=== PATIENT | female | born 1950 | race Caucasian/White ===

== ENCOUNTER → 2016-07-25 | Outpatient (CLI) | payer OTHER ==
[~2016-07-25] MED LIST: CHOL100010 PO; CLOTCRE33 TOP; FLAX1CAP11 PO; LACT10CA3 PO; LISI-729 PO; MULT-506 PO; SERT50TA PO; [UNRECOGNIZED DRUG - CODE] PO
--- NOTE | 2016-07-26 08:42 | DIAGNOSTIC IMAGING REPORT ---
PET/CT CLINICAL HISTORY: Renal cell carcinoma. TECHNIQUE: A PET/CT was performed from the skull base through the upper thighs following intravenous injection of 12.3 mCi of F 18 FDG IV. The injection was performed at 9:49 AM on July 25, 2016 and imaging began at 11:12 AM on July 25, 2016. Unenhanced CT was performed for attenuation correction purposes and anatomic localization. COMPARISON STUDY: PET/CT February 08, 2016. FINDINGS: Head and neck: No suspicious FDG uptake is identified within the neck. There is no cervical lymphadenopathy. Chest: No thoracic lymphadenopathy is identified. No suspicious FDG uptake is identified within the chest. Postsurgical findings within the right lung are noted suggestive of multiple wedge resections. The previously described small right lung nodules are not definitively identified on this examination. No new nodules are present. Abdomen and Pelvis: No suspicious FDG uptake is identified within the abdomen or the pelvis. The appearance of the left nephrectomy bed is unchanged. No enlarged abdominal or pelvic lymph nodes are identified. No significant FDG uptake is identified within the vagina at site of abnormality shown on MRI of October 14, 2015. Musculoskeletal: A right shoulder arthroplasty is noted. Evaluation for residual mass is difficult given streak artifact from the arthroplasty however mass effect at the site of biopsied tumor has diminished since prior PET/CT of February 02. There is diffuse moderate uptake within the right upper extremity with an SUV max of 3.5. The extent of FDG uptake has increased while the degree of FDG uptake has diminished. IMPRESSION: 1. No evidence for progressive malignancy by PET/CT. 2. Moderate diffuse FDG uptake within the upper arm. The extent of FDG uptake has increased since prior exam while the degree of FDG uptake has diminished. The biopsy proven recurrence is difficult to evaluate on the CT given streak artifact although the mass has decreased in size. The findings suggest a treatment response. The diffuse FDG uptake is likely treatment related although attention to this site on subsequent PET/CT is recommended as residual tumor could be obscured on this study. 3. The previously described right lung nodules are less conspicuous on this exam. No new nodules identified. Electronically signed by: David Pryor M.D. 07/26/2016 8:40 AM Dictated Date/Time: 07/25/2016 12:28 PM
== END | disposition home or self-care (01) ==
LOC: C.PET 09:05
PROVIDERS: ATTEND Internal Medicine Hematology & Oncology
DX: C64.9 Malignant neoplasm of unspecified kidney, except renal pelvis (principal)

== ENCOUNTER → 2016-08-30 | Outpatient (CLI) | payer OTHER | END | disposition home or self-care (01) | LOC: C.LABSPEC 11:06 | PROVIDERS: ATTEND Family Medicine | DX: E03.9 Hypothyroidism, unspecified (principal); C64.9 Malignant neoplasm of unspecified kidney, except renal pelvis; D64.9 Anemia, unspecified; Z79.899 Other long term (current) drug therapy ==

== ENCOUNTER → 2016-08-31 | Outpatient (CLI) | payer OTHER ==
[2016-09-06 14:50] LABS: CRYPTOSPORIDIUM AG TC 37213 NOT DETECTED (NOT DETECTED); O&P SOURCE OTHER-STOOL
== END | disposition home or self-care (01) ==
LOC: C.LABSPEC 15:42
PROVIDERS: ATTEND Family Medicine
DX: R19.7 Diarrhea, unspecified (principal)

== ENCOUNTER → 2016-09-01 | Outpatient (CLI) | payer OTHER | END | disposition home or self-care (01) | LOC: C.LAB 12:10 | PROVIDERS: ATTEND Family Medicine | DX: R19.7 Diarrhea, unspecified (principal) ==

== ENCOUNTER → 2016-10-11 | Outpatient (CLI) | payer OTHER ==
[2016-10-11 14:46] LABS: CHOLESTEROL/HDL RATIO 3.8
--- NOTE | 2016-10-18 13:19 | CODING QUERY MEDICAL NECESSITY ---
SUPPORTING DIAGNOSIS NEEDED A supporting diagnosis is required for the test/procedure performed on this patient in order for us to be reimbursed by the patient's insurance. Please provide a supporting diagnosis for the following test/procedure listed below next to the test name along with your signature. *If there is no additional diagnosis for this patient that would support the following test/procedure please document that below next to the test/procedure. Test(s)/Procedure(s) that require a supporting diagnosis: * VITAMIN D 25-HYDROXY DIAGNOSIS: * DOS: 10/11/16 Provider Signature: Date: Thank you Mehnaz Lantigua Health Information Management Once completed, please kindly fax back to [phone] For questions please call [phone]
== END | disposition home or self-care (01) ==
LOC: C.LABSPEC 12:11
PROVIDERS: ATTEND Family Medicine
DX: E03.9 Hypothyroidism, unspecified (principal); I10 Essential (primary) hypertension; C64.9 Malignant neoplasm of unspecified kidney, except renal pelvis; M85.80 Other specified disorders of bone density and structure, unspecified site; D64.9 Anemia, unspecified; Z79.899 Other long term (current) drug therapy

== ENCOUNTER → 2016-11-16 | Outpatient (CLI) | payer OTHER ==
--- NOTE | 2016-11-16 11:59 | DIAGNOSTIC IMAGING REPORT ---
PET/CT SKULL-THIGH CLINICAL HISTORY: Renal cell carcinoma COMPARISON STUDY: 07/25/2016 FINDINGS: The patient was injected with 15.4 mCi of F 18 labeled FDG. Findings standard induction phase, PET/CT scanning was performed from the skull base the upper thigh region. There is a nonspecific focus of increased FDG activity which fuses to the region of the right cervical carotid/lateral margin of the right thyroid at the C7 level. No masses identified at this level. This finding is of uncertain significance. Activity within the thorax is felt to be physiologic. There is no pathologic adrenal gland activity. There is no pathologic hepatic activity. There is diffuse colonic activity. There is physiologic right renal activity. The left kidney is absent. There is no pathologic bryan activity within the abdomen or pelvis. Postsurgical changes involve the right shoulder. There is mild diffuse soft tissue uptake within the right upper arm. This may be treatment related. This remains unchanged from the prior study. IMPRESSION: 1. New small unexplained focus of increased FDG activity within the lower right neck, fusing to the carotid or lateral aspect of the right thyroid. There are no corresponding CT abnormalities 2. Stable postsurgical change and soft tissue uptake within the right upper arm. 3. No evidence of pathologic bryan uptake within the chest abdomen or pelvis 4. Surgically absent left kidney 5. Postsurgical changes in the right lung. No evidence of pathologic lung activity Electronically signed by: Mickey Boyce M.D. 11/16/2016 11:57 AM Dictated Date/Time: 11/16/2016 11:46 AM
== END | disposition home or self-care (01) ==
LOC: C.PET 08:56
PROVIDERS: ATTEND Internal Medicine Hematology & Oncology
DX: C64.9 Malignant neoplasm of unspecified kidney, except renal pelvis (principal)

== ENCOUNTER → 2017-02-21 | Outpatient (CLI) | payer OTHER | END | disposition home or self-care (01) | LOC: C.LAB 16:44 | PROVIDERS: ATTEND Family Medicine | DX: E55.9 Vitamin D deficiency, unspecified (principal); C64.9 Malignant neoplasm of unspecified kidney, except renal pelvis; D64.9 Anemia, unspecified; Z79.899 Other long term (current) drug therapy ==

== ENCOUNTER → 2017-07-31 | Outpatient (CLI) | payer OTHER | END | disposition home or self-care (01) | LOC: C.LABSPEC 11:54 | PROVIDERS: ATTEND Family Medicine | DX: E03.9 Hypothyroidism, unspecified (principal); E55.9 Vitamin D deficiency, unspecified ==

== ENCOUNTER → 2017-09-06 | Outpatient (CLI) | payer OTHER ==
--- NOTE | 2017-09-06 14:16 | DIAGNOSTIC IMAGING REPORT ---
LEFT HIP 2 VIEWS CLINICAL HISTORY: Left hip pain. FINDINGS: AP and frog-leg views of the left hip are correlated with skeletal survey dated 04/18/2014. The skeletal structures are osteopenic. No fracture is identified in the left hip or the visualized left hemipelvis. Mild arthritic change and joint space narrowing is seen in the left hip. Bony overgrowth is seen along the acetabular roof. Enthesophytes arise from the left anterior superior iliac spine and the greater trochanter of the left femur. The overlying soft tissues are within normal limits. Mild sclerotic degenerative change is noted in the left sacroiliac joint. Surgical clips project over the left pelvis. The overlying soft tissues are otherwise normal in appearance. IMPRESSION: Osteopenia and mild arthritic change as above. No acute bony abnormality is identified in the left hip. Electronically signed by: Ti Michaels M.D. 09/06/2017 2:15 PM Dictated Date/Time: 09/06/2017 2:14 PM
== END | disposition home or self-care (01) ==
LOC: C.RADBC 13:23
PROVIDERS: ATTEND Family Medicine
DX: M25.552 Pain in left hip (principal); M85.88 Other specified disorders of bone density and structure, other site

== ENCOUNTER → 2017-11-07 | Outpatient (CLI) | payer OTHER ==
[~2017-11-07] MED LIST changes: +OPTIRAY 320 IV PRN
--- NOTE | 2017-11-07 12:17 | DIAGNOSTIC IMAGING REPORT ---
ABD/PELVIS IV AND ORAL CONT CT DOSE: HISTORY: Renal cell carcinoma RENAL CA TECHNIQUE: Multiaxial CT images of the abdomen and pelvis were performed following the use of intravenous and oral contrast. A dose lowering technique was utilized adhering to the principles of ALARA. COMPARISON STUDY: 05/25/2015 FINDINGS: No basilar nodular densities are identified on the current study. There appear to be postoperative changes of the right base. Lung bases specifically are clear. Liver enhances uniformly. There is mild fatty infiltration. There has been a prior left nephrectomy. Right kidney enhances uniformly. The bowel pattern is nonobstructive. There is no significant abdominal pelvic or inguinal adenopathy. Mild degenerative changes of the osseous structures with no well-defined lytic or blastic process. IMPRESSION: 1. Interval resection and/or resolution of the right basilar pulmonary nodularity. Area of 2. Mild fatty infiltration of liver. 3. Otherwise negative study post left nephrectomy. The above report was generated using voice recognition software. It may contain grammatical, syntax or spelling errors. Electronically signed by: Aroldo Iqbal M.D. 11/07/2017 12:16 PM Dictated Date/Time: 11/07/2017 12:10 PM
--- NOTE | 2017-11-07 12:33 | DIAGNOSTIC IMAGING REPORT ---
CT OF THE CHEST WITH IV CONTRAST CLINICAL HISTORY: Renal cell carcinoma. COMPARISON STUDY: Chest CT September 10, 2015 and PET/CT May 17, 2017. TECHNIQUE: Following IV administration of 70 mL of Optiray-320, helical axial images of the chest were obtained. Sagittal and coronal reconstructions were viewed as well as maximal intensity projections on an independent 3-D workstation. A dose lowering technique was utilized adhering to the principles of ALARA. CT DOSE: 683.15 mGy.cm FINDINGS: No enlarged axillary, mediastinal or hilar lymph nodes are present. Right shoulder arthroplasty is noted. The size of the heart is normal. There is no pericardial effusion. A small hiatal hernia is noted. No consolidation is present. A calcified granuloma within the left lower lobe is noted. The patient is status post right lung wedge resections. There are no suspicious pulmonary nodules. The bony thorax is unremarkable. The abdomen and pelvis will be reported separately. The patient is status post left nephrectomy. There is an old, healed fracture of the distal left clavicle. IMPRESSION: No evidence of metastatic disease within the chest. Electronically signed by: David Pryor M.D. 11/07/2017 12:31 PM Dictated Date/Time: 11/07/2017 12:23 PM
== END | disposition home or self-care (01) ==
LOC: C.CTS 11:14
PROVIDERS: ATTEND Internal Medicine Hematology & Oncology
DX: C64.9 Malignant neoplasm of unspecified kidney, except renal pelvis (principal)

== ENCOUNTER → 2017-11-07 | Outpatient (CLI) | payer OTHER ==
[~2017-11-07] MED LIST changes: -OPTIRAY 320 IV PRN
== END | disposition home or self-care (01) ==
LOC: C.LAB 10:33
PROVIDERS: ATTEND Family Medicine
DX: E03.9 Hypothyroidism, unspecified (principal); E55.9 Vitamin D deficiency, unspecified

== ENCOUNTER → 2018-02-23 | Outpatient (CLI) | payer OTHER | END | disposition home or self-care (01) | LOC: C.LABSPEC 15:46 | PROVIDERS: ATTEND Obstetrics & Gynecology | DX: N95.2 Postmenopausal atrophic vaginitis (principal) ==

== ENCOUNTER → 2018-03-08 | Outpatient (CLI) | payer OTHER ==
[~2018-03-08] MED LIST changes: +OPTIRAY 320 IV PRN
--- NOTE | 2018-03-08 15:18 | DIAGNOSTIC IMAGING REPORT ---
ABD/PELVIS IV AND ORAL CONT CLINICAL HISTORY: 67 years-old Female presenting with CT. TECHNIQUE: Multidetector CT of the abdomen and pelvis was performed after the administration of oral and intravenous contrast. IV contrast: 70 mL of Optiray 320. A dose lowering technique was used consistent with the principles of ALARA (as low as reasonably achievable). COMPARISON: 11/07/2017. CT DOSE (mGy.cm): The estimated cumulative dose is 660.22. FINDINGS: Bull Bucker topogram: Right shoulder arthroplasty. Left pelvic surgical clips. Lung bases: Postsurgical changes of wedge resections in the right middle lobe and right lower lobe. Normal heart size. No pericardial or pleural effusion. Liver: Normal morphology. No liver lesion. Patent hepatic vasculature. Biliary: No intrahepatic or extrahepatic biliary ductal dilatation. Normal gallbladder. Pancreas: Normal. Spleen: Normal. Adrenal glands: Normal. Kidneys and ureters: Postsurgical changes of left nephrectomy. No suspicious soft tissue nodularity in the operative bed. Normal appearance of the right kidney. No nephrolithiasis. No hydronephrosis. Normal right ureter. Bladder: Normal. Pelvic organs: Uterus and ovaries normal. Bowel: Moderate stool burden in mildly distended colon. Limited diverticulosis at the distal descending colon. The appendix is normal. No bowel obstruction. Peritoneal cavity: No free fluid or intraperitoneal gas. Lymph nodes: No enlarged lymph nodes in the abdomen or pelvis. Vasculature: Atherosclerosis of the normal caliber abdominal aorta. IVC patent. Abdominal wall: Normal. Musculoskeletal: Degenerative changes of the spine. No destructive osseous lesion. Mild degenerative changes of the hips and sacroiliac joints. Numerous bone islands in the pelvis, unchanged. The appearance may suggest mild osteopoikilosis. IMPRESSION: 1. Postsurgical changes of left nephrectomy. No evidence of residual or recurrent disease in the operative bed. No evidence of metastatic disease in abdomen or pelvis. 2. Moderate stool burden throughout mildly distended colon suggests constipation. 3. Postsurgical changes of wedge resections in the right lung. Please see separately dictated CT chest. Electronically signed by: Sujit Clark M.D. 03/08/2018 3:17 PM Dictated Date/Time: 03/08/2018 3:09 PM
--- NOTE | 2018-03-08 15:28 | DIAGNOSTIC IMAGING REPORT ---
CT (CHEST) THORAX WITH CLINICAL HISTORY: 67 years-old Female presenting with history of renal cell carcinoma. TECHNIQUE: Multidetector CT imaging of the chest was performed after the administration of intravenous contrast. IV contrast: 70 mL of Optiray 320. A dose lowering technique was used consistent with the principles of ALARA (as low as reasonably achievable). COMPARISON: 11/07/2017. CT DOSE (mGy.cm): The estimated cumulative dose is 660.22 mGy.cm. FINDINGS: Beauty School Instructor topogram: Right shoulder arthroplasty. On soft tissue windows, normal thyroid and thoracic inlet. No axillary, supraclavicular, hilar, or mediastinal lymphadenopathy. Normal aorta. Normal heart size. Aortic valve calcification. No pericardial or pleural effusion. Upper abdomen normal. On lung windows, postsurgical changes of wedge resections in the medial segment of the right middle lobe and lateral basal segment of the right lower lobe. No suspicious nodularity or consolidation along the suture margins. Associated architectural distortion, expected postsurgical change. Punctate right upper lobe nodules (series 6 images 91, 105, and 172), unchanged. Punctate right lower lobe nodule (series 6 image 176), unchanged. No new pulmonary nodule or infiltrate. Central airways patent. No pneumothorax. On bone windows, degenerative changes of the spine. Right shoulder arthroplasty. No destructive osseous lesion. IMPRESSION: 1. Postsurgical changes of right lung wedge resections. No new pulmonary nodule. Stable small punctate bilateral pulmonary nodules. No acute intrathoracic pathology. Electronically signed by: Sujit Clark M.D. 03/08/2018 3:27 PM Dictated Date/Time: 03/08/2018 3:18 PM
== END | disposition home or self-care (01) ==
LOC: C.CTS 14:03
PROVIDERS: ATTEND Nurse Practitioner Family
DX: C64.9 Malignant neoplasm of unspecified kidney, except renal pelvis (principal)

== ENCOUNTER 2018-12-11 18:48 | Inpatient (IN) ==
[2018-12-11] MEDS ORDERED: MoRPHine SULFATE 4 MG/ML 1 ML CARP\\VIAL IV PRN (19:00)
[2018-12-11] MEDS ORDERED: SODIUM CHLORIDE 0.9% 1000ML 1,000 ML IV SCH (19:00)
--- NOTE | 2018-12-11 19:22 | XRay Report ---
Spine portable AP chest radiograph CLINICAL HISTORY: trauma COMPARISON STUDY: Chest CT October 29, 2018. FINDINGS: There is no pneumothorax or pleural effusion on this supine exam. Postoperative findings wi thin the right lung are noted. Cardiomediastinal silhouette is stable. No airspace opacities are pres ent. Right shoulder arthroplasty is noted. Alignment appears unchanged. IMPRESSION: No acute cardiopulmonary findings. Electronically signed by: David Pryor M.D. 12/11/2018 7:21 PM
--- NOTE | 2018-12-11 19:24 | XRay Report ---
XR hip RT 2-3V w pelvis CLINICAL HISTORY: trauma, pain COMPARISON: CT of the abdomen and pelvis October 29, 2018. FINDINGS: Sacroiliac joints and symphysis pubis are intact. There is no acute proximal left femoral fracture. Note is made of an acute impacted right femoral neck fracture. Fracture displacement is dif ficult to assess on this exam however fracture is likely mildly displaced. No additional acute fractu res are present. IMPRESSION: Acute impacted right femoral neck fracture which is likely mildly displaced. Electronically signed by: David Pryor M.D. 12/11/2018 7:23 PM
[2018-12-11 19:38] LABS: Basophils # (auto) 0.05 K/uL (0-0.2); Basophils % (auto) 0.4 %; Eosinophils # (auto) 0.31 K/uL (0-0.5); Eosinophils % (auto) 2.8 %; Hematocrit (blood only) 42.2 % (37-47); Hemoglobin 15.2 g/dL (12.0-16.0); Immature Granulocytes # (auto) 0.08 K/uL (0.00-0.02); Immature Granulocytes % (auto) 0.7 %; Lymphocytes # (auto) 1.76 K/uL (1.2-3.4); Lymphocytes % (auto) 15.7 %; Mean Platelet Volume 9.5 fL (7.4-10.4); Monocytes # (auto) 0.69 K/uL (0.11-0.59); Monocytes % (auto) 6.2 %; Neutrophils % (auto) 74.2 %; Platelet Count 335 K/uL (130-400); RDW Coefficient of Variation 13.7 % (11.5-14.5); RDW Standard Deviation 46.7 fL (36.4-46.3); Red Blood Count 4.54 M/uL (4.2-5.4); White Blood Count 11.19 K/uL (4.8-10.8)
[2018-12-11 19:50] LABS: INR 1.1 (0.9-1.1); Partial Thromboplastin Ratio 0.9; Partial Thromboplastin Time 24.8 Seconds (21.0-31.0); Prothrombin Time 11.4 Seconds (9.0-12.0)
[2018-12-11 19:52] LABS: BUN Creatinine Ratio 13.7 (10-20); Calcium 9.7 mg/dl (8.5-10.1); Creatinine Clr Calc Pharmacy 41.8 ml/min; Est GFR (African American) 47.7; Est GFR (Non-African American) 41.1
[2018-12-11 20:30] LABS: Appearance Urine Clear (Clear); Bacteria Urine Automated Negative (Negative); Bilirubin Urine Negative (Negative); Blood Urine Negative (Negative); Color Urine Yellow; Epithelial Cell Urine Auto 20-30 /lpf (0-5); Glucose Urine UA Negative (Negative); Ketones Urine Negative (Negative); Leukocyte Esterase Urine 1+ (Negative); Nitrite Urine Negative (Negative); Protein Urine Negative (Negative); RBC Urine Automated 0-4 /hpf (0-4); Specific Gravity Urine 1.014 (1.000-1.030); Urobilinogen Urine Negative (Negative); pH Urine 6.5 (4.5-7.5)
--- NOTE | 2018-12-11 22:34 | History & Physical Report ---
Date of Service December 11, 2018 Assessment & Plan (1) Closed fracture of neck of right femur: 68-year-old female with a past medical history of hypertension, hypothyroidism, GERD, depression, renal cell carcinoma presents following a mechanical fall and was found to have a right hip fracture. Right hip fracture RCRI score is 3.9%, low risk for surgery, no contraindication based on chart review patient history Patient has good functional capacity at baseline, no significant history of ischemic heart disease Ortho consult Pain control Dilaudid 0.25 every 3 hours N.p.o, normal saline 80 cc/h History of renal cell carcinoma with bone metastasis Remission, kidney resection 2011, right shoulder replacement 2013 Continue Inlyta following procedure Hypertension Restart amlodipine and lisinopril following surgery PRN hydralazine for systolic blood pressure greater than 170 Hypothyroidism Restart Synthroid following surgery Status post cataract surgery Continue home eyedrops Depression Continue Wellbutrin, Trintellix following procedure DVT prophylaxis Contraindicated at this time CODE STATUS Full code (2) Fall: (3) Encounter for pre-operative examination: (4) Renal carcinoma: (5) HTN (hypertension): (6) Hypothyroid: (7) GERD (gastroesophageal reflux disease): (8) Depression: History of Present Illness Primary Care Provider: Flakito Kiran 68-year-old female with past medical history of hypertension, hypothyroidism, GERD, depression, renal cell carcinoma with bone mets status post nephrectomy 2011, right shoulder replacement 2013 presents following a mechanical fall at home. Patient was found to have a right hip fracture in the ED. The patient states that she simply lost her balance and tripped. She denies having any dizziness or loss of consciousness prior to falling. Patient has a history of renal cell carcinoma which she says is in remission. She is currently on Inlyta for to the renal cell carcinoma and the patient has follow-up with an orthopedic oncologist and [facility] oncology. Patient has hypertension, but is well controlled and denies history of ischemic heart disease. She denies history of diabetes, congestive heart failure, chronic kidney disease. Review of systems Constitutional; no fevers, chills, night sweats HEENT; no sore throat, no runny nose, no cough CV; no chest pain, no lower extremity swelling, no palpitations Pulmonary; no wheezing, no hemoptysis, no shortness of breath GI; no abdominal pain, no nausea/vomiting/diarrhea MSK; right hip pain Allergies Allergy/AdvReac Type Severity Reaction Status Date / Time nickel Allergy Severe ITCHING Verified 12/12/18 10:44 AND SORENESS OF GLANDS adhesive Allergy Intermediate REDNESS Verified 12/12/18 10:44 AND VERY ITCHY Penicillins Allergy Unknown RASH Verified 12/12/18 10:44 Sulfa (Sulfonamide Allergy Unknown VAGINAL Verified 12/12/18 10:44 Antibiotics) IRRITATION Home Medications Home Medications Medication Instructions Recorded Confirmed Type Kym Carrington 1 tab PO 3XWK 11/28/18 12/11/18 History Trintellix 10 mg PO 1900 11/28/18 12/11/18 History amlodipine [Norvasc] 10 mg PO QAM 11/28/18 12/11/18 History bupropion HCl [Wellbutrin XL] 300 mg PO QAM 11/28/18 12/11/18 History cholecalciferol (vitamin D3) 4,000 unit PO QAM 11/28/18 12/11/18 History [Vitamin D3] docusate sodium [Stool Softener] 100 mg PO DAILY 11/28/18 12/11/18 History flaxseed oil 1,000 mg PO DAILY 11/28/18 12/11/18 History levothyroxine [Synthroid] 75 mcg PO QAM 11/28/18 12/11/18 History lisinopril 5 mg PO QAM 11/28/18 12/11/18 History multivitamin 1 tab PO 1200 11/28/18 12/11/18 History ranitidine HCl [Zantac] 150 mg PO QAM 11/28/18 12/11/18 History axitinib [Inlyta] 1 mg PO BID 12/11/18 12/11/18 History difluprednate [Durezol] 1 drops OP QID 12/11/18 12/11/18 History tobramycin 1 drops OP QID 12/11/18 12/11/18 History Past Med/Surg History Medical History Anxiety Cancer RENAL CELL CANCER IN LEFT KIDNEY METS TO RIGHT SHOULDER Depression GERD (gastroesophageal reflux disease) Hypertension Hypothyroidism Surgical History S/P cataract extraction History of bilateral tubal ligation History of nephrectomy LEFT History of total shoulder replacement RIGHT Family History Mother Family history of diabetes mellitus Father Family history of diabetes mellitus Social History Preferred Language: Upper Sorbian Communication Ability: Effective Assembler Crimper Required: No Beliefs That Will Affect Care: None Current Living Situation: Spouse Other Information That Helps Us Care for You: No Feels Safe at Home: Yes Safety Concerns: Feels Safe At This Time Smoking Status: Former smoker (Quit 35 years) Tobacco Type: cigarettes Do You Dip or Chew Tobacco: No Second Hand Exposure: No Hx Alcohol Use: Yes Alcohol type: wine Hx Substance Use: No Review of Systems Review of Systems: All systems reviewed & are unremarkable except as noted in HPI & below Physical Exam Constitutional: WD/WN, vitals as above Eyes: PERRL, conjunctivae normal, anicteric sclerae ENMT: external ear and nose normal, oropharynx normal Neck: trachea midline, no thyromegaly Respiratory: normal respiratory effort, lungs clear to auscultation Cardiovascular: RRR, no murmur, no edema Gastrointestinal (Abdomen): normal bowel sounds, soft, nontender, no hepatosplenomegaly Musculoskeletal: Head/Neck/Chest: normocephalic and head atraumatic Right lower extremity is internally rotated, no erythema or ecchymosis noted on right hip, deferred range of motion testing secondary to pain Skin: no rashes, warm and dry Neurologic: PERRL, EOMI, accommodation nl, no face palsy, no dysarthria Psychiatric: A+Ox3, euthymic affect Results & Data Vital Signs (Past 12 Hours) Vital Signs Temp Pulse Pulse Resp BP BP Pulse Ox 12/11/18 22:01 82 19 117/63 93 12/11/18 22:00 81 17 96 12/11/18 21:31 82 18 118/66 12/11/18 21:25 81 20 113/69 93 12/11/18 21:01 82 21 113/69 94 12/11/18 21:00 81 15 117/63 96 12/11/18 20:31 80 21 112/66 94 12/11/18 20:01 86 20 138/82 12/11/18 20:00 80 21 12/11/18 19:45 84 15 12/11/18 19:37 98 12/11/18 19:31 80 12 137/77 12/11/18 19:00 36.7 C 85 18 115/76 96 Diagnostic Findings XRay Report Patient: WILLIAM SHAHID Date: 12/11/18 MR#: [id number]: [address] Acct ID:[id number]: [address] Date: 1950[facility] Zip: [place] [address] Age: 68Location: ED Sex: F Room/Bed: Att Phy: Diagnosis: FALL, HIP PAIN Joyce Phy: Flakito Kiran, DOService Date: 12/11/18 Fam Phy: Interpreting Phy: David Pryor MD Admit Phy: Ordering Phy: Shannan Bunch, DO cc: ~ Spine portable AP chest radiograph CLINICAL HISTORY: trauma COMPARISON STUDY: Chest CT October 29, 2018. FINDINGS: There is no pneumothorax or pleural effusion on this supine exam. Postoperative findings within the right lung are noted. Cardiomediastinal silhouette is stable. No airspace opacities are present. Right shoulder arthroplasty is noted. Alignment appears unchanged. IMPRESSION: No acute cardiopulmonary findings. Electronically signed by: David Pryor M.D. 12/11/2018 7:21 PM Dictated: 12/11/181917 Transcribed: 12/11/181917 [place] [phone] XRay Report Patient: WILLIAM SHAHID Date: 12/11/18 MR#: [id number] Acct ID:[id number]: [facility] Date: 1950[facility] Zip: [place] [address] Age: 68Location: ED Sex: F Room/Bed: Att Phy: Diagnosis: FALL, HIP PAIN Joyce Phy: Flakito Kiran, DOService Date: 12/11/18 Fam Phy: Interpreting Phy: David Pryor MD Admit Phy: Ordering Phy: Shannan Bunch, DO cc: ~ XR hip RT 2-3V w pelvis CLINICAL HISTORY: trauma, pain COMPARISON: CT of the abdomen and pelvis October 29, 2018. FINDINGS: Sacroiliac joints and symphysis pubis are intact. There is no acute proximal left femoral fracture. Note is made of an acute impacted right femoral neck fracture. Fracture displacement is difficult to assess on this exam however fracture is likely mildly displaced. No additional acute fractures are present. IMPRESSION: Acute impacted right femoral neck fracture which is likely mildly displaced. Electronically signed by: David Pryor M.D. 12/11/2018 7:23 PM Dictated: 12/11/181920 Transcribed: 12/11/181920 Code Status & VTE Plan Code Status Full code VTE Prophylaxis Plan VTE Prophylaxis will be ordered: No Supervising Physician Co-Signing Physician Notes Attending addendum: I have physically seen this patient, have supervised the medical residents activities, and agree with the H&P unless as otherwise noted. Assessment and Plan: Closed right femoral neck fracture- Admit to medical surgical floor. NPO Acetaminophen 1 g IV every 8 hours PRN mild pain or temperature. Dilaudid 0.2 mg IV every 3 hours as needed severe pain. NSS at 80 mils per hour. Consult orthopedic surgery. Acceptable risk for this surgery. Remainder of orders and notations as noted. Resident Activity Tracking Resident Involvement: Resident Care Provided Care Provided: Adult Hospital Medicine (1) Fall Encounter type: initial encounter Qualified Code(s): W19.XXXA - Unspecified fall, initial encounter (2) Closed fracture of neck of right femur Encounter type: initial encounter Qualified Code(s): S72.001A - Fracture of unspecified part of neck of right femur, initial encounter for closed fracture
[2018-12-11] MEDS: SODIUM CHLORIDE 0.9% 1000ML 1,000 ML IV SCH (22:51)
[2018-12-11] MEDS: HYDROmorphone INJ 0.5 MG/0.5 ML SYR IV PRN (22:51)
[2018-12-12 07:01] LABS: Basophils # (auto) 0.04 K/uL (0-0.2); Basophils % (auto) 0.3 %; Eosinophils # (auto) 0.33 K/uL (0-0.5); Eosinophils % (auto) 2.4 %; Hematocrit (blood only) 40.6 % (37-47); Hemoglobin 13.9 g/dL (12.0-16.0); Immature Granulocytes # (auto) 0.03 K/uL (0.00-0.02); Immature Granulocytes % (auto) 0.2 %; Lymphocytes # (auto) 1.06 K/uL (1.2-3.4); Lymphocytes % (auto) 7.8 %; Mean Corpuscular Hgb Conc 34.2 g/dL (32-36); Mean Corpuscular Volume 95.8 fL (80-100); Mean Platelet Volume 9.7 fL (7.4-10.4); Monocytes # (auto) 0.95 K/uL (0.11-0.59); Neutrophils # (auto) 11.25 K/uL (1.4-6.5); Neutrophils % (auto) 82.3 %; Platelet Count 269 K/uL (130-400); RDW Coefficient of Variation 13.9 % (11.5-14.5); RDW Standard Deviation 48.6 fL (36.4-46.3); Red Blood Count 4.24 M/uL (4.2-5.4); White Blood Count 13.66 K/uL (4.8-10.8)
[2018-12-12 07:14] LABS: INR 1.1 (0.9-1.1); Partial Thromboplastin Ratio 0.9; Partial Thromboplastin Time 25.4 Seconds (21.0-31.0); Prothrombin Time 11.5 Seconds (9.0-12.0)
--- NOTE | 2018-12-12 07:29 | XRay Report ---
XR hip RT 2-3V w pelvis CLINICAL HISTORY: Right hip pain. Right hip fracture. COMPARISON: 12/11/2018 DISCUSSION: There is a subcapital right hip fracture. There is no dislocation. The crosstable lateral view is suboptimal. Only minimal displacement is evident on this projection. Degenerative changes ar e present in the lower lumbar spine. IMPRESSION: Subcapital right hip fracture. Electronically signed by: Mickey Boyce M.D. 12/12/2018 7:28 AM
[2018-12-12 07:32] LABS: Calcium 8.6 mg/dl (8.5-10.1); Creatinine Clr Calc Pharmacy 53.6 ml/min; Est GFR (African American) 64.5; Est GFR (Non-African American) 55.7; Potassium 4.1 mmol/L (3.5-5.1)
[2018-12-12] MEDS ORDERED: DUREZOL~ORDER AWAITING ACTION SCH (08:00)
--- NOTE | 2018-12-12 08:09 | Hospitalist Progress Note ---
Date of Service December 12, 2018 Assessment & Plan (1) Closed fracture of neck of right femur: 68-year-old female with a past medical history of hypertension, hypothyroidism, GERD, depression, renal cell carcinoma presents following a mechanical fall and was found to have a right hip fracture. Right hip fracture RCRI score is 3.9%, low risk for surgery, no contraindication based on chart review patient history Patient has good functional capacity at baseline, no significant history of ischemic heart disease Ortho consult Pain control Dilaudid 0.25 every 3 hours N.p.o, normal saline 80 cc/h History of renal cell carcinoma with bone metastasis Remission, kidney resection 2011, right shoulder replacement 2013 Continue Inlyta following procedure Hypertension Restart amlodipine and lisinopril following surgery PRN hydralazine for systolic blood pressure greater than 170 Hypothyroidism Restart Synthroid following surgery Status post cataract surgery Continue home eyedrops Depression Continue Wellbutrin, Trintellix following procedure DVT prophylaxis Contraindicated at this time CODE STATUS Full code (2) Fall: (3) Encounter for pre-operative examination: (4) Renal carcinoma: (5) HTN (hypertension): (6) Hypothyroid: (7) GERD (gastroesophageal reflux disease): (8) Depression: Results & Data Vital Signs (Past 12 Hours) Vital Signs Temp Pulse Pulse Pulse Resp BP BP 12/12/18 08:05 36.8 C 80 18 136/80 12/11/18 22:38 36.6 C 80 18 129/69 12/11/18 22:01 82 19 117/63 12/11/18 22:00 81 17 12/11/18 21:31 82 18 118/66 12/11/18 21:25 81 20 113/69 12/11/18 21:01 82 21 113/69 12/11/18 21:00 81 15 117/63 12/11/18 20:31 80 21 112/66 Pulse Ox 12/12/18 08:05 92 12/11/18 22:38 92 12/11/18 22:01 93 12/11/18 22:00 96 12/11/18 21:31 12/11/18 21:25 93 12/11/18 21:01 94 12/11/18 21:00 96 12/11/18 20:31 94 (1) Closed fracture of neck of right femur Encounter type: initial encounter Qualified Code(s): S72.001A - Fracture of unspecified part of neck of right femur, initial encounter for closed fracture (2) Fall Encounter type: initial encounter Qualified Code(s): W19.XXXA - Unspecified fall, initial encounter
[2018-12-12] MEDS: HYDROmorphone INJ 0.5 MG/0.5 ML SYR IV PRN ×2 (08:17→21:01)
[2018-12-12] MEDS ORDERED: TOBRAMYCIN SULF 0.3% OP SOLN 5 ML BTL OP SCH (09:00)
--- NOTE | 2018-12-12 10:13 | Anesthesiology Consultation ---
Date of Service December 12, 2018 Assessment & Plan Chart Review Chart Review: Acceptable Risk for Surgery and Patient NOT seen in Pre Admission Testing Consults Requested none ASA ASA3 Proposed Anesthesia Anesthesia Type: MAC Spinal Risk / Benefits Reviewed With: PT / POA / Parent / Guardian, Accepts Plan and Informed Consent Obtained Additional Comments: Discussed with pt options of SAB VS GA. R/b of both were explained to patient. All questions were answered. Pt accepting risk and agree to proceed. Consent was signed and witnessed History Surgery Operation Date: 12/12/18 10:55 Proposed Procedures p Right Total Hip Arthroplasty Uncemented - Cameron Tamez MD Height/Weight Height: 1.75 m Weight: 67 kg Allergies Allergy/AdvReac Type Severity Reaction Status Date / Time nickel Allergy Severe ITCHING Verified 12/12/18 10:44 AND SORENESS OF GLANDS adhesive Allergy Intermediate REDNESS Verified 12/12/18 10:44 AND VERY ITCHY Penicillins Allergy Unknown RASH Verified 12/12/18 10:44 Sulfa (Sulfonamide Allergy Unknown VAGINAL Verified 12/12/18 10:44 Antibiotics) IRRITATION Medications Home Medications Medication Instructions Recorded Confirmed Last Taken Kym Carrington 1 tab PO 3XWK 11/28/18 12/11/18 12/03/18 Trintellix 10 mg PO 1900 11/28/18 12/11/18 12/04/18 amlodipine [Norvasc] 10 mg PO QAM 11/28/18 12/11/18 12/11/18 08:00 bupropion HCl [Wellbutrin XL] 300 mg PO QAM 11/28/18 12/11/18 12/11/18 08:00 cholecalciferol (vitamin D3) 4,000 unit PO QAM 11/28/18 12/11/18 12/04/18 [Vitamin D3] docusate sodium [Stool Softener] 100 mg PO DAILY 11/28/18 12/11/18 12/04/18 flaxseed oil 1,000 mg PO DAILY 11/28/18 12/11/18 12/11/18 09:00 levothyroxine [Synthroid] 75 mcg PO QAM 11/28/18 12/11/18 12/11/18 07:00 lisinopril 5 mg PO QAM 11/28/18 12/11/18 12/11/18 08:00 multivitamin 1 tab PO 1200 11/28/18 12/11/18 12/04/18 ranitidine HCl [Zantac] 150 mg PO QAM 11/28/18 12/11/18 12/11/18 08:00 axitinib [Inlyta] 1 mg PO BID 12/11/18 12/11/18 12/11/18 08:00 difluprednate [Durezol] 1 drops OP QID 12/11/18 12/11/18 Unknown tobramycin 1 drops OP QID 12/11/18 12/11/18 12/11/18 16:00 Active Medications Generic Name Dose Route Start Last Admin Trade Name Freq PRN Reason Stop Dose Admin Hydromorphone HCl 0.25 mg 12/11/18 22:36 12/12/18 08:17 Dilaudid IV 12/25/18 22:35 0.25 mg Q3H PRN Administration Pain Sodium Chloride 1,000 mls @ 80 mls/hr 12/11/18 22:36 12/12/18 10:46 Nss 1000ml IV 01/10/19 22:35 0 mls/hr .[id number] JAY JAY Infusion Miscellaneous 1 ea 12/12/18 08:00 12/12/18 08:10 Order Awaiting Action N/A 01/11/19 07:59 Not Given QS JAY JAY Miscellaneous 1 ea 12/12/18 08:00 12/12/18 08:10 Order Awaiting Action N/A 01/11/19 07:59 Not Given QS JAY JAY NPO Date Last Intake of Fluids: 12/11/18 Time Last Intake of Fluids: 23:00 Date Last Intake of Solids: 12/11/18 Time Last Intake of Solids: 19:00 Past Medical History Medical History Anxiety Cancer RENAL CELL CANCER IN LEFT KIDNEY METS TO RIGHT SHOULDER Depression GERD (gastroesophageal reflux disease) Hypertension Hypothyroidism Exercise / Class Metabolic Activity II 4-5 Yardwork/Stairs/Walk up hill Past Family History Family History Mother Family history of diabetes mellitus Father Family history of diabetes mellitus Past Surgical History Surgical History S/P cataract extraction History of bilateral tubal ligation History of nephrectomy LEFT History of total shoulder replacement RIGHT Past Anesthesia History No Hx of Anesthesia Complications and No Family Hx of Anesthesia Complications History of PONV No Hx of PONV and No Hx of Motion Sickness Social History Smoking Status: Former smoker (Quit 35 years) tobacco type: cigarettes Do You Dip or Chew Tobacco: No Hx Alcohol Use: Yes Alcohol type: wine alcohol intake frequency: holidays/special occasions only Hx Substance Use: No substance use type: does not use Review of Systems Respiratory: no dyspnea and no dyspnea on exertion Cardiovascular: no chest pain, no dyspnea on exertion and no orthopnea Gastrointestinal: no heartburn, no nausea and no vomiting Physical Exam Vital Signs Last Vital Signs Temp 36.8 C 12/12/18 08:05 Pulse 80 12/12/18 08:05 Resp 18 12/12/18 08:05 BP 136/80 12/12/18 08:05 Pulse Ox 92 12/12/18 08:05 ENMT Mouth: + dental restorations (Upper partial); no TMJ abnormality and no TMJ clicking Thyromental Distance: < 3.5 Finger Breadths Mallampati Class: III Mouth / Teeth: 1. Missing Neck normal visual inspection; neck extension not limited Respiratory Auscultation: lungs clear to auscultation bilaterally Cardiovascular Rate/Rhythm: regular rate and regular rhythm Psychiatric Orientation: alert and oriented x 3 Testing Laboratory Results 12/12/18 06:32 12/12/18 06:32 12/11/18 12/11/18 12/11/18 19:20 19:20 20:05 PT 11.4 INR 1.1 APTT 24.8 Urine Color Yellow Urine Appearance Clear Urine pH 6.5 Ur Specific [place] 1.014 Urine Protein Negative Urine Glucose (UA) Negative Urine Ketones Negative Urine Nitrite Negative Ur Leukocyte Esterase 1+ H Urine WBC (Auto) 1-5 Urine RBC (Auto) 0-4 U Hyaline Cast (Auto) 1-5 U Epithel Cells (Auto) 20-30 H Urine Bacteria (Auto) Negative Blood Type O Positive Antibody Screen NEGATIVE 12/12/18 06:32 PT 11.5 INR 1.1 APTT 25.4 Urine Color Urine Appearance Urine pH Ur Specific [place] Urine Protein Urine Glucose (UA) Urine Ketones Urine Nitrite Ur Leukocyte Esterase Urine WBC (Auto) Urine RBC (Auto) U Hyaline Cast (Auto) U Epithel Cells (Auto) Urine Bacteria (Auto) Blood Type Antibody Screen Electrocardiogram Date: 12/11/18 Findings: + NSR @ (82 bpm) Normal sinus rhythm Rightward axis Borderline ECG When compared with ECG of 15-DEC-2015 13:45, Vent. rate has increased BY 31 BPM Chest X-Ray Date: 12/11/18 Findings: + NAD FINDINGS: There is no pneumothorax or pleural effusion on this supine exam. Postoperative findings within the right lung are noted. Cardiomediastinal silhouette is stable. No airspace opacities are present. Right shoulder arthroplasty is noted. Alignment appears unchanged. IMPRESSION: No acute cardiopulmonary findings. Echocardiogram Date: 11/05/15 EF: >70% LV Function: Hyperdynamic RWMA: + none Valvular Disease: + no significant valvular disease 1. Normal LV size with hyperdynamic systolic function 2. No significant valvular abnormalities 3. No significant pulmonary hypertension suggested, with estimated RVSP less than 30mmHg 4. Technically difficult study 5. No prior study available for comparison
--- NOTE | 2018-12-12 10:31 | Orthopedic Consultation ---
Date of Consultation December 12, 2018 Assessment & Plan (1) Closed fracture of neck of right femur: She was seen and examined by Dr. Tamez today as well. She is npo. We did recommend surgical fixation of this fracture and there is enough displacement that we did recommendTHA vs hemiarthroplasty. Procedure was explained inculding risks, benefits, alternatives to surgery. She would like to proceed and consent was obtained. We will plan on surgery today. History of Present Illness Reason for Consultation: Right hip pain/fx Attending Physician: Jacky Lopes MD History of Present Illness Renee is a 68 y/o female who had a fall yesterday and fractured her right hip. She is not able to recall how she fell. She denies any preexisting hip/leg pain. Previously ambulated independently. She does have a h/o metastatic renal cell carcinoma that did affect her right shoulder. She had a shoulder hemiarthroplasty in [place] with Dr. Beyer in 2013. Her complete history reviewed and refer to h & p. Allergies Allergy/AdvReac Type Severity Reaction Status Date / Time nickel Allergy Severe ITCHING Verified 12/11/18 19:57 AND SORENESS OF GLANDS adhesive Allergy Intermediate REDNESS Verified 12/11/18 19:57 AND VERY ITCHY Penicillins Allergy Unknown RASH Verified 12/11/18 19:57 Sulfa (Sulfonamide Allergy Unknown VAGINAL Verified 12/11/18 19:57 Antibiotics) IRRITATION Home Medications Home Medications Medication Instructions Recorded Confirmed Type Kym Carrington 1 tab PO 3XWK 11/28/18 12/11/18 History Trintellix 10 mg PO 1900 11/28/18 12/11/18 History amlodipine [Norvasc] 10 mg PO QAM 11/28/18 12/11/18 History bupropion HCl [Wellbutrin XL] 300 mg PO QAM 11/28/18 12/11/18 History cholecalciferol (vitamin D3) 4,000 unit PO QAM 11/28/18 12/11/18 History [Vitamin D3] docusate sodium [Stool Softener] 100 mg PO DAILY 11/28/18 12/11/18 History flaxseed oil 1,000 mg PO DAILY 11/28/18 12/11/18 History levothyroxine [Synthroid] 75 mcg PO QAM 11/28/18 12/11/18 History lisinopril 5 mg PO QAM 11/28/18 12/11/18 History multivitamin 1 tab PO 1200 11/28/18 12/11/18 History ranitidine HCl [Zantac] 150 mg PO QAM 11/28/18 12/11/18 History axitinib [Inlyta] 1 mg PO BID 12/11/18 12/11/18 History difluprednate [Durezol] 1 drops OP QID 12/11/18 12/11/18 History tobramycin 1 drops OP QID 12/11/18 12/11/18 History Patient History Medical History Anxiety Cancer RENAL CELL CANCER IN LEFT KIDNEY METS TO RIGHT SHOULDER Depression GERD (gastroesophageal reflux disease) Hypertension Hypothyroidism Surgical History S/P cataract extraction History of bilateral tubal ligation History of nephrectomy LEFT History of total shoulder replacement RIGHT Family History Mother Family history of diabetes mellitus Father Family history of diabetes mellitus Social History Preferred Language: [place] Communication Ability: Effective Landcare Officer Required: No Beliefs That Will Affect Care: None Current Living Situation: Spouse Other Information That Helps Us Care for You: No Feels Safe at Home: Yes Safety Concerns: Feels Safe At This Time Smoking Status: Never smoker Tobacco Type: cigarettes Second Hand Exposure: No Hx Alcohol Use: No Hx Substance Use: No Physical Exam Physical Exam: She is alert, oriented, though she does not recall how she fell. Right leg is externally rotated. She has pain with minimal motion. She is able to DF/PF. NVI. No pain with ROM of BUE or LLE. Results & Data Vital Signs (Past 12 Hours) Vital Signs Temp Pulse Pulse Resp BP Pulse Ox 12/12/18 08:05 36.8 C 80 18 136/80 92 12/11/18 22:38 36.6 C 80 18 129/69 92 Diagnostic Findings xrays shows a mildly displaced right femoral neck fracture. No obvious metastatic lesions. (1) Closed fracture of neck of right femur Encounter type: initial encounter Qualified Code(s): S72.001A - Fracture of unspecified part of neck of right femur, initial encounter for closed fracture
[2018-12-12] MEDS ORDERED: HYDROmorphone INJ 1 MG/ML SYRINGE IV PRN (10:52)
[2018-12-12] MEDS ORDERED: ATROPINE SULFATE 0.1 MG/ML 10ML SYR IV PRN (10:52)
[2018-12-12] MEDS ORDERED: ePHEDrine sulfate 50 MG/ML AMP IV PRN (10:52)
[2018-12-12] MEDS ORDERED: PHENYLEPHRINE 100MCG/ML 5ML SYR IV PRN (10:52)
[2018-12-12] MEDS ORDERED: fentaNYL citrate 100 MCG/2 ML VIAL IV PRN (10:52)
[2018-12-12] MEDS ORDERED: ONDANSETRON INJ 2 MG/ML 2 ML VIAL IV PRN ×2 (10:52→14:40)
[2018-12-12] MEDS ORDERED: BACITRACIN INJ 50,000 UNIT VIAL ONE (11:16)
[2018-12-12] MEDS ORDERED: BUPIVACAINE/EPINEPHRINE 0.5% MPF 1:200,000 30 ML VIAL ONE (11:16)
[2018-12-12] MEDS ORDERED: KETAMINE HCL INJ 50 MG/ML 10 ML VIAL ONE (11:17)
[2018-12-12] MEDS ORDERED: MIDAZOLAM HCL 1 MG/ML 2ML VIAL ONE (11:17)
[2018-12-12] MEDS ORDERED: BUPIVACAINE 0.5 % 5 MG/1 ML PF 10ML VIAL ONE (11:19)
[2018-12-12] MEDS ORDERED: fentaNYL citrate 100 MCG/2 ML VIAL ONE (11:22)
[2018-12-12] MEDS ORDERED: CEFAZOLIN 2,000 MG/15 ML IV PUSH IV ONE (11:27)
[2018-12-12] MEDS ORDERED: CEFAZOLIN 2000MG 2,000 MG/15 ML SYR IV ONE ×2 (11:27→11:30)
[2018-12-12] MEDS ORDERED: PHENYLEPHRINE 100MCG/ML 5ML SYR ONE (11:56)
[2018-12-12] MEDS ORDERED: TRANEXAMIC ACID 1,000 MG in 0.9 % SODIUM CHLORIDE 100 ML IV ONE (12:00)
[2018-12-12] MEDS ORDERED: DEXAMETHASONE SOD INJ 4 MG/ML VIAL ONE (12:04)
[2018-12-12] MEDS ORDERED: ONDANSETRON INJ 2 MG/ML 2 ML VIAL ONE (12:04)
[2018-12-12] MEDS ORDERED: PROPOFOL IV EMULSION 10 MG/ML 20 ML VIAL IV ONE (12:04)
[2018-12-12] MEDS ORDERED: GLYCOPYRROLATE 0.2 MG/ML VIAL ONE (12:04)
--- NOTE | 2018-12-12 13:03 | Post Operative Brief Note ---
Immediate Post Op Note v1 Date of Surgery December 12, 2018 Pre & Post Diagnosis Operation Date: 12/12/18 10:55 Pre-Op Diagnosis: Right Femoral Neck Fracture Post-Op Diagnosis: Right Femoral Neck Fracture Procedure Operation Date: 12/12/18 10:55 Actual Procedures p Right Total Hip Arthroplasty-- Uncemented(Right) - Cameron Tamez MD Surgeon Cameron Tamez MD Vp Treasurer Jose, PAC Estimated Blood Loss 200 Findings Consistent with Post-Op Diagnosis Fluids 1000 cc Specimens Right Femoral Head Right Femoral Neck Anesthesia Type Spinal MAC Complications none Disposition Accompanied Patient To Recovery: Yes Disposition: Recovery Room
--- NOTE | 2018-12-12 13:49 | XRay Report ---
XR hip RT min 2V CLINICAL HISTORY: Post-Operative implant position COMPARISON: 12/12/2018 DISCUSSION: There are postsurgical changes of a total right hip arthroplasty. The acetabular and femo ral components appear well seated. There is no dislocation. There are overlying skin kp. There i s air within the soft tissues consistent with recent surgery IMPRESSION: Postsurgical changes of a total right hip arthroplasty. No dislocation. Electronically signed by: Mickey Boyce M.D. 12/12/2018 1:48 PM
--- NOTE | 2018-12-12 14:16 | Anesthesiology Progress Note ---
Date of Service December 12, 2018 Anesthesia Post Procedure Vital Signs Vital Signs: Temp Pulse Pulse Pulse Resp BP BP 12/12/18 14:00 96 H 16 12/12/18 13:50 96 H 17 12/12/18 13:40 102 H 18 12/12/18 13:30 98 H 18 12/12/18 13:20 101 H 18 12/12/18 13:10 102 H 15 12/12/18 13:04 37.1 C 98 H 16 12/12/18 11:15 36.9 C 92 H 20 154/85 H 12/12/18 08:05 36.8 C 80 18 136/80 12/11/18 22:38 36.6 C 80 18 129/69 12/11/18 22:01 82 19 117/63 12/11/18 22:00 81 17 12/11/18 21:31 82 18 118/66 12/11/18 21:25 81 20 113/69 12/11/18 21:01 82 21 113/69 12/11/18 21:00 81 15 117/63 12/11/18 20:31 80 21 112/66 12/11/18 20:01 86 20 138/82 12/11/18 20:00 80 21 12/11/18 19:45 84 15 12/11/18 19:37 12/11/18 19:31 80 12 137/77 12/11/18 19:00 36.7 C 85 18 115/76 BP Pulse Ox 12/12/18 14:00 110/77 97 12/12/18 13:50 126/83 97 12/12/18 13:40 107/75 97 12/12/18 13:30 135/76 100 12/12/18 13:20 117/84 100 12/12/18 13:10 135/80 100 12/12/18 13:04 140/78 100 12/12/18 11:15 97 12/12/18 08:05 92 12/11/18 22:38 92 12/11/18 22:01 93 12/11/18 22:00 96 12/11/18 21:31 12/11/18 21:25 93 12/11/18 21:01 94 12/11/18 21:00 96 12/11/18 20:31 94 12/11/18 20:01 12/11/18 20:00 05/28/19 19:45 12/11/18 19:37 98 12/11/18 19:31 12/11/18 19:00 96 Pain Intensity Right Hip: Pain Intensity: 8 Transfer of Care Handoff Completed per policy Notes Mental Status: alert / awake / arousable Patient Amnestic to Procedure: Yes Nausea / Vomiting: adequately controlled Pain: adequately controlled Airway Patency, RR, SpO2: stable & adequate BP & HR: stable & adequate Neuraxial Anesthesia: was administered and sensory block is resolving Anesthetic Complications: no major complications apparent Notes: Awake, doing well, no complaints. VSS
[2018-12-12] MEDS ORDERED: HYDROmorphone INJ 0.5 MG/0.5 ML SYR IV PRN (14:40)
[2018-12-12] MEDS ORDERED: NALOXONE HCL 0.4 MG/1 ML VIAL/CARP IV PRN (14:40)
[2018-12-12] MEDS ORDERED: MAGNESIUM HYDROXIDE SUSP 30 ML UDC PO PRN (14:40)
[2018-12-12] MEDS ORDERED: BISACODYL 10 MG SUPP PR PRN (14:40)
[2018-12-12] MEDS ORDERED: OXYCODONE HCL IR 5 MG TAB (IMMEDIATE RELEASE) PO PRN (14:40)
[2018-12-12] MEDS: SODIUM CHLORIDE 0.9% 1000ML 1,000 ML IV SCH (14:49)
[2018-12-12] MEDS: DIFLUPREDNATE 0.05% OP SCH ×2 (16:51→21:01)
[2018-12-12] MEDS: TOBRAMYCIN OP SCH ×2 (16:52→21:02)
[2018-12-12] MEDS: DEXAMETHASONE OP SCH ×2 (16:52→21:02)
--- NOTE | 2018-12-12 17:26 | Hospitalist Progress Note ---
Date of Service December 12, 2018 Assessment & Plan (1) Closed fracture of neck of right femur: 68-year-old female with a past medical history of hypertension, hypothyroidism, GERD, depression, renal cell carcinoma presents following a mechanical fall and was found to have a right hip fracture. Right hip fracture Patient has no cardiovascular complaints and her RCRI score is 3.9%, low risk for surgery, Patient has good functional capacity at baseline, no significant history of ischemic heart disease Ortho consult has taken the on 529 for repair of her hip fracture History of renal cell carcinoma with bone metastasis Remission, kidney resection 2011, right shoulder replacement 2013 Continue Inlyta following procedure Hypertension Restart amlodipine lower dose and hold lisinopril following surgery given expected volume loss with surgery PRN hydralazine for systolic blood pressure greater than 170 Hypothyroidism Restart Synthroid following surgery Status post cataract surgery Continue home eyedrops Depression Continue Wellbutrin, Trintellix following procedure DVT prophylaxis Contraindicated at this time CODE STATUS Full code (2) Fall: (3) Encounter for pre-operative examination: (4) Renal carcinoma: (5) HTN (hypertension): (6) Hypothyroid: (7) GERD (gastroesophageal reflux disease): (8) Depression: Subjective Patient is in no active distress has some minor hip pain she is awaiting surgery she has had never problems with anesthesia she is had no recent chest pain or pressure she can sleep flat and lying down Review of Systems Review of Systems: ROS: well nourished well developed. No double vision blurry vision No problems with speech or swallowing No palpitations, chest pain or pressure No Wheezing or breathing issues No abdominal pain nausea vomiting diarrhea changes in appetite or weight No burning urine urine frequency or changes in color Patient has right leg pain no numbness No skin rashes or oral lesions No unusual bruising or bleeding No focused back pain or numbness or loss of strength No changes in memory or confusion Physical Exam Physical Exam: The patient appeared well nourished and normally developed. Vital signs as documented. Head exam is unremarkable. normocephalic, atraumatic Neck is without jugular venous distension, thyromegaly, or lymphademopathy Lungs are clear to auscultation and percussion. Cardiac exam reveals Rhythm is regular. First and second heart sounds normal. Abdominal exam reveals normal bowel sounds, no masses, no organomegaly Extremities are nonedematous right hip is point tender Neurologic exam is A&Ox3, no focal deficits, strength is equal bilateral Psychologically seems neither anxious or depressed Skin is warm Dry without bruises or lesions Results & Data Vital Signs (Past 12 Hours) Vital Signs Temp Pulse Pulse Resp BP BP Pulse Ox 12/12/18 16:41 36.6 C 88 16 144/79 H 94 12/12/18 15:39 36.9 C 89 16 124/81 93 12/12/18 15:13 36.7 C 84 18 136/80 95 12/12/18 14:40 36.3 C L 92 H 16 127/82 95 12/12/18 14:20 95 H 18 132/69 93 12/12/18 14:10 37.0 C 98 H 17 133/84 96 12/12/18 14:00 96 H 16 110/77 97 12/12/18 13:50 96 H 17 126/83 97 12/12/18 13:40 102 H 18 107/75 97 12/12/18 13:30 98 H 18 135/76 100 12/12/18 13:20 101 H 18 117/84 100 12/12/18 13:10 102 H 15 135/80 100 12/12/18 13:04 37.1 C 98 H 16 140/78 100 12/12/18 11:15 36.9 C 92 H 20 154/85 H 97 12/12/18 08:05 36.8 C 80 18 136/80 92 (1) Fall Encounter type: initial encounter Qualified Code(s): W19.XXXA - Unspecified fall, initial encounter (2) Closed fracture of neck of right femur Encounter type: initial encounter Qualified Code(s): S72.001A - Fracture of unspecified part of neck of right femur, initial encounter for closed fracture
[2018-12-12] MEDS: CEFAZOLIN 1000MG 1,000 MG/7.5 ML SYR IV SCH (18:13)
[2018-12-12] MEDS: SENNA 8.6 MG TAB PO SCH (21:03)
[2018-12-12] MEDS: ASPIRIN 81 MG ECTAB PO SCH (21:03)
--- NOTE | 2018-12-12 21:40 | Emergency Department Note ---
Entered by Marine Bowden acting as a scribe for Shannan Bunch DO History of Present Illness General Chief complaint: Fall Stated complaint: FALL, HIP PAIN Time Seen by Provider: 12/11/18 18:49 Source: patient Mode of arrival: ambulatory Limitations: no limitations History of Present Illness Onset (ago): hour(s) (1730) Location: back and pelvis (right pelvic pain) Pain Consistency: + other (episode) Quality: + other (fall) Relieved By: + rest Exacerbated By: + movement Associated symptoms: + other (The patient complains of right pelvic pain and back pain. The patient denies abdominal pain and dizziness. ); no n ausea/vomiting The patient is a 68 year old female with a history of renal carcinoma and an artificial shoulder who presents to the ED via EMS with complaints of an episode of a fall that occurred at 1730. Per EMS, the patient tripped over her own flip flop and landed on a hardwood floor. She notes that she hit her head during the fall but denies head pain. Denies LOC. The patient complains of right pelvic pain and right low back pain. She notes that her pain is exacerbated with mo vement and alleviated with rest. The patient denies abdominal pain, dizziness, nausea, and vomiting. Denies chest pain or trouble breathing, denies neck pain or paresthesias. Denies dizziness or vision changes. Patient denies any use of anticoagulation. Home Medications Home Medications Medication Instructions Recorded Confirmed Type Kym Carrington 1 tab PO 3XWK 11/28/18 12/11/18 History Trintellix 10 mg PO 1900 11/28/18 12/11/18 History amlodipine [Norvasc] 10 mg PO QAM 11/28/18 12/11/18 History bupropion HCl [Wellbutrin XL] 300 mg PO QAM 11/28/18 12/11/18 History cholecalciferol (vitamin D3) 4,000 unit PO QAM 11/28/18 12/11/18 History [Vitamin D3] docusate sodium [Stool Softener] 100 mg PO DAILY 11/28/18 12/11/18 History flaxseed oil 1,000 mg PO DAILY 11/28/18 12/11/18 History levothyroxine [Synthroid] 75 mcg PO QAM 11/28/18 12/11/18 History lisinopril 5 mg PO QAM 11/28/18 12/11/18 History multivitamin 1 tab PO 1200 11/28/18 12/11/18 History ranitidine HCl [Zantac] 150 mg PO QAM 11/28/18 12/11/18 History axitinib [Inlyta] 1 mg PO BID 12/11/18 12/11/18 History difluprednate [Durezol] 1 drops OP QID 12/11/18 12/11/18 History tobramycin 1 drops OP QID 12/11/18 12/11/18 History Allergies Allergy/AdvReac Type Severity Reaction Status Date / Time nickel Allergy Severe ITCHING Verified 12/12/18 10:44 AND SORENESS OF GLANDS adhesive Allergy Intermediate REDNESS Verified 12/12/18 10:44 AND VERY ITCHY Penicillins Allergy Unknown RASH Verified 12/12/18 10:44 Sulfa (Sulfonamide Allergy Unknown VAGINAL Verified 12/12/18 10:44 Antibiotics) IRRITATION Past Med/Surg History Medical History Anxiety Cancer RENAL CELL CANCER IN LEFT KIDNEY METS TO RIGHT SHOULDER Depression GERD (gastroesophageal reflux disease) Hypertension Hypothyroidism Surgical History S/P cataract extraction History of bilateral tubal ligation History of nephrectomy LEFT History of total shoulder replacement RIGHT Family History Mother Family history of diabetes mellitus Father Family history of diabetes mellitus Social History Preferred Language: Pashto Communication Ability: Effective Photograph Mounter Required: No Beliefs That Will Affect Care: None Current Living Situation: Spouse Other Information That Helps Us Care for You: No Feels Safe at Home: Yes Safety Concerns: Feels Safe At This Time Smoking Status: Former smoker (Quit 35 years) Tobacco Type: cigarettes Do You Dip or Chew Tobacco: No Second Hand Exposure: No Hx Alcohol Use: Yes Alcohol type: wine Hx Substance Use: No Review of Systems See HPI for pertinent positives & negatives. and A total of 10 systems reviewed and were otherwise negative Physical Exam Vital Signs Vital Signs - 24 hr 12/11/18 19:00 12/11/18 19:37 Temperature 98.1 F Temperature Source Oral Sepsis Recent Fever Within 48 Hours No Sepsis New/Unexplained Change in Mental Status No Sepsis Action Taken by Nursing No Action Required Pulse Rate 85 Respiratory Rate 18 Respiratory Effort / Characteristics Non-Labored Respiratory Depth Normal Blood Pressure 115/76 Blood Pressure Mean 89 Pulse Oximetry 96 98 Oxygen Delivery Method Room Air Room Air GENERAL: alert, well appearing, well nourished, no distress, non-toxic HEAD: normal cephalic, atraumatic, no coley sign, no raccoon eyes, no contusions EYE EXAM: normal conjunctiva, PERRL and EOM's grossly intact OROPHARYNX: no exudate, no erythema, lips, buccal mucosa, and tongue normal and mucous membranes are moist EARS: TMs clear b/l without hemotympanum NECK: supple, no nuchal rigidity, no adenopathy, non-tender CHEST: stable to compression anteriorly and posteriorly, no crepitus, no ecchymosis LUNGS: clear to auscultation. Normal chest wall mechanics, no w/r/r HEART: no murmurs, S1 normal and S2 normal ABDOMEN: abdomen soft, non-tender, normo-active bowel sounds, no masses, no rebound or guarding. PELVIS: stable to compression anteriorly and posteriorly BACK: Back is symmetrical on inspection and there is no deformity, no midline tenderness, no CVA tenderness. UPPER EXTREMITIES: full active and passive range of motion of all joints without tenderness to palpation LOWER EXTREMITIES:Pain with palpitation over the right lateral hip, right ASIS, and right pubic symphysis. NEURO EXAM: Normal sensorium, cranial nerves II-XII grossly intact, normal speech, no gross weakness of arms, no gross weakness of legs. GCS: 15. Course 185: Past medical records reviewed. The patient was evaluated in room B11B. A complete history and physical examination was performed. 1950: I updated the patient on the results of her scans. 2006: I reviewed the patient's case with Dr. Bruno Sandoval - [facility]. He will evaluate the patient for further management. Consultations Consultation #1: 2006: I reviewed the patient's case with Dr. Bruno Sandoval - [facility]. He will evaluate the patient for further management. Time: 20:07 Administered Medications Aspirin (Ecotrin Ectab) 81 mg PO BID JAY JAY Stop: 01/11/19 20:59 Last Admin: 12/12/18 21:03 Dose: 81 mg Documented by: [id number] Hydromorphone HCl (Dilaudid) 0.25 mg IV Q3H PRN PRN Reason: Pain Stop: 12/25/18 22:35 Last Admin: 12/12/18 21:01 Dose: 0.25 mg Documented by: [id number] Admin: 12/12/18 08:17 Dose: 0.25 mg Documented by: [id number] Admin: 12/11/18 22:51 Dose: 0.25 mg Documented by: [id number] Sodium Chloride (Nss 1000ml) 1,000 mls @ 80 mls/hr IV .[id number] JAY JAY Stop: 01/10/19 22:35 Last Admin: 12/12/18 14:49 Dose: 80 mls/hr Documented by: [id number] Infusion: 12/12/18 14:49 Dose: 0 mls/hr Documented by: [id number] Infusion: 12/12/18 10:46 Dose: 0 mls/hr Documented by: [id number] Infusion: 12/12/18 06:20 Dose: 80 mls/hr Documented by: [id number] Admin: 12/11/18 22:51 Dose: 80 mls/hr Documented by: [id number] Cefazolin Sodium (Ancef 1000mg) 1,000 mg in 7.5 mls @ 2.5 mls/min IV Q8H [facility]; Protocol Stop: 12/13/18 03:02 Last Admin: 12/12/18 18:13 Dose: 2.5 mls/min Documented by: [id number] Durezole 0.05%~Non- Formulary Patient's Own Med 1 ea OP QID [facility] Stop: 01/11/19 16:59 Last Admin: 12/12/18 21:01 Dose: 1 appl Documented by: [id number] Admin: 12/12/18 16:51 Dose: 1 appl Documented by: [id number] Tobramycin & Dexamethasone~Non- Formulary Patient's Own Med 1 ea OP QID [facility] Stop: 01/11/19 16:59 Last Admin: 12/12/18 21:02 Dose: 1 drops Documented by: [id number] Admin: 12/12/18 16:52 Dose: 1 drops Documented by: [id number] Oxycodone HCl (Roxicodone Immediate Rel) 5 mg PO Q4H PRN PRN Reason: Moderate Pain (Scale 4,5,6) Stop: 12/26/18 14:39 Last Admin: 12/12/18 18:51 Dose: 5 mg Documented by: [id number] Sennosides (Senokot) 17.2 mg PO HS [facility] Stop: 01/11/19 20:59 Last Admin: 12/12/18 21:03 Dose: 17.2 mg Documented by: [id number] Discontinued Medications Bacitracin (Bacitracin) Confirm Administered Dose 50,000 units .ROUTE .STK-MED ONE Stop: 12/12/18 11:17 Last Admin: 12/12/18 12:04 Dose: 50,000 units Documented by: [id number] Bupivacaine HCl/Epinephrine Bitart (Sensorcaine/Epinephrine 0.5% Mpf 1:200,000) Confirm Administered Dose 60 ml .ROUTE .STK-MED ONE Stop: 12/12/18 11:17 Last Admin: 12/12/18 12:04 Dose: 60 ml Documented by: [id number] Cefazolin Sodium (Ancef 2000mg) Confirm Administered Dose 2,000 mg IV .STK-MED ONE Stop: 12/12/18 11:28 Last Admin: 12/12/18 11:35 Dose: 2,000 mg Documented by: [id number] Sodium Chloride (Nss 1000ml) 1,000 mls @ 150 mls/hr IV .[id number] [facility] Stop: 12/12/18 01:39 Last Infusion: 12/11/18 22:11 Dose: 0 mls/hr Documented by: [id number] Admin: 12/11/18 19:24 Dose: 150 mls/hr Documented by: [id number] Tranexamic Acid 1,000 mg/ (Sodium Chloride) 110 mls @ 660 mls/hr IV NOW ONE Stop: 12/12/18 12:09 Last Infusion: 12/12/18 12:52 Dose: 0 mls/hr Documented by: [id number] Admin: 12/12/18 12:02 Dose: 660 mls/hr Documented by: [id number] Miscellaneous (Order Awaiting Action) 1 ea N/A QS [facility] Stop: 01/11/19 07:59 Last Admin: 12/12/18 08:10 Dose: Not Given Documented by: [id number] Miscellaneous (Order Awaiting Action) 1 ea N/A QS [facility] Stop: 01/11/19 07:59 Last Admin: 12/12/18 08:10 Dose: Not Given Documented by: [id number] Morphine Sulfate (Morphine Sulfate) 4 mg IV Q1H PRN PRN Reason: Severe Pain (Rating 7,8,9,10) Stop: 12/25/18 18:59 Last Admin: 12/11/18 19:22 Dose: 4 mg Documented by: [id number] Medical Decision Making Differential Diagnosis Differential diagnoses Major intracranial, cervical, spinal, thoracic, abdominal, pelvic, neurologic injury, fracture, contusion, sprain, strain, laceration, abrasions, as well as other etiologies were considered. Medical Records Attestation: I reviewed the patient's medical records. Home Medications Current Medication List: was personally reviewed by me Laboratory Data Attestation: I reviewed the patient's lab results. Result diagrams: 12/12/18 06:32 12/12/18 06:32 Lab Results 12/11/18 12/11/18 12/11/18 Range/Units 19:20 19:20 19:20 WBC 11.19 H (4.8-10.8) K/uL RBC 4.54 (4.2-5.4) M/uL Hgb 15.2 (12.0-16.0) g/dL Hct 42.2 (37-47) % MCV 93.0 (80-100) fL MCH 33.5 (25-34) pg MCHC 36.0 (32-36) g/dL RDW Std Deviation 46.7 H (36.4-46.3) fL RDW Coeff of Ashly 13.7 (11.5-14.5) % Plt Count 335 (130-400) K/uL MPV 9.5 (7.4-10.4) fL Immature Gran % (Auto) 0.7 % Neut % (Auto) 74.2 % Lymph % (Auto) 15.7 % [place] % (Auto) 6.2 % Eos % (Auto) 2.8 % Baso % (Auto) 0.4 % Immature Gran # (Auto) 0.08 H (0.00-0.02) K/uL Neut # (Auto) 8.30 H (1.4-6.5) K/uL Lymph # (Auto) 1.76 (1.2-3.4) K/uL [place] # (Auto) 0.69 H (0.11-0.59) K/uL Eos # (Auto) 0.31 (0-0.5) K/uL Baso # (Auto) 0.05 (0-0.2) K/uL PT 11.4 (9.0-12.0) Seconds INR 1.1 (0.9-1.1) APTT 24.8 (21.0-31.0) Seconds PTT Ratio 0.9 Sodium 138 (136-145) mmol/L Potassium 4.0 (3.5-5.1) mmol/L Chloride 104 (98-107) mmol/L Carbon Dioxide 24 (21-32) mmol/L Anion Gap 10.0 (3-11) BUN 18 (7-18) mg/dl Creatinine 1.31 H (0.6-1.2) mg/dl Est Cr Clr Drug Dosing 41.8 ml/min Est GFR ( Amer) 47.7 Est GFR (Non-Af Amer) 41.1 BUN/Creatinine Ratio 13.7 (10-20) Glucose 140 H (70-99) mg/dl Calcium 9.7 (8.5-10.1) mg/dl Urine Color Urine Appearance (Clear) Urine pH (4.5-7.5) Ur Specific [place] (1.000-1.030) Urine Protein (Negative) Urine Glucose (UA) (Negative) Urine Ketones (Negative) Urine Blood (Negative) Urine Nitrite (Negative) Urine Bilirubin (Negative) Urine Urobilinogen (Negative) Ur Leukocyte Esterase (Negative) Urine WBC (Auto) (0-5) /hpf Urine RBC (Auto) (0-4) /hpf U Hyaline Cast (Auto) (0-5) /lpf U Epithel Cells (Auto) (0-5) /lpf Urine Bacteria (Auto) (Negative) Blood Type Antibody Screen 12/11/18 12/11/18 Range/Units 19:20 20:05 WBC (4.8-10.8) K/uL RBC (4.2-5.4) M/uL Hgb (12.0-16.0) g/dL Hct (37-47) % MCV (80-100) fL MCH (25-34) pg MCHC (32-36) g/dL RDW Std Deviation (36.4-46.3) fL RDW Coeff of Ashly (11.5-14.5) % Plt Count (130-400) K/uL MPV (7.4-10.4) fL Immature Gran % (Auto) % Neut % (Auto) % Lymph % (Auto) % [place] % (Auto) % Eos % (Auto) % Baso % (Auto) % Immature Gran # (Auto) (0.00-0.02) K/uL Neut # (Auto) (1.4-6.5) K/uL Lymph # (Auto) (1.2-3.4) K/uL [place] # (Auto) (0.11-0.59) K/uL Eos # (Auto) (0-0.5) K/uL Baso # (Auto) (0-0.2) K/uL PT (9.0-12.0) Seconds INR (0.9-1.1) APTT (21.0-31.0) Seconds PTT Ratio Sodium (136-145) mmol/L Potassium (3.5-5.1) mmol/L Chloride (98-107) mmol/L Carbon Dioxide (21-32) mmol/L Anion Gap (3-11) BUN (7-18) mg/dl Creatinine (0.6-1.2) mg/dl Est Cr Clr Drug Dosing ml/min Est GFR ( Amer) Est GFR (Non-Af Amer) BUN/Creatinine Ratio (10-20) Glucose (70-99) mg/dl Calcium (8.5-10.1) mg/dl Urine Color Yellow Urine Appearance Clear (Clear) Urine pH 6.5 (4.5-7.5) Ur Specific [place] 1.014 (1.000-1.030) Urine Protein Negative (Negative) Urine Glucose (UA) Negative (Negative) Urine Ketones Negative (Negative) Urine Blood Negative (Negative) Urine Nitrite Negative (Negative) Urine Bilirubin Negative (Negative) Urine Urobilinogen Negative (Negative) Ur Leukocyte Esterase 1+ H (Negative) Urine WBC (Auto) 1-5 (0-5) /hpf Urine RBC (Auto) 0-4 (0-4) /hpf U Hyaline Cast (Auto) 1-5 (0-5) /lpf U Epithel Cells (Auto) 20-30 H (0-5) /lpf Urine Bacteria (Auto) Negative (Negative) Blood Type O Positive Antibody Screen NEGATIVE Imaging Data Radiologist's Impression: Radiology results as stated below per my review and the radiologist's interpretation: Spine portable AP chest radiograph CLINICAL HISTORY: trauma COMPARISON STUDY: Chest CT October 29, 2018. FINDINGS: There is no pneumothorax or pleural effusion on this supine exam. Postoperative findings within the right lung are noted. Cardiomediastinal silhouette is stable. No airspace opacities are present. Right shoulder arthroplasty is noted. Alignment appears unchanged. IMPRESSION: No acute cardiopulmonary findings. Electronically signed by: David Pryor M.D. 12/11/2018 7:21 PM Dictated: 12/11/181917 Transcribed: 12/11/181917 XR hip RT 2-3V w pelvis CLINICAL HISTORY: trauma, pain COMPARISON: CT of the abdomen and pelvis October 29, 2018. FINDINGS: Sacroiliac joints and symphysis pubis are intact. There is no acute proximal left femoral fracture. Note is made of an acute impacted right femoral neck fracture. Fracture displacement is difficult to assess on this exam however fracture is likely mildly displaced. No additional acute fractures are present. IMPRESSION: Acute impacted right femoral neck fracture which is likely mildly displaced. Electronically signed by: David Pryor M.D. 12/11/2018 7:23 PM Dictated: 12/11/181920 Transcribed: 12/11/181920 ECG Data Attestation: I personally reviewed and interpreted this ECG as follows: Indication: other (fall, trauma) Rate (beats per minute): 82 Rhythm: sinus rhythm Findings: + other (rightward axis, normal interval ); no acute ischemic change and no ectopy Blood Pressure Blood Pressure Findings: Normal blood pressure MDM Narrative Patient here with a ground-level fall, well-appearing, however found to have a hip fracture. I do believe this is isolated and I have a low suspicion for any additional occult traumatic injury. Patient not on any antiplatelet or any coagulation therapy and had no other accompanying symptoms or physical exam findings suggestive of additional traumatic injury. Patient was hemodynamically stable throughout. Patient and family were made aware of all results and need for additional inpatient management. Case discussed with hospitalist. Impression & Plan Closed fracture of neck of right femur, Fall Discharge Plan Visit Data *Final* Discharge Date/Time: 12/11/18 22:00 Chief Complaint: Fall Stated Complaint: FALL, HIP PAIN ED Provider: Shannan Bunch Discharge Problem: Closed fracture of neck of right femur, Fall Patient Disposition: Admitted As Inpatient Condition: Good Discharge Instructions Interventions: ED Discharge Assessment Last Done: 12/11/18 22:00 The scribe's documentation has been prepared under my direction and personally reviewed by me in its entirety. I confirm that the note above accurately reflects all work, treatment, procedures, and medical decision making performed by me.
--- NOTE | 2018-12-12 21:46 | Operative Report ---
DATE OF OPERATION: 12/12/2018 DATE OF PROCEDURE: 12/12/2018 SURGEON: Cameron Tamez MD BINGO WORKER: JOSE J Richards PREOPERATIVE DIAGNOSIS: Right displaced femoral neck fracture. POSTOPERATIVE DIAGNOSIS: Right displaced femoral neck fracture. PROCEDURE PERFORMED: Right uncemented total hip arthroplasty. COMPLICATIONS: None. ESTIMATED BLOOD LOSS: 200 mL. FLUID REPLACEMENT: 1000 mL crystalloid fluid replacement. ANESTHESIA: Spinal. DRAINS: None. SPECIMENS: Right femoral head and neck sent for pathology. OPERATIVE INDICATIONS: The patient is a 68-year-old very active, independent female and independent ambulator who sustained a fall yesterday. The exact details are bit unclear is that she did not really recall what happened. No preexisting hip pain. She does have a history of metastatic renal cell cancer in remission. She was brought to Emergency Room, x-rayed for displaced femoral neck fracture. We evaluated this extensively and the fracture was significantly displaced. The patient indicated for arthroplasty. The patient has a history of a NICKEL ALLERGY and also quite active. Considering all of these, we elected to proceed with a total hip replacement with a titanium stem and ceramic ball to avoid the nickel issue and to optimally treat her hip fracture. There were no signs of metastatic disease in the bone on pre-op x-rays. OPERATIVE IMPLANTS: Operative implants consisted of: 1. Biomet G7 size 50 acetabular shell. 2. A 6.5 cancellous acetabular screws, 1 at 35 mm length and 1 at 20 mm length. 3. An apex hole eliminator. 4. Highly cross-linked polyethylene liner with a 50 mm outer diameter and 36 mm inner diameter. 5. DePuy Corail size 10 KLA femoral stem. 6. +1.5/36 mm ceramic articular ball. OPERATIVE PROCEDURE: The patient taken to the operating room, identified and placed on the operative table in supine position. All contact areas were appropriately padded. IV antibiotics were provided by anesthesia team. A spinal anesthetic had been implemented in the holding area. The patient was then placed in the left lateral decubitus position. An axillary roll was placed. Stlberg hip positioner was used for positioning. Right hip and right leg were then prepped and draped in usual sterile fashion. Posterolateral approach to the right hip was then performed through a curvilinear incision centered over the greater trochanter. Sharp dissection was carried through the subcutaneous tissue down to the level of the IT band and gluteal fascia. The IT band and gluteal fascia were incised longitudinally in line with skin incision. The underlying greater trochanteric bursa was excised. The piriformis and external rotators were tagged and taken off the posterior aspect of the hip joint capsule. Great care was taken throughout the procedure to protect the sciatic nerve at all times. Posterior capsulotomy was then performed. We performed leaving a large flap for later repair. Hip was internally rotated. They rotated through the fracture site. A femoral neck osteotomy cut was made with final cut about 14 mm above the lesser trochanter. This is above the level of the fracture. The femoral head was removed. The acetabulum was exposed. The labrum was removed. Attention was then drawn toward reaming. Sequential reaming of the acetabulum was then performed beginning with size 43 and progressing up to 49. I touched the outer surface with a 50 and then placed a 50 Biomet G7 acetabular shell in about 40 degrees of lateral opening and 20 degrees of anteversion. I did put a little bit more anteversion than typical in order to maximize her stability. A trial liner was placed. Attention was then drawn towards the femur. The proximal femur was entered with a cookie cutter followed by canal finder. I broached beginning with a size 8 and progressed up to a 10. Got excellent fit at the 10. I then trialed the hip and the +5 articular ball was stable, but just seemed a bit tight. Again with the +1.5 articular ball, the hip was fully stable in full extension and external rotation, flexion to 90 degrees, internal rotation to over [address] I elected to place these implants. We did maximize its size in order to optimize her stability knowing that this is done for fracture. All trial implants were removed. An apex hole eliminator was placed. Highly cross-linked polyethylene liner was placed. A DePuy Corail size 10 KLA femoral stem was impacted in position. A +1.5/36 mm ceramic articular ball was placed. Hip was located and once again found to be stable. Attention was then drawn toward closing. The wound was irrigated with copious amounts of pulsatile lavage solution. I did inject locally with 60 mL of 0.5% Marcaine with epinephrine. The posterior capsule and external rotators were then repaired through drill holes in the posterior trochanter with #2 Ti-Cron suture. The IT band and gluteal fascia were then closed with #1 PDS suture in running fashion. The subcutaneous tissues were then closed in 2 layers, the deep layer with #1 Vicryl suture and the subcutaneous tissue with 2-0 Dexon suture in a buried interrupted fashion. Skin was closed with skin kp. Leg was then cleaned and dried and a sterile dressing of Xeroform, 4 x 4, sterile ABD pad and foam tape was applied. The patient then transferred to the recovery room in stable condition. The patient tolerated the procedure well with no complication and sponge counts were correct at the end of the operation. I attest to the content of the Intraoperative Record and any orders documented therein. Any exceptions are noted below. MTDD
[2018-12-13] MEDS: SODIUM CHLORIDE 0.9% 1000ML 1,000 ML IV SCH (00:01)
[2018-12-13] MEDS: CEFAZOLIN 1000MG 1,000 MG/7.5 ML SYR IV SCH ×2 (03:30→04:35)
[2018-12-13] MEDS: ASPIRIN 81 MG ECTAB PO SCH ×2 (07:51→20:55)
[2018-12-13] MEDS: DIFLUPREDNATE 0.05% OP SCH ×2 (07:51→12:48)
[2018-12-13] MEDS: DEXAMETHASONE OP SCH ×2 (07:52→12:48)
[2018-12-13] MEDS: TOBRAMYCIN OP SCH ×2 (07:52→12:48)
[2018-12-13 08:15] LABS: Basophils # (auto) 0.01 K/uL (0-0.2); Basophils % (auto) 0.1 %; Eosinophils # (auto) 0.05 K/uL (0-0.5); Eosinophils % (auto) 0.3 %; Hematocrit (blood only) 39.4 % (37-47); Hemoglobin 13.7 g/dL (12.0-16.0); Immature Granulocytes # (auto) 0.06 K/uL (0.00-0.02); Immature Granulocytes % (auto) 0.3 %; Lymphocytes # (auto) 1.15 K/uL (1.2-3.4); Lymphocytes % (auto) 6.2 %; Mean Corpuscular Hgb Conc 34.8 g/dL (32-36); Mean Corpuscular Volume 94.7 fL (80-100); Mean Platelet Volume 9.7 fL (7.4-10.4); Monocytes # (auto) 2.03 K/uL (0.11-0.59); Neutrophils # (auto) 15.13 K/uL (1.4-6.5); Neutrophils % (auto) 82.1 %; Platelet Count 258 K/uL (130-400); RDW Coefficient of Variation 13.9 % (11.5-14.5); Red Blood Count 4.16 M/uL (4.2-5.4); White Blood Count 18.43 K/uL (4.8-10.8)
--- NOTE | 2018-12-13 08:26 | Progress Note ---
DATE: 12/13/2018 SUBJECTIVE: A 68-year-old female postop day 1 from a right total hip replacement done for fracture. She is doing pretty well this morning. Frustrated that she is having trouble lifting her leg. Not much pain when lying in bed, but significant more pain with movement. No chest pain or shortness of breath. No new complaints otherwise. OBJECTIVE: VITAL SIGNS: Temperature 36.8. Vital signs stable. GENERAL: Physical examination shows a pleasant, middle-aged female. She is lying in bed, looks reasonably comfortable this morning. EXTREMITIES: Examination of the right hip and leg reveals the leg lengths to be equal. Her dressing is clean, dry and intact. Thigh is soft and supple. Hip is located. She is neurologically intact. LABORATORY DATA: Labs are pending this morning. ASSESSMENT: A 68-year-old female postop day 1 from a right hip replacement done for fracture. She is to be doing okay. It is normal for not be able to lift her leg for the first week or two. Pain seems to be controlled. No new complaints. PLAN: 1. DVT prophylaxis including thigh-high TEDs, SCDs, and aspirin twice a day for the next 6 weeks. This will be just a baby aspirin. 2. PT/OT. She will weightbear as tolerated. Right total hip protocol. 3. Pain control, doing okay with current pain regimen. 4. Medical management as per the medicine service. 5. Disposition: We will see how she does in therapy today. The plan is to discharge to home and she might benefit from some home health for the first 2 weeks. If not get around, she might need a rehab stay. Most likely, she will be able to go home with home health likely tomorrow. I need to see her back 2 weeks out from surgery date. Any orthopedic questions can be directed to me at [phone].
[2018-12-13 08:44] LABS: Blood Urea Nitrogen 14 mg/dl (7-18); Calcium 9.3 mg/dl (8.5-10.1); Carbon Dioxide 22 mmol/L (21-32); Chloride 103 mmol/L (98-107); Est GFR (African American) 53.6; Est GFR (Non-African American) 46.2; Glucose 153 mg/dl (70-99); Sodium 136 mmol/L (136-145)
[2018-12-13] MEDS ORDERED: AMLODIPINE BESYLATE 5 MG TAB PO SCH (09:00)
--- NOTE | 2018-12-13 10:25 | Anesthesiology Progress Note ---
Date of Service December 13, 2018 Anesthesia Post Procedure Vital Signs Vital Signs: Temp Pulse Pulse Resp BP BP Pulse Ox 12/13/18 07:07 36.8 C 90 18 133/79 91 12/13/18 04:15 37.3 C 92 H 16 139/78 94 12/12/18 23:05 37.2 C 57 L 16 154/69 H 94 12/12/18 17:43 37.0 C 69 16 136/74 95 12/12/18 16:41 36.6 C 88 16 144/79 H 94 12/12/18 15:39 36.9 C 89 16 124/81 93 12/12/18 15:13 36.7 C 84 18 136/80 95 12/12/18 14:40 36.3 C L 92 H 16 127/82 95 12/12/18 14:20 95 H 18 132/69 93 12/12/18 14:10 37.0 C 98 H 17 133/84 96 12/12/18 14:00 96 H 16 110/77 97 12/12/18 13:50 96 H 17 126/83 97 12/12/18 13:40 102 H 18 107/75 97 12/12/18 13:30 98 H 18 135/76 100 12/12/18 13:20 101 H 18 117/84 100 12/12/18 13:10 102 H 15 135/80 100 12/12/18 13:04 37.1 C 98 H 16 140/78 100 12/12/18 11:15 36.9 C 92 H 20 154/85 H 97 Pain Intensity Right Hip: Pain Intensity: 0 Notes Notes: patient in bathroom, [facility].
[2018-12-13] MEDS ORDERED: NITROGLYCERIN SL 0.4 MG/TAB TAB SL PRN (14:46)
[2018-12-13] MEDS ORDERED: SODIUM CHLORIDE 0.9% 500 ML IV SCH (14:46)
[2018-12-13] MEDS: METOPROLOL TARTRATE 1 MG/ML VIAL IV PRN (14:59)
[2018-12-13] MEDS ORDERED: MAGNESIUM SULFATE / D5W 1 GM/100 ML BAG IV ONE (15:00)
[2018-12-13] MEDS ORDERED: METOPROLOL TARTRATE 25 MG TAB PO ONE (15:00)
[2018-12-13] MEDS ORDERED: PERFLUTREN LIPID MICROSPHERE (DEFINITY) IV ONE (15:53)
[2018-12-13 15:55] LABS: Magnesium 1.9 mg/dl (1.8-2.4); T4 Free Thyroxine 1.18 ng/dl (0.8-1.6); Troponin I < 0.015 ng/ml (0-0.045)
--- NOTE | 2018-12-13 18:35 | Hospitalist Progress Note ---
Date of Service December 13, 2018 Assessment & Plan (1) Closed fracture of neck of right femur: 68-year-old female with a past medical history of hypertension, hypothyroidism, GERD, depression, renal cell carcinoma presents following a mechanical fall and was found to have a right hip fracture. Right hip fracture Patient has no cardiovascular complaints and her RCRI score is 3.9%, low risk for surgery, Patient has good functional capacity at baseline, no significant history of ischemic heart disease Ortho consult has taken the on 12/12 for repair of her hip fracture Atrial fibrillation RVR patient converted to sinus rhythm with 1 dose of metoprolol continue metoprolol p.o. in place of her typical amlodipine. Patient is pending an echocardiogram. Troponin was unremarkable magnesium and potassium are replete and free T4 was within normal range History of renal cell carcinoma with bone metastasis Remission, kidney resection 2011, right shoulder replacement 2013 Continue Inlyta following procedure Hypertension Patient's blood pressure is slightly low we will hold her typical antihypertensives and use metoprolol at this point time Hypothyroidism Restart Synthroid following surgery free T4 is in normal range Status post cataract surgery Continue home eyedrops Depression Continue Wellbutrin, Trintellix following procedure DVT prophylaxis Contraindicated at this time CODE STATUS Full code (2) Fall: (3) Encounter for pre-operative examination: (4) Renal carcinoma: (5) HTN (hypertension): (6) Hypothyroid: (7) GERD (gastroesophageal reflux disease): (8) Depression: Subjective Patient is a stable condition this morning and I was called back with the nurses patient developed a tachycardia. EKG revealed her to be in atrial fibrillation rapid ventricular response. Her blood pressure was low but stable and the patient is having no signs or symptoms nor recollection that she was experiencing palpitations. Patient's family at the bedside and explained was happening with her. The patient will be moved to telemetry. She did receive a dose of intravenous metoprolol which then converted to sinus rhythm Review of Systems 2 Review of Systems: ROS: well nourished well developed. No double vision blurry vision No problems with speech or swallowing No palpitations, chest pain or pressure No Wheezing or breathing issues No abdominal pain nausea vomiting diarrhea changes in appetite or weight No burning urine urine frequency or changes in color Postoperative joint pain from hip fracture repair No skin rashes or oral lesions No unusual bruising or bleeding No focused back pain or numbness or loss of strength No changes in memory or confusion Physical Exam Physical Exam: The patient appeared well nourished and normally developed. Vital signs as documented. Head exam is unremarkable. normocephalic, atraumatic Neck is without jugular venous distension, thyromegaly, or lymphademopathy Lungs are clear to auscultation and percussion. Cardiac exam reveals tachycardic and irregular prior to conversion back to sinus rhythm Abdominal exam reveals normal bowel sounds, no masses, no organomegaly Extremities are tender right hip not out of the ordinary for postoperative hip repair Neurologic exam is A&Ox3, no focal deficits, strength is equal bilateral Psychologically seems neither anxious or depressed Skin is warm / Dry Results & Data Vital Signs (Past 12 Hours) Vital Signs Temp Pulse Pulse Pulse Resp BP BP 12/13/18 15:15 104 H 12/13/18 14:59 142 H 128/79 12/13/18 14:52 36.8 C 142 H 20 128/79 12/13/18 11:19 137 H 12/13/18 11:11 37.2 C 116 H 21 12/13/18 07:07 36.8 C 90 18 BP Pulse Ox 12/13/18 15:15 96/68 L 12/13/18 14:59 12/13/18 14:52 92 12/13/18 11:19 12/13/18 11:11 112/73 92 12/13/18 07:07 133/79 91 (1) Fall Encounter type: initial encounter Qualified Code(s): W19.XXXA - Unspecified fall, initial encounter (2) Closed fracture of neck of right femur Encounter type: initial encounter Qualified Code(s): S72.001A - Fracture of unspecified part of neck of right femur, initial encounter for closed fracture
[2018-12-13] MEDS: TRAMADOL HCL 50 MG TABLET PO PRN (18:51)
[2018-12-13] MEDS: SENNA 8.6 MG TAB PO SCH (20:56)
[2018-12-14] MEDS: METOPROLOL TARTRATE 1 MG/ML VIAL IV PRN (00:46)
[2018-12-14] MEDS ORDERED: SODIUM CHLORIDE 0.9% 1000ML 250 ML IV ONE (01:39)
[2018-12-14] MEDS ORDERED: POTASSIUM CHLORIDE 20 MEQ TABCR PO STA (01:40)
[2018-12-14] MEDS: LEVOTHYROXINE SODIUM 75 MCG TABLET PO SCH (06:17)
[2018-12-14] MEDS: METOPROLOL TARTRATE 25 MG TAB PO SCH ×2 (07:38→21:21)
[2018-12-14] MEDS: ASPIRIN 81 MG ECTAB PO SCH ×2 (07:39→21:48)
[2018-12-14] MEDS: CHOLECALCIFEROL 1,000 UNITS TAB PO SCH (07:40)
--- NOTE | 2018-12-14 07:40 | Progress Note ---
DATE: 12/14/2018 SUBJECTIVE: A 68-year-old female postop day 2 from a right uncemented total hip replacement done for displaced femoral neck fracture. She was transferred to the PCU for a brief run of AFib, I believe. She seems to be doing well. Denies any chest pain or shortness of breath. Hip pain is very manageable. No other complaints. OBJECTIVE: VITAL SIGNS: Temperature 36.9. Vital signs stable. GENERAL: Physical examination shows a pleasant elderly female. She is lying in bed, seems just a little bit confused this morning, but I did have to wake her up. EXTREMITIES: Examination of the right hip and leg reveals the dressing to be clean, dry and intact. Hip is located. She is neurologically intact. LABORATORY DATA: No new labs this morning. ASSESSMENT: A 68-year-old female postop day 2 from right total hip replacement done for displaced femoral neck fracture, doing pretty well. Pain is controlled. Hip is located. She is neurologically intact. She did apparently have this brief run of atrial fibrillation, but seems to be in sinus rhythm and without symptoms. PLAN: 1. DVT prophylaxis including thigh-high TEDs, SCDs, and baby aspirin twice a day for 6 weeks. 2. PT/OT. She can weightbear as tolerated. Right total hip protocol. 3. Pain control, doing well with current pain regimen. 4. Medical management as per the medicine service. 5. Disposition: She is orthopedically stable and acceptable for discharge any time medically stable. I need to see her back 2 weeks out from surgery date. Any orthopedic questions can be directed to me at [phone].
[2018-12-14] MEDS: BuPROPion XL 300 MG TABCR PO SCH (07:41)
[2018-12-14] MEDS: DOCUSATE SODIUM 100 MG CAP PO SCH (07:41)
[2018-12-14] MEDS: HYDROmorphone INJ 0.5 MG/0.5 ML SYR IV PRN (09:39)
[2018-12-14] MEDS ORDERED: POLYETHYLENE (MIRALAX) 17 GM PACK PO SCH (12:00)
--- NOTE | 2018-12-14 17:21 | Hospitalist Progress Note ---
Date of Service December 14, 2018 Assessment & Plan (1) Closed fracture of neck of right femur: 68-year-old female with a past medical history of hypertension, hypothyroidism, GERD, depression, renal cell carcinoma presents following a mechanical fall and was found to have a right hip fracture. Right hip fracture Patient has no cardiovascular complaints and her RCRI score is 3.9%, low risk for surgery, Patient has good functional capacity at baseline, no significant history of ischemic heart disease Ortho consult has taken the on 12/12 for repair of her hip fracture Atrial fibrillation RVR patient converted to sinus rhythm with 1 dose of metoprolol continue metoprolol p.o. in place of her typical amlodipine. Patient is with a normal echocardiogram. Troponin was unremarkable magnesium and potassium are replete and free T4 was within normal range, will continue metoprolol in place of norvasc and will recommend outpt multi day event monitor to determine if she is going into PAF as she really has no sensation of her tachycardia. if she has recurrent afib may consider formal anticoaguaion and cardiology follow up History of renal cell carcinoma with bone metastasis Remission, kidney resection 2011, right shoulder replacement 2013 Continue Inlyta following procedure Hypertension Patient's blood pressure is slightly low we will hold her typical antihypertensives and continue metoprolol changing to succinate 12/15 Hypothyroidism Restart Synthroid following surgery free T4 is in normal range Status post cataract surgery Continue home eyedrops Depression Continue Wellbutrin, Trintellix following procedure DVT prophylaxis Contraindicated at this time CODE STATUS Full code (2) Fall: (3) Encounter for pre-operative examination: (4) Renal carcinoma: (5) HTN (hypertension): (6) Hypothyroid: (7) GERD (gastroesophageal reflux disease): (8) Depression: Subjective Vision had one run of A. fib overnight but recently quickly returned to normal sinus rhythm and she is no complaints or problems this morning except for some minor hip pain. She had some episodes of confusion which we think may be opiate related and we have the escalated her pain control to tramadol from Dilaudid and oxycodone Review of Systems Review of Systems: ROS: well nourished well developed. No double vision blurry vision No problems with speech or swallowing No palpitations, chest pain or pressure No Wheezing or breathing issues No abdominal pain nausea vomiting diarrhea changes in appetite or weight No burning urine urine frequency or changes in color Typical postoperative joint pain No skin rashes or oral lesions No unusual bruising or bleeding No focused back pain or numbness or loss of strength No changes in memory or confusion Physical Exam Physical Exam: The patient appeared well nourished and normally developed. Vital signs as documented. Head exam is unremarkable. normocephalic, atraumatic Neck is without jugular venous distension, thyromegaly, or lymphademopathy Lungs are clear to auscultation and percussion. Cardiac exam reveals Rhythm is regular. First and second heart sounds normal. Abdominal exam reveals normal bowel sounds, no masses, no organomegaly Extremities are nonedematous and both pedal pulses are present. Neurologically she is alert and oriented x3. No focal deficits, strength is equal bilateral she does however this appears slightly distracted at times Skin is warm Dry without bruises or lesions Results & Data Vital Signs (Past 12 Hours) Vital Signs Temp Pulse Pulse Resp BP BP Pulse Ox 12/14/18 15:25 36.7 C 74 16 112/68 95 12/14/18 10:20 36.8 C 67 15 106/67 93 12/14/18 08:33 81 12/14/18 08:00 12/14/18 07:56 37.0 C 20 108/70 95 Pulse Ox 12/14/18 15:25 12/14/18 10:20 12/14/18 08:33 12/14/18 08:00 95 12/14/18 07:56 (1) Closed fracture of neck of right femur Encounter type: initial encounter Qualified Code(s): S72.001A - Fracture of unspecified part of neck of right femur, initial encounter for closed fracture (2) Fall Encounter type: initial encounter Qualified Code(s): W19.XXXA - Unspecified fall, initial encounter
[2018-12-14] MEDS ORDERED: VORTIOXETINE HYDROBROMIDE PO STA (21:21)
[2018-12-14] MEDS: SENNA 8.6 MG TAB PO SCH (21:49)
[2018-12-14] MEDS: AXITINIB PO SCH (21:52)
[2018-12-15] MEDS: LEVOTHYROXINE SODIUM 75 MCG TABLET PO SCH (06:14)
--- NOTE | 2018-12-15 08:22 | Progress Note ---
DATE: 12/15/2018 SUBJECTIVE: A 68-year-old female postop day 3 from right uncemented total hip replacement done for femoral neck fracture. She is doing much better today. Pain is controlled. She is completely awake, alert and appropriate. No confusion. OBJECTIVE: VITAL SIGNS: Temperature is 36.5. Vital signs stable. GENERAL: Physical examination shows a pleasant elderly female. She is sitting up in her bedside chair and looks quite comfortable. She is appropriate, awake, alert and oriented. EXTREMITIES: Examination of the right hip reveals the leg lengths were equal. Incision is clean, dry and intact. Thigh is soft and supple. Hip is located. She is neurologically intact. ASSESSMENT: A 68-year-old female postop day 3 from right uncemented total hip replacement done for displaced femoral neck fracture and doing well. Seems back to baseline. Pain is controlled. Hip is located. She is neurologically intact. PLAN: 1. DVT prophylaxis including thigh-high TEDs, SCDs, and we would recommend a baby aspirin twice a day for 6 weeks. 2. PT/OT. She can weightbear as tolerated. She needs to obey hip precautions. 3. Medical management as per the medicine service. 4. Disposition: She is orthopedically stable and acceptable for discharge any time. As long as she is doing okay, I am fine with her going home with home health versus rehab facility. I will not be rounding tomorrow. Any orthopedic questions can be directed to me at [phone] at any time.
[2018-12-15] MEDS: ASPIRIN 81 MG ECTAB PO SCH ×2 (09:54→20:25)
[2018-12-15] MEDS: METOPROLOL SUCC 25MG EXT REL TAB PO SCH (09:54)
[2018-12-15] MEDS: AXITINIB PO SCH ×2 (09:55→20:24)
[2018-12-15] MEDS: TRAMADOL HCL 50 MG TABLET PO PRN (11:07)
[2018-12-15] MEDS: CHOLECALCIFEROL 1,000 UNITS TAB PO SCH (11:08)
[2018-12-15] MEDS: BuPROPion XL 300 MG TABCR PO SCH (11:08)
[2018-12-15] MEDS: DOCUSATE SODIUM 100 MG CAP PO SCH (11:09)
[2018-12-15] MEDS: POLYETHYLENE (MIRALAX) 17 GM PACK PO PRN (11:41)
[2018-12-15] MEDS: DUREZOL OPR SCH ×2 (11:41→20:25)
--- NOTE | 2018-12-15 16:03 | Hospitalist Progress Note ---
Date of Service December 15, 2018 Assessment & Plan (1) Closed fracture of neck of right femur: 68-year-old female with a past medical history of hypertension, hypothyroidism, GERD, depression, renal cell carcinoma presents following a mechanical fall and was found to have a right hip fracture, s/p surgical repair. Right hip fracture Patient has no cardiovascular complaints and her RCRI score is 3.9%, low risk for surgery, Patient has good functional capacity at baseline, no significant history of ischemic heart disease Ortho consult has taken the on 12/12 for repair of her hip fracture Atrial fibrillation RVR patient converted to sinus rhythm with 1 dose of metoprolol continue metoprolol p.o. in place of her typical amlodipine. Patient is with a normal echocardiogram. Troponin was unremarkable magnesium and potassium are replete and free T4 was within normal range, will continue metoprolol in place of norvasc and will recommend outpt multi day event monitor to determine if she is going into PAF as she really has no sensation of her tachycardia. if she has recurrent afib may consider formal anticoaguaion and cardiology follow up History of renal cell carcinoma with bone metastasis Remission, kidney resection 2011, right shoulder replacement 2013 Continue Inlyta following procedure Hypertension Patient's blood pressure is slightly low we will hold her typical a ntihypertensives and continue metoprolol changing to succinate 12/15 Hypothyroidism Restart Synthroid following surgery free T4 is in normal range Status post cataract surgery Continue home eyedrops Depression Continue Wellbutrin, Trintellix following procedure DVT prophylaxis Contraindicated at this time CODE STATUS Full code (2) Fall: (3) Encounter for pre-operative examination: (4) Renal carcinoma: (5) HTN (hypertension): (6) Hypothyroid: (7) GERD (gastroesophageal reflux disease): (8) Depression: Subjective She has no complaints or problems her mental status improved since she is been away from opiates for some time. She is now considering going to subacute nursing facility for rehab Review of Systems Review of Systems: ROS: well nourished well developed. No double vision blurry vision No problems with speech or swallowing No palpitations, chest pain or pressure No Wheezing or breathing issues No abdominal pain nausea vomiting diarrhea changes in appetite or weight No burning urine urine frequency or changes in color Rehabbing left hip fracture No skin rashes or oral lesions No unusual bruising or bleeding No focused back pain or numbness or loss of strength No changes in memory or confusion Physical Exam Physical Exam: The patient appeared well nourished and normally developed. Vital signs as documented. Head exam is unremarkable. normocephalic, atraumatic Neck is without jugular venous distension, thyromegaly, or lymphademopathy Lungs are clear to auscultation and percussion. Cardiac exam reveals Rhythm is regular. Abdominal exam reveals normal bowel sounds, no masses, no organomegaly Extremities some pain with movement of her right hip Neurologic exam is A&Ox3 Psychologically seems neither anxious or depressed Skin is warm Dry Results & Data Vital Signs (Past 12 Hours) Vital Signs Temp Pulse Resp BP Pulse Ox 12/15/18 15:31 36.8 C 76 16 146/79 H 97 (1) Fall Encounter type: initial encounter Qualified Code(s): W19.XXXA - Unspecified fall, initial encounter (2) Closed fracture of neck of right femur Encounter type: initial encounter Qualified Code(s): S72.001A - Fracture of unspecified part of neck of right femur, initial encounter for closed fracture
[2018-12-15] MEDS: VORTIOXETINE HYDROBROMIDE PO SCH (18:40)
[2018-12-15] MEDS: SENNA 8.6 MG TAB PO SCH (20:25)
[2018-12-16] MEDS: LEVOTHYROXINE SODIUM 75 MCG TABLET PO SCH (05:45)
[2018-12-16 08:11] LABS: Hematocrit (blood only) 33.7 % (37-47); Hemoglobin 11.6 g/dL (12.0-16.0); Mean Corpuscular Hgb Conc 34.4 g/dL (32-36); Mean Corpuscular Volume 94.7 fL (80-100); Mean Platelet Volume 9.5 fL (7.4-10.4); Platelet Count 267 K/uL (130-400); RDW Coefficient of Variation 13.5 % (11.5-14.5); RDW Standard Deviation 46.9 fL (36.4-46.3); Red Blood Count 3.56 M/uL (4.2-5.4); White Blood Count 8.66 K/uL (4.8-10.8)
[2018-12-16 08:40] LABS: BUN Creatinine Ratio 19.2 (10-20); Calcium 9.1 mg/dl (8.5-10.1); Creatinine Clr Calc Pharmacy 65.9 ml/min; Est GFR (African American) 82.8; Est GFR (Non-African American) 71.4; Potassium 3.6 mmol/L (3.5-5.1)
[2018-12-16] MEDS: AXITINIB PO SCH ×2 (08:58→20:20)
[2018-12-16] MEDS: METOPROLOL SUCC 25MG EXT REL TAB PO SCH (08:58)
[2018-12-16] MEDS: DUREZOL OPR SCH ×3 (08:58→20:20)
[2018-12-16] MEDS: BuPROPion XL 300 MG TABCR PO SCH (08:59)
[2018-12-16] MEDS: CHOLECALCIFEROL 1,000 UNITS TAB PO SCH (08:59)
[2018-12-16] MEDS: ASPIRIN 81 MG ECTAB PO SCH ×2 (08:59→20:20)
[2018-12-16] MEDS: DOCUSATE SODIUM 100 MG CAP PO SCH (09:00)
[2018-12-16] MEDS: POLYETHYLENE (MIRALAX) 17 GM PACK PO PRN (11:08)
[2018-12-16] MEDS: TRAMADOL HCL 50 MG TABLET PO PRN ×2 (12:13→19:57)
--- NOTE | 2018-12-16 13:20 | Hospitalist Progress Note ---
Date of Service December 16, 2018 Assessment & Plan (1) Closed fracture of neck of right femur: 68-year-old female with a past medical history of hypertension, hypothyroidism, GERD, depression, renal cell carcinoma presents following a mechanical fall and was found to have a right hip fracture, s/p surgical repair. Right hip fracture Ortho consult has taken the on 12/12 for repair of her hip fracture Atrial fibrillation RVR patient converted to sinus rhythm with 1 dose of metoprolol continue metoprolol p.o. in place of her typical amlodipine. Patient is with a normal echocardiogram. Troponin was unremarkable magnesium and potassium are replete and free T4 was within normal range, will continue metoprolol in place of norvasc and will recommend outpt multi day event monitor to determine if she is going into PAF as she really has no sensation of her tachycardia. if she has recurrent afib may consider formal anticoagulation and cardiology follow up History of renal cell carcinoma with bone metastasis Remission, kidney resection 2011, right shoulder replacement 2013 Continue Inlyta following procedure Hypertension continue metoprolol changing to succinate 12/15, unclear whether the patient will tolerate addition back of lisinopril Hypothyroidism Synthroid, free T4 is in normal range Status post cataract surgery Continue home eyedrops Depression Controled with Wellbutrin, Trintellix following procedure DVT prophylaxis surgery has chosed bid aspirin CODE STATUS Full code (2) Fall: (3) Encounter for pre-operative examination: (4) Renal carcinoma: (5) HTN (hypertension): (6) Hypothyroid: (7) GERD (gastroesophageal reflux disease): (8) Depression: Subjective pt is feeling back to her baseline and awaiting placment for rehab Review of Systems Review of Systems: ROS: well nourished well developed. No double vision blurry vision No problems with speech or swallowing No palpitations, chest pain or pressure No Wheezing or breathing issues No abdominal pain nausea vomiting diarrhea changes in appetite or weight No burning urine urine frequency or changes in color Postop joint pain No skin rashes or oral lesions No unusual bruising or bleeding No focused back pain or numbness or loss of strength No changes in memory or confusion Physical Exam Physical Exam: The patient appeared well nourished and normally developed. Vital signs as documented. Head exam is unremarkable. normocephalic, atraumatic Neck is without jugular venous distension, thyromegaly, or lymphademopathy Lungs are clear to auscultation and percussion. Cardiac exam reveals Rhythm is regular. First and second heart sounds normal. Abdominal exam reveals normal bowel sounds, no masses, no organomegaly Extremities are nonedematous and both pedal pulses are present, improving movement of the surgical hip Neurologic exam is A&Ox3, no focal deficits, strength is improving daily Psychologically seems neither anxious or depressed Skin is warm Dry some bruising around the hip Results & Data Vital Signs (Past 12 Hours) Vital Signs Temp Pulse Resp BP Pulse Ox 12/16/18 07:58 36.7 C 79 16 144/72 H 95 (1) Closed fracture of neck of right femur Encounter type: initial encounter Qualified Code(s): S72.001A - Fracture of unspecified part of neck of right femur, initial encounter for closed fracture (2) Fall Encounter type: initial encounter Qualified Code(s): W19.XXXA - Unspecified fall, initial encounter
[2018-12-16] MEDS: VORTIOXETINE HYDROBROMIDE PO SCH (19:06)
[2018-12-16] MEDS: SENNA 8.6 MG TAB PO SCH (20:20)
[2018-12-17] MEDS: LEVOTHYROXINE SODIUM 75 MCG TABLET PO SCH (05:37)
[2018-12-17] MEDS: AXITINIB PO SCH ×2 (08:44→20:36)
[2018-12-17] MEDS: POLYETHYLENE (MIRALAX) 17 GM PACK PO SCH (08:45)
[2018-12-17] MEDS: DUREZOL OPR SCH ×3 (08:45→20:37)
[2018-12-17] MEDS: DOCUSATE SODIUM 100 MG CAP PO SCH (08:46)
[2018-12-17] MEDS: CHOLECALCIFEROL 1,000 UNITS TAB PO SCH (08:46)
[2018-12-17] MEDS: METOPROLOL SUCC 25MG EXT REL TAB PO SCH (08:47)
[2018-12-17] MEDS: BuPROPion XL 300 MG TABCR PO SCH (08:47)
[2018-12-17] MEDS: ASPIRIN 81 MG ECTAB PO SCH ×2 (08:47→20:36)
[2018-12-17 09:34] LABS: Hematocrit (blood only) 35.1 % (37-47); Hemoglobin 11.9 g/dL (12.0-16.0); Mean Corpuscular Hgb Conc 33.9 g/dL (32-36); Mean Corpuscular Volume 95.1 fL (80-100); Mean Platelet Volume 9.5 fL (7.4-10.4); Platelet Count 336 K/uL (130-400); RDW Coefficient of Variation 13.4 % (11.5-14.5); RDW Standard Deviation 46.6 fL (36.4-46.3); Red Blood Count 3.69 M/uL (4.2-5.4); White Blood Count 9.35 K/uL (4.8-10.8)
[2018-12-17 10:08] LABS: BUN Creatinine Ratio 14.8 (10-20); Calcium 9.2 mg/dl (8.5-10.1); Creatinine Clr Calc Pharmacy 52.1 ml/min; Est GFR (African American) 62.3; Est GFR (Non-African American) 53.8; Potassium 3.9 mmol/L (3.5-5.1)
[2018-12-17] MEDS: LISINOPRIL 5 MG TAB PO SCH (10:21)
[2018-12-17] MEDS: TRAMADOL HCL 50 MG TABLET PO PRN (12:28)
--- NOTE | 2018-12-17 17:53 | Hospitalist Progress Note ---
Date of Service December 17, 2018 Assessment & Plan (1) Closed fracture of neck of right femur: - S/p right uncemented total hip replacement on 12/12/18; POD #5. - DVT ppx: Aspirin BID for 6 week course. - PT/OT -- discharge to rehab pending placement. - F/u with orthopedics as outpatient. - Pain is currently well managed. (2) Atrial fibrillation with RVR: - Briefly in A. fib, now in NSR following Metoprolol. Considered lone Afib at this point in post-op period - Converted home Amlodipine to Metoprolol succinate 25 mg qAM. - Will need f/u with cardiology and outpatient event monitor. - No indication for anticoagulation at this point. (3) Renal carcinoma: - S/p kidney resection in 2011. - Continue Inlyta. (4) HTN (hypertension): - Continue Metoprolol (in place of previous Amlodipine) - Resumed home Lisinopril. (5) Hypothyroid: - Continue Synthroid as prescribed. - TSH was WNL. (6) Depression: - Continue Welbutrin and Trintellix. (7) GERD (gastroesophageal reflux disease): - Zantac qAM. (8) DVT prophylaxis: - Aspirin 81 mg BID. Dispo: Discharge to rehab pending placement. Supervising Physician Co-Signing Physician Notes PA Supervision Note: I did not personally see or examine the patient today, but I verified all vuong points of JOSE J Jade's assessment and plan with the following exceptions/additions: None Subjective Pt. is doing well. Denies pain in right hip but does have swelling/pain in right knee. Denies chest pain, SOB, N/V, constipation. Plan for rehab placement. Review of Systems Review of Systems: All systems reviewed & are unremarkable except as noted in HPI & below Constitutional: no fever, no chills, no fatigue, no weakness and no anorexia Respiratory: no cough, no dyspnea, no dyspnea on exertion and no wheezing Cardiovascular: + edema; no chest pain, no palpitations and no lightheadedness Gastrointestinal: no abdominal pain, no nausea, no vomiting, no constipation and no diarrhea/loose stools Genitourinary: no difficulty urinating Musculoskeletal: no back pain and no joint pain Integumentary: no non-healing lesions Allergy / Immunological: no rash Physical Exam Physical Exam: General: Resting comfortably in no apparent distress; A&OX3 HEENT: NC/AT; PERRLA with EOMI; [place] conjunctiva, MMM. No erythema of posterior pharynx Neck: Supple and nontender Cardiac: RRR w/o murmurs, gallops or rubs Lungs: CTA bilaterally; No rhonchi, wheezing, or rales Abdomen: Bowel normoactive X 4; Nontender to palpation Extremities: Warm. Moderate right knee edema, no calf tenderness, edema or erythema. Homans sign negative. Neuro: No focal weakness Skin: No rash Results & Data Vital Signs (Past 12 Hours) Vital Signs Temp Pulse Pulse Pulse Resp BP BP 12/17/18 15:18 36.5 C 68 16 119/71 12/17/18 12:00 36.7 C 66 18 124/76 12/17/18 10:21 63 136/80 12/17/18 08:00 36.7 C 66 16 130/72 Pulse Ox 12/17/18 15:18 98 12/17/18 12:00 99 12/17/18 10:21 12/17/18 08:00 97 Laboratory Results 12/17/18 12/17/18 Range/Units 09:22 09:22 WBC 9.35 (4.8-10.8) K/uL RBC 3.69 L (4.2-5.4) M/uL Hgb 11.9 L (12.0-16.0) g/dL Hct 35.1 L (37-47) % MCV 95.1 (80-100) fL MCH 32.2 (25-34) pg MCHC 33.9 (32-36) g/dL RDW Std Deviation 46.6 H (36.4-46.3) fL RDW Coeff of Ashly 13.4 (11.5-14.5) % Plt Count 336 (130-400) K/uL MPV 9.5 (7.4-10.4) fL Sodium 137 (136-145) mmol/L Potassium 3.9 (3.5-5.1) mmol/L Chloride 101 (98-107) mmol/L Carbon Dioxide 30 (21-32) mmol/L Anion Gap 6.0 (3-11) BUN 16 (7-18) mg/dl Creatinine 1.05 (0.6-1.2) mg/dl Est Cr Clr Drug Dosing 52.1 ml/min Est GFR ( Amer) 62.3 Est GFR (Non-Af Amer) 53.8 BUN/Creatinine Ratio 14.8 (10-20) Glucose 174 H (70-99) mg/dl Calcium 9.2 (8.5-10.1) mg/dl (1) Closed fracture of neck of right femur Encounter type: initial encounter Qualified Code(s): S72.001A - Fracture of unspecified part of neck of right femur, initial encounter for closed fracture
[2018-12-17] MEDS: VORTIOXETINE HYDROBROMIDE PO SCH (18:45)
[2018-12-17] MEDS: SENNA 8.6 MG TAB PO SCH (20:35)
[2018-12-18] MEDS: TRAMADOL HCL 50 MG TABLET PO PRN ×2 (03:02→19:14)
[2018-12-18] MEDS: LEVOTHYROXINE SODIUM 75 MCG TABLET PO SCH (05:19)
[2018-12-18] MEDS: METOPROLOL SUCC 25MG EXT REL TAB PO SCH (08:34)
[2018-12-18] MEDS: DOCUSATE SODIUM 100 MG CAP PO SCH (08:35)
[2018-12-18] MEDS: CHOLECALCIFEROL 1,000 UNITS TAB PO SCH (08:35)
[2018-12-18] MEDS: AXITINIB PO SCH ×2 (08:36→20:44)
[2018-12-18] MEDS: POLYETHYLENE (MIRALAX) 17 GM PACK PO SCH (08:36)
[2018-12-18] MEDS: BuPROPion XL 300 MG TABCR PO SCH (08:36)
[2018-12-18] MEDS: ASPIRIN 81 MG ECTAB PO SCH ×2 (08:36→20:44)
[2018-12-18] MEDS: LISINOPRIL 5 MG TAB PO SCH (08:36)
[2018-12-18] MEDS: DUREZOL OPR SCH ×3 (08:37→20:44)
--- NOTE | 2018-12-18 15:19 | XRay Report ---
RIGHT KNEE 3 VIEWS CLINICAL HISTORY: Right knee pain. FINDINGS: AP, crosstable lateral, and sunrise views of the right knee are obtained. No prior studies are available for comparison at the time of dictation. The skeletal structures are osteopenic. There is no radiographic evidence of fracture. There is moderate to advanced degenerative narrowing at the patellofemoral articulation. Mild narrowing is seen in the medial and lateral compartments. There are patellar enthesophytes and small marginal osteophytes. Chondrocalcinosis is noted in the medial and lateral compartments. There is a joint effusion. Mild soft tissue swelling is present around the knee . IMPRESSION: 1. Soft tissue swelling and joint effusion with no acute bony abnormality identified. 2. Osteopenia, degenerative change, and chondrocalcinosis as above. Electronically signed by: Ti Michaels M.D. 12/18/2018 3:17 PM
--- NOTE | 2018-12-18 16:11 | Hospitalist Progress Note ---
Date of Service December 18, 2018 Assessment & Plan (1) Closed fracture of neck of right femur: - S/p right uncemented total hip replacement on 12/12/18; POD #6. - DVT ppx: Aspirin BID for 6 week course. - PT/OT -- discharge to rehab pending placement, insurance auth is pending. - F/u with orthopedics as outpatient. - Pain is currently well managed. (2) Right knee pain: - Developed right knee pain following fall -- likely related to injury related effusion and chronic degenerative changes. - Knee XR: soft tissue swelling and joint effusion, osteopenia, degenerative changes. - Voltaren gel to be applied topically BID. (3) Atrial fibrillation with RVR: - Briefly in A. fib in the postoperative period, now in NSR following Metoprolol. Considered lone Afib at this point in post-op period. - Converted home Amlodipine to Metoprolol succinate 25 mg qAM. - Will need f/u with cardiology and outpatient event monitor. - No indication for anticoagulation. (4) Renal carcinoma: - S/p kidney resection in 2011. - Continue Inlyta. (5) HTN (hypertension): - Continue Metoprolol (in place of previous Amlodipine) - Resumed home Lisinopril. (6) Hypothyroid: - Continue Synthroid as prescribed. - TSH was WNL. (7) Depression: - Continue Welbutrin and Trintellix. (8) GERD (gastroesophageal reflux disease): - Zantac qAM. (9) DVT prophylaxis: - Aspirin 81 mg BID. Dispo: Discharge to rehab pending placement, likely on 12/19/18. Supervising Physician Co-Signing Physician Notes PA Supervision Note: I did not personally see or examine the patient today, but I verified all vuong points of JOSE J Jade's assessment and plan with the following exceptions/additions: None Subjective Pt. complains of right knee pain -- states she has chronic intermittent bilat knee pain at home. Has swelling in right knee/leg in setting of recent fracture/repair. She denies specific injury to knee but did fall on right side at home. Denies calf pain, swelling, erythema -- DVT is unlikely based on location and symptoms of pain. Knee XR showed soft tissue swelling and joint effusion, no acute bony changes, and osteopenia. Will order voltaren gel for topical pain relief. Discharge to rehab pending insurance authorization. Review of Systems Review of Systems: All systems reviewed & are unremarkable except as noted in HPI & below Constitutional: no fever, no chills, no fatigue and no weakness Respiratory: no cough, no dyspnea, no dyspnea on exertion and no wheezing Cardiovascular: no chest pain, no palpitations and no edema Gastrointestinal: no abdominal pain, no nausea, no vomiting and no constipation Genitourinary: no difficulty urinating Musculoskeletal: + joint pain (RIght knee ); no back pain Integumentary: no non-healing lesions Allergy / Immunological: no rash Physical Exam Physical Exam: General: Resting comfortably in no apparent distress; A&OX3 HEENT: NC/AT; PERRLA with EOMI; [place] conjunctiva, MMM. No erythema of posterior pharynx Neck: Supple and nontender Cardiac: RRR w/o murmurs, gallops or rubs Lungs: CTA bilaterally; No rhonchi, wheezing, or rales Abdomen: Bowel normoactive X 4; Nontender to palpation Extremities: Warm. Mild right knee edema, no tenderness to light palpation or erythema. Neuro: No focal weakness Skin: No rash Results & Data Vital Signs (Past 12 Hours) Vital Signs Temp Pulse Resp BP Pulse Ox 12/18/18 07:35 36.3 C L 70 17 102/57 L 96 (1) Closed fracture of neck of right femur Encounter type: initial encounter Qualified Code(s): S72.001A - Fracture of unspecified part of neck of right femur, initial encounter for closed fracture
[2018-12-18] MEDS: KETOROLAC TROMETHAMINE 15 MG/ML VIAL IV SCH ×2 (16:36→22:02)
--- NOTE | 2018-12-18 16:39 | Progress Note ---
DATE: 12/18/2018 SUBJECTIVE: A 68-year-old female postoperative day 6 from a right uncemented total hip replacement done for displaced femoral neck fracture. She is doing pretty well. She apparently has reported some knee pain and x-ray of her knee has been ordered. She has had some intermittent knee problems in the past. Hip is doing well. Pain is getting better daily. Feels like she is improving in therapy. No chest pain or shortness of breath. Not feeling dizzy or lightheaded. She is having trouble lifting her leg. OBJECTIVE: VITAL SIGNS: Temperature 36.3. Vital signs stable. GENERAL: Physical examination shows a pleasant, middle-aged female. She is lying in bed, looks quite comfortable. EXTREMITIES: Examination of the right leg reveals the leg to be well aligned. Her hip is located. Incision is clean, dry and intact. Thigh is soft and supple. She is neurologically intact. Examination of the right knee does reveal a small knee effusion. She has got no varus or valgus instability. Does have trouble doing a straight leg raise due to her hip surgery. Not much in the way of soft tissue bruising or swelling. No signs of acute trauma. X-RAYS: X-rays of the right knee were reviewed. It shows a pretty well preserved joint space. She does have a significant chondrocalcinosis, both medially and laterally. No signs of fracture. ASSESSMENT: A 68-year-old female 6 days out from a right total hip replacement done for a displaced femoral neck fracture, doing reasonably well. Making progress, but still progressing in therapy. She is having some knee pain and some underlying chondrocalcinosis which is consistent with some pseudogout. She has had similar symptoms before. No signs of acute trauma. PLAN: 1. DVT prophylaxis including thigh-high TEDs, SCDs, and aspirin twice a day. 2. PT/OT. She can weight bear as tolerated, right lower extremity. She needs to obey total hip precautions. 3. Medical management as per the medicine service. 4. Right knee pain. We did discuss this issue with her today. I offered an aspiration injection, but she would like to hold off on that. Short of that, I would recommend she just continue on anti-inflammatories. We will give her some Toradol as she can tolerate that versus other NSAIDs. 5. Disposition: She is orthopedically okay for discharge any time. I need to see her back 2 weeks after surgery date.
[2018-12-18] MEDS: VORTIOXETINE HYDROBROMIDE PO SCH (19:18)
[2018-12-18] MEDS: SENNA 8.6 MG TAB PO SCH (20:43)
[2018-12-18] MEDS: DICLOFENAC SOD 1% GEL 100 GM TUBE EXT SCH (20:44)
[2018-12-19] MEDS: KETOROLAC TROMETHAMINE 15 MG/ML VIAL IV SCH ×4 (03:05→21:20)
[2018-12-19] MEDS: LEVOTHYROXINE SODIUM 75 MCG TABLET PO SCH (05:25)
[2018-12-19] MEDS: DOCUSATE SODIUM 100 MG CAP PO SCH (08:10)
[2018-12-19] MEDS: POLYETHYLENE (MIRALAX) 17 GM PACK PO SCH (08:11)
[2018-12-19] MEDS: CHOLECALCIFEROL 1,000 UNITS TAB PO SCH (08:11)
[2018-12-19] MEDS: DUREZOL OPR SCH ×3 (08:11→20:36)
[2018-12-19] MEDS: METOPROLOL SUCC 25MG EXT REL TAB PO SCH (08:11)
[2018-12-19] MEDS: ASPIRIN 81 MG ECTAB PO SCH ×2 (08:12→20:36)
[2018-12-19] MEDS: BuPROPion XL 300 MG TABCR PO SCH (08:12)
[2018-12-19] MEDS: LISINOPRIL 5 MG TAB PO SCH (08:12)
[2018-12-19] MEDS: DICLOFENAC SOD 1% GEL 100 GM TUBE EXT SCH ×2 (08:13→20:36)
[2018-12-19] MEDS: AXITINIB PO SCH ×2 (08:14→20:37)
[2018-12-19 08:24] LABS: Hematocrit (blood only) 34.7 % (37-47); Hemoglobin 11.8 g/dL (12.0-16.0); Mean Corpuscular Volume 94.8 fL (80-100); Platelet Count 446 K/uL (130-400); RDW Coefficient of Variation 13.6 % (11.5-14.5); RDW Standard Deviation 47.3 fL (36.4-46.3); Red Blood Count 3.66 M/uL (4.2-5.4); White Blood Count 11.26 K/uL (4.8-10.8)
[2018-12-19 08:59] LABS: BUN Creatinine Ratio 16.2 (10-20); Creatinine Clr Calc Pharmacy 47.2 ml/min; Est GFR (African American) 55.2; Est GFR (Non-African American) 47.7; Potassium 3.8 mmol/L (3.5-5.1)
--- NOTE | 2018-12-19 10:33 | Progress Note ---
DATE: 12/19/2018 SUBJECTIVE: A 68-year-old white female now 7 days out from a right total hip replacement done for a displaced femoral neck fracture. She is doing well. Making progress. Pain is much improved today. Her knee pain is much improved. She began little bit of Toradol. OBJECTIVE: VITAL SIGNS: Temperature 36.5. Vital signs stable. GENERAL: Physical examination shows a pleasant elderly female. Lying in bed, looks comfortable. EXTREMITIES: Examination of the right leg reveals the incision to be clean, dry and intact. No drainage. Thigh is soft and supple. Hip is located. She can do a straight leg raise. She is neurologically intact. Examination of the knee reveals just a trace knee effusion. It is improved from yesterday. No tenderness to palpation. She is neurologically intact. ASSESSMENT: A 68-year-old white female now a week out from a right uncemented total hip replacement done for a displaced femoral neck fracture. She also has some underlying chondrocalcinosis and likely some pseudogout, which is aggravated by all this. She is doing much better now. She has got a couple doses of Toradol. PLAN: 1. DVT prophylaxis including thigh-high TEDs, SCDs, and aspirin twice a day. 2. PT/OT. Weight bear as tolerated. Right total hip protocol. 3. Pain control, doing well with current pain regimen. 4. Disposition: She is orthopedically okay for discharge any time. Clinically, she looks like she is doing good enough to go home with home health. We will leave that up to the medical doctors and the therapist. I need to see her back in about a week. Any orthopedic questions can be directed to me at [phone]. We recommend she be sent home on a baby aspirin twice a day for DVT prophylaxis along with TEDs and then just likely some tramadol for pain control.
[2018-12-19 15:17] LABS: Appearance Urine Clear (Clear); Bacteria Urine Automated Negative (Negative); Bilirubin Urine Negative (Negative); Blood Urine Negative (Negative); Color Urine Yellow; Epithelial Cell Urine Auto >30 /lpf (0-5); Glucose Urine UA Negative (Negative); Ketones Urine Negative (Negative); Leukocyte Esterase Urine 3+ (Negative); Nitrite Urine Negative (Negative); Protein Urine Negative (Negative); RBC Urine Automated 0-4 /hpf (0-4); Specific Gravity Urine 1.015 (1.000-1.030); Urobilinogen Urine Negative (Negative); WBC Urine Automated >30 /hpf (0-5); pH Urine 5.5 (4.5-7.5)
[2018-12-19] MEDS: SENNA 8.6 MG TAB PO SCH (17:31)
--- NOTE | 2018-12-19 18:43 | Hospitalist Progress Note ---
Date of Service December 19, 2018 Assessment & Plan (1) Closed fracture of neck of right femur: - S/p right uncemented total hip replacement on 12/12/18; POD #6. - DVT ppx: Aspirin BID for 6 week course. - PT/OT -- recommend rehab, patient wanted to discharge to but per our discussion today she will reconsider going to rehab for likely dc tomorrow - F/u with orthopedics as outpatient. - Pain is currently well managed. (2) Leukocytosis: with elevation of WBCs and platelets that is likely acute phase reaction Is afebrile - Unclear etiology - incision well approximated with scant drainage, lungs clear - Cdiff negative - U/A with leuk esterase and WBCs, no bacteria, will await cultures, patient not having symptoms at this time. - repeat CBC am -Orthopedic surgeon think she probably had some pseudogout in the right knee- this could account for leukocytosis and thrombocytosis (3) Right knee pain: - Developed right knee pain following fall -- likely related to injury related effusion and chronic degenerative changes. - Knee XR: soft tissue swelling and joint effusion, osteopenia, degenerative changes. - Voltaren gel to be applied topically BID. - no apparent swelling on exam today, no tenderness or erythema -Orthopedic surgeon thinks she probably has pseudogout (4) Atrial fibrillation with RVR: - Briefly in A. fib, now in NSR following Metoprolol. Considered lone Afib at this point in post-op period. - Converted home Amlodipine to Metoprolol succinate 25 mg qAM. - Will need f/u with cardiology and outpatient event monitor. - No indication for anticoagulation. (5) Renal carcinoma: - S/p kidney resection in 2011. - Continue Inlyta. (6) HTN (hypertension): Blood pressures controlled - Continue Metoprolol (in place of previous Amlodipine) - Resumed home Lisinopril. (7) Hypothyroid: - Continue Synthroid as prescribed. - TSH was WNL. (8) Depression: - Continue Wellbutrin and Trintellix. (9) GERD (gastroesophageal reflux disease): - Zantac qAM. (10) DVT prophylaxis: - Aspirin 81 mg BID. Dispo: Discharge possibly rehab - patient still considering rehab vs Supervising Physician Co-Signing Physician Notes PHARMACOGENETICIST supervision Note: I did not personally see or examine the patient today, but I verified all vuong points of MINNIE Ulrich's assessment and plan with the following exceptions/additions: None Subjective Ms. Benavides is feeling good. She has had some loose stool this morning but otherwise has no complaints. Review of Systems Review of Systems: All systems reviewed & are unremarkable except as noted in HPI & below Results & Data Vital Signs (Past 12 Hours) Vital Signs Temp Pulse Pulse Resp BP Pulse Ox 12/19/18 15:01 36.5 C 64 18 130/72 97 12/19/18 07:45 36.5 C 83 16 112/78 96 (1) Closed fracture of neck of right femur Encounter type: initial encounter Qualified Code(s): S72.001A - Fracture of unspecified part of neck of right femur, initial encounter for closed fracture
[2018-12-19] MEDS: VORTIOXETINE HYDROBROMIDE PO SCH (19:05)
[2018-12-19] MEDS ORDERED: DEXTROSE 50% 50 ML SYRINGE IV PRN (21:55)
[2018-12-19] MEDS ORDERED: GLUCAGON FOR INJ 1 MG VIAL SQ PRN (21:55)
[2018-12-19] MEDS ORDERED: CARBOHYDRATES FOR HYPOGLYCEMIA PO PRN (21:55)
[2018-12-19] MEDS ORDERED: GLUCOSE 10 TABS/TUBE PO PRN (21:55)
[2018-12-19] MEDS ORDERED: GLUCOSE 40% GEL 15 GM TUBE PO PRN (21:55)
[2018-12-20] MEDS: KETOROLAC TROMETHAMINE 15 MG/ML VIAL IV SCH (03:39)
[2018-12-20] MEDS: LEVOTHYROXINE SODIUM 75 MCG TABLET PO SCH (06:05)
[2018-12-20 07:10] LABS: Basophils # (auto) 0.03 K/uL (0-0.2); Basophils % (auto) 0.3 %; Eosinophils # (auto) 0.38 K/uL (0-0.5); Eosinophils % (auto) 4.3 %; Hematocrit (blood only) 33.2 % (37-47); Hemoglobin 11.2 g/dL (12.0-16.0); Immature Granulocytes % (auto) 1.1 %; Lymphocytes # (auto) 1.34 K/uL (1.2-3.4); Mean Corpuscular Hgb Conc 33.7 g/dL (32-36); Mean Corpuscular Volume 95.4 fL (80-100); Mean Platelet Volume 9.2 fL (7.4-10.4); Monocytes # (auto) 0.78 K/uL (0.11-0.59); Monocytes % (auto) 8.7 %; Neutrophils # (auto) 6.31 K/uL (1.4-6.5); Neutrophils % (auto) 70.6 %; Platelet Count 451 K/uL (130-400); RDW Coefficient of Variation 13.5 % (11.5-14.5); RDW Standard Deviation 46.9 fL (36.4-46.3); Red Blood Count 3.48 M/uL (4.2-5.4); White Blood Count 8.94 K/uL (4.8-10.8)
[2018-12-20] MEDS ORDERED: INSULIN ASPART 100 UNITS/ML 3 ML PEN SC SCH (07:30)
[2018-12-20] MEDS: ASPIRIN 81 MG ECTAB PO SCH (07:38)
[2018-12-20] MEDS: LISINOPRIL 5 MG TAB PO SCH (07:39)
[2018-12-20] MEDS: AXITINIB PO SCH (07:39)
[2018-12-20] MEDS: CHOLECALCIFEROL 1,000 UNITS TAB PO SCH (07:40)
[2018-12-20] MEDS: BuPROPion XL 300 MG TABCR PO SCH (07:40)
[2018-12-20] MEDS: DOCUSATE SODIUM 100 MG CAP PO SCH (07:40)
[2018-12-20] MEDS: METOPROLOL SUCC 25MG EXT REL TAB PO SCH (07:41)
[2018-12-20] MEDS: DUREZOL OPR SCH (07:42)
[2018-12-20] MEDS: POLYETHYLENE (MIRALAX) 17 GM PACK PO SCH (07:42)
[2018-12-20] MEDS: DICLOFENAC SOD 1% GEL 100 GM TUBE EXT SCH (07:43)
[2018-12-20 07:44] LABS: BUN Creatinine Ratio 16.6 (10-20); Calcium 8.9 mg/dl (8.5-10.1); Creatinine Clr Calc Pharmacy 46.8 ml/min; Est GFR (African American) 54.7; Est GFR (Non-African American) 47.2; Potassium 4.2 mmol/L (3.5-5.1)
--- NOTE | 2018-12-20 08:09 | Progress Note ---
DATE: 12/20/2018 SUBJECTIVE: A 68-year-old white female postop day 8 from a right total hip replacement done for fracture. Pain is controlled. She is worried today about her white blood cell count. Denies any chest pain or shortness of breath. Not feeling dizzy or lightheaded. Pain is controlled. OBJECTIVE: VITAL SIGNS: Temperature is 36.6. Vital signs stable. GENERAL: Physical examination shows a pleasant elderly female. She is lying in bed, looks pretty comfortable. EXTREMITIES: Examination of the right hip reveals just a trace bit of serous drainage on her dressing. Hip is located. Leg lengths were equal. She is neurologically intact. Knee effusion is essentially resolved. ASSESSMENT: A 68-year-old female postop, 8 days out from a right total hip replacement done for fracture, doing pretty well. White cell count is likely reactive due to stress and just the surgery in the trauma. White cells back to normal. Her pain is controlled. Hip is located. She is neurologically intact. There are no focal signs of infection. Hemoglobin and hematocrit are stable. PLAN: 1. DVT prophylaxis including thigh-high TEDs, SCDs, and aspirin twice a day. 2. PT/OT. Weight bear as tolerated. Right total hip protocol. 3. Pain control, doing well with current pain regimen. 4. Disposition: The patient was wanted to go home, now decided she wants to go to a correction facility. We will have socially responsible investment adviser working on that. She can be discharged any time from the orthopedic standpoint. I need to see her back about a week. Any orthopedic questions can be directed to me at [phone].
[2018-12-20 09:26] LABS: Estimated Average Glucose 137 mg/dl; Hemoglobin A1C 6.4 % (4.5-5.6)
--- NOTE | 2018-12-20 11:55 | Discharge Summary ---
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 Patient was found to have a right hip fracture in the ED. The patient states that she simply lost her balance and tripped. She denies having any dizziness or loss of consciousness prior to falling. Patient has a history of renal cell carcinoma which she says is in remission. She is currently on Inlyta for to the renal cell carcinoma and the patient has follow-up with an orthopedic oncologist and [facility] oncology. Patient has hypertension, but is well controlled and denies history of ischemic heart disease. She denies history of diabetes, congestive heart failure, chronic kidney disease. Admission Exam Per Admitting Provider Constitutional: WD/WN, vitals as above Eyes: PERRL, conjunctivae normal, anicteric sclerae ENMT: external ear and nose normal, oropharynx normal Neck: trachea midline, no thyromegaly Respiratory: normal respiratory effort, lungs clear to auscultation Cardiovascular: RRR, no murmur, no edema Gastrointestinal (Abdomen): normal bowel sounds, soft, nontender, no hepatosplenomegaly Musculoskeletal: Head/Neck/Chest: normocephalic and head atraumatic Right lower extremity is internally rotated, no erythema or ecchymosis noted on right hip, deferred range of motion testing secondary to pain Skin: no rashes, warm and dry Neurologic: PERRL, EOMI, accommodation nl, no face palsy, no dysarthria Psychiatric: A+Ox3, euthymic affect Principal Diagnosis Closed Fracture of Right Femur Neck Discharge Exam General: Resting comfortably in no apparent distress HEENT: NC/AT; PERRLA with EOMI; [place] conjunctiva, MMM. No erythema of posterior pharynx Neck: Supple and nontender Cardiac: RRR Lungs: CTA bilaterally Abdomen: Bowel normoactive X 4; Nontender to palpation Extremities: Warm. Right knee edema is resolving, no tenderness to palpation or erythema noted. Neuro: No focal weakness Skin: No rash Discharge Data Allergies Allergy/AdvReac Type Severity Reaction Status Date / Time nickel Allergy Severe ITCHING Verified 12/12/18 10:44 AND SORENESS OF GLANDS adhesive Allergy Intermediate REDNESS Verified 12/12/18 10:44 AND VERY ITCHY Penicillins Allergy Unknown RASH Verified 12/12/18 10:44 Sulfa (Sulfonamide Allergy Unknown VAGINAL Verified 12/12/18 10:44 Antibiotics) IRRITATION Consultations 12/11/18 20:00 ED Decision to Admit Stat 12/11/18 23:23 Consult Orthopedic Surgery Routine 12/12/18 14:40 Consult Case Management - Discharge Planning Routine Procedures Performed Operation Date: 12/12/18 10:55 Actual Procedures p Right Total Hip Arthroplasty-- Uncemented(Right) - Cameron Tamez MD Ordered Studies Hip/Pelvis/CXR 12/11/18 Hip/Pelvis XR 12/12/18 Knee XR 12/18/18 Hospital Course (1) Closed fracture of neck of right femur: S/p right uncemented total hip replacement on 12/12/18. DVT ppx: Aspirin BID for 6 week course. PT/OT -- will be discharged to [facility]. Will need to f/u with ortho as an outpatient. (2) Leukocytosis: Increase in WBC to 11.26 on 12/19/18 with increased in platelets as well -- likely acute phase reactant. No evidence of infection. C. diff negative. U/a was concerning, UC pending. Leukocytosis resolved on 12/20/18. May be related to pseudogout of the right knee. (3) Right knee pain: Developed right knee pain following fall -- possibly related to fall vs. pseudogout. Knee XR: soft tissue swelling and joint effusion, osteopenia, degenerative changes. Voltaren gel topically BID. Ortho offered aspiration and injection but pt declined (4) Atrial fibrillation with RVR: Briefly in A. fib in the postoperative period, now in NSR following Metoprolol. Considered lone Afib at this point in post-op period. Converted home Amlodipine to Metoprolol succinate 25 mg qAM. Consider f/u with cardiology and 24 hour monitor as outpatient for evaluate for paroxysmal Afib. (5) Renal carcinoma: S/p kidney resection in 2011. Continued Inlyta. (6) HTN (hypertension): Continued Metoprolol (in place of previous Amlodipine) Also resumed home Lisinopril. BP remained well controlled. (7) Hypothyroid: Continued Synthroid as prescribed. TSH was WNL. (8) Depression: Continued Wellbutrin and Trintellix. (9) GERD (gastroesophageal reflux disease): Zantac qAM. (10) DVT prophylaxis: Aspirin 81 mg BID for 6 week course. Discharged to [facility] on 12/20/18. Total Time Total Time Spent Total Time Spent (In Minutes): >30 minutes Total Time Includes: Examination of the Patient, Discharge Planning, Medication Reconciliation, Communication With Other Providers and Other Discharge Plan Discharge Items Patient Disposition: Transfer [facility] Reason For Visit: RIGHT HIP FRACTURE Discharge Diagnosis: Right Hip Replacement for Fracture Condition: Good Discharge Goals: Decrease discomfort, Improve disease control, Improve function and Therapeutic intervention Activity: Per 'Additional Instructions' section Activity Comment: Obey hip precautions at all times. Weightbearing: Right weightbearing Weightbearing Comment: Weightbear as tolerated following hip precautions at all times. Non-emergency contact: Surgeon Call non-emergency contact if: you have any medication questions Follow-up/Referrals: Cameron Tamez MD [Surgeon] - (Follow-up in Orthopedic clinic 2 weeks from surgery date. ) Flakito Kiran [Primary Care Provider] - Diet: Regular Addtl Provider Instructions: ACTIVITY RECOMMENDATIONS: Physical Therapy: * Aggressive physical therapy is not usually needed. You will learn to take care of yourself safely and walk. * Follow the "Hip Precautions Instructions." * In some cases, the social science teacher at the hospital will arrange to have a therapist come to your house for the first couple of weeks to help you learn these skills. * You need to practice on your own or with the help of a family member as needed. * When you learn these skills, most of the therapy can be done on your own. Home Exercise: * You were shown a series of exercises in the hospital. Do these exercises three to four times each day including the exercises you were shown in physical therapy. Walking: * Get up and walk several times each day. For the first four weeks, try not to stand or walk for more than one hour at a time. If you do stand or walk for more than one hour, you will not hurt anything, but your leg will likely swell. * As you feel comfortable, you may change from the walker or crutches to a cane and then to independent walking. MEDICATIONS: New Medicine: * You will likely be taking one or more of these medicines: 1. Oxycodone - Take, as directed, when you need it, every six hours to control your pain. 2. Iron Sulfate - Take two times each day for the month after surgery to help you replace the blood lost during surgery. 3. Aspirin - Thins your blood to lessen the chance of forming a blood clot. . * The most common side effects of pain medicine and iron are nausea and constipation. If nausea or constipation is too much of a problem or if you have any questions about your new medicines or doses, call [facility] at . We will try to help you manage these issues. "VERY IMPORTANT TO READ AND REVIEW" Pain: * The immediate post-operative period after hip replacement surgery is often quite painful. * You are given a prescription for pain medicine. You should take it, as directed, when you need it, especially before physical therapy and before going to bed. Pain that interferes with sleep is very common and can last several months. * You will likely need pain medicine for the first two to four weeks. It will not stop all of the pain. The pain will lessen and as you feel better, you may change to milder pain medicine such as Tylenol. * The most common side effects of pain medicine are nausea and constipation, so don't take more than you need. SPECIAL CARE INSTRUCTIONS: TEDs/Elastic Stockings: * The white elastic stockings help limit swelling and prevent blood clots from forming in your legs. The more you wear them, the more they work. * Wear them for six weeks. Prevention of Infection: * Take antibiotics one hour before any dental cleaning, dental work, urological procedure, gastrointestinal procedure or any invasive surgery in order to prevent your new joint from getting infected. * You may get the antibiotics from the doctor performing the procedure or you may call our office at before and we will call in a prescription to the pharmacy of your choice. Things to Watch For: * Drainage from the incision site that occurs more than one week after your surgery. * Severely increased leg pain or swelling. * Increased redness at the incision site. * Fever above 102 degrees Fahrenheit. * Unusual chest pain or shortness of breath. * Unusual pain or burning with urination. Call [facility] at with any of the above problems or if you have any questions about your medicines or recovery. FOLLOW UP VISIT: Make an appointment to see your doctor for approximately two weeks after surgery for a progress check and staple removal by calling the office at . Prescriptions: Continued multivitamin Tablet 1 tab PO 1200 RF: 0 levothyroxine [Synthroid] 75 mcg Tablet 75 mcg PO QAM RF: 0 lisinopril 5 mg Tablet 5 mg PO QAM RF: 0 bupropion HCl [Wellbutrin XL] 300 mg Tablet Extended Release 24 Hr 300 mg PO QAM RF: 0 cholecalciferol (vitamin D3) [Vitamin D3] 2,000 unit Capsule 4,000 unit PO QAM RF: 0 Trintellix 10 mg Tablet 10 mg PO 1900 RF: 0 Kym Carrington 1 tab PO 3XWK RF: 0 ranitidine HCl [Zantac] 150 mg Tablet 150 mg PO QAM RF: 0 Inlyta 1 mg tablet 1 mg PO BID RF: 0 tobramycin 0.3 % drops 1 drops OP QID RF: 0 Durezol 0.05 % drops 1 drops OP QID RF: 0 Changed docusate sodium [Stool Softener] 100 mg Tablet 100 mg PO BID Qty: 0 RF: 0 Discontinued flaxseed oil 1,000 mg Capsule 1,000 mg PO DAILY RF: 0 amlodipine [Norvasc] 10 mg Tablet 10 mg PO QAM RF: 0 Stand-Alone Forms: [facility] Discharge Orders: Discharge Order (Routine); Ordered 12/20/18 Ordered By: Karolyn Jade Skilled Items Patient informed of condition?: Yes DNR: No Discharge Level of Care: Skilled Communicable Disease: No Discharge Prognosis: Improving Admission Data Admit Date/Time: 12/11/18 21:16 Attending Provider: Wendy Hernandez Admit Provider: Louis Garcia Primary Care Provider: Flakito Kiran Other Providers: Bruno Farnsworth ; Cameron Tamez Service: Medical Other Interventions: Discharge Summary Assessment (RN) Last Done: 12/20/18 10:40 Pending Studies at Discharge: Yes Studies:: Urine culture 12/19/18 is pending. DC Date/Time DO NOT enter until pt leaves facility: 12/20/18 11:33 Supervising Physician Co-Signing Physician Notes PA Supervision Note: I personally saw and examined the patient. I verified all vuong points and agree with JOSE J Jade with the following exceptions and/or additions: Pt doing very well, no complaints Vitals reviewed RRR no mgr, nl S1S2 CTAB no wcr RLE with dressing in place over hip, knee mild effusion, no erythema Stable for dc to rehab, f/u Ortho
== END 2018-12-20 11:33 | DRG 470 ==
LOC: ED 18:48 → SUATTDRO 21:16 → 3N 21:16 → 2S 12-13 14:42 → 3W 12-14 08:05
DX: Z85.528 Personal history of other malignant neoplasm of kidney; Z85.830 Personal history of malignant neoplasm of bone; M11.251 Other chondrocalcinosis, right hip; E03.9 Hypothyroidism, unspecified; F32.9 Major depressive disorder, single episode, unspecified; Z87.891 Personal history of nicotine dependence; Z88.0 Allergy status to penicillin; S72.001A Fracture of unspecified part of neck of right femur, initial encounter for closed fracture; Z90.5 Acquired absence of kidney; Z83.3 Family history of diabetes mellitus; W01.0XXA Fall on same level from slipping, tripping and stumbling without subsequent striking against object, initial encounter; Z88.2 Allergy status to sulfonamides; I48.91 Unspecified atrial fibrillation; Z96.611 Presence of right artificial shoulder joint; I10 Essential (primary) hypertension; Y92.019 Unspecified place in single-family (private) house as the place of occurrence of the external cause; K21.9 Gastro-esophageal reflux disease without esophagitis

== ENCOUNTER 2022-05-18 20:47 | Observation (INO) ==
[2022-05-18 22:07] LABS: Basophils # (auto) 0.04 K/uL (0-0.2); Basophils % (auto) 0.3 %; Eosinophils # (auto) 0.07 K/uL (0-0.50); Eosinophils % (auto) 0.6 %; Hemoglobin 15.2 g/dl (12.0-16.0); Immature Granulocytes # (auto) 0.04 K/uL (0.00-0.02); Immature Granulocytes % (auto) 0.3 %; Lymphocytes # (auto) 1.94 K/uL (1.2-3.4); Lymphocytes % (auto) 16.8 %; Mean Corpuscular Hemoglobin 34.7 pg (25.0-34.0); Mean Corpuscular Hgb Conc 35.3 g/dL (32.0-36.0); Mean Corpuscular Volume 98.2 fL (80.0-100.0); Monocytes % (auto) 7.8 %; Neutrophils # (auto) 8.53 K/uL (1.4-6.5); Neutrophils % (auto) 74.2 %; Platelet Count 302 K/uL (130-400); RDW Coefficient of Variation 13.2 % (11.5-14.5); RDW Standard Deviation 47.6 fL (36.4-46.3); Red Blood Count 4.38 M/uL (3.93-5.22); White Blood Count 11.52 K/ul (4.8-10.8)
[2022-05-18 22:31] LABS: Appearance Urine Clear (Clear); Bilirubin Urine Negative (Negative); Blood Urine Negative (Negative); Color Urine Yellow; Glucose Urine UA 3+ (Negative); Ketones Urine Negative (Negative); Leukocyte Esterase Urine Negative (Negative); Nitrite Urine Negative (Negative); Protein Urine Negative (Negative); Specific Gravity Urine 1.039 (1.000-1.030); Urobilinogen Urine Negative (Negative)
[2022-05-18 22:56] LABS: Alanine Aminotransferase 58 U/L (7-52); Albumin Globulin Ratio 1.3 (0.9-2); Albumin Level 4.1 gm/dl (3.4-5.0); Alkaline Phosphatase 164 U/L (34-104); Anion Gap 7 (3-11); Aspartate Aminotransferase 26 U/L (13-39); BUN Creatinine Ratio 30.8 (10-20); Bilirubin,Total 1.1 mg/dl (0.2-1.0); Blood Urea Nitrogen 28 mg/dl (6-23); Calcium 10.8 mg/dl (8.5-10.1); Carbon Dioxide 27 mmol/L (21-32); Chloride 98 mmol/L (98-107); Est GFR (African American) 72.5 ml/min; Est GFR (Non-African American) 62.6 ml/min; Globulin 3.1 gm/dl (2.5-4.0); Glucose 397 mg/dl (70-99(Fasting)); Potassium 4.4 mmol/L (3.5-5.1); Sodium 132 mmol/L (136-145); Total Protein 7.2 gm/dl (6.0-8.3)
[2022-05-18] MEDS ORDERED: SODIUM CHLORIDE 0.9% 500 ML IV ONE (23:03)
[2022-05-19 00:26] LABS: Adenovirus PCR Not Detected (NotDetected); Bordetella parapertussis PCR Not Detected (NotDetected); Bordetella pertussis PCR Not Detected (NotDetected); Chlamydia pneumoniae PCR Not Detected (NotDetected); Coronavirus 229E PCR Not Detected (NotDetected); Coronavirus CoV-2 (COVID19)PCR Not Detected (NotDetected); Coronavirus HKU1 PCR Not Detected (NotDetected); Coronavirus NL63 PCR Not Detected (NotDetected); Coronavirus OC43PCR Not Detected (NotDetected); Human Metapneumovirus PCR Not Detected (NotDetected); Influenza A PCR Not Detected (NotDetected); Influenza B PCR Not Detected (NotDetected); Mycoplasma pneumoniae PCR Not Detected (NotDetected); Parainfluenza Virus 1 PCR Not Detected (NotDetected); Parainfluenza Virus 2 PCR Not Detected (NotDetected); Parainfluenza Virus 3 PCR Not Detected (NotDetected); Parainfluenza Virus 4 PCR Not Detected (NotDetected); Respiratory Syncytial VirusPCR Not Detected (NotDetected); Rhinovirus/Enterovirus PCR Not Detected (NotDetected)
--- NOTE | 2022-05-19 00:40 | Emergency Department Note ---
ED Visit Note Spoke with the patient at bedside. Patient was seen by the physician construction administrative assistant. Patient has hyperglycemia at this time. Patient will be admitted for further treatment. .
--- NOTE | 2022-05-19 01:07 | Emergency Department Note ---
History of Present Illness General Chief complaint: Hyperglycemia Stated complaint: SUGAR >500 Time Seen by Provider: 05/18/22 22:50 History of Present Illness This 71-year-old presents to the ER complaining of hypoglycemia is not a diabetic Location: Generalized Quality: Elevated blood sugar Severity: Moderate Duration: Today Timing: Patient was called by the oncology department and advised to come in for hyperglycemia Context: Patient came in due to lab abnormality Modifying factors: better with nothing; worse with nothing No recent steroids. No recent illness. Patient denies chest pain, dyspnea, fever, chills, polydipsia, polyuria, flulike illness. No prior history of diabetes. She is currently receiving oral chemotherapy for renal cell carcinoma. Home Medications Medication Instructions Recorded Confirmed Type Kym Carrington 1 tab PO 3XWK 11/28/18 05/18/22 History cholecalciferol (vitamin D3) 50 50 mcg PO QAM 11/28/18 05/18/22 History mcg (2,000 unit) capsule (Vitamin D3) levothyroxine 75 mcg tablet 75 mcg PO QAM 11/28/18 05/18/22 History (Synthroid) multivitamin 1 tab PO QAM 11/28/18 05/18/22 History tramadol 50 mg tablet 50 mg PO DAILY PRN Pain 09/02/20 05/18/22 History Wheelchair (Manual) #1 ea 07/06/21 Rx pazopanib 200 mg tablet (Votrient) 100 mg PO DAILY 12/02/21 05/18/22 History lisinopril 2.5 mg tablet 2.5 mg PO DAILY 05/18/22 05/18/22 History lisinopril 5 mg tablet 5 mg PO DAILY 05/18/22 05/18/22 History paroxetine HCl 40 mg tablet 40 mg PO DAILY 05/18/22 05/18/22 History vitamin B complex 1 tab PO DAILY 05/18/22 05/18/22 History Allergies Allergy/AdvReac Type Severity Reaction Status Date / Time nickel Allergy Severe ITCHING Verified 05/18/22 23:33 AND SORENESS OF GLANDS adhesive Allergy Intermediate REDNESS Verified 05/18/22 23:33 AND VERY ITCHY Penicillins Allergy Intermediate RASH Verified 05/18/22 23:33 Sulfa (Sulfonamide Allergy Intermediate VAGINAL Verified 05/18/22 23:33 Antibiotics) IRRITATION latex AdvReac Unknown Unknown Verified 05/18/22 23:33 Past Med/Surg History Medical History Acute UTI Anxiety Atrial fibrillation with RVR Cancer RENAL CELL CANCER IN LEFT KIDNEY METS TO RIGHT SHOULDER Clear cell carcinoma of left kidney Closed fracture of neck of right femur Depression DVT prophylaxis Dyspareunia Fall GERD (gastroesophageal reflux disease) Hypertension Hypothyroidism Incomplete right bundle branch block Leukocytosis Nonspecific vaginitis Post-op bleeding Pseudomonas aeruginosa infection Right axis deviation Right knee pain Surgical History History of bilateral tubal ligation History of nephrectomy LEFT History of open reduction and internal fixation (ORIF) procedure RIGHT HIP History of total shoulder replacement RIGHT S/P cataract extraction Family History Mother Family history of diabetes mellitus Father Family history of diabetes mellitus Social History Smoking Status: Former smoker Second Hand Exposure: No; Hx Alcohol Use: No Hx Substance Use: No Preferred Language: Malay Communication Ability: Effective Bus Aide Required: No Beliefs That Will Affect Care: None Current Living Situation: Spouse Feels Safe at Home: Yes Assistive Devices: Glasses and Walker Review of Systems A total of 10 systems reviewed and were otherwise negative Physical Exam Vital Signs Vital Signs - 24 hr 05/18/22 20:58 05/18/22 23:25 05/19/22 01:24 Temperature 36.5 C Temperature Source Temporal Artery Scan Pulse Rate 88 Pulse Rate [Finger] 78 81 Pulse Rhythm [Finger] Regular Regular Pulse Strength [Finger] Normal Normal Respiratory Rate 18 16 16 Respiratory Effort / Characteristics Non-Labored Spontaneous Non-Labored Spontaneous Non-Labored Spontaneous Respiratory Depth Normal Normal Normal Respiratory Pattern Regular Regular Blood Pressure 122/71 Blood Pressure Mean 88 Pulse Oximetry 97 94 96 Oxygen Delivery Method Room Air Room Air Room Air Sepsis Recent Fever Within 48 Hours No Sepsis New/Unexplained Change in Mental Status No Sepsis Action Taken by Nursing No Action Required VITALS: Vitals are noted on the nurse's note and reviewed by myself. Vital signs stable. GENERAL: Pleasant female following commands, in no acute distress, nondiaphoretic, well-developed well-nourished. SKIN: The skin was without rashes, erythema, edema, or bruising. There is no tenting of the skin. Capillary reflex less than 2 seconds. HEAD: Normocephalic atraumatic. EARS: External auditory canals clear, EYES: Pupils equal round and reactive to light and accommodation. Conjunctivae without injection, sclerae without icterus. Extraocular movements intact. NOSE: Patent, turbinates without inflammation or discharge MOUTH: Mucous membranes moist. Pharynx without erythema or exudate. Uvula midline. Airway patent. Tongue does not deviate. NECK: Supple without nuchal rigidity. No lymphadenopathy. No thyromegaly. Cervical spine is nontender. No JVD. HEART: Regular rate and rhythm LUNGS: Clear to auscultation bilaterally without wheezes, rales or rhonchi. No retractions or accessory muscle use. ABDOMEN: Positive bowel sounds x 4. Normal tympanic percussion. Soft, nontender, without masses or organomegaly. Ha sign negative. No guarding or rebound tenderness. No CVA tenderness MUSCULOSKELETAL: No muscle atrophy, erythema, or edema noted. NEURO: Patient was alert and oriented to person place and time. Normal sensation to light and sharp touch. No focal neurological deficits. Course Administered Medications Discontinued Medications Sodium Chloride (Nss) 500 mls @ 999 mls/hr IV .Q31M ONE Stop: 05/18/22 23:33 Last Infusion: 05/18/22 23:59 Dose: 0 mls/hr Documented By: Admin: 05/18/22 23:19 Dose: 999 mls/hr Documented By: NEHEMIAH Medical Decision Making Medical Records Attestation: I reviewed the patient's medical records. Home Medications Current Medication List: was personally reviewed by fl Laboratory Data Attestation: I reviewed the patient's lab results. Result diagrams: 05/18/22 21:49 05/18/22 21:49 Lab Results 05/18/22 05/18/22 05/18/22 Range/Units 21:32 21:49 21:49 WBC 11.52 H (4.8-10.8) K/ul RBC 4.38 (3.93-5.22) M/uL Hgb 15.2 (12.0-16.0) g/dl Hct 43.0 (34.1-44.9) % MCV 98.2 (80.0-100.0) fL MCH 34.7 H (25.0-34.0) pg MCHC 35.3 (32.0-36.0) g/dL RDW Std Deviation 47.6 H (36.4-46.3) fL RDW Coeff of Ashly 13.2 (11.5-14.5) % Plt Count 302 (130-400) K/uL MPV 10.0 (9.4-12.3) fL Immature Gran % (Auto) 0.3 % Neut % (Auto) 74.2 % Lymph % (Auto) 16.8 % [place] % (Auto) 7.8 % Eos % (Auto) 0.6 % Baso % (Auto) 0.3 % Neut # (Auto) 8.53 H (1.4-6.5) K/uL Lymph # (Auto) 1.94 (1.2-3.4) K/uL [place] # (Auto) 0.90 H (0.24-0.82) K/uL Eos # (Auto) 0.07 (0-0.50) K/uL Baso # (Auto) 0.04 (0-0.2) K/uL Immature Gran # (Auto) 0.04 H (0.00-0.02) K/uL Sodium 132 L (136-145) mmol/L Potassium 4.4 (3.5-5.1) mmol/L Chloride 98 (98-107) mmol/L Carbon Dioxide 27 (21-32) mmol/L Anion Gap 7 (3-11) BUN 28 H (6-23) mg/dl Creatinine 0.91 (0.6-1.2) mg/dl Est Cr Clr Drug Dosing Not Reportable Est GFR ( Amer) 72.5 ml/min Est GFR (Non-Af Amer) 62.6 ml/min BUN/Creatinine Ratio 30.8 H (10-20) Glucose 397 H* (70-99(Fasting)) mg/dl POC Glucose 376 H* (70-99) mg/dl Calcium 10.8 H (8.5-10.1) mg/dl Magnesium (1.7-2.4) mg/dl Total Bilirubin 1.1 H (0.2-1.0) mg/dl AST 26 (13-39) U/L ALT 58 H (7-52) U/L Alkaline Phosphatase 164 H (34-104) U/L Total Protein 7.2 (6.0-8.3) gm/dl Albumin 4.1 (3.4-5.0) gm/dl Globulin 3.1 (2.5-4.0) gm/dl Albumin/Globulin Ratio 1.3 (0.9-2) Urine Color Urine Appearance (Clear) Urine pH (4.5-7.5) Ur Specific [place] (1.000-1.030) Urine Protein (Negative) Urine Glucose (UA) (Negative) Urine Ketones (Negative) Urine Blood (Negative) Urine Nitrite (Negative) Urine Bilirubin (Negative) Urine Urobilinogen (Negative) Ur Leukocyte Esterase (Negative) Adenovirus (PCR) (NotDetected) B. pertussis DNA (PCR) (NotDetected) B.parapertussis DNA PCR (NotDetected) C. pneumoniae DNA (PCR) (NotDetected) Coronavirus OC43 (PCR) (NotDetected) Coronavirus HKU1 (PCR) (NotDetected) Coronavirus 229E (PCR) (NotDetected) SARS-CoV-2 (PCR) (NotDetected) Coronavirus NL63 (PCR) (NotDetected) Human Metapneumovir PCR (NotDetected) Influenza Type A (PCR) (NotDetected) Influenza Type B (PCR) (NotDetected) M. pneumoniae (PCR) (NotDetected) Parainfluenza 1 (PCR) (NotDetected) Parainfluenza 2 (PCR) (NotDetected) Parainfluenza 3 (PCR) (NotDetected) Parainfluenza 4 (PCR) (NotDetected) RSV (PCR) (NotDetected) Entero/Rhino (PCR) (NotDetected) 05/18/22 05/18/22 05/18/22 Range/Units 21:49 21:49 23:16 WBC (4.8-10.8) K/ul RBC (3.93-5.22) M/uL Hgb (12.0-16.0) g/dl Hct (34.1-44.9) % MCV (80.0-100.0) fL MCH (25.0-34.0) pg MCHC (32.0-36.0) g/dL RDW Std Deviation (36.4-46.3) fL RDW Coeff of Ashly (11.5-14.5) % Plt Count (130-400) K/uL MPV (9.4-12.3) fL Immature Gran % (Auto) % Neut % (Auto) % Lymph % (Auto) % [place] % (Auto) % Eos % (Auto) % Baso % (Auto) % Neut # (Auto) (1.4-6.5) K/uL Lymph # (Auto) (1.2-3.4) K/uL [place] # (Auto) (0.24-0.82) K/uL Eos # (Auto) (0-0.50) K/uL Baso # (Auto) (0-0.2) K/uL Immature Gran # (Auto) (0.00-0.02) K/uL Sodium (136-145) mmol/L Potassium (3.5-5.1) mmol/L Chloride (98-107) mmol/L Carbon Dioxide (21-32) mmol/L Anion Gap (3-11) BUN (6-23) mg/dl Creatinine (0.6-1.2) mg/dl Est Cr Clr Drug Dosing Est GFR ( Amer) ml/min Est GFR (Non-Af Amer) ml/min BUN/Creatinine Ratio (10-20) Glucose (70-99(Fasting)) mg/dl POC Glucose (70-99) mg/dl Calcium (8.5-10.1) mg/dl Magnesium 2.1 (1.7-2.4) mg/dl Total Bilirubin (0.2-1.0) mg/dl AST (13-39) U/L ALT (7-52) U/L Alkaline Phosphatase (34-104) U/L Total Protein (6.0-8.3) gm/dl Albumin (3.4-5.0) gm/dl Globulin (2.5-4.0) gm/dl Albumin/Globulin Ratio (0.9-2) Urine Color Yellow Urine Appearance Clear (Clear) Urine pH 5.0 (4.5-7.5) Ur Specific [place] 1.039 H (1.000-1.030) Urine Protein Negative (Negative) Urine Glucose (UA) 3+ H (Negative) Urine Ketones Negative (Negative) Urine Blood Negative (Negative) Urine Nitrite Negative (Negative) Urine Bilirubin Negative (Negative) Urine Urobilinogen Negative (Negative) Ur Leukocyte Esterase Negative (Negative) Adenovirus (PCR) Not Detected (NotDetected) B. pertussis DNA (PCR) Not Detected (NotDetected) B.parapertussis DNA PCR Not Detected (NotDetected) C. pneumoniae DNA (PCR) Not Detected (NotDetected) Coronavirus OC43 (PCR) Not Detected (NotDetected) Coronavirus HKU1 (PCR) Not Detected (NotDetected) Coronavirus 229E (PCR) Not Detected (NotDetected) SARS-CoV-2 (PCR) Not Detected (NotDetected) Coronavirus NL63 (PCR) Not Detected (NotDetected) Human Metapneumovir PCR Not Detected (NotDetected) Influenza Type A (PCR) Not Detected (NotDetected) Influenza Type B (PCR) Not Detected (NotDetected) M. pneumoniae (PCR) Not Detected (NotDetected) Parainfluenza 1 (PCR) Not Detected (NotDetected) Parainfluenza 2 (PCR) Not Detected (NotDetected) Parainfluenza 3 (PCR) Not Detected (NotDetected) Parainfluenza 4 (PCR) Not Detected (NotDetected) RSV (PCR) Not Detected (NotDetected) Entero/Rhino (PCR) Not Detected (NotDetected) Imaging Data Attestation: I personally reviewed and interpreted this imaging study as follows: MDM Narrative Prior records/ancillary studies reviewed and summarized above. Nursing notes reviewed. Additional history obtained from family. The patient's history was concerning for hyperglycemia. Differential diagnosis: Etiologies such as metabolic, infection, hypo/hyperglycemia, electrolyte abnormalities, cardiac sources, intracerebral event, toxicologic, neurologic, as well as others were entertained. Physical examination: As above. ER treatment provided: IV Lock An order was placed for continuous cardiac monitoring. The monitor shows a rate of 60-100 with a sinus rhythm. IV fluids On reassessment the patient felt better. Diagnostics interpretation by me: ECG: Ordered for weakness EKG: Normal sinus, normal intervals, no acute ST-T wave changes. Impression normal sinus rhythm interpreted by myself I think arrhythmia is unlikely. EKG shows normal sinus rhythm with no interval abnormalities such as QT prolongation or WPW. There are no findings to suggest Brugada syndrome. Cardiac monitoring in the emergency department reveals no tachycardic or bradycardic dysrhythmia. Hypertrophic cardiomyopathy was considered but there are no clear historical elements pointing toward this. EKG is not suggestive. The QRS voltage is not extremely large and there are no suggestive Q waves. The labs revealed hyperglycemia without DKA Negative urine, negative bio fire Mild LFT elevation, mild leukocytosis, negative urine Imaging studies: Chest x-ray with no acute consolidation, pneumothorax or free air per my interpretation CT HEAD: Comparison 01/07/19. No acute intracranial abnormality. Radiologist: Angeles Tan MD Consultation: A consultation was placed with the hospitalist. The case was discussed and diagnostics were reviewed. The patient was evaluated in the ER for further treatment. Exam and history seem consistent with new onset diabetes. Patient was not in DKA. Medicine was consulted. She will be evaluated for possible admission. By the evaluation outlined above emergent etiologies such as infection, electrolyte abnormalities, cardiac sources, intracerebral event, toxologic, neurologic, metabolic, as well as others were deemed relatively unlikely. The pt informed about the findings as listed above. All questions were answered and pleased with the treatment. The chart was completed utilizing [employer] Speech voice recognition software. Grammatical errors, random word insertions, pronoun errors, and incomplete se ntences are an occassional consequence of this system due to software limitations, ambient noise, and hardware issues. Any formal questions or concerns about the content, text, or information contained within the body of this dictation should be directly addressed to the physician graphic design assistant for cla rification. Impression & Plan Acute hyperglycemia, Weakness Discharge Plan Visit Data Chief Complaint: Hyperglycemia Stated Complaint: SUGAR >500 ED Provider: Jas Johnson. ED Midlevel Provider: Michelle Greer Discharge Problem: Acute hyperglycemia, Weakness Patient Disposition: Admitted As Inpatient Condition: Good Forms Stand Alone Forms: IPexpert Prescriptions Prescriptions: No Action (DME) Wheelchair (Manual) Device See Rx Instructions .Route Qty: 1 0RF Rx Instructions: Folding Lightweight manual wheelchair with elevating leg rests, foot plates, hand brakes, and Cushion tramadol 50 mg tablet 50 mg PO DAILY PRN (Reason: Pain) Votrient 200 mg tablet 100 mg PO DAILY Rx Instructions: administer on an empty stomach, at least 1 hour before or 2 hours after food/meal(s) multivitamin Tablet 1 tab PO QAM levothyroxine [Synthroid] 75 mcg Tablet 75 mcg PO QAM cholecalciferol (vitamin D3) [Vitamin D3] 2,000 unit Capsule 50 mcg PO QAM Kym Carrington 1 tab PO 3XWK Rx Instructions: MON, MON, MONDAY in the morning lisinopril 5 mg tablet 5 mg PO DAILY Rx Instructions: TOTAL DOSE 7.5 MG--TAKES WITH 2.5 MG TAB. paroxetine HCl 40 mg tablet 40 mg PO DAILY lisinopril 2.5 mg tablet 2.5 mg PO DAILY Rx Instructions: TOTAL DOSE 7.5 MG--TAKES WITH 5 MG TAB. vitamin B complex Tablet 1 tab PO DAILY Referrals Referrals: Flakito Kiran [Primary Care Provider] -
[2022-05-19] MEDS ORDERED: NovoLIN-R INSULIN PER UNIT CHARGE IV STA (01:59)
[2022-05-19] MEDS ORDERED: SODIUM CHLORIDE 0.9% 1000ML 1,000 ML IV SCH ×2 (01:59→03:48)
--- NOTE | 2022-05-19 02:31 | History & Physical Report ---
Date of Service May 19, 2022 Assessment & Plan (1) Acute hyperglycemia: Plan: 71yo female presents with acute hyperglycemia. No known diabetes diagnosis. HgbA1C elevated at 8.8. Blood sugar 562 --> 397 after 500mL of NSS. No anion gap. Electrolytes are otherwise WNL. Contributing factors may be patient's oral Pazopanib which can cause hyperglycemia. -Will give additional 1L NSS bolus then maintenance fluid at 100 mL/hr x 1 liter -Regular insulin 5u IV -Lantus 5u daily with ISS - goal blood sugar 110 - 140 -Check lipid panel -Patient is already on Lisinopril for blood pressure control - will continue -Pharmacy consultation appreciated (2) Progressive supranuclear palsy: Plan: Noted. No acute inpatient needs -Turn and position as needed -Aspiration precautions -Fall precautions (3) Spinocerebellar ataxia: Plan: Noted (4) HTN (hypertension): Plan: Blood pressure adequately controlled -Continue Lisinopril 7.5mgpo daily -Monitor (5) Hypothyroid: Plan: Chronic. TSH=0.522 -Continue Synthroid History of Present Illness Chief Complaint: hyperglycemia Primary Care Provider: Flakito Kiran Renee Benavides is a pleasant 71yo female with history of metastatic renal cell carcinoma initially diagnosed in 2012 s/p nephrectomy with recurrence of metastatic disease to right shoulder, lung and vagina. She was on several chemotherapy agents and is presently on Pazopanib 100mg po daily. Also with history of progressive supranuclear palsy, AF, HTN and GERD. Patient with no known diagnosis of diabetes. Her does check her blood sugar in the morning. She reports that it is usually well controlled, has been in the 150's on occasion but never higher. This AM blood sugar was elevated at 238 with repeat of 250. Patient does report she has been drinking a lot of water lately but does not feel more thirsty - she has been trying to force fluids. She has also been urinating more than usual. She denies chest pain, SOB, fever, chills, visual disturbance. No additional complaints at this time. In the ER she was found to have an elevated blood sugar of 562. She was administered 500mL of NSS with improvement to 397. ER Course: NSS 500mL Allergies Allergy/AdvReac Type Severity Reaction Status Date / Time nickel Allergy Severe ITCHING Verified 05/18/22 23:33 AND SORENESS OF GLANDS adhesive Allergy Intermediate REDNESS Verified 05/18/22 23:33 AND VERY ITCHY Penicillins Allergy Intermediate RASH Verified 05/18/22 23:33 Sulfa (Sulfonamide Allergy Intermediate VAGINAL Verified 05/18/22 23:33 Antibiotics) IRRITATION latex AdvReac Unknown Unknown Verified 05/18/22 23:33 Home Medications Medication Instructions Recorded Confirmed Type Kym Carrington 1 tab PO 3XWK 11/28/18 05/18/22 History cholecalciferol (vitamin D3) 50 50 mcg PO QAM 11/28/18 05/18/22 History mcg (2,000 unit) capsule (Vitamin D3) levothyroxine 75 mcg tablet 75 mcg PO QAM 11/28/18 05/18/22 History (Synthroid) multivitamin 1 tab PO QAM 11/28/18 05/18/22 History tramadol 50 mg tablet 50 mg PO DAILY PRN Pain 09/02/20 05/18/22 History Wheelchair (Manual) #1 ea 07/06/21 Rx pazopanib 200 mg tablet (Votrient) 100 mg PO DAILY 12/02/21 05/18/22 History lisinopril 2.5 mg tablet 2.5 mg PO DAILY 05/18/22 05/18/22 History lisinopril 5 mg tablet 5 mg PO DAILY 05/18/22 05/18/22 History paroxetine HCl 40 mg tablet 40 mg PO DAILY 05/18/22 05/18/22 History vitamin B complex 1 tab PO DAILY 05/18/22 05/18/22 History Past Med/Surg History Medical History Anxiety Atrial fibrillation with RVR Clear cell carcinoma of left kidney 2011, s/p nephrectomy, recurrence of metastatic disease to shoulder, lung Closed fracture of neck of right femur Depression Dyspareunia Fall GERD (gastroesophageal reflux disease) HTN (hypertension) Hypertension Hypothyroid Incomplete right bundle branch block Progressive supranuclear palsy Pseudomonas aeruginosa infection Right axis deviation Right knee pain Spinocerebellar ataxia Surgical History History of bilateral tubal ligation History of nephrectomy LEFT History of open reduction and internal fixation (ORIF) procedure RIGHT HIP History of total shoulder replacement RIGHT S/P cataract extraction Family History Mother Family history of diabetes mellitus Father Family history of diabetes mellitus Social History Smoking Status: Former smoker Second Hand Exposure: No; Hx Alcohol Use: No Hx Substance Use: No Preferred Language: Ukrainian Communication Ability: Effective Assembly Adjuster Required: No Beliefs That Will Affect Care: None Current Living Situation: Spouse Feels Safe at Home: Yes Assistive Devices: Glasses and Walker Review of Systems Review of Systems: All systems reviewed & are unremarkable except as noted in HPI & below Physical Exam Physical Exam: General: patient resting comfortably, NAD, non-toxic in appearance, slow speech, slightly garbled Skin: warm, dry, intact, no rashes or lesions HEENT: NC/AT, PERRL, anicteric sclera, conjunctiva without injection, external ear normal to inspection and nontender, nares patent, DRY mucus membranes, dentition intact, no oropharyngeal lesions, neck supple, trachea midline, no LAD, no thyromegaly, no JVD Heart: +S1/S2, regular, no m/r/g Lungs: equal air entry bilaterally, no rales/rhonchi/wheezes Abd: +BS, soft, NT/ND, no masses/organomegaly/ascites Ext: warm, 2+ pulses in UE/LE bilaterally, no clubbing/cyanosis or edema Neuro: nonfocal, conjugate gaze palsy Results & Data Results & Data ([facility]) Vital Signs (Past 12 Hours) Vital Signs Temp Pulse Pulse Resp BP Pulse Ox O2 Del Method 05/19/22 01:24 81 16 96 Room Air 05/18/22 23:25 78 16 94 Room Air 05/18/22 20:58 36.5 C 88 18 122/71 97 Room Air Laboratory Results Laboratory Results WBC 11.52 K/ul (4.8-10.8) H 05/18/22 21:49 RBC 4.38 M/uL (3.93-5.22) 05/18/22 21:49 Hgb 15.2 g/dl (12.0-16.0) 05/18/22 21:49 Hct 43.0 % (34.1-44.9) 05/18/22 21:49 MCV 98.2 fL (80.0-100.0) 05/18/22 21:49 MCH 34.7 pg (25.0-34.0) H 05/18/22 21:49 MCHC 35.3 g/dL (32.0-36.0) 05/18/22 21:49 RDW Std Deviation 47.6 fL (36.4-46.3) H 05/18/22 21:49 RDW Coeff of Ashly 13.2 % (11.5-14.5) 05/18/22 21:49 Plt Count 302 K/uL (130-400) 05/18/22 21:49 MPV 10.0 fL (9.4-12.3) 05/18/22 21:49 Immature Gran % (Auto) 0.3 % 05/18/22 21:49 Neut % (Auto) 74.2 % 05/18/22 21:49 Lymph % (Auto) 16.8 % 05/18/22 21:49 Gilchrist % (Auto) 7.8 % 05/18/22 21:49 Eos % (Auto) 0.6 % 05/18/22 21:49 Baso % (Auto) 0.3 % 05/18/22 21:49 Neut # (Auto) 8.53 K/uL (1.4-6.5) H 05/18/22 21:49 Lymph # (Auto) 1.94 K/uL (1.2-3.4) 05/18/22 21:49 Gilchrist # (Auto) 0.90 K/uL (0.24-0.82) H 05/18/22 21:49 Eos # (Auto) 0.07 K/uL (0-0.50) 05/18/22 21:49 Baso # (Auto) 0.04 K/uL (0-0.2) 05/18/22 21:49 Immature Gran # (Auto) 0.04 K/uL (0.00-0.02) H 05/18/22 21:49 Sodium 132 mmol/L (136-145) L 05/18/22 21:49 Potassium 4.4 mmol/L (3.5-5.1) 05/18/22 21:49 Chloride 98 mmol/L (98-107) 05/18/22 21:49 Carbon Dioxide 27 mmol/L (21-32) 05/18/22 21:49 Anion Gap 7 (3-11) 05/18/22 21:49 BUN 28 mg/dl (6-23) H 05/18/22 21:49 Creatinine 0.91 mg/dl (0.6-1.2) 05/18/22 21:49 Est Cr Clr Drug Dosing Not Reportable 05/18/22 21:49 Est GFR ( Amer) 72.5 ml/min 05/18/22 21:49 Est GFR (Non-Af Amer) 62.6 ml/min 05/18/22 21:49 BUN/Creatinine Ratio 30.8 (10-20) H 05/18/22 21:49 Glucose 397 mg/dl (70-99(Fasting)) H* 05/18/22 21:49 POC Glucose 376 mg/dl (70-99) H* 05/18/22 21:32 Calcium 10.8 mg/dl (8.5-10.1) H 05/18/22 21:49 Magnesium 2.1 mg/dl (1.7-2.4) 05/18/22 21:49 Total Bilirubin 1.1 mg/dl (0.2-1.0) H 05/18/22 21:49 AST 26 U/L (13-39) 05/18/22 21:49 ALT 58 U/L (7-52) H 05/18/22 21:49 Alkaline Phosphatase 164 U/L (34-104) H 05/18/22 21:49 Total Protein 7.2 gm/dl (6.0-8.3) 05/18/22 21:49 Albumin 4.1 gm/dl (3.4-5.0) 05/18/22 21:49 Globulin 3.1 gm/dl (2.5-4.0) 05/18/22 21:49 Albumin/Globulin Ratio 1.3 (0.9-2) 05/18/22 21:49 Urine Color Yellow 05/18/22 21:49 Urine Appearance Clear (Clear) 05/18/22 21:49 Urine pH 5.0 (4.5-7.5) 05/18/22 21:49 Ur Specific [place] 1.039 (1.000-1.030) H 05/18/22 21:49 Urine Protein Negative (Negative) 05/18/22 21:49 Urine Glucose (UA) 3+ (Negative) H 05/18/22 21:49 Urine Ketones Negative (Negative) 05/18/22 21:49 Urine Blood Negative (Negative) 05/18/22 21:49 Urine Nitrite Negative (Negative) 05/18/22 21:49 Urine Bilirubin Negative (Negative) 05/18/22 21:49 Urine Urobilinogen Negative (Negative) 05/18/22 21:49 Ur Leukocyte Esterase Negative (Negative) 05/18/22 21:49 Adenovirus (PCR) Not Detected (NotDetected) 05/18/22 23:16 B. pertussis DNA (PCR) Not Detected (NotDetected) 05/18/22 23:16 B.parapertussis DNA PCR Not Detected (NotDetected) 05/18/22 23:16 C. pneumoniae DNA (PCR) Not Detected (NotDetected) 05/18/22 23:16 Coronavirus OC43 (PCR) Not Detected (NotDetected) 05/18/22 23:16 Coronavirus HKU1 (PCR) Not Detected (NotDetected) 05/18/22 23:16 Coronavirus 229E (PCR) Not Detected (NotDetected) 05/18/22 23:16 SARS-CoV-2 (PCR) Not Detected (NotDetected) 05/18/22 23:16 Coronavirus NL63 (PCR) Not Detected (NotDetected) 05/18/22 23:16 Human Metapneumovir PCR Not Detected (NotDetected) 05/18/22 23:16 Influenza Type A (PCR) Not Detected (NotDetected) 05/18/22 23:16 Influenza Type B (PCR) Not Detected (NotDetected) 05/18/22 23:16 M. pneumoniae (PCR) Not Detected (NotDetected) 05/18/22 23:16 Parainfluenza 1 (PCR) Not Detected (NotDetected) 05/18/22 23:16 Parainfluenza 2 (PCR) Not Detected (NotDetected) 05/18/22 23:16 Parainfluenza 3 (PCR) Not Detected (NotDetected) 05/18/22 23:16 Parainfluenza 4 (PCR) Not Detected (NotDetected) 05/18/22 23:16 RSV (PCR) Not Detected (NotDetected) 05/18/22 23:16 Entero/Rhino (PCR) Not Detected (NotDetected) 05/18/22 23:[address] of the Head per STAT rad: No acute intracranial abnormality CXR - by my interpretation - no evidence of fluid, infiltrate or PTX, patient is s/p right shoulder PG Care Time/CCT Total # of Minutes Spent Total Time Spent with Patient: Total time spent is greater than 50% in coordination of care (as documented) at patient's floor/unit and/or counseling patient: Coding Level of Care Code INT OBSERVATION CARE 50M LVL 2 Diagnoses Acute hyperglycemia R73.9 Progressive supranuclear palsy G23.1 Spinocerebellar ataxia G11.8 HTN (hypertension) I10 Hypothyroid E03.9
[2022-05-19] MEDS ORDERED: GLUCOSE 40% GEL 15 GM TUBE PO PRN (03:48)
[2022-05-19] MEDS ORDERED: ONDANSETRON INJ 2 MG/ML 2 ML VIAL IV PRN (03:48)
[2022-05-19] MEDS ORDERED: GLUCAGON FOR INJ 1 MG VIAL SQ PRN (03:48)
[2022-05-19] MEDS ORDERED: GLUCOSE 10 TAB/TUBE PO PRN (03:48)
[2022-05-19] MEDS ORDERED: traMADol HCL 50 MG TABLET PO PRN (03:48)
[2022-05-19] MEDS ORDERED: CARBOHYDRATES FOR HYPOGLYCEMIA PO PRN (03:48)
[2022-05-19] MEDS ORDERED: PHARMACY GLYCEMIC MGMT CONSULT PRN (03:48)
[2022-05-19] MEDS ORDERED: DEXTROSE 50% 50 ML SYRINGE IV PRN (03:48)
[2022-05-19] MEDS ORDERED: Patient's HEIGHT &/or WEIGHT Needed SCH (04:45)
[2022-05-19] MEDS ORDERED: INFLUENZA VACCINE HIGH DOSE PF 65+ 0.7 ML SYR IM ONE (05:44)
--- NOTE | 2022-05-19 07:06 | CT Scan Report ---
CT OF THE HEAD WITHOUT CONTRAST CLINICAL HISTORY: Weakness. COMPARISON STUDY: MRI of the brain April 21, 2020. Head CT January 07, 2019. CT DOSE: 614.27 mGy.cm TECHNIQUE: Helical axial images of the head were obtained without IV contrast. Automated exposure con trol was utilized for the study. A dose lowering technique was utilized adhering to the principles o f ALARA. FINDINGS: No acute intracranial hemorrhage, midline shift or mass effect is present. Mild ventricular dilatation is unchanged. The basal cisterns are patent. No extra-axial collections are present. Ther e are no findings to suggest acute dural sinus thrombosis or acute territorial infarct. No significan t calvarial abnormalities are present. Visualized portions of the sinuses and mastoid air cells are c lear. Old healed right-sided facial fractures are incidentally noted. IMPRESSION: No acute intracranial findings. ACT 112: Negative or not required by law. Electronically signed by: David Pryor M.D. 05/19/2022 7:04 AM
--- NOTE | 2022-05-19 07:24 | XRay Report ---
XR chest 1V portable CLINICAL HISTORY: Weakness. COMPARISON STUDY: Chest CT May 04, 2022. FINDINGS: Right shoulder arthroplasty is incidentally noted. There are old left-sided rib fractures. Lung volumes are normal. Lungs are clear. There is no pneumothorax or pleural effusion. Cardiac size is normal. Mediastinal contours are normal. There is no evidence for pulmonary edema. IMPRESSION: No acute cardiopulmonary findings. ACT 112: Negative or not required by law. Electronically signed by: David Pryor M.D. 05/19/2022 7:23 AM
[2022-05-19 07:51] LABS: Chol HDL Ratio 2.9 (0-5)
[2022-05-19] MEDS ORDERED: LANTUS PER UNIT CHARGE SQ SCH ×2 (09:00→21:00)
[2022-05-19] MEDS: INSULIN ASPART PER UNIT SC SCH ×4 (09:26→20:49)
[2022-05-19] MEDS: PARoxetine HCL 20 MG TAB PO SCH (10:15)
[2022-05-19] MEDS: lisinopril 2.5 MG TAB PO SCH (10:15)
[2022-05-19] MEDS: lisinopril 5 MG TAB PO SCH (10:15)
[2022-05-19] MEDS: LEVOTHYROXINE SODIUM 75 MCG TABLET PO SCH (10:15)
--- NOTE | 2022-05-19 12:02 | Electrocardiogram Report ---
Test Reason : Blood Pressure : / mmHG Vent. Rate : 070 BPM Atrial Rate : 070 BPM P-R Int : 172 ms QRS Dur : 086 ms QT Int : 404 ms P-R-T Axes : 047 -01 045 degrees QTc Int : 436 ms Poor data quality, interpretation may be adversely affected Normal sinus rhythm Normal ECG When compared with ECG of 28-JAN-2021 12:36, Questionable change in QRS axis Non-specific change in ST segment in Lateral leads Confirmed by Ramon Cuba ([id number]) on 05/19/2022 12:02:10 PM Referred By: REFERRED SELF Confirmed By:Yoni Cuba
[2022-05-19] MEDS ORDERED: LANTUS PER UNIT CHARGE SQ ONE (12:15)
--- NOTE | 2022-05-19 12:22 | Pharmacy Report ---
Pharmacy Glycemic Short Note 2 - Date of Service May 19, 2022 - Glycemic Short BSG Results (Last 24 hours): 05/18/22 05/18/22 05/19/22 21:32 21:49 02:36 Glucose 397 H* POC Glucose 376 H* 263 H 05/19/22 05/19/22 05/19/22 04:30 07:16 11:04 Glucose POC Glucose 142 H 184 H 217 H OUTPATIENT ANTIDIABETIC REGIMEN: * none ASSESSMENT: * 71yo female, PMH of metastatic renal cell carcinoma initially diagnosed in 2011 s/p nephrectomy with recurrence of metastatic disease to right shoulder, lung and vagina. She was on several chemotherapy agents, currently on Pazopanib 100mg PO daily. Also with history of progressive supranuclear palsy, AF, HTN and GERD. No hx DM, new dx, possibly d/t pazopanib tx. * This morning patient received Lantus 5 units, plus Regular insulin 5 units IV, plus 6 units NovoLog, BSG 184mg/dl --> 217mg/dl. * Increase Lantus, tighten CF/CR and continue to titrate insulin to goal BSG. * Consulted DM educator. PLAN FOR INPATIENT GLYCEMIC CONTROL: * Basal insulin * Lantus 15 units SQ today, 10 units SQ HS for BSG > 180mg/dl, then further dosing tomorrow morning * Bolus insulin * NovoLog per scale ACHS or Q6hrs while NPO * Goal Range: Low 110 mg/dL - High 140 mg/dL * Correction Factor: 25 mg/dL/unit * Nutritional / Prandial insulin per carb ratio of 1 unit per 9 grams CHO consumed
--- NOTE | 2022-05-19 14:38 | Hospitalist Progress Note ---
Date of Service May 19, 2022 Assessment & Plan (1) Acute hyperglycemia: Plan: 71yo female presents with acute hyperglycemia. -Now, possible new onset Diabetes given HgbA1C elevated at 8.8. Blood sugar 562 --> 397 after 500mL of NSS. No anion gap. Electrolytes are otherwise WNL. -Contributing factors may be patient's oral Pazopanib which can cause hyperglycemia. -Blood glucose now under better control -On Glargine and sliding scale -Going foward, patient will need a glucose lowering agent, maybe insulin or Metformin -Patient is already on Lisinopril for blood pressure control - will continue -Pharmacy consultation appreciated (2) Progressive supranuclear palsy: Plan: Noted. No acute inpatient needs -Turn and position as needed -Aspiration precautions -Fall precautions (3) Spinocerebellar ataxia: Plan: Noted (4) HTN (hypertension): Plan: Blood pressure adequately controlled -Continue Lisinopril 7.5mgpo daily -Monitor (5) Hypothyroid: Plan: Chronic. TSH=0.522 -Continue Synthroid Plan hopefully d/c in the next 24 hrs Admission and Anticipated Discharge Date Admission Date: May 19, 2022 Subjective patient seen and examined, she appears somewhat confused, with slow speech Review of Systems Review of Systems: All systems reviewed are negative, apart from the ones contained in the history. Physical Exam Physical Exam: The patient is awake, alert and oriented 3, well developed and well nourished, normocephalic and atraumatic, lying in bed and in no acute distress. HEENT--PERRL, EOMI, mucous membranes and oropharynx mildly dry Neck--supple. No JVD. No bruits. Thyroid normal, trachea midline, no adenopathy. Heart--normal S1 and S2. No murmurs, rubs or gallops. Lungs--clear bilaterally, no respiratory distress, no accessory muscle use. Abdomen--normal bowel sounds and soft. Mild epigastric and left sided abdominal pain Extremities--no cyanosis or clubbing. No edema. Dermatologic--normal skin turgor, normal color, no abnormal lymph nodes, no rash. Neurologic--cranial nerves II through XII grossly intact. Rheumatologic--normal range of motion. Psychiatric--normal affect. Results & Data Results & Data ([facility]) Vital Signs (Past 12 Hours) Vital Signs Temp Pulse Resp BP Pulse Ox O2 Del Method 05/19/22 10:55 97.5 F L 66 18 143/72 H 98 Room Air 05/19/22 07:17 97.9 F 65 20 151/70 H 98 Room Air 05/19/22 05:00 97.9 F 119 H 20 111/72 96 Room Air 05/19/22 05:03 Room Air 05/19/22 03:26 96 H 16 127/77 100 Room Air PG Care Time/CCT Total # of Minutes Spent Total Time Spent with Patient: Total time spent is greater than 50% in coordination of care (as documented) at patient's floor/unit and/or counseling patient: Coding Level of Care Code 35430 Subseq Hosp Care Lvl 2 Diagnoses Acute hyperglycemia R73.9 Progressive supranuclear palsy G23.1 Spinocerebellar ataxia G11.8 HTN (hypertension) I10 Hypothyroid E03.9 Time Spent (min) 35
[2022-05-19] MEDS ORDERED: HYDROCORTISONE 1% CRM 30 GM TUBE EXT PRN (18:35)
[2022-05-20] MEDS: LEVOTHYROXINE SODIUM 75 MCG TABLET PO SCH (04:48)
[2022-05-20] MEDS ORDERED: HYDROCORTISONE VAL 0.2% CRM 15GM TUBE EXT PRN (08:09)
[2022-05-20] MEDS ORDERED: bisacodyL 5 MG TABEC PO PRN (08:18)
[2022-05-20] MEDS ORDERED: LANTUS PER UNIT CHARGE SQ SCH (09:00)
[2022-05-20] MEDS: INSULIN ASPART PER UNIT SC SCH (09:30)
[2022-05-20] MEDS: PARoxetine HCL 20 MG TAB PO SCH (09:31)
[2022-05-20] MEDS: lisinopril 2.5 MG TAB PO SCH (09:31)
[2022-05-20] MEDS: lisinopril 5 MG TAB PO SCH (09:31)
[2022-05-20 09:57] LABS: Basophils # (auto) 0.04 K/uL (0-0.2); Basophils % (auto) 0.3 %; Eosinophils # (auto) 0.04 K/uL (0-0.50); Eosinophils % (auto) 0.3 %; Hematocrit (blood only) 48.5 % (34.1-44.9); Hemoglobin 16.4 g/dl (12.0-16.0); Immature Granulocytes # (auto) 0.05 K/uL (0.00-0.02); Immature Granulocytes % (auto) 0.4 %; Lymphocytes # (auto) 2.66 K/uL (1.2-3.4); Lymphocytes % (auto) 22.4 %; Mean Corpuscular Hgb Conc 33.8 g/dL (32.0-36.0); Mean Corpuscular Volume 100.6 fL (80.0-100.0); Mean Platelet Volume 10.5 fL (9.4-12.3); Monocytes % (auto) 7.6 %; Neutrophils # (auto) 8.16 K/uL (1.4-6.5); Platelet Count 294 K/uL (130-400); RDW Coefficient of Variation 13.2 % (11.5-14.5); RDW Standard Deviation 48.9 fL (36.4-46.3); Red Blood Count 4.82 M/uL (3.93-5.22); White Blood Count 11.85 K/ul (4.8-10.8)
[2022-05-20 10:16] LABS: Calcium 10.1 mg/dl (8.5-10.1); Creatinine Clr Calc Pharmacy 51.2 ml/min; Est GFR (African American) 83.5 ml/min; Est GFR (Non-African American) 72.1 ml/min; Potassium 4.7 mmol/L (3.5-5.1)
--- NOTE | 2022-05-20 11:55 | Discharge Summary ---
Date of Service May 20, 2022 Admission HPI Per Admitting Provider Renee Benavides is a pleasant 71yo female with history of metastatic renal cell carcinoma initially diagnosed in 2012 s/p nephrectomy with recurrence of metastatic disease to right shoulder, lung and vagina. She was on several chemotherapy agents and is presently on Pazopanib 100mg po daily. Also with history of progressive supranuclear palsy, AF, HTN and GERD. Patient with no known diagnosis of diabetes. Her does check her blood sugar in the morning. She reports that it is usually well controlled, has been in the 150's on occasion but never higher. This AM blood sugar was elevated at 238 with repeat of 250. Patient does report she has been drinking a lot of water lately but does not feel more thirsty - she has been trying to force fluids. She has also been urinating more than usual. She denies chest pain, SOB, fever, chills, visual disturbance. No additional complaints at this time. In the ER she was found to have an elevated blood sugar of 562. She was administered 500mL of NSS with improvement to 397. ER Course: NSS 500mL Principal Diagnosis hyperglycemia Discharge Exam The patient is awake, alert and oriented 3, well developed and well nourished, normocephalic and atraumatic, lying in bed and in no acute distress. HEENT--PERRL, EOMI, mucous membranes and oropharynx mildly dry Neck--supple. No JVD. No bruits. Thyroid normal, trachea midline, no adenopathy. Heart--normal S1 and S2. No murmurs, rubs or gallops. Lungs--clear bilaterally, no respiratory distress, no accessory muscle use. Abdomen--normal bowel sounds and soft. Mild epigastric and left sided abdominal pain Extremities--no cyanosis or clubbing. No edema. Dermatologic--normal skin turgor, normal color, no abnormal lymph nodes, no rash. Neurologic--cranial nerves II through XII grossly intact. Rheumatologic--normal range of motion. Psychiatric--normal affect. Discharge Data Allergies Allergy/AdvReac Type Severity Reaction Status Date / Time nickel Allergy Severe ITCHING Verified 05/18/22 23:33 AND SORENESS OF GLANDS adhesive Allergy Intermediate REDNESS Verified 05/18/22 23:33 AND VERY ITCHY Penicillins Allergy Intermediate RASH Verified 05/18/22 23:33 Sulfa (Sulfonamide Allergy Intermediate VAGINAL Verified 05/18/22 23:33 Antibiotics) IRRITATION latex AdvReac Unknown Unknown Verified 05/18/22 23:33 Consultations 05/19/22 01:29 ED Decision to Admit Stat Ordered Studies 05/18/22 23:03 CT head/brain wo con Urgent Diabetes Follow up Diabetes Follow-up Needed for Newly Diagnosed Diabetes Hospital Course (1) Acute hyperglycemia: 71yo female presents with acute hyperglycemia. -Now, possible new onset Diabetes given HgbA1C elevated at 8.8. Blood sugar 562 --> 397 after 500mL of NSS. No anion gap. Electrolytes are otherwise WNL. -Contributing factors may be patient's oral Pazopanib which can cause hyperglycemia. -Blood glucose now under better control -On Glargine and sliding scale -will d/c on low dose Glipizide 2.5mg daily -Patient counselled to check her blood glucose daily -Was educated on symptoms of hypoglycemia and what to do -Patient is already on Lisinopril for blood pressure control - will continue -Pharmacy consultation appreciated (2) Progressive supranuclear palsy: Noted. No acute inpatient needs -Turn and position as needed -Aspiration precautions -Fall precautions (3) Spinocerebellar ataxia: Noted (4) HTN (hypertension): Blood pressure adequately controlled -Continue Lisinopril 7.5mgpo daily -Monitor (5) Hypothyroid: Chronic. TSH=0.522 -Continue Synthroid Plan hopefully d/c in the next 24 hrs Total Time Total Time Spent Total Time Spent (In Minutes): 35 Discharge Plan Discharge Items Patient Disposition: Home - Self-Care Reason For Visit: HYPERGLYCEMIA Discharge Diagnosis: Hyperglycemia-resolved Condition on Discharge: Good Activity: Resume your previous activity Non-emergency contact: Primary Care Provider and Oncologist Call non-emergency contact if: you have any medication questions Follow-up/Referrals: Flakito Kiran [Primary Care Provider] - Diet: Carb Consistent or DM2 Addtl Attending Provider Instructions: please make appointment to follow up with your PCP and Oncologist Monitor your blood glucose daily Pending Studies at Discharge: No Stand-Alone Forms: My [employer], Smoking Cessation Medications and DC Order Prescriptions: New glipizide 2.5 mg tablet extended release 24hr 2.5 mg PO DAILY Qty: 30 0RF Continued (DME) Wheelchair (Manual) Device See Rx Instructions .Route Qty: 1 0RF Rx Instructions: Folding Lightweight manual wheelchair with elevating leg rests, foot plates, hand brakes, and Cushion tramadol 50 mg tablet 50 mg PO DAILY PRN (Reason: Pain) Votrient 200 mg tablet 100 mg PO DAILY Rx Instructions: administer on an empty stomach, at least 1 hour before or 2 hours after food/meal(s) multivitamin Tablet 1 tab PO QAM levothyroxine [Synthroid] 75 mcg Tablet 75 mcg PO QAM cholecalciferol (vitamin D3) [Vitamin D3] 2,000 unit Capsule 50 mcg PO QAM Kym Carrington 1 tab PO 3XWK Rx Instructions: MON, MON, MONDAY in the morning lisinopril 5 mg tablet 5 mg PO DAILY Rx Instructions: TOTAL DOSE 7.5 MG--TAKES WITH 2.5 MG TAB. paroxetine HCl 40 mg tablet 40 mg PO DAILY lisinopril 2.5 mg tablet 2.5 mg PO DAILY Rx Instructions: TOTAL DOSE 7.5 MG--TAKES WITH 5 MG TAB. vitamin B complex Tablet 1 tab PO DAILY Discharge Orders: Discharge Order (Routine); Ordered 05/20/22 Ordered By: Zeeshan Chan Admission Data Admit Date/Time: 05/19/22 02:10 Attending Provider: Zeeshan Chan Admit Provider: Nimco Tamez Primary Care Provider: Flakito Kiran Other Providers: Nimco Tamez Coding Level of Care Code D/C DAY MANAGEMENT >30 MINS Diagnoses Acute hyperglycemia R73.9 Progressive supranuclear palsy G23.1 Spinocerebellar ataxia G11.8 HTN (hypertension) I10 Hypothyroid E03.9 Time Spent (min) 35
== END 2022-05-20 13:30 | disposition home or self-care (01) ==
LOC: EDINP 20:47 → ED 20:47 → SUATTDRO 05-19 02:10 → 2S 05-19 04:54 → 3N 05-19 18:31

== ENCOUNTER 2022-07-03 09:13 | Inpatient (IN) ==
[2022-07-03] MEDS ORDERED: CEFEPIME 2,000 MG/20 ML VIAL IV STA (09:24)
--- NOTE | 2022-07-03 09:31 | Emergency Department Note ---
Impression & Plan Hypotension, Altered mental status, Tachycardia, Acute dehydration, Metastatic cancer ED Provider Note NAME: WILLIAM SHAHID AGE: 72 SEX: F : 1950 ARRIVES VIA: Ambulance INFORMANT: [Patient][nursing, EMS] ED PROVIDER(S): [Ti Guevara MD] CHIEF COMPLAINT: Illness, altered HISTORY OF PRESENT ILLNESS: The patient is a 72-year-old female who as per EMS has been nonverbal since yesterday, for 24 hours. EMS noted a lower blood pressure and faster heart rate. The patient was in fact nonverbal. The patient has a history of renal cell carcinoma with metastases. Her last radiation treatment was 2 days ago. There is currently no family at the bedside. Apparently, the called EMS this morning. Given the circumstances, given her mental state, no further history obtainable. Of note, the patient has received 500 cc of saline thus far, this was given by EMS. REVIEW OF SYSTEMS: Unobtainable given the current mental state. PMHx/PSHx: See Below SOCIAL HISTORY: See Below. PHYSICAL EXAM: GENERAL: Patient is in no acute distress. HEENT: No acute trauma, normocephalic atraumatic, mucous membranes dry. Pupils equal round and reactive to light, no nasal congestion. NECK: No stridor, no adenopathy, no meningismus, trachea is midline. LUNGS: Clear to auscultation when listening anterior, no respiratory distress. No wheezing. HEART: Tachycardic and somewhat irregular, no obvious murmur. ABDOMEN: Soft, nontender, bowel sounds positive, no peritonitis. EXTREMITIES: No cyanosis or edema, full range of motion of all the joints wit hout pain or difficulty, no signs for acute trauma. NEUROLOGIC: Awake, currently nonverbal, denies pain by nodding her head. Seems to have equal strength in both upper extremities. SKIN: No rash, no jaundice, no diaphoresis. Rectal: Brown stool, heme-negative. DIFFERENTIAL DIAGNOSIS: Sepsis, UTI, pneumonia, UTI, RSV, influenza, COVID-19, metabolic abnormality, electrolyte abnormalities, cardiac sources, cellulitis, bacteremia, intracerebral event, toxicologic etiology, neurologic event, as well as other pathologies. EMERGENCY DEPARTMENT COURSE/PROCEDURES: ECG: Indication was weakness and tachycardia. The ECG shows what appears to be a sinus tachycardia versus an A. fib. There is significant baseline artifact making rhythm interpretation difficult. The rate is 163. There is some diffuse ST depression, likely from the faster rate. No ST elevation. No PVCs. The QTc is 487. Continuous Cardiac Monitoring: An order was placed for continuous cardiac monitoring. The monitor shows a rate of 112 with apparent sinus tachycardia with PACs. Critical Care Note: I have personally spent 57 minutes of critical care time in the direct management of this patient. This includes bedside care, interpretation of diagnostic studies, and testing, discussion with consultants, patient, and family members, and other required patient management activities. This 57 minutes is in excess of all separately billable procedures. MEDICAL DECISION MAKING: Of note, initial laboratory work was thought to be inaccurate and repeat lab testing was drawn. There was no leukocytosis or concerning anemia. There was a normal platelet count. INR was 1.4, slightly elevated. PTT was normal. There was no renal failure. Lactic acid level was not not elevated making severe sepsis less likely. Patient's TSH was slightly low however, the T4 was normal. Procalci tonin level was not not elevated. Urinalysis was consistent with infection. No worrisome liver enzyme elevation. Chest x-ray did not show pneumonia or CHF. Brain CT showed no acute bleed or mass-effect. Abdominal CT did not show urinary obstruction or bowel obstruction. No acute process by CT imaging. Rectal exam performed at bedside did not show evidence for bleeding. Clinically, the patient was quite dehydrated. She presented tachycardic and hypotensive. ECG showed a potential sinus tachycardia versus A. fib. During her stay here in the ED, she would be in a sinus rhythm with a lot of PACs and then quickly go into a faster rhythm more consistent with A. fib. The patient received 2 L of IV saline, this was adequate fluid administration (30cc/kg) for potential sepsis. She was given IV cefepime and IV daptomycin. With the above treatment, the patient's blood pressure did improve. Her heart rate seemed to improved. She began to speak on her own. I spoke with the patient's , I spoke with case management. The patient clearly needs a hospital stay and further work-up/care. The on-call hospitalist was consulted. I am concerned about dehydration as well as sepsis. Treatment for both has been initiated here in the ED. Past Med/Surg History Medical History Anxiety Atrial fibrillation with RVR Clear cell carcinoma of left kidney 2012, s/p nephrectomy, recurrence of metastatic disease to shoulder, lung Closed fracture of neck of right femur Depression Dyspareunia Fall GERD (gastroesophageal reflux disease) HTN (hypertension) Hypothyroid Incomplete right bundle branch block Progressive supranuclear palsy Pseudomonas aeruginosa infection Right axis deviation Right knee pain Spinocerebellar ataxia Surgical History (Updated 06/02/22 @ 10:20 by Corie Garber, RN) History of bilateral tubal ligation History of nephrectomy LEFT History of open reduction and internal fixation (ORIF) procedure RIGHT HIP History of total shoulder replacement RIGHT S/P cataract extraction Bilateral Family History (Updated 06/02/22 @ 10:23 by Corie Garber, JOSE DE JESUS) Mother , in late 70s Hypertension Diabetes Father , in his 90s Heart disease Cardiac stent Hypertension Sister No problems noted. Sister No problems noted. Son No problems noted. Daughter No problems noted. Daughter No problems noted. Daughter No problems noted. Social History Smoking Status: Former smoker Tobacco Type: Cigarettes Cigarettes Per Day: 1 PPD x; Smoking End Date: 1979; Second Hand Exposure: Yes; Hx Alcohol Use: Yes Alcohol type: wine Hx Substance Use: No Preferred Language: Icelandic Communication Ability: Effective Visual Impairment: No Limitations Hearing Ability: Normal Finance Administrator Required: No Beliefs That Will Affect Care: None marital status: Current Living Situation: Spouse current occupational status: previously employed current occupation: Was a nanny in past How many Children do You have: 4 Other Information That Helps Us Care for You: No Feels Safe at Home: Yes Safety Concerns: Feels Safe At This Time caffeine: No during the past year weight has: remained stable Assistive Devices: Denture - Upper Assistive Devices Comment: Partial Plate - upper Allergies Allergies Allergy/AdvReac Type Severity Reaction Status Date / Time nickel Allergy Severe ITCHING Verified 07/03/22 09:45 AND SORENESS OF GLANDS adhesive Allergy Intermediate REDNESS Verified 07/03/22 09:45 AND VERY ITCHY Penicillins Allergy Intermediate RASH Verified 07/03/22 09:45 Sulfa (Sulfonamide Allergy Intermediate VAGINAL Verified 07/03/22 09:45 Antibiotics) IRRITATION latex AdvReac Unknown Unknown Verified 07/03/22 09:45 Home Meds Home Medications Medication Instructions Recorded Confirmed cholecalciferol (vitamin D3) 50 50 mcg PO QAM 11/28/18 07/03/22 mcg (2,000 unit) capsule (Vitamin D3) levothyroxine 75 mcg tablet 75 mcg PO QAM 11/28/18 07/03/22 (Synthroid) multivitamin 1 tab PO QAM 11/28/18 07/03/22 tramadol 50 mg tablet 50 mg PO DAILY PRN Pain 09/02/20 07/03/22 pazopanib 200 mg tablet (Votrient) 100 mg PO DAILY 12/02/21 07/03/22 lisinopril 2.5 mg tablet 2.5 mg PO DAILY 05/18/22 07/03/22 lisinopril 5 mg tablet 5 mg PO DAILY 05/18/22 07/03/22 paroxetine HCl 40 mg tablet 40 mg PO DAILY 05/18/22 07/03/22 vitamin B complex 1 tab PO DAILY 05/18/22 07/03/22 dexamethasone 4 mg tablet 4 mg PO UD 07/03/22 07/03/22 Previous Rx's Medication Instructions Recorded Wheelchair (Manual) #1 ea 07/06/21 glipizide 2.5 mg tablet, extended 2.5 mg PO DAILY #30 tabs 05/20/22 release 24 hr Results & Data (ED) Vital Signs Vital Signs - 24 hr 07/03/22 09:20 07/03/22 09:57 07/03/22 09:43 Temperature 37.1 C Temperature Source Oral Pulse Rate 119 H 130 H 135 H Respiratory Rate 20 24 Respiratory Effort / Characteristics Non-Labored Spontaneous Respiratory Depth Normal Respiratory Pattern Regular Blood Pressure 88/76 L 104/71 Blood Pressure Mean 80 82 Blood Pressure Position Lying Pulse Oximetry 95 95 95 Oxygen Delivery Method Room Air Room Air Room Air Sepsis Recent Fever Within 48 Hours Yes Sepsis New/Unexplained Change in Mental Status Yes Sepsis Action Taken by Nursing Physician Notified 07/03/22 10:45 Temperature Temperature Source Pulse Rate 153 H Respiratory Rate 17 Respiratory Effort / Characteristics Respiratory Depth Respiratory Pattern Blood Pressure 109/65 Blood Pressure Mean 79 Blood Pressure Position Pulse Oximetry 96 Oxygen Delivery Method Room Air Sepsis Recent Fever Within 48 Hours Sepsis New/Unexplained Change in Mental Status Sepsis Action Taken by Half-Way Medications Current Medication List: was personally reviewed by me Laboratory Data Attestation: I reviewed the patient's lab results. Result diagrams: 07/03/22 15:34 07/03/22 11:12 Lab Results 07/03/22 07/03/22 07/03/22 Range/Units 09:35 09:35 09:35 WBC (4.8-10.8) K/ul RBC (3.93-5.22) M/uL Hgb (12.0-16.0) g/dl Hct (34.1-44.9) % MCV (80.0-100.0) fL MCH (25.0-34.0) pg MCHC (32.0-36.0) g/dL RDW Std Deviation (36.4-46.3) fL RDW Coeff of Ashly (11.5-14.5) % Plt Count (130-400) K/uL MPV (9.4-12.3) fL Immature Gran % (Auto) % Neut % (Auto) % Lymph % (Auto) % [place] % (Auto) % Eos % (Auto) % Baso % (Auto) % Reticulocyte % (Auto) (0.5-2.0) % Neut # (Auto) (1.4-6.5) K/uL Lymph # (Auto) (1.2-3.4) K/uL [place] # (Auto) (0.24-0.82) K/uL Eos # (Auto) (0-0.50) K/uL Baso # (Auto) (0-0.2) K/uL Reticulocyte # (0.02-0.10) 10^6/uL Immature Gran # (Auto) (0.00-0.02) K/uL PT (9.0-12.0) Seconds INR (0.9-1.1) APTT (21.0-31.0) Seconds PTT Ratio Fibrinogen (184-400) mg/dl Sodium Cancelled Potassium Cancelled Chloride Cancelled Carbon Dioxide Cancelled Anion Gap Cancelled BUN Cancelled Creatinine Cancelled Est Cr Clr Drug Dosing Cancelled Est GFR ( Amer) Cancelled Est GFR (Non-Af Amer) Cancelled BUN/Creatinine Ratio Cancelled Glucose Cancelled Fasting Glucose (70-99) mg/dl Lactate (0.4-2.0) mmol/L Calcium Cancelled Magnesium Cancelled Iron TIBC Unsaturated IBC Transferrin % Sat Ferritin (8-388) ng/ml Total Bilirubin Cancelled Direct Bilirubin Cancelled AST Cancelled ALT Cancelled Alkaline Phosphatase Cancelled Troponin I High Sens Cancelled Total Protein Cancelled Albumin Cancelled Vitamin B12 (180-914) pg/ml Folate (>5.38) ng/ml Procalcitonin (0-0.5) ng/ml TSH Cancelled Free T4 (0.61-1.60) ng/dl Urine Color Urine Appearance (Clear) Urine pH (4.5-7.5) Ur Specific [place] (1.000-1.030) Urine Protein (Negative) Urine Glucose (UA) (Negative) Urine Ketones (Negative) Urine Blood (Negative) Urine Nitrite (Negative) Urine Bilirubin (Negative) Urine Urobilinogen (Negative) Ur Leukocyte Esterase (Negative) Urine WBC (Auto) (0-5) /hpf Urine RBC (Auto) (0-4) /hpf U Hyaline Cast (Auto) (0-5) /lpf U Epithel Cells (Auto) (0-5) /lpf Urine Bacteria (Auto) (Negative) Urine Mucus (None Prsent) SARS-CoV-2, RNA, NAAT (NEGATIVE) Blood Type Antibody Screen Crossmatch 07/03/22 07/03/22 07/03/22 Range/Units 09:35 09:35 09:35 WBC (4.8-10.8) K/ul RBC (3.93-5.22) M/uL Hgb (12.0-16.0) g/dl Hct (34.1-44.9) % MCV (80.0-100.0) fL MCH (25.0-34.0) pg MCHC (32.0-36.0) g/dL RDW Std Deviation (36.4-46.3) fL RDW Coeff of Ashly (11.5-14.5) % Plt Count (130-400) K/uL MPV (9.4-12.3) fL Immature Gran % (Auto) % Neut % (Auto) % Lymph % (Auto) % [place] % (Auto) % Eos % (Auto) % Baso % (Auto) % Reticulocyte % (Auto) (0.5-2.0) % Neut # (Auto) (1.4-6.5) K/uL Lymph # (Auto) (1.2-3.4) K/uL [place] # (Auto) (0.24-0.82) K/uL Eos # (Auto) (0-0.50) K/uL Baso # (Auto) (0-0.2) K/uL Reticulocyte # (0.02-0.10) 10^6/uL Immature Gran # (Auto) (0.00-0.02) K/uL PT (9.0-12.0) Seconds INR (0.9-1.1) APTT (21.0-31.0) Seconds PTT Ratio Fibrinogen (184-400) mg/dl Sodium Potassium Chloride Carbon Dioxide Anion Gap BUN Creatinine Est Cr Clr Drug Dosing Est GFR ( Amer) Est GFR (Non-Af Amer) BUN/Creatinine Ratio Glucose Fasting Glucose (70-99) mg/dl Lactate 1.1 (0.4-2.0) mmol/L Calcium Magnesium Iron TIBC Unsaturated IBC Transferrin % Sat Ferritin (8-388) ng/ml Total Bilirubin Direct Bilirubin AST ALT Alkaline Phosphatase Troponin I High Sens Total Protein Albumin Vitamin B12 (180-914) pg/ml Folate (>5.38) ng/ml Procalcitonin < 0.05 (0-0.5) ng/ml TSH Free T4 (0.61-1.60) ng/dl Urine Color Urine Appearance (Clear) Urine pH (4.5-7.5) Ur Specific [place] (1.000-1.030) Urine Protein (Negative) Urine Glucose (UA) (Negative) Urine Ketones (Negative) Urine Blood (Negative) Urine Nitrite (Negative) Urine Bilirubin (Negative) Urine Urobilinogen (Negative) Ur Leukocyte Esterase (Negative) Urine WBC (Auto) (0-5) /hpf Urine RBC (Auto) (0-4) /hpf U Hyaline Cast (Auto) (0-5) /lpf U Epithel Cells (Auto) (0-5) /lpf Urine Bacteria (Auto) (Negative) Urine Mucus (None Prsent) SARS-CoV-2, RNA, NAAT (NEGATIVE) Blood Type Antibody Screen Crossmatch 07/03/22 07/03/22 07/03/22 Range/Units 09:54 11:12 11:12 WBC (4.8-10.8) K/ul RBC (3.93-5.22) M/uL Hgb (12.0-16.0) g/dl Hct (34.1-44.9) % MCV (80.0-100.0) fL MCH (25.0-34.0) pg MCHC (32.0-36.0) g/dL RDW Std Deviation (36.4-46.3) fL RDW Coeff of Ashly (11.5-14.5) % Plt Count (130-400) K/uL MPV (9.4-12.3) fL Immature Gran % (Auto) % Neut % (Auto) % Lymph % (Auto) % [place] % (Auto) % Eos % (Auto) % Baso % (Auto) % Reticulocyte % (Auto) (0.5-2.0) % Neut # (Auto) (1.4-6.5) K/uL Lymph # (Auto) (1.2-3.4) K/uL [place] # (Auto) (0.24-0.82) K/uL Eos # (Auto) (0-0.50) K/uL Baso # (Auto) (0-0.2) K/uL Reticulocyte # (0.02-0.10) 10^6/uL Immature Gran # (Auto) (0.00-0.02) K/uL PT 14.2 H (9.0-12.0) Seconds INR 1.4 H (0.9-1.1) APTT 28.2 (21.0-31.0) Seconds PTT Ratio 1.0 Fibrinogen 448 H (184-400) mg/dl Sodium Potassium Chloride Carbon Dioxide Anion Gap BUN Creatinine Est Cr Clr Drug Dosing Est GFR ( Amer) Est GFR (Non-Af Amer) BUN/Creatinine Ratio Glucose Fasting Glucose (70-99) mg/dl Lactate (0.4-2.0) mmol/L Calcium Magnesium Iron TIBC Unsaturated IBC Transferrin % Sat Ferritin (8-388) ng/ml Total Bilirubin Direct Bilirubin AST ALT Alkaline Phosphatase Troponin I High Sens Total Protein Albumin Vitamin B12 1285 H (180-914) pg/ml Folate > 22.30 (>5.38) ng/ml Procalcitonin (0-0.5) ng/ml TSH Free T4 (0.61-1.60) ng/dl Urine Color Dark Yellow Urine Appearance Cloudy A (Clear) Urine pH 5.0 (4.5-7.5) Ur Specific [place] 1.026 (1.000-1.030) Urine Protein 1+ H (Negative) Urine Glucose (UA) Negative (Negative) Urine Ketones 2+ H (Negative) Urine Blood Trace H (Negative) Urine Nitrite Negative (Negative) Urine Bilirubin Negative (Negative) Urine Urobilinogen Negative (Negative) Ur Leukocyte Esterase 2+ H (Negative) Urine WBC (Auto) >30 H (0-5) /hpf Urine RBC (Auto) 0-4 (0-4) /hpf U Hyaline Cast (Auto) 10-30 H (0-5) /lpf U Epithel Cells (Auto) >30 H (0-5) /lpf Urine Bacteria (Auto) Negative (Negative) Urine Mucus Present A (None Prsent) SARS-CoV-2, RNA, NAAT (NEGATIVE) Blood Type Antibody Screen Crossmatch 07/03/22 07/03/22 07/03/22 Range/Units 11:12 11:12 11:12 WBC (4.8-10.8) K/ul RBC (3.93-5.22) M/uL Hgb (12.0-16.0) g/dl Hct (34.1-44.9) % MCV (80.0-100.0) fL MCH (25.0-34.0) pg MCHC (32.0-36.0) g/dL RDW Std Deviation (36.4-46.3) fL RDW Coeff of Ashly (11.5-14.5) % Plt Count (130-400) K/uL MPV (9.4-12.3) fL Immature Gran % (Auto) % Neut % (Auto) % Lymph % (Auto) % [place] % (Auto) % Eos % (Auto) % Baso % (Auto) % Reticulocyte % (Auto) (0.5-2.0) % Neut # (Auto) (1.4-6.5) K/uL Lymph # (Auto) (1.2-3.4) K/uL [place] # (Auto) (0.24-0.82) K/uL Eos # (Auto) (0-0.50) K/uL Baso # (Auto) (0-0.2) K/uL Reticulocyte # (0.02-0.10) 10^6/uL Immature Gran # (Auto) (0.00-0.02) K/uL PT (9.0-12.0) Seconds INR (0.9-1.1) APTT (21.0-31.0) Seconds PTT Ratio Fibrinogen (184-400) mg/dl Sodium Potassium Chloride Carbon Dioxide Anion Gap BUN Creatinine Est Cr Clr Drug Dosing Est GFR ( Amer) Est GFR (Non-Af Amer) BUN/Creatinine Ratio Glucose Fasting Glucose (70-99) mg/dl Lactate (0.4-2.0) mmol/L Calcium Magnesium Iron Cancelled TIBC Cancelled Unsaturated IBC Cancelled Transferrin % Sat Cancelled Ferritin 478.2 H (8-388) ng/ml Total Bilirubin Direct Bilirubin AST ALT Alkaline Phosphatase Troponin I High Sens Total Protein Albumin Vitamin B12 (180-914) pg/ml Folate (>5.38) ng/ml Procalcitonin (0-0.5) ng/ml TSH 0.188 L Free T4 1.46 (0.61-1.60) ng/dl Urine Color Urine Appearance (Clear) Urine pH (4.5-7.5) Ur Specific [place] (1.000-1.030) Urine Protein (Negative) Urine Glucose (UA) (Negative) Urine Ketones (Negative) Urine Blood (Negative) Urine Nitrite (Negative) Urine Bilirubin (Negative) Urine Urobilinogen (Negative) Ur Leukocyte Esterase (Negative) Urine WBC (Auto) (0-5) /hpf Urine RBC (Auto) (0-4) /hpf U Hyaline Cast (Auto) (0-5) /lpf U Epithel Cells (Auto) (0-5) /lpf Urine Bacteria (Auto) (Negative) Urine Mucus (None Prsent) SARS-CoV-2, RNA, NAAT (NEGATIVE) Blood Type O Positive Antibody Screen NEGATIVE Crossmatch See Detail 07/03/22 07/03/22 07/03/22 Range/Units 11:12 11:53 11:53 WBC 8.74 (4.8-10.8) K/ul RBC 3.53 L (3.93-5.22) M/uL Hgb 12.4 (12.0-16.0) g/dl Hct 37.1 (34.1-44.9) % MCV 105.1 H (80.0-100.0) fL MCH 35.1 H (25.0-34.0) pg MCHC 33.4 (32.0-36.0) g/dL RDW Std Deviation 55.8 H (36.4-46.3) fL RDW Coeff of Ashly 14.5 (11.5-14.5) % Plt Count 312 (130-400) K/uL MPV 9.6 (9.4-12.3) fL Immature Gran % (Auto) 0.5 % Neut % (Auto) 77.4 % Lymph % (Auto) 7.3 % [place] % (Auto) 14.6 % Eos % (Auto) 0.0 % Baso % (Auto) 0.2 % Reticulocyte % (Auto) 2.1 H (0.5-2.0) % Neut # (Auto) 6.76 H (1.4-6.5) K/uL Lymph # (Auto) 0.64 L (1.2-3.4) K/uL [place] # (Auto) 1.28 H (0.24-0.82) K/uL Eos # (Auto) 0.00 (0-0.50) K/uL Baso # (Auto) 0.02 (0-0.2) K/uL Reticulocyte # 0.07 (0.02-0.10) 10^6/uL Immature Gran # (Auto) 0.04 H (0.00-0.02) K/uL PT (9.0-12.0) Seconds INR (0.9-1.1) APTT (21.0-31.0) Seconds PTT Ratio Fibrinogen (184-400) mg/dl Sodium 140 Potassium 3.8 Chloride 109 H Carbon Dioxide 25 Anion Gap 6 BUN 17 Creatinine 0.84 Est Cr Clr Drug Dosing 48.6 Est GFR ( Amer) 79.4 Est GFR (Non-Af Amer) 68.5 BUN/Creatinine Ratio Glucose Fasting Glucose 148 H (70-99) mg/dl Lactate 1.4 (0.4-2.0) mmol/L Calcium 8.1 L Magnesium 1.7 Iron 20 L TIBC 236 L Unsaturated IBC 216 Transferrin % Sat 8 L Ferritin (8-388) ng/ml Total Bilirubin 0.9 Direct Bilirubin 0.2 AST 27 ALT 34 Alkaline Phosphatase 73 Troponin I High Sens Total Protein 5.6 L Albumin 3.0 L Vitamin B12 (180-914) pg/ml Folate (>5.38) ng/ml Procalcitonin (0-0.5) ng/ml TSH Free T4 (0.61-1.60) ng/dl Urine Color Urine Appearance (Clear) Urine pH (4.5-7.5) Ur Specific [place] (1.000-1.030) Urine Protein (Negative) Urine Glucose (UA) (Negative) Urine Ketones (Negative) Urine Blood (Negative) Urine Nitrite (Negative) Urine Bilirubin (Negative) Urine Urobilinogen (Negative) Ur Leukocyte Esterase (Negative) Urine WBC (Auto) (0-5) /hpf Urine RBC (Auto) (0-4) /hpf U Hyaline Cast (Auto) (0-5) /lpf U Epithel Cells (Auto) (0-5) /lpf Urine Bacteria (Auto) (Negative) Urine Mucus (None Prsent) SARS-CoV-2, RNA, NAAT (NEGATIVE) Blood Type Antibody Screen Crossmatch 07/03/22 Range/Units 12:15 WBC (4.8-10.8) K/ul RBC (3.93-5.22) M/uL Hgb (12.0-16.0) g/dl Hct (34.1-44.9) % MCV (80.0-100.0) fL MCH (25.0-34.0) pg MCHC (32.0-36.0) g/dL RDW Std Deviation (36.4-46.3) fL RDW Coeff of Ashly (11.5-14.5) % Plt Count (130-400) K/uL MPV (9.4-12.3) fL Immature Gran % (Auto) % Neut % (Auto) % Lymph % (Auto) % [place] % (Auto) % Eos % (Auto) % Baso % (Auto) % Reticulocyte % (Auto) (0.5-2.0) % Neut # (Auto) (1.4-6.5) K/uL Lymph # (Auto) (1.2-3.4) K/uL [place] # (Auto) (0.24-0.82) K/uL Eos # (Auto) (0-0.50) K/uL Baso # (Auto) (0-0.2) K/uL Reticulocyte # (0.02-0.10) 10^6/uL Immature Gran # (Auto) (0.00-0.02) K/uL PT (9.0-12.0) Seconds INR (0.9-1.1) APTT (21.0-31.0) Seconds PTT Ratio Fibrinogen (184-400) mg/dl Sodium Potassium Chloride Carbon Dioxide Anion Gap BUN Creatinine Est Cr Clr Drug Dosing Est GFR ( Amer) Est GFR (Non-Af Amer) BUN/Creatinine Ratio Glucose Fasting Glucose (70-99) mg/dl Lactate (0.4-2.0) mmol/L Calcium Magnesium Iron TIBC Unsaturated IBC Transferrin % Sat Ferritin (8-388) ng/ml Total Bilirubin Direct Bilirubin AST ALT Alkaline Phosphatase Troponin I High Sens Total Protein Albumin Vitamin B12 (180-914) pg/ml Folate (>5.38) ng/ml Procalcitonin (0-0.5) ng/ml TSH Free T4 (0.61-1.60) ng/dl Urine Color Urine Appearance (Clear) Urine pH (4.5-7.5) Ur Specific [place] (1.000-1.030) Urine Protein (Negative) Urine Glucose (UA) (Negative) Urine Ketones (Negative) Urine Blood (Negative) Urine Nitrite (Negative) Urine Bilirubin (Negative) Urine Urobilinogen (Negative) Ur Leukocyte Esterase (Negative) Urine WBC (Auto) (0-5) /hpf Urine RBC (Auto) (0-4) /hpf U Hyaline Cast (Auto) (0-5) /lpf U Epithel Cells (Auto) (0-5) /lpf Urine Bacteria (Auto) (Negative) Urine Mucus (None Prsent) SARS-CoV-2, RNA, NAAT NEGATIVE (NEGATIVE) Blood Type Antibody Screen Crossmatch Administered Medications Lactated Ringer's (Lr) 1,000 mls @ 125 mls/hr IV .Q8H JAY JAY Stop: 08/02/22 14:57 Last Admin: 07/03/22 15:59 Dose: 125 mls/hr Documented By: KT Discontinued Medications Sodium Chloride (Nss 1000ml) 1,000 mls @ 999 mls/hr IV .Q1H1M JAY JAY Stop: 07/03/22 11:30 Last Infusion: 07/03/22 11:56 Dose: 0 mls/hr Documented By: Admin: 07/03/22 10:44 Dose: 999 mls/hr Documented By: Infusion: 07/03/22 10:44 Dose: 0 mls/hr Documented By: Admin: 07/03/22 09:39 Dose: 999 mls/hr Documented By: MEKHI Cefepime HCl (Maxipime) 2,000 mg in 20 mls @ 5 mls/min IV NOW STA; Protocol Stop: 07/03/22 09:27 Last Admin: 07/03/22 11:56 Dose: 5 mls/min Documented By: MICH Daptomycin 300 mg/ Syringe 6 mls @ 3 mls/min IV NOW STA; Protocol Stop: 07/03/22 10:13 Last Admin: 07/03/22 11:56 Dose: 3 mls/min Documented By: MICH Imaging Data Radiologist's Impression: Head CT 07/03/22 09:24 CT head/brain wo con CLINICAL HISTORY: altered, met cancer Technique: Contiguous axial CT images of the head were acquired from the base of the skull to the vertex without intravenous contrast administration. Images were viewed in brain, subdural and bone windows. Automated dose lowering techniques and/or adjustment according to patient size were utilized for this exam. Comparison: Comparison is made to CT head 05/19/2022 Findings: Areas of decreased attenuation are present in the periventricular and sub cortical white matter bilaterally consistent with small vessel ischemic disease. Generalized cerebral atrophy with commensurate enlargement of the ventricles, sulci, and cisterns is also present. There is no acute intracranial hemorrhage or evidence of acute territorial infarction. No shift of the midline structures, mass effect, or extra-axial abnormalities are shown. Atherosclerotic calcifications are present in the intracranial segments of the internal carotid arteries. Imaged portions of the paranasal sinuses and mastoid air cells are clear. The orbits appear normal. There are no acute fractures of the calvaria or scalp swelling. Impression: No acute intracranial hemorrhage, no evidence of acute territorial infarction or other acute intracranial disease process. ACT 112: Negative or not required by law. Electronically signed by: Matt Campos M.D. 07/03/2022 10:18 AM Chest X-Ray 07/03/22 09:25 XR chest 1V portable CLINICAL HISTORY: Sepsis TECHNIQUE: Single frontal radiograph of the chest was obtained. Comparison: Comparison is made to chest radiograph 05/18/2022 FINDINGS: Right shoulder prosthesis is seen. The cardiomediastinal silhouette is normal. The lungs are clear. No evidence of pleural effusion or pneumothorax. IMPRESSION: No acute abnormalities and in particular no evidence of pneumonia. ACT 112: Negative or not required by law. Electronically signed by: Matt Campos M.D. 07/03/2022 10:02 AM Abdomen/Pelvis CT 07/03/22 09:33 CT abd pelvis wo con CLINICAL HISTORY: renal cancer, poss urinary obstruction TECHNIQUE: Helical axial images of the abdomen and pelvis were obtained. Automated dose lowering techniques and/or adjustment according to patient size were utilized for this exam. This exam was performed without intravenous contrast. CT DOSE: 812.14 mGy.cm COMPARISON: Comparison is made to CT abdomen pelvis 05/04/2022 FINDINGS: Lower chest: No acute abnormality. Liver: Unremarkable. No focal lesions are seen. Gallbladder and biliary tree: No calcified gallstones. Normal caliber wall. No intra- or extrahepatic biliary ductal dilation. Pancreas: Unremarkable, no focal lesions. Spleen: Unremarkable. Adrenals: Unremarkable. Kidneys and ureters: Status post left nephrectomy. The right kidney is normal. No evidence of hydronephrosis or hydroureter. Bladder: Fall catheter is seen. Reproductive organs: Unremarkable. Bowel: Unremarkable appearance of the bowel. The appendix is normal. Lymph nodes Retroperitoneal: Unremarkable. Pelvic: Unremarkable. Mesenteric: Unremarkable. Peritoneum: Normal. Vessels: Unremarkable. Abdominal wall: A fat-containing umbilical hernia is seen. Bones: Degenerative changes in the visualized spine. Compression deformity of L1 is unchanged from prior exam. Right hip total arthroplasty is seen. IMPRESSION: No evidence of urinary obstruction. No evidence of metastatic disease. Additional findings as above. ACT 112: Negative or not required by law. Electronically signed by: Matt Campos M.D. 07/03/2022 10:30 AM Discharge Plan Visit Data Chief Complaint: Illness ED Provider: Ti Guevara Discharge Problem: Hypotension, Altered mental status, Tachycardia, Acute dehydration, Metastatic cancer Patient Disposition: Admitted As Inpatient Condition: Serious Discharge Instructions Interventions: ED Discharge Assessment Last Done: 07/03/22 16:19
[2022-07-03] MEDS: SODIUM CHLORIDE 0.9% 1000ML 1,000 ML IV SCH ×2 (09:39→10:44)
--- NOTE | 2022-07-03 10:03 | XRay Report ---
XR chest 1V portable CLINICAL HISTORY: Sepsis TECHNIQUE: Single frontal radiograph of the chest was obtained. Comparison: Comparison is made to chest radiograph 05/18/2022 FINDINGS: Right shoulder prosthesis is seen. The cardiomediastinal silhouette is normal. The lungs are clear. N o evidence of pleural effusion or pneumothorax. IMPRESSION: No acute abnormalities and in particular no evidence of pneumonia. ACT 112: Negative or not required by law. Electronically signed by: Matt Campos M.D. 07/03/2022 10:02 AM
[2022-07-03] MEDS ORDERED: DAPTOmycin 300 MG in SYRINGE 0 ML IV STA (10:12)
[2022-07-03 10:18] LABS: Appearance Urine Cloudy (Clear); Bacteria Urine Automated Negative (Negative); Bilirubin Urine Negative (Negative); Blood Urine Trace (Negative); Color Urine Dark Yellow; Epithelial Cell Urine Auto >30 /lpf (0-5); Glucose Urine UA Negative (Negative); Ketones Urine 2+ (Negative); Leukocyte Esterase Urine 2+ (Negative); Nitrite Urine Negative (Negative); Protein Urine 1+ (Negative); RBC Urine Automated 0-4 /hpf (0-4); Specific Gravity Urine 1.026 (1.000-1.030); Urobilinogen Urine Negative (Negative); WBC Urine Automated >30 /hpf (0-5)
--- NOTE | 2022-07-03 10:20 | CT Scan Report ---
CT head/brain wo con CLINICAL HISTORY: altered, met cancer Technique: Contiguous axial CT images of the head were acquired from the base of the skull to the martinez zia without intravenous contrast administration. Images were viewed in brain, subdural and [facility]. Automated dose lowering techniques and/or adjustment according to patient size were utilized for this exam. Comparison: Comparison is made to CT head 05/19/2022 Findings: Areas of decreased attenuation are present in the periventricular and subcortical white matter bilate rally consistent with small vessel ischemic disease. Generalized cerebral atrophy with commensurate e nlargement of the ventricles, sulci, and cisterns is also present. There is no acute intracranial hem orrhage or evidence of acute territorial infarction. No shift of the midline structures, mass effect, or extra-axial abnormalities are shown. Atherosclerotic calcifications are present in the intracran ial segments of the internal carotid arteries. Imaged portions of the paranasal sinuses and mastoid air cells are clear. The orbits appear normal. There are no acute fractures of the calvaria or scalp swelling. Impression: No acute intracranial hemorrhage, no evidence of acute territorial infarction or other acute intracra nial disease process. ACT 112: Negative or not required by law. Electronically signed by: Matt Campos M.D. 07/03/2022 10:18 AM
--- NOTE | 2022-07-03 10:32 | CT Scan Report ---
CT abd pelvis wo con CLINICAL HISTORY: renal cancer, poss urinary obstruction TECHNIQUE: Helical axial images of the abdomen and pelvis were obtained. Automated dose lowering tech niques and/or adjustment according to patient size were utilized for this exam. This exam was perfor med without intravenous contrast. CT DOSE: 812.14 mGy.cm COMPARISON: Comparison is made to CT abdomen pelvis 05/04/2022 FINDINGS: Lower chest: No acute abnormality. Liver: Unremarkable. No focal lesions are seen. Gallbladder and biliary tree: No calcified gallstones. Normal caliber wall. No intra- or extrahepatic biliary ductal dilation. Pancreas: Unremarkable, no focal lesions. Spleen: Unremarkable. Adrenals: Unremarkable. Kidneys and ureters: Status post left nephrectomy. The right kidney is normal. No evidence of hydrone phrosis or hydroureter. Bladder: Fall catheter is seen. Reproductive organs: Unremarkable. Bowel: Unremarkable appearance of the bowel. The appendix is normal. Lymph nodes Retroperitoneal: Unremarkable. Pelvic: Unremarkable. Mesenteric: Unremarkable. Peritoneum: Normal. Vessels: Unremarkable. Abdominal wall: A fat-containing umbilical hernia is seen. Bones: Degenerative changes in the visualized spine. Compression deformity of L1 is unchanged from pr ior exam. Right hip total arthroplasty is seen. IMPRESSION: No evidence of urinary obstruction. No evidence of metastatic disease. Additional findings as above. ACT 112: Negative or not required by law. Electronically signed by: Matt Campos M.D. 07/03/2022 10:30 AM
[2022-07-03 10:42] LABS: Mucus Urine Present (None Prsent)
[2022-07-03 12:00] LABS: Fibrinogen 448 mg/dl (184-400); INR 1.4 (0.9-1.1); Partial Thromboplastin Time 28.2 Seconds (21.0-31.0); Prothrombin Time 14.2 Seconds (9.0-12.0)
[2022-07-03 12:07] LABS: Bilirubin Direct 0.2 mg/dl (0-0.2); Bilirubin,Total 0.9 mg/dl (0.2-1.0); Calcium 8.1 mg/dl (8.5-10.1); Creatinine Clr Calc Pharmacy 48.6 ml/min; Est GFR (African American) 79.4 ml/min; Est GFR (Non-African American) 68.5 ml/min; Magnesium 1.7 mg/dl (1.7-2.4); Potassium 3.8 mmol/L (3.5-5.1); Total Protein 5.6 gm/dl (6.0-8.3)
[2022-07-03 12:11] LABS: Thyroid Stimulating Hormone 0.188 uIu/ml (0.300-4.500)
--- NOTE | 2022-07-03 12:12 | History & Physical Report ---
Date of Service July 03, 2022 Assessment & Plan (1) Altered mental state: Plan: AMS, ?Sepesis with encephalopathy - nonverbal x24 horus, hypotension, tachycardia. IMproving w/ fluids - Radiation tx 2 days before admit - History unavailable from pt initially. mentation improving but history still extremely limited as hospitalist assessment. Oriented to name/place/year, but with extremely increased speech latency on admit - Received 500cc NSS by EMS, 2L in ER with improvement in SBP from 70-80s --> low 100s - EKG: tachycardic, ?SVT. mild ST depressions. trop normal. No chest pian. - On bedside assessment tele p waves are visible intermittently and rate vari able/slows to 100-120 intermittently. Suspect reactive sinus tachycardia - EKG 07/03: nsr, qtc 436, no territorial ST segment elevation/dpression or T wave changes - No leukocytosis. Hgb as below - UA with 2+ LE, + Blood, negative for nitrtie. UC pending - hs-trop wnl - Cr: <1 - ECHO 11/2018: LVEF 50-65%, no wall motion abnormalities, mild con LVH, no valvular abnormalities. normal RVSP. - Fibrinogen elevated, plt is not low. -CT-A/P: Performed w/o contrast. No evidence of urinary obstruction. No evidence of metastatic disease. - -CXR: No acute abnormalities and in particular no evidence of pneumonia. -CT-H: No acute intracranial hemorrhage, no evidence of acute territorial infarction or other acute intracranial disease process. Acute Anemia - Hgb 8.9; last hgb 05/20/22 16.4 - BUN 17 - MCV 108.3, last 100.6 - INR 1.9, pt is not on warfarin. Last INR 2018 1.1 - No thrombocytopenia - No anticoagulants - No evidence of bleeding on CT-H/CXR/Ct-A/P - Fibrinogen elevated, is not low - Peripheral smear pending - B12 elevated/repleted, Folate elevated/repleted - Transfer Sat very low, 8% - Suspect combination of iron deficiency +/- marrow suppression multifactorial w/ possible UTI, and AE of pazopanib - Hold pazopanib - Trend H&H - Venofer infusions starting 07/04, defer on admit in case of need for xfusion in first 24 horus and tx of infection Progressive SNP - Supportive care, follows with neurology, no treatments available of benefit. Sees [facility] [place] [facility] and saw [facility] 2021 for consultation. Q6M neuro followup - Turn & Position PRN - fall precautions, aspiration precautions - Continue outpatient pt and pt while inpt - Prior baseline 4/5 limb strength globally with focal worsened weakness in the R shoulder - Wheelchair bound - Limited bilat horizontal gaze Renal Cell Carcinoma, Clear Cell w/ Mets - Dx 2013. S/p L nephrectomy 2013. s/p palliative radiation to R humerous, VATS for R lung met. - Past tx sutent --> axitinib --> currently on pazopanib. Held 2/2 anemia - R pectoralis metastatic lesion increasing since 2019 - Undergoing SBRT with Rad/Onc for pectoralis met - Follows w/ Dr. Alvarez - continue pazopanib, heme/onc f/u T2DM - Hold home antiglycemics -SSI weight based - AC/HS BSG HTN - Hold home antihypertensions 2/2 hypotension - Cr at baseline Hypothyroid - TSH normal - Continue synthroid DVT prophylaxis: SCDs, defer pharmacal prophylaxis in the setting of elevated INR and anemia Disposition: PCU Diet: N.p.o., when alert enough to tolerate bedside swallow safely may trial advance to clears with aspiration precautions CODE STATUS: DNR/DNI (2) Sepsis: (3) Chronic kidney disease, stage III (moderate): (4) Clear cell carcinoma of left kidney: (5) HTN (hypertension): (6) Hypertension: (7) Hypothyroid: History of Present Illness Primary Care Provider: Flakito Harringtonjuan Duran is a 72-year-old female with a past medical history of renal cell carc inoma with metastasis to bone, lung, and chest pectoralis muscle; CKD, progressive supranuclear palsy, hypertension, hypothyroidism, and ataxia who presents with 24 hours of worsening fatigue who ultimately was unresponsive and nonverbal morning of admission. On ER assessment she was hypotensive, tachycardic, with increased can turgor. CTA/P/CThead/CXR were unremarkable, UA was contaminated versus infected appearing and patient was empirically treated for potential sepsis and mentation improved with 2.5 L NSS. Patient is seen at bedside with her present, she is very slow to respond and somnolent, but does give her name/place/year appropriately with greatly increased speech latency. History is extremely limited from patient, history is taken with assistance of her at bedside. She has been undergoing radiation therapy for a pectoralis metastasis with her last radiation treatment 2 days ago. She has continued to take pazopanib daily, last took medications yesterday. She does not have any known brain metastasis of her cancer. She does not have any fever, chills, sweats, cough, lightheadedness, dizziness, shortness of breath, nausea/vomiting/abdominal pain recently. She has not had any bleeding that her has noted including GI bleeding, hematemesis, or nosebleeds. Discussed that her hemoglobin has dropped substantially from last measurement last month, was unaware of this and notes that she has not had any falls, trauma, or bleeding. She is not on any blood thinners. She does not have any heart problems, he does not think she has ever had a history of A. fib. She has had high blood sugar recently, that has been notes that she has had high blood sugar but not necessarily diabetes, but the glipizide does not seem to help and her bl ood sugar has been above 180 in the last week. Goals of care were discussed with at bedside. He reports that he has never thought about CODE STATUS before, did report to ER that Renee was full code initially. Did discuss that she was DNR/DNI last 2 admissions, and in context of her irreversible supranuclear palsy and cancer should she clinically arrest the prognosis would be extremely guarded. Patient previously expressed DNR/DNI preference, discussed with patient and at bedside and agree that patient would want full treatment for infections and treatable causes but in the event that she were to undergo a cardiac or respiratory arrest would want to prolong suffering and will continue DNR/DNI at this time Medical History: Reviewed Medications: Reviewed Surgical History: Reviewed Allergies: Reviewed Social History: Reviewed Code Status: DNR/DNI Allergies Allergy/AdvReac Type Severity Reaction Status Date / Time nickel Allergy Severe ITCHING Verified 07/03/22 09:45 AND SORENESS OF GLANDS adhesive Allergy Intermediate REDNESS Verified 07/03/22 09:45 AND VERY ITCHY Penicillins Allergy Intermediate RASH Verified 07/03/22 09:45 Sulfa (Sulfonamide Allergy Intermediate VAGINAL Verified 07/03/22 09:45 Antibiotics) IRRITATION latex AdvReac Unknown Unknown Verified 07/03/22 09:45 Home Medications Medication Instructions Recorded Confirmed Type cholecalciferol (vitamin D3) 50 50 mcg PO QAM 11/28/18 07/03/22 History mcg (2,000 unit) capsule (Vitamin D3) levothyroxine 75 mcg tablet 75 mcg PO QAM 11/28/18 07/03/22 History (Synthroid) multivitamin 1 tab PO QAM 11/28/18 07/03/22 History tramadol 50 mg tablet 50 mg PO DAILY PRN Pain 09/02/20 07/03/22 History Wheelchair (Manual) #1 ea 07/06/21 06/01/22 Rx pazopanib 200 mg tablet (Votrient) 100 mg PO DAILY 12/02/21 07/03/22 History lisinopril 2.5 mg tablet 2.5 mg PO DAILY 05/18/22 07/03/22 History lisinopril 5 mg tablet 5 mg PO DAILY 05/18/22 07/03/22 History paroxetine HCl 40 mg tablet 40 mg PO DAILY 05/18/22 07/03/22 History vitamin B complex 1 tab PO DAILY 05/18/22 07/03/22 History glipizide 2.5 mg tablet, extended 2.5 mg PO DAILY #30 tabs 05/20/22 07/03/22 Rx release 24 hr dexamethasone 4 mg tablet 4 mg PO UD 07/03/22 07/03/22 History Past Med/Surg History Medical History (Updated 07/03/22 @ 12:16 by Sujit Corley MD) Anxiety Atrial fibrillation with RVR Clear cell carcinoma of left kidney 2011, s/p nephrectomy, recurrence of metastatic disease to shoulder, lung Closed fracture of neck of right femur Depression Dyspareunia Fall GERD (gastroesophageal reflux disease) HTN (hypertension) Hypothyroid Incomplete right bundle branch block Progressive supranuclear palsy Pseudomonas aeruginosa infection Right axis deviation Right knee pain Spinocerebellar ataxia Surgical History (Updated 06/02/22 @ 10:20 by Corie Garber RN) History of bilateral tubal ligation History of nephrectomy LEFT History of open reduction and internal fixation (ORIF) procedure RIGHT HIP History of total shoulder replacement RIGHT S/P cataract extraction Bilateral Family History (Updated 06/02/22 @ 10:23 by Corie Garber RN) Mother , in late 70s Hypertension Diabetes Father , in his 90s Heart disease Cardiac stent Hypertension Sister No problems noted. Sister No problems noted. Son No problems noted. Daughter No problems noted. Daughter No problems noted. Daughter No problems noted. Social History (Updated 06/02/22 @ 10:25 by Corie Garber RN) Smoking Status: Former smoker Tobacco Type: Cigarettes Cigarettes Per Day: 1 PPD x; Second Hand Exposure: Yes; Hx Alcohol Use: No Hx Substance Use: No Preferred Language: German Communication Ability: Effective Visual Impairment: No Limitations Hearing Ability: Normal Groover Operator Required: No Beliefs That Will Affect Care: None marital status: Current Living Situation: Parent current occupational status: previously employed current occupation: Was a nanny in past How many Children do You have: 4 Feels Safe at Home: Yes caffeine: No during the past year weight has: remained stable Assistive Devices: Walker and Wheelchair Review of Systems Review of Systems: Unobtainable due to cognitive status Physical Exam Physical Exam: General: Initially nonverbal on ER assessment. Following fluids/antibiotics patient is with increased speech latency of several seconds but is able to verbalize name, year, and "hospital ". HEENT: Atraumatic, normocephalic. Tracks with eyes intermittently, does not follow commands consistently. Vision/hearing is grossly intact. Pupils are equally reactive to light. Pulm: CTAB A&P. -wheezes, -rales, -rhonchi. Symmetrical chest rise. No increased work of breathing. No respiratory distress. Cardiac: Tachycardic. P waves visible on pvc monitor during exam, rate variable between 100 and 130. No JVD radial pulses intact and symmetrical. Abdominal: Nontender, nondistended, soft. BS present. Extremities: Warm, dry. No mottling. Does wiggle toes on command. Cap refill sluggish. Sensation intact to soft touch of hand bilaterally, sensation/strength testing limited by altered mentation Results & Data Results & Data ([facility]) Vital Signs (Past 12 Hours) Vital Signs Temp Pulse Resp BP Pulse Ox O2 Del Method 07/03/22 10:45 153 H 17 109/65 96 Room Air 07/03/22 09:43 135 H 24 104/71 95 Room Air 07/03/22 09:57 130 H 95 Room Air 07/03/22 09:20 37.1 C 119 H 20 88/76 L 95 Room Air PG Care Time/CCT Total # of Minutes Spent Total Time Spent with Patient: Total time spent is greater than 50% in coordination of care (as documented) at patient's floor/unit and/or counseling patient: Coding Level of Care Code 66818 Initial Inpt Care Lvl 3 Diagnoses Altered mental state R41.82 Sepsis A41.9 Chronic kidney disease, stage III (moderate) N18.3 Clear cell carcinoma of left kidney C64.2 HTN (hypertension) I10 Hypertension I10 Hypothyroid E03.9
[2022-07-03 12:15] LABS: Vitamin B12 1285 pg/ml (180-914)
[2022-07-03 12:33] LABS: Basophils # (auto) 0.02 K/uL (0-0.2); Basophils % (auto) 0.2 %; Hematocrit (blood only) 37.1 % (34.1-44.9); Hemoglobin 12.4 g/dl (12.0-16.0); Immature Granulocytes # (auto) 0.04 K/uL (0.00-0.02); Immature Granulocytes % (auto) 0.5 %; Lymphocytes # (auto) 0.64 K/uL (1.2-3.4); Lymphocytes % (auto) 7.3 %; Mean Corpuscular Hemoglobin 35.1 pg (25.0-34.0); Mean Corpuscular Hgb Conc 33.4 g/dL (32.0-36.0); Mean Corpuscular Volume 105.1 fL (80.0-100.0); Mean Platelet Volume 9.6 fL (9.4-12.3); Monocytes # (auto) 1.28 K/uL (0.24-0.82); Monocytes % (auto) 14.6 %; Neutrophils # (auto) 6.76 K/uL (1.4-6.5); Neutrophils % (auto) 77.4 %; Platelet Count 312 K/uL (130-400); RDW Coefficient of Variation 14.5 % (11.5-14.5); RDW Standard Deviation 55.8 fL (36.4-46.3); Red Blood Count 3.53 M/uL (3.93-5.22); White Blood Count 8.74 K/ul (4.8-10.8)
[2022-07-03 12:37] LABS: Reticulocyte % 2.1 % (0.5-2.0); Reticulocytes # 0.07 10^6/uL (0.02-0.10)
[2022-07-03 13:27] LABS: T4 Free Thyroxine 1.46 ng/dl (0.61-1.60)
[2022-07-03] MEDS ORDERED: CARBOHYDRATES FOR HYPOGLYCEMIA PO PRN (14:58)
[2022-07-03] MEDS ORDERED: DEXTROSE 50% 50 ML SYRINGE IV PRN (14:58)
[2022-07-03] MEDS ORDERED: GLUCOSE 40% GEL 15 GM TUBE PO PRN (14:58)
[2022-07-03] MEDS ORDERED: GLUCAGON FOR INJ 1 MG VIAL SQ PRN (14:58)
[2022-07-03] MEDS ORDERED: LACTATED RINGER'S 1,000 ML IV SCH (14:58)
[2022-07-03] MEDS ORDERED: GLUCOSE 10 TAB/TUBE PO PRN (14:58)
[2022-07-03] MEDS ORDERED: ACETAMINOPHEN 325 MG TAB PO PRN (14:58)
[2022-07-03 15:54] LABS: Hematocrit (blood only) 37.5 % (34.1-44.9); Hemoglobin 12.6 g/dl (12.0-16.0)
[2022-07-03] MEDS ORDERED: INSULIN ASPART PER UNIT SC SCH (16:30)
[2022-07-03] MEDS ORDERED: Nursing to Pharmacy Communication SCH (17:00)
[2022-07-03] MEDS: INSULIN ASPART PER UNIT SC SCH ×2 (18:09→23:43)
[2022-07-03] MEDS: D5W AND LACTATED RINGERS 1,000 ML IV SCH (18:23)
[2022-07-03] MEDS: CEFEPIME 2,000 MG in SYRINGE 0 ML IV SCH (23:40)
[2022-07-04] MEDS: INSULIN ASPART PER UNIT SC SCH ×4 (05:46→21:46)
[2022-07-04] MEDS: LEVOTHYROXINE SODIUM 75 MCG TABLET PO SCH (05:46)
--- NOTE | 2022-07-04 06:04 | Electrocardiogram Report ---
Test Reason : Blood Pressure : / mmHG Vent. Rate : 163 BPM Atrial Rate : 170 BPM P-R Int : 000 ms QRS Dur : 090 ms QT Int : 296 ms P-R-T Axes : 000 106 039 degrees QTc Int : 487 ms Supraventricular tachycardia , likely atrial flutter Rightward axis Abnormal ECG When compared with ECG of 18-MAY-2022 23:17, Supraventricular tachycardia is now Present Confirmed by Eran Coyne ([id number]) on 07/04/2022 6:03:56 AM Referred By: Confirmed By:Eran Coyne
[2022-07-04] MEDS: D5W AND LACTATED RINGERS 1,000 ML IV SCH ×2 (06:10→17:52)
--- NOTE | 2022-07-04 06:19 | Electrocardiogram Report ---
Test Reason : Blood Pressure : / mmHG Vent. Rate : 109 BPM Atrial Rate : 109 BPM P-R Int : 162 ms QRS Dur : 088 ms QT Int : 378 ms P-R-T Axes : 005 062 051 degrees QTc Int : 509 ms Poor data quality, interpretation may be adversely affected Sinus tachycardia with Premature atrial complexes Otherwise normal ECG When compared with ECG of 03-JUL-2022 09:19, (unconfirmed) Supraventricular tachycardia is no longer Present Confirmed by Eran Coyne ([id number]) on 07/04/2022 6:19:41 AM Referred By: REFERRED SELF Confirmed By:Eran Coyne
[2022-07-04 06:41] LABS: Basophils # (auto) 0.02 K/uL (0-0.2); Basophils % (auto) 0.3 %; Eosinophils # (auto) 0.01 K/uL (0-0.50); Eosinophils % (auto) 0.2 %; Hematocrit (blood only) 34.6 % (34.1-44.9); Hemoglobin 11.9 g/dl (12.0-16.0); Immature Granulocytes # (auto) 0.04 K/uL (0.00-0.02); Immature Granulocytes % (auto) 0.7 %; Lymphocytes # (auto) 0.99 K/uL (1.2-3.4); Lymphocytes % (auto) 16.6 %; Mean Corpuscular Hemoglobin 34.9 pg (25.0-34.0); Mean Corpuscular Hgb Conc 34.4 g/dL (32.0-36.0); Mean Corpuscular Volume 101.5 fL (80.0-100.0); Mean Platelet Volume 9.3 fL (9.4-12.3); Monocytes # (auto) 0.87 K/uL (0.24-0.82); Monocytes % (auto) 14.6 %; Neutrophils # (auto) 4.02 K/uL (1.4-6.5); Neutrophils % (auto) 67.6 %; Platelet Count 253 K/uL (130-400); RDW Coefficient of Variation 14.5 % (11.5-14.5); RDW Standard Deviation 54.1 fL (36.4-46.3); Red Blood Count 3.41 M/uL (3.93-5.22); White Blood Count 5.95 K/ul (4.8-10.8)
[2022-07-04 07:06] LABS: Estimated Average Glucose 180 mg/dl; Hemoglobin A1C 7.9 % (4.5-5.6)
[2022-07-04 07:23] LABS: BUN Creatinine Ratio 21.2 (10-20); Creatinine Clr Calc Pharmacy 61.9 ml/min; Est GFR (African American) 100.9 ml/min; Potassium 3.3 mmol/L (3.5-5.1)
--- NOTE | 2022-07-04 08:10 | Hospitalist Progress Note ---
Date of Service July 04, 2022 Assessment & Plan (1) Altered mental state: Plan: AMS, Sepsis with metabolic encephalopathy possible urinary source on cefepime and daptomycin, cultures pending altered mental state also has possibly influenced by her supranuclear palsy - - Radiation tx 2 days before admit -CT-A/P: Performed w/o contrast. No evidence of urinary obstruction. No evidence of metastatic disease. - -CXR: No acute abnormalities and in particular no evidence of pneumonia. -CT-H: No acute intracranial hemorrhage, no evidence of acute territorial infarction or other acute intracranial disease process -MRI of the brain without metastasis or stroke (2) Clear cell carcinoma of left kidney: Plan: Renal Cell Carcinoma, Clear Cell w/ Mets - Dx 2013. S/p L nephrectomy 2013. s/p palliative radiation to R humerous, VATS for R lung met. - Past tx sutent --> axitinib --> currently on pazopanib. Held 2/2 anemia - R pectoralis metastatic lesion increasing since 2019 - Undergoing SBRT with Rad/Onc for pectoralis met - Follows w/ Dr. Alvarez - (3) HTN (hypertension): Plan: -Resume lisinopril follow creatinine (4) Hypothyroid: Plan: - TSH normal - Continue synthroid (5) Chronic kidney disease, stage III (moderate): (6) Anemia: Plan: Acute Anemia - Hgb 8.9; last hgb 05/20/22 16.4 repeat is 11.9 making the 8.9 likely spurious - No evidence of bleeding on CT-H/CXR/Ct-A/P, BUN not elevated - Fibrinogen elevated, iron is low - Hold pazopanib - (7) Progressive supranuclear palsy: Plan: - Supportive care, follows with neurology, no treatments available of benefit. Sees [facility] [place] [facility] and saw [facility] 2021 for consultation. - Turn & Position PRN - fall precautions, aspiration precautions - Continue outpatient pt and pt while inpt - Prior baseline 4/5 limb strength globally with focal worsened weakness in the R shoulder - Wheelchair bound - Limited bilat horizontal gaze Attempt to engage and has been on goals of care patient's did not seem to grasp how I was describing this but certainly with the patient's decline her progressive supranuclear palsy which is not treatable and her malignancy with n ow decreased after initiating therapy that may be part of a future discussion (8) Diabetes: Plan: T2DM - Hold home antiglycemics-low dose glipizide -SSI weight based - AC/HS BSG Plan DVT prophylaxis: SCDs, defer pharmacal prophylaxis in the setting of elevated INR and anemia Disposition: PCU Diet: N.p.o., when alert enough to tolerate bedside swallow safely may trial advance to clears with aspiration precautions CODE STATUS: DNR/DNI Admission and Anticipated Discharge Date Admission Date: July 03, 2022 Subjective Patient suffers from supranuclear palsy and she was awake she tried to make sensible discussions but was confused she was able to follow commands for the most part Her was bedside and updated Review of Systems Review of Systems: Unobtainable due to cognitive status Physical Exam Physical Exam: The patient appeared well nourished and normally developed. Vital signs as documented. Head exam is normocephalic atraumatic she has some mild abnormal position of her eyes which her says is chronic Neck is without JVD, thyromegaly, or carotid bruits. Lungs are clear to auscultation, no focal loss of breath sounds Cardiac exam, Rhythm is regular.. No murmurs, rubs or gallops. Abdominal exam reveals normal bowel sounds, soft non tender, no masses Extremities are nonedematous and both pedal pulses are present Neurologic exam is alert and follows command but is not oriented to place or time no focal loss of strength or sensation Skin is without bruises or rashes Results & Data Results & Data ([facility]) Vital Signs (Past 12 Hours) Vital Signs Temp Pulse Pulse Resp BP Pulse Ox O2 Del Method 07/04/22 07:00 98.8 F 78 17 133/79 95 Room Air 07/04/22 03:26 97.9 F 75 16 121/66 94 Room Air 07/03/22 23:45 Room Air 07/03/22 23:45 75 07/03/22 23:05 98.6 F 78 16 101/64 99 Room Air Diagnostic Findings MRI of the head performed 07/04/2022 no intracranial abnormality there is no MRI evidence of intracranial metastatic disease PG Care Time/CCT Total # of Minutes Spent Total Time Spent with Patient: Total time spent is greater than 50% in coordination of care (as documented) at patient's floor/unit and/or counseling patient: Coding Level of Care Code 24833 Subseq Hosp Care Lvl 3 Diagnoses Altered mental state R41.82 Clear cell carcinoma of left kidney C64.2 HTN (hypertension) I10 Hypothyroid E03.9 Chronic kidney disease, stage III (moderate) N18.3 Anemia D64.9 Progressive supranuclear palsy G23.1 Diabetes E11.9
[2022-07-04] MEDS: POTASSIUM CHLORIDE / WTR 10 MEQ/100 ML PLCT IV SCH ×3 (08:45→10:48)
[2022-07-04] MEDS: MULTIVITAMIN TAB PO SCH (08:49)
[2022-07-04] MEDS: PARoxetine HCL 20 MG TAB PO SCH (08:49)
[2022-07-04] MEDS: IRON POLYSACCHARIDE COMPLEX 150 MG CAPSULE PO SCH (08:49)
[2022-07-04] MEDS ORDERED: IRON SUCROSE 300 MG in SODIUM CHLORIDE 0.9% 250 ML IV SCH (09:00)
[2022-07-04] MEDS ORDERED: LORazepam 0.5 MG in SYRINGE 0 ML IV STA (09:53)
[2022-07-04] MEDS: CEFEPIME 2,000 MG in SYRINGE 0 ML IV SCH ×2 (10:48→17:52)
[2022-07-04] MEDS ORDERED: DAPTOmycin 325 MG in SYRINGE 0 ML IV SCH (11:00)
[2022-07-04] MEDS ORDERED: GADOBUTROL 65ML VIAL IV ONE (11:31)
--- NOTE | 2022-07-04 12:07 | Magnetic Resonance Report ---
MRI OF THE BRAIN COMBO CLINICAL HISTORY: Change in mental status. History of metastatic renal cell carcinoma. COMPARISON STUDY: CT of the brain dated 07/03/2022. MRI of the brain dated 04/21/2020. TECHNIQUE: MRI of the brain was performed utilizing various T1 and T2-weighted sequences in the axial , sagittal, and coronal planes. Contrast-enhanced sequences were acquired following the administratio n of 5 cc of Gadavist. FINDINGS: Brain parenchyma: There is age related emotional change noting mild subcortical and periventricular m icroangiopathic disease. There is no hemorrhage or mass effect. There is no restricted diffusion to s uggest acute ischemia. No enhancing mass lesion is identified on the postcontrast images. Goetz-white matter differentiation is preserved. No extra-axial fluid collection is seen. The cerebellar tonsils are normal in configuration. Ventricles, sulci, and cisterns: Prominent secondary to involutional change. Ventriculomegaly is ariana lar to previous. Pituitary and sella: Unremarkable. Intracranial vasculature: Normal flow voids are maintained at the skull base. Orbits: The bony orbits are grossly intact. Orbital contents are normal in appearance noting bilatera l ocular lens implants. Sinuses and mastoids: There is mild mucosal thickening within the maxillary antra, as well as the eth moid and sphenoid sinuses. The metatarsals are clear. Calvarium: Unremarkable. Cervical cord: Partially visualized cervical spinal cord is normal in morphology and signal intensity . IMPRESSION: No acute intracranial abnormality is identified. Specifically, there is no MRI evidence o f intracranial metastatic disease. ACT 112: Negative or not required by law. Electronically signed by: Ti Michaels M.D. 07/04/2022 12:06 PM
[2022-07-04] MEDS ORDERED: THIAMINE HCL 500 MG in SODIUM CHLORIDE 0.9% 50 ML IV ONE (13:30)
[2022-07-04] MEDS ORDERED: lisinopril 5 MG TAB PO ONE (14:09)
[2022-07-05] MEDS: CEFEPIME 2,000 MG in SYRINGE 0 ML IV SCH (02:08)
[2022-07-05] MEDS: LEVOTHYROXINE SODIUM 75 MCG TABLET PO SCH (05:35)
[2022-07-05] MEDS: D5W AND LACTATED RINGERS 1,000 ML IV SCH ×2 (05:36→18:36)
[2022-07-05] MEDS: PARoxetine HCL 20 MG TAB PO SCH (07:59)
[2022-07-05] MEDS: MULTIVITAMIN TAB PO SCH (07:59)
[2022-07-05] MEDS: IRON POLYSACCHARIDE COMPLEX 150 MG CAPSULE PO SCH (07:59)
[2022-07-05] MEDS: lisinopril 5 MG TAB PO SCH (07:59)
[2022-07-05] MEDS: INSULIN ASPART PER UNIT SC SCH ×4 (08:26→20:11)
[2022-07-05] MEDS ORDERED: METOPROLOL TARTRATE 1 MG/ML VIAL IV STA (13:00)
--- NOTE | 2022-07-05 14:49 | Fluoroscopy Report ---
FL video swallow CLINICAL HISTORY: Assess for aspiration TECHNIQUE: Video fluoroscopy of the pharyngeal region was performed as barium mixtures of varying con sistencies were administered to the patient by the speech pathologist. A formal esophagram was not pe rformed. Comparison: None available at the time of this dictation. FINDINGS: Total fluoroscopy time: 4.5 minutes. Penetration was seen with thin liquids without evidence of aspiration. With mixed consistency, aspira tion was seen. Pooling of barium was noted in the bilateral piriform sinuses and valleculae. IMPRESSION: Aspiration and penetration were seen. Please see the speech pathology report for further details. ACT 112: Negative or not required by law. Electronically signed by: Matt Campos M.D. 07/05/2022 2:47 PM
--- NOTE | 2022-07-05 17:03 | Hospitalist Progress Note ---
Date of Service July 05, 2022 Assessment & Plan (1) Altered mental state: Plan: AMS, I doubt this is sepsis, patient has recent radiation therapy, I am under the impression that most likely her symptoms is due to recent treatment for her metastatic cancer, all culture came back negative, stop IV antibiotic, I will monitor her off antibiotics for now - Radiation tx 2 days before admit -Mental status return to a baseline -CT-A/P: Performed w/o contrast. No evidence of urinary obstruction. No evidence of metastatic disease. - -CXR: No acute abnormalities and in particular no evidence of pneumonia. -CT-H: No acute intracranial hemorrhage, no evidence of acute territorial infarction or other acute intracranial disease process -MRI of the brain without metastasis or stroke (2) A-fib: Plan: Patient developed paroxysmal A. fib, current rhythm is sinus, I doubt if the patient is a candidate for any treatment given overall poor prognosis of having metastatic cancer as well as supranuclear palsy (3) Clear cell carcinoma of left kidney: Plan: Renal Cell Carcinoma, Clear Cell w/ Mets - Dx 2013. S/p L nephrectomy 2013. s/p palliative radiation to R humerous, VATS for R lung met. - Past tx sutent --> axitinib --> currently on pazopanib. Held 2/2 anemia - R pectoralis metastatic lesion increasing since 2019 - Undergoing SBRT with Rad/Onc for pectoralis met - Follows w/ Dr. Alvarez - (4) HTN (hypertension): Plan: -Resume lisinopril follow creatinine (5) Hypothyroid: Plan: - TSH normal - Continue synthroid (6) Chronic kidney disease, stage III (moderate): (7) Anemia: Plan: Acute Anemia - Hgb 8.9; last hgb 05/20/22 16.4 repeat is 11.9 making the 8.9 likely spurious - No evidence of bleeding on CT-H/CXR/Ct-A/P, BUN not elevated - Fibrinogen elevated, iron is low - Hold pazopanib - (8) Progressive supranuclear palsy: Plan: - Supportive care, follows with neurology, no treatments available of benefit. Sees [facility] [place] [place] [facility] and saw [facility] 2021 for consultation. - Turn & Position PRN - fall precautions, aspiration precautions - Continue outpatient pt and pt while inpt - Prior baseline 4/5 limb strength globally with focal worsened weakness in the R shoulder - Wheelchair bound - Limited bilat horizontal gaze Attempt to engage and has been on goals of care patient's did not seem to grasp how I was describing this but certainly with the patient's decline her progressive supranuclear palsy which is not treatable and her malignancy with now decreased after initiating therapy that may be part of a future discussion (9) Diabetes: Plan: T2DM - Hold home antiglycemics-low dose glipizide -SSI weight based - AC/HS BSG Plan DVT prophylaxis: SCDs, defer pharmacal prophylaxis in the setting of elevated INR and anemia Disposition: PCU Diet: N.p.o., when alert enough to tolerate bedside swallow safely may trial advance to clears with aspiration precautions CODE STATUS: DNR/DNI Admission and Anticipated Discharge Date Admission Date: July 03, 2022 Subjective Patient mental status has returned to her baseline, I spoke to the , is concerning if he is not able to take care of her at home anymore, we ask for palliative care and ed case manager consult Physical Exam Physical Exam: The patient appeared well nourished and normally developed. Vital signs as documented. Head exam is normocephalic atraumatic she has some mild abnormal position of her eyes which her says is chronic Neck is without JVD, thyromegaly, or carotid bruits. Lungs are clear to auscultation, no focal loss of breath sounds Cardiac exam, Rhythm is regular.. No murmurs, rubs or gallops. Abdominal exam reveals normal bowel sounds, soft non tender, no masses Extremities are nonedematous and both pedal pulses are present Neurologic exam is alert and follows command but is not oriented to place or time no focal loss of strength or sensation Skin is without bruises or rashes Results & Data Results & Data ([facility]) Vital Signs (Past 12 Hours) Vital Signs Temp Pulse Pulse Resp BP Pulse Ox O2 Del Method 07/05/22 16:00 87 07/05/22 11:21 36.4 C L 77 16 130/99 95 Room Air 07/05/22 08:00 76 07/05/22 08:00 Room Air 07/05/22 07:11 36.8 C 79 16 120/89 95 Room Air PG Care Time/CCT Total # of Minutes Spent Total Time Spent with Patient: Total time spent is greater than 50% in coordination of care (as documented) at patient's floor/unit and/or counseling patient: Coding Level of Care Code 19257 Subseq Hosp Care Lvl 3 Diagnoses Altered mental state R41.82 A-fib I48.91 Clear cell carcinoma of left kidney C64.2 HTN (hypertension) I10 Hypothyroid E03.9 Chronic kidney disease, stage III (moderate) N18.3 Anemia D64.9 Progressive supranuclear palsy G23.1 Diabetes E11.9
[2022-07-06] MEDS: D5W AND LACTATED RINGERS 1,000 ML IV SCH (06:18)
[2022-07-06] MEDS: LEVOTHYROXINE SODIUM 75 MCG TABLET PO SCH (06:18)
[2022-07-06] MEDS: INSULIN ASPART PER UNIT SC SCH ×4 (08:17→21:30)
[2022-07-06] MEDS: PARoxetine HCL 20 MG TAB PO SCH (08:19)
[2022-07-06] MEDS: lisinopril 5 MG TAB PO SCH (08:19)
[2022-07-06] MEDS: MULTIVITAMIN TAB PO SCH (08:19)
[2022-07-06] MEDS: IRON POLYSACCHARIDE COMPLEX 150 MG CAPSULE PO SCH (08:19)
[2022-07-06] MEDS ORDERED: STAT IV Infusion **Titration per Protocol STA (09:44)
[2022-07-06] MEDS ORDERED: dilTIAZem HCl 5 MG/ML 5 ML VIAL IV STA (09:44)
[2022-07-06] MEDS ORDERED: dilTIAZem HCL 125 MG in DEXTROSE 5% 100 ML IV SCH (09:45)
[2022-07-06] MEDS: dilTIAZem HCL 125 MG in DEXTROSE 5% 100 ML IV SCH (10:08)
--- NOTE | 2022-07-06 10:12 | Palliative Care Consultation ---
Date of Consultation July 06, 2022 Assessment & Plan (1) Palliative care encounter: met with pt/ at bedside. He states he can no longer care for pt and she will need placement. He has no SNF preferences and has already spoken with CM. pt answers yes/no questions easily. She is tearful at discussion of custodial. She reaffirms no code status and does not desire prolonging measures such as a feeding tube, she enjoys eating and drinking - this is a source of pleasure to her and one of the few remaining facets of her QOL. notes he has been hand feeding patient for a long time and that custodial "will have to just do it the way I did, that's what she likes." I gently advised him staffing at SNF today make individual hand feeding unsuccessful and pt is unable to operate cutlery on her own. She however very much enjoys her meals and drinks, and this should be facilitated for her as a QOL provision. I reviewed with him a plan for increased family engagement at mealtimes to help offset nursing staff shortage at SNF for hand feeding. He states "we'll cross that bridge when we get there, but they should e able to do it all, we're going to be paying them a lot fo money and that's their job!" He He demonstrates caregiver burnout. His wishes for her to be hand fed will be important to convey to the custodial: they cannot come into the room, open up her tray and cut up some food then leave - she cannot use utensils and lacks the motor coordination needed. Compassionate care for PSP patients at the end of life requires kindness and patience while attending to these basic needs. She is not going to improve with rehab given her progressive neuromuscular disease and will likely convert to LTC and may need medicaid application submitted. Also, is considering a plan of care focused on comfort but needs time t think about all of this and is right now too tired and overwhelmed. She would like her daughter updated, CM advised via tiger text "I just talked to the two daughters who are from out of town. Delicia and Estela want included in the discharge planning. They have some questions for you as well. Delicia's number is [phone]. I placed three referrals for custodial placement." (2) Advanced care planning/counseling discussion: I spent 28min at bedside with pt and then pt/ discussing ACP/GOC as note above For another 32min, I called Delicia at above provided number and she conferences in her sister Estela. I reviewed all of the above with them and they had several questions about how to assure QOL, comfort and dignity. They shared with me there is another sibling, who does live locally, that has been differing in her opinion and wants pt to have aggressive invasive interventions such as a feeding tube. Bijal and Estela note they always talk about everything together as a family, there is no conflict between them personally and that they all share a common desire to honor pt wishes, just my need some more discussion. I encouraged them to speak as a family. Both girls live out of town and were planning to travel in but the impending weather storm is likely going to get their travel plans cancelled or delayed and then this weekend is [place]. They asked if i felt it would be reasonable for them to come early next week and I advised it likely was, given that finding placement/getting insurance authorization and discharge etc coordinated was likely going to be a little slower between a big winter storm + holiday. We reviewed that all chronic/progressive disease has a declining trajectory over time where facets of patient self-identity and independence are lost. Every acute event leads to a further decline, resulting- many times, in a new baseline. Advised that the greatest priority is to determine what matters most to pt, then family and to develop a plan of care that is aligned with those priorities. They had very appropriate questions about what to expect with disease progression. They already know from discussions with Mom's neuro providers that there is currently no effective treatment for PSP and symptoms usually do not respond to medications. We reviewed the hallmark of PSP is an accumulation of abnormal deposits of the protein tau in nerve cells in the brain. These deposits cause the cells to malfunction and , which stops the flow of information to other nerve cells. The accumulation of tau puts PSP in the group of disorders called the tauopathies, which includes Alzheimers disease, corticobasal degeneration, and some forms of frontotemporal degeneration. As such, I advised that PSP individuals are predisposed to serious complications such as pneumonia, choking, head injury, and fractures, with the final stages of PSP dominated by an increasingly severe dysarthria and dysphagia - I advised the most common cause of for patients with this type of neuromuscular failure is respiratory failure from PNA. They asked about her prognosis. I advsied them I do not believe she is actively dying but I do feel she is moving towards an EOL trajectory with terminal PSP: as PSP progresses to an advanced stage, people with the condition normally begin to experience increasing difficulties controlling the muscles of their mouth, throat and tongue. Speech may become increasingly slow and slurred, making it harder to understand. her speech is at times garbled, and interrupted by her cough and secretions. She can however answer yes/no very easily and she is still very decisional and should therefore be included in all discussions about her care. At their request, I provided education about the hospice benefit. Hospice is an interdisciplinary program offered by nurses, nurses aides, social workers, chaplains and a medical billing and coding instructor for patients with a terminal condition and a life expectancy of less than 6 months. The goal would be to improve the quality of life of the patient in their home setting (home, custodial, and inpatient hospice setting) by providing symptoms management, psychosocial and spiritual support. However, they cannot offer 24 hours care and if the family is unable to provide that care, they will have to consider personal care with out of pocket cost vs. custodial placement. I further advised that Medicare covers hospice at a assisted facility (SNF) only if the SNF has a contract with a Medicare-certified hospice that can provide care. The hospice benefit will not pay for room and board at the SNF, so pt would be responsible for that cost. If patients have skilled care needs unrelated to their terminal illness, and they meet [employer] coverage requirements for a SNF stay, Medicare should cover room and board and that skilled care. For example, if patient has elected hospice because they have terminal cancer and they fall and break their hip unrelated to the cancer and meet other requirements, Medicare would cover their stay in a SNF for the daily physical therapy they need for the broken hip. Daughters note home hospice is not an option. cannot handle performing personal care for pt and has drawn a firm boundary on this for as long as they can remember: "He refuses to wipe her or clean her personal areas, he says that's where he draws the line and if she can't do that for herself she needs to go to a custodial where they can do it for her." They plan to meet as a family and discuss options further. Should patient still be here next week when they arrive, we will plan for a family meeting. (3) Progressive supranuclear palsy: Would note that artificial nutrition and hydration (RADHAMES) were originally developed to provide short-term support for patients who were acutely ill. For patients nearing/transitioning to EOL, RADHAMES is unlikely to prolong life in addition to which researchers have found that RADHAMES often leads to complications in patients nearing the end of life. Patients with advanced, life-limiting illness often lose the ability to eat and drink and/or interest in food and fluids. Like other medical interventions, it should be evaluated by weighing its benefits and burdens in light of the patient's clinical circumstances and goals of care. RADHAMES may offer benefits when administered in the setting of acute, reversible illness, or as a component of chronic disease management, when the patient can appreciate the benefits of the treatment and significant burdens are not disproportionate. Near the end of life, some widely assumed benefits of RADHAMES, such as alleviation of thirst, may be achieved by less invasive measures including good mouth care or providing ice chips. (Faustino BRITO, Iker CASTILLOK, Pasha Martinez. after PEG: Results of the National Confidential Enquiry into Patient Outcome and . Gastrointest Endosc. 2008;68:223-227andBrbro E, Bri D, Kimberly S, et al. Parenteral hydration in patients with advanced cancer: A multicenter, double-blind, placebo-controlled randomized trial. J Clin Oncol. 2013;31:111-118.) (4) Renal cell cancer: (5) Memory impairment: likely from progression of PSP (6) Dysphagia: worsening with progressive PSP (7) Ataxic gait: worsening with progressive PSP Plan * Discussions with pt, pt/ and dtrs Tessa as noted above * they will plan to speak as a family to make more formal decisions * they are in agreement for SNF placement, awaiting options * I am doubtful there is anything to improve with rehab admission given this is a progressive neuromuscular failure without treatment options. She will need LTC and would benefit from hospice at SNF which would be much need additional support for family. She enjoys taking PO, it is one of her very few remaining pleasures and hand feeding is needed to accommodate her: Compassionate care for PSP patients at the end of life requires kindness and patience while attending to this basic needs. * I recommend SNF placement for LTC with comfort care AND hospice at SNF, no feeding tube and PO as tolerated for comfort. May need to ask Speech therapy colleagues for best current recc's on how to allow this as far as texture and fluid thickness. Luna Clayton [facility] Clinical Director, Palliative Medicine History of Present Illness Reason for Consultation: "PSP ,metastatic Renal carcinoma, Afib" Attending Physician: Bunny Renteria MD History of Present Illness 72yo female admitted with AMS, sepsis concern. Chart review indicates hx of worsening fatigue with eventual unresponsiveness, found to be hypotensive, tachycardic in ED. PMH: former 15 PY smoker/quit 1977; renal cell carcinoma with metastasis to bone, lung, and pectoralis muscle; CKD; progressive supranuclear palsy (SNP), hypertension, hypothyroidism, and ataxia/falls at home, decreasing vision, anxiety hx of progressive supranuclear palsy (SNP) for which she is following with Neuro here and [facility]; remains on aspiration precautions, wheelchair bound. She was advised there are no treatments of benefit available. Hx Renal cell ca (clear cell) with mets dx 2013 s/p left nephrectomy, XRT R humerus, VATS for right lung mets. Has been on tx with sutent then axitinib and now pazopanib which is on hold due to anemia. She is receiving SBRT for pectoralis met and follows with Dr Alvarez. ED work up revealed the following: - Fibrinogen elevated, plt is not low. -CT-A/P: Performed w/o contrast. No evidence of urinary obstruction. No evidence of metastatic disease. - -CXR: No acute abnormalities and in particular no evidence of pneumonia. -CT-H: No acute intracranial hemorrhage, no evidence of acute territorial infarction or other acute intracranial disease process. her last echo was done November 2018: LVEF 50-65%, no wall motion abnormalities, mild con LVH, no valvular abnormalities. normal RVSP. Excellent discussion in admitting note from Dr Corley re ACP/GOC as follows: "Goals of care were discussed with at bedside. He reports that he has never thought about CODE STATUS before, did report to ER that Renee was full code initially. Did discuss that she was DNR/DNI last 2 admissions, and in context of her irreversible supranuclear palsy and cancer should she clinically arrest the prognosis would be extremely guarded. Patient previously expressed DNR/DNI preference, discussed with patient and at bedside and agree that patient would want full treatment for infections and treatable causes but in the event that she were to undergo a cardiac or respiratory arrest would want to prolong suffering and will continue DNR/DNI at this time." Patient is seen bedside, awake and alert but has trouble speaking due to her SNP. she can answer yes/no questions easily. She denies pain, nausea, dyspnea, SOB, vomiting. She affirms anxiety and significant malaise/fatigue. Allergies Allergy/AdvReac Type Severity Reaction Status Date / Time nickel Allergy Severe ITCHING Verified 07/03/22 09:45 AND SORENESS OF GLANDS adhesive Allergy Intermediate REDNESS Verified 07/03/22 09:45 AND VERY ITCHY Penicillins Allergy Intermediate RASH Verified 07/03/22 09:45 Sulfa (Sulfonamide Allergy Intermediate VAGINAL Verified 07/03/22 09:45 Antibiotics) IRRITATION latex AdvReac Unknown Unknown Verified 07/03/22 09:45 Home Medications Medication Instructions Recorded Confirmed Type cholecalciferol (vitamin D3) 50 50 mcg PO QAM 11/28/18 07/03/22 History mcg (2,000 unit) capsule (Vitamin D3) levothyroxine 75 mcg tablet 75 mcg PO QAM 11/28/18 07/03/22 History (Synthroid) multivitamin 1 tab PO QAM 11/28/18 07/03/22 History tramadol 50 mg tablet 50 mg PO DAILY PRN Pain 09/02/20 07/03/22 History Wheelchair (Manual) #1 ea 07/06/21 06/01/22 Rx pazopanib 200 mg tablet (Votrient) 100 mg PO DAILY 12/02/21 07/03/22 History lisinopril 2.5 mg tablet 2.5 mg PO DAILY 05/18/22 07/03/22 History lisinopril 5 mg tablet 5 mg PO DAILY 05/18/22 07/03/22 History paroxetine HCl 40 mg tablet 40 mg PO DAILY 05/18/22 07/03/22 History vitamin B complex 1 tab PO DAILY 05/18/22 07/03/22 History glipizide 2.5 mg tablet, extended 2.5 mg PO DAILY #30 tabs 05/20/22 07/03/22 Rx release 24 hr dexamethasone 4 mg tablet 4 mg PO UD 07/03/22 07/03/22 History Patient History Medical History (Updated 07/06/22 @ 10:18 by Luna Clayton DNP) Anxiety Atrial fibrillation with RVR Clear cell carcinoma of left kidney 2011, s/p nephrectomy, recurrence of metastatic disease to shoulder, lung Closed fracture of neck of right femur Depression Dyspareunia Fall GERD (gastroesophageal reflux disease) HTN (hypertension) Hypothyroid Incomplete right bundle branch block Progressive supranuclear palsy Pseudomonas aeruginosa infection Renal cell cancer Right axis deviation Right knee pain Spinocerebellar ataxia Surgical History (Updated 06/02/22 @ 10:20 by Corie Garber, JOSE DE JESUS) History of bilateral tubal ligation History of nephrectomy LEFT History of open reduction and internal fixation (ORIF) procedure RIGHT HIP History of total shoulder replacement RIGHT S/P cataract extraction Bilateral Family History (Updated 06/02/22 @ 10:23 by Corie Garber, RN) Mother , in late 70s Hypertension Diabetes Father , in his 90s Heart disease Cardiac stent Hypertension Sister No problems noted. Sister No problems noted. Son No problems noted. Daughter No problems noted. Daughter No problems noted. Daughter No problems noted. Social History Smoking Status: Former smoker Tobacco Type: Cigarettes Cigarettes Per Day: 1 PPD x; Smoking End Date: 1979; Second Hand Exposure: Yes; Hx Alcohol Use: Yes Alcohol type: wine Hx Substance Use: No Preferred Language: Uzbek Communication Ability: Impaired Visual Impairment: No Limitations Hearing Ability: Normal Welder Setter Resistance Machine Required: No Beliefs That Will Affect Care: None marital status: Current Living Situation: Spouse current occupational status: previously employed current occupation: Was a nanny in past How many Children do You have: 4 Other Information That Helps Us Care for You: No Feels Safe at Home: Yes Safety Concerns: Feels Safe At This Time caffeine: No during the past year weight has: remained stable Assistive Devices: Denture - Upper, Walker and Wheelchair Assistive Devices Comment: Partial Plate - upper Review of Systems Review of Systems: All systems reviewed & are unremarkable except as noted in Subjective Physical Exam Physical Exam: chronically ill elderly female lying in bed, eyes watering. BUE contractures. signif generalized weakness and loss of fine motor function. bitemp wasting noted. PERRL. pharynx pink, MM slightly dry, dentition fair bilat rhonchi without wheezing. mild inc effort. no conversational dyspnea. signif bronchitic/wet sounding cough S1S2/irreg abd soft, BS+, non tender to palpation She is AAOx3. Her speech is at times garbled but she can very accurately and consistently answer direct yes/no questions. prolonged discussion does cause her to tire out faster and also triggers more coughing Skin is pale but warm to tough there are significant contractures BUE and BLE with weakness Results & Data ([facility]) Vital Signs (Past 12 Hours) Vital Signs Temp Pulse Resp BP Pulse Ox O2 Del Method 07/06/22 07:38 36.7 C 74 20 126/64 96 Room Air 07/06/22 06:00 37.3 C 81 18 126/83 93 Room Air 07/05/22 23:31 36.8 C 78 20 126/83 95 Room Air Laboratory Results Labs and imaging reviewed Diagnostic Findings Labs and imaging reviewed PG Care Time/CCT Total # of Minutes Spent Total Time Spent: 110 Total Time Spent with Patient: Total time spent is greater than 50% in coordination of care (as documented) at patient's floor/unit and/or counseling patient: I spent 110 minutes overall addressing this complex case with multiple ACP family discussions over the course of the day: 15 in medical data review/discussion with referring provider(s) and/or preparation for the visit 20 in direct interaction with the patient and at bedside 28 + 32min Advance Care Planning/Goals of Care discussions as d etailed above in note (must be >16min) 10 in subsequent review and synthesis of assessment and plan 5 in communicating with other providers regarding the patient's case: [] Prolonged Care Time Prolonged Care Time: Yes Advanced Care Planning 85508 Advanced Care Planning 30 Min 81539 Advanced Care Planning Additional 30 [place] [address] Inpt Consult Level 5 Patient Type New History Comprehensive Exam Comprehensive Medical Decision Making High Complexity Diagnoses Palliative care encounter Z51.5 Advanced care planning/counseling discussion Z71.89 Progressive supranuclear palsy G23.1 Renal cell cancer C64.9 Memory impairment R41.3 Dysphagia R13.10 Ataxic gait R26.0 Additional Codes Prolonged Care Time - Prolonged Care Time: Yes ([id number]) Advanced Care Planning - 36697 Advanced Care Planning 30 Min: 18369 Advanced Care Planning 30 Min ([id number]) Advanced Care Planning - 44320 Advanced Care Planning Additional 30 Min: 81165 Advanced Care Planning Additional 30 Min ([id number])
[2022-07-06] MEDS: APIXABAN 5 MG TABLET PO SCH ×2 (10:18→20:30)
--- NOTE | 2022-07-06 17:56 | Hospitalist Progress Note ---
Date of Service July 06, 2022 Assessment & Plan (1) Altered mental state: Plan: Encephalopathy resolved, I doubt this was sepsis, most likely due to cytokine release due to recent radiation therapy , all culture came back negative, stopped IV antibiotic, I will monitor her off antibiotics for now -CT-A/P: Performed w/o contrast. No evidence of urinary obstruction. No evidence of metastatic disease. - -CXR: No acute abnormalities and in particular no evidence of pneumonia. -CT-H: No acute intracranial hemorrhage, no evidence of acute territorial infarction or other acute intracranial disease process -MRI of the brain without metastasis or stroke (2) A-fib: Plan: Paroxysmal A. fib with RVR, currently in sinus rhythm, started on Cardizem drip, switch to oral Cardizem, limited work-up due to multiple comorbidity, started on Lasix (3) Clear cell carcinoma of left kidney: Plan: Renal Cell Carcinoma, Clear Cell w/ Mets - Dx 2013. S/p L nephrectomy 2013. s/p palliative radiation to R humerous, VATS for R lung met. - Past tx sutent --> axitinib --> currently on pazopanib. Held 2/2 anemia - R pectoralis metastatic lesion increasing since 2019 - Undergoing SBRT with Rad/Onc for pectoralis met - Follows w/ Dr. Alvarez - (4) HTN (hypertension): Plan: -Resume lisinopril follow creatinine (5) Hypothyroid: Plan: - TSH normal - Continue synthroid (6) Chronic kidney disease, stage III (moderate): (7) Anemia: Plan: Acute Anemia - Hgb 8.9; last hgb 05/20/22 16.4 repeat is 11.9 making the 8.9 likely spurious - No evidence of bleeding on CT-H/CXR/Ct-A/P, BUN not elevated - Fibrinogen elevated, iron is low - Hold pazopanib - (8) Progressive supranuclear palsy: Plan: - Supportive care, follows with neurology, no treatments available of benefit. [place] [facility] and saw [facility] 2021 for consultation. - Turn & Position PRN - fall precautions, aspiration precautions - Continue outpatient pt and pt while inpt - Prior baseline 4/5 limb strength globally with focal worsened weakness in the R shoulder - Wheelchair bound - Limited bilat horizontal gaze (9) Diabetes: Plan: T2DM - Hold home antiglycemics-low dose glipizide -SSI weight based - AC/HS BSG Plan Pending placement, discussed with the skilled nursing case manager and the daughter as well as the Admission and Anticipated Discharge Date Admission Date: July 03, 2022 Subjective Discussed with the and the daughter both are interested in discharged to a long-term facility with hospice care, discussed with the skilled nursing case manager, pending placement, patient developed A. fib with RVR, converted to sinus rhythm with Cardizem drip, started on p.o. Cardizem Physical Exam Physical Exam: The patient appeared well nourished and normally developed. Vital signs as documented. Head exam is normocephalic atraumatic she has some mild abnormal position of her eyes which her says is chronic Neck is without JVD, thyromegaly, or carotid bruits. Lungs are clear to auscultation, no focal loss of breath sounds Cardiac exam, Rhythm is regular.. No murmurs, rubs or gallops. Abdominal exam reveals normal bowel sounds, soft non tender, no masses Extremities are nonedematous and both pedal pulses are present Neurologic exam is alert and follows command but is not oriented to place or time no focal loss of strength or sensation Skin is without bruises or rashes Results & Data Results & Data ([facility]) Vital Signs (Past 12 Hours) Vital Signs Temp Pulse Resp BP Pulse Ox O2 Del Method 07/06/22 15:22 37.2 C 84 18 122/63 93 Room Air 07/06/22 11:41 36.8 C 114 H 16 120/66 94 Room Air 07/06/22 08:00 Room Air 07/06/22 07:38 36.7 C 74 20 126/64 96 Room Air 07/06/22 06:00 37.3 C 81 18 126/83 93 Room Air PG Care Time/CCT Total # of Minutes Spent Total Time Spent with Patient: Total time spent is greater than 50% in coordination of care (as documented) at patient's floor/unit and/or counseling patient: Coding Level of Care Code 31155 Subseq Hosp Care Lvl 3 Diagnoses Altered mental state R41.82 A-fib I48.91 Clear cell carcinoma of left kidney C64.2 HTN (hypertension) I10 Hypothyroid E03.9 Chronic kidney disease, stage III (moderate) N18.3 Anemia D64.9 Progressive supranuclear palsy G23.1 Diabetes E11.9
[2022-07-06] MEDS: dilTIAZem HCL 30 MG TAB PO SCH (20:30)
[2022-07-07] MEDS: LEVOTHYROXINE SODIUM 75 MCG TABLET PO SCH (06:22)
[2022-07-07 08:09] LABS: Calcium 8.4 mg/dl (8.5-10.1); Est GFR (African American) 104.1 ml/min; Est GFR (Non-African American) 89.8 ml/min; Potassium 3.5 mmol/L (3.5-5.1)
[2022-07-07] MEDS: dilTIAZem HCL 30 MG TAB PO SCH ×3 (08:56→20:27)
[2022-07-07] MEDS: MULTIVITAMIN TAB PO SCH (08:57)
[2022-07-07] MEDS: PARoxetine HCL 20 MG TAB PO SCH (08:57)
[2022-07-07] MEDS: APIXABAN 5 MG TABLET PO SCH ×2 (08:57→20:27)
[2022-07-07] MEDS: IRON POLYSACCHARIDE COMPLEX 150 MG CAPSULE PO SCH (08:57)
[2022-07-07] MEDS: INSULIN ASPART PER UNIT SC SCH ×4 (10:35→22:11)
[2022-07-07] MEDS: dilTIAZem HCL 125 MG in DEXTROSE 5% 100 ML IV SCH (11:43)
--- NOTE | 2022-07-07 17:14 | Hospitalist Progress Note ---
Date of Service July 07, 2022 Assessment & Plan (1) Altered mental state: Plan: Encephalopathy resolved, I doubt this was sepsis, most likely due to cytokine release due to recent radiation therapy , all culture came back negative, stopped IV antibiotic, I will monitor her off antibiotics for now -CT-A/P: Performed w/o contrast. No evidence of urinary obstruction. No evidence of metastatic disease. - -CXR: No acute abnormalities and in particular no evidence of pneumonia. -CT-H: No acute intracranial hemorrhage, no evidence of acute territorial infarction or other acute intracranial disease process -MRI of the brain without metastasis or stroke (2) A-fib: Plan: Paroxysmal A. fib continue Cardizem, current rhythm is sinus continue apixaban (3) Clear cell carcinoma of left kidney: Plan: Renal Cell Carcinoma, Clear Cell w/ Mets - Dx 2013. S/p L nephrectomy 2013. s/p palliative radiation to R humerous, VATS for R lung met. - Past tx sutent --> axitinib --> currently on pazopanib. Held 2/2 anemia - R pectoralis metastatic lesion increasing since 2019 - Undergoing SBRT with Rad/Onc for pectoralis met - Follows w/ Dr. Alvarez -The family at this point decided to proceed with comfort care and they would not pursue radiation therapy (4) HTN (hypertension): Plan: -Continue lisinopril (5) Hypothyroid: Plan: - TSH normal - Continue synthroid (6) Chronic kidney disease, stage III (moderate): (7) Anemia: Plan: Acute Anemia - Hgb 8.9; last hgb 05/20/22 16.4 repeat is 11.9 making the 8.9 likely spurious - No evidence of bleeding on CT-H/CXR/Ct-A/P, BUN not elevated - Fibrinogen elevated, iron is low - Hold pazopanib - (8) Progressive supranuclear palsy: Plan: - Supportive care, follows with neurology, no treatments available of benefit. Sees [facility] [place] [facility] and saw [facility] 2021 for consultation. - Prior baseline 4/5 limb strength globally with focal worsened weakness in the R shoulder - Wheelchair bound -Limited downward gaze (9) Diabetes: Plan: T2DM - Hold home antiglycemics-low dose glipizide -Resume home regiment - AC/HS BSG Plan Pending placement, discussed with the comp field case manager and the daughter as well as the Admission and Anticipated Discharge Date Admission Date: July 03, 2022 Subjective No acute issue today, pending transfer, current rhythm is sinus, discussed with the family and discussed with the case may Physical Exam Physical Exam: The patient appeared well nourished and normally developed. Vital signs as documented. Head exam is normocephalic atraumatic she has some mild abnormal position of her eyes which her says is chronic Neck is without JVD, thyromegaly, or carotid bruits. Lungs are clear to auscultation, no focal loss of breath sounds Cardiac exam, Rhythm is regular.. No murmurs, rubs or gallops. Abdominal exam reveals normal bowel sounds, soft non tender, no masses Extremities are nonedematous and both pedal pulses are present Neurologic exam is alert and follows command but is not oriented to place or time no focal loss of strength or sensation Skin is without bruises or rashes Results & Data Results & Data ([facility]) Vital Signs (Past 12 Hours) Vital Signs Temp Pulse Resp BP Pulse Ox O2 Del Method 07/07/22 15:59 36.8 C 69 18 127/66 95 Room Air 07/07/22 11:25 36.8 C 67 18 119/66 95 Room Air 07/07/22 06:55 36.9 C 60 16 127/73 97 Room Air 07/07/22 06:21 36.6 C 88 16 150/73 H 97 Room Air PG Care Time/CCT Total # of Minutes Spent Total Time Spent with Patient: Total time spent is greater than 50% in coordination of care (as documented) at patient's floor/unit and/or counseling patient: Coding Level of Care Code 97336 Subseq Hosp Care Lvl 2 Diagnoses Altered mental state R41.82 A-fib I48.91 Clear cell carcinoma of left kidney C64.2 HTN (hypertension) I10 Hypothyroid E03.9 Chronic kidney disease, stage III (moderate) N18.3 Anemia D64.9 Progressive supranuclear palsy G23.1 Diabetes E11.9
--- NOTE | 2022-07-07 23:17 | Electrocardiogram Report ---
Test Reason : Blood Pressure : / mmHG Vent. Rate : 161 BPM Atrial Rate : 156 BPM P-R Int : 000 ms QRS Dur : 098 ms QT Int : 304 ms P-R-T Axes : 000 107 006 degrees QTc Int : 497 ms Atrial fibrillation with rapid ventricular response Rightward axis Incomplete right bundle branch block Marked ST abnormality, possible inferior subendocardial injury Marked ST abnormality, possible anterior subendocardial injury Abnormal ECG When compared with ECG of 03-JUL-2022 14:02, Atrial fibrillation has replaced Sinus rhythm Incomplete right bundle branch block is now Present ST now depressed in Inferior leads ST now depressed in Anterior leads Confirmed by Konstantin Tatum ([id number]) on 07/07/2022 11:17:26 PM Referred By: REFERRED SELF Confirmed By:Konstantin Tatum
[2022-07-08] MEDS: LEVOTHYROXINE SODIUM 75 MCG TABLET PO SCH (04:46)
[2022-07-08] MEDS: dilTIAZem HCL 125 MG in DEXTROSE 5% 100 ML IV SCH (07:49)
[2022-07-08] MEDS: glipiZIDE 5 MG TAB PO SCH (07:56)
[2022-07-08] MEDS: IRON POLYSACCHARIDE COMPLEX 150 MG CAPSULE PO SCH (07:56)
[2022-07-08] MEDS: dilTIAZem HCL 30 MG TAB PO SCH ×3 (07:57→20:51)
[2022-07-08] MEDS: APIXABAN 5 MG TABLET PO SCH ×2 (07:58→20:50)
[2022-07-08] MEDS: PARoxetine HCL 20 MG TAB PO SCH (07:58)
[2022-07-08] MEDS: MULTIVITAMIN TAB PO SCH (07:58)
[2022-07-08] MEDS: INSULIN ASPART PER UNIT SC SCH ×4 (07:59→20:48)
--- NOTE | 2022-07-08 17:04 | Hospitalist Progress Note ---
Date of Service July 08, 2022 Assessment & Plan (1) Altered mental state: Plan: Encephalopathy resolved, I doubt this was sepsis, most likely due to cytokine release due to recent radiation therapy , all culture came back negative, stopped IV antibiotic, I will monitor her off antibiotics for now -CT-A/P: Performed w/o contrast. No evidence of urinary obstruction. No evidence of metastatic disease. - -CXR: No acute abnormalities and in particular no evidence of pneumonia. -CT-H: No acute intracranial hemorrhage, no evidence of acute territorial infarction or other acute intracranial disease process -MRI of the brain without metastasis or stroke (2) A-fib: Plan: Paroxysmal A. fib continue Cardizem, current rhythm is sinus continue apixaban (3) Clear cell carcinoma of left kidney: Plan: Renal Cell Carcinoma, Clear Cell w/ Mets - Dx 2013. S/p L nephrectomy 2013. s/p palliative radiation to R humerous, VATS for R lung met. - Past tx sutent --> axitinib --> currently on pazopanib. Held 2/2 anemia - R pectoralis metastatic lesion increasing since 2019 - Undergoing SBRT with Rad/Onc for pectoralis met - Follows w/ Dr. Alvarez -The family at this point decided to proceed with comfort care and they would not pursue radiation therapy (4) HTN (hypertension): Plan: -Continue lisinopril (5) Hypothyroid: Plan: - TSH normal - Continue synthroid (6) Chronic kidney disease, stage III (moderate): (7) Anemia: Plan: Acute Anemia - Hgb 8.9; last hgb 05/20/22 16.4 repeat is 11.9 making the 8.9 likely spurious - No evidence of bleeding on CT-H/CXR/Ct-A/P, BUN not elevated - Fibrinogen elevated, iron is low - Hold pazopanib - (8) Progressive supranuclear palsy: Plan: - Supportive care, follows with neurology, no treatments available of benefit. Sees [facility] [place] [place] Neuro and saw [facility] 2021 for consultation. - Prior baseline 4/5 limb strength globally with focal worsened weakness in the R shoulder - Wheelchair bound -Limited downward gaze (9) Diabetes: Plan: T2DM - Hold home antiglycemics-low dose glipizide -Resume home regiment - AC/HS BSG Plan Pending placement, discussed with the onsite case manager and the daughter as well as the Admission and Anticipated Discharge Date Admission Date: July 03, 2022 Subjective No acute issue today, pending transfer, current rhythm is sinus, discussed with the family and discussed with the onsite case managercustomer acquisition manager Exam Physical Exam: The patient appeared well nourished and normally developed. Vital signs as documented. Head exam is normocephalic atraumatic she has some mild abnormal position of her eyes which her says is chronic Neck is without JVD, thyromegaly, or carotid bruits. Lungs are clear to auscultation, no focal loss of breath sounds Cardiac exam, Rhythm is regular.. No murmurs, rubs or gallops. Abdominal exam reveals normal bowel sounds, soft non tender, no masses Extremities are nonedematous and both pedal pulses are present Neurologic exam is alert and follows command but is not oriented to place or time no focal loss of strength or sensation Skin is without bruises or rashes Results & Data Results & Data ([facility]) Vital Signs (Past 12 Hours) Vital Signs Temp Pulse Pulse Resp BP Pulse Ox O2 Del Method 07/08/22 15:22 37.1 C 68 18 127/70 94 Room Air 07/08/22 15:15 66 07/08/22 13:32 36.6 C 71 16 120/63 97 Room Air 07/08/22 10:28 36.7 C 65 18 135/71 96 Room Air 07/08/22 10:12 Room Air 07/08/22 07:27 59 L 07/08/22 07:02 36.9 C 62 122/65 96 Room Air PG Care Time/CCT Total # of Minutes Spent Total Time Spent with Patient: Total time spent is greater than 50% in coordination of care (as documented) at patient's floor/unit and/or counseling patient: Coding Level of Care Code 55550 Subseq Hosp Care Lvl 1 Diagnoses Altered mental state R41.82 A-fib I48.91 Clear cell carcinoma of left kidney C64.2 HTN (hypertension) I10 Hypothyroid E03.9 Chronic kidney disease, stage III (moderate) N18.3 Anemia D64.9 Progressive supranuclear palsy G23.1 Diabetes E11.9
[2022-07-09] MEDS: LEVOTHYROXINE SODIUM 75 MCG TABLET PO SCH (05:30)
[2022-07-09] MEDS: INSULIN ASPART PER UNIT SC SCH ×4 (08:19→20:03)
[2022-07-09] MEDS: MULTIVITAMIN TAB PO SCH (08:23)
[2022-07-09] MEDS: APIXABAN 5 MG TABLET PO SCH ×2 (08:23→20:03)
[2022-07-09] MEDS: PARoxetine HCL 20 MG TAB PO SCH (08:23)
[2022-07-09] MEDS: glipiZIDE 5 MG TAB PO SCH (08:23)
[2022-07-09] MEDS: IRON POLYSACCHARIDE COMPLEX 150 MG CAPSULE PO SCH (08:23)
[2022-07-09] MEDS: dilTIAZem HCL 30 MG TAB PO SCH ×2 (08:23→13:32)
[2022-07-09] MEDS: dilTIAZem HCL 125 MG in DEXTROSE 5% 100 ML IV SCH (08:24)
--- NOTE | 2022-07-09 16:53 | Hospitalist Progress Note ---
Date of Service July 09, 2022 Assessment & Plan (1) Altered mental state: Plan: Encephalopathy resolved, most likely due to cytokine release due to recent radiation therapy , all cultures came back negative, no evidence of ongoing infectious process , blood culture urine culture negative -CT-A/P: Performed w/o contrast. No evidence of urinary obstruction. No evidence of metastatic disease. - -CXR: No acute abnormalities and in particular no evidence of pneumonia. -CT-H: No acute intracranial hemorrhage, no evidence of acute territorial infarction or other acute intracranial disease process -MRI of the brain without metastasis or stroke (2) A-fib: Plan: Developed paroxysmal A. fib during this admission - continue Cardizem, current rhythm is sinus continue apixaban (3) Clear cell carcinoma of left kidney: Plan: Renal Cell Carcinoma, Clear Cell w/ Mets - Dx 2013. S/p L nephrectomy 2013. s/p palliative radiation to R humerous, VATS for R lung met. - Past tx sutent --> axitinib --> currently on pazopanib. Held 2/2 anemia - R pectoralis metastatic lesion increasing since 2019 - was Undergoing SBRT with Rad/Onc for pectoralis met - Follows w/ Dr. Alvarez -The family at this point decided to proceed with comfort care and they would not like to pursue radiation therapy (4) HTN (hypertension): Plan: -Blood pressure on the low side hold lisinopril (5) Hypothyroid: Plan: - TSH normal - Continue synthroid (6) Chronic kidney disease, stage III (moderate): (7) Anemia: Plan: Acute Anemia - Hgb 8.9; last hgb 05/20/22 16.4 repeat is 11.9 making the 8.9 likely spurious - No evidence of bleeding on CT-H/CXR/Ct-A/P, BUN not elevated - Fibrinogen elevated, iron is low - Hold pazopanib - (8) Progressive supranuclear palsy: Plan: - Supportive care, follows with neurology, no treatments available of benefit. Sees [facility] [place] [facility] and saw [facility] 2021 for consultation. - Prior baseline 4/5 limb strength globally with focal worsened weakness in the R shoulder - Wheelchair bound -Limited downward gaze (9) Diabetes: Plan: T2DM Increase the dose of glipizide to 5, patient has A1c of 7.9 Plan Pending placement, discussed with the case repairer and the daughter as well as the Admission and Anticipated Discharge Date Admission Date: July 03, 2022 Subjective No acute issue today, pending transfer to long-term facility, current rhythm is sinus, discussed with the case repairer no action will occur up to Monday Physical Exam Physical Exam: The patient appeared well nourished and normally developed. Vital signs as documented. Head exam is normocephalic atraumatic she has some mild abnormal position of her eyes which her says is chronic Neck is without JVD, thyromegaly, or carotid bruits. Lungs are clear to auscultation, no focal loss of breath sounds Cardiac exam, Rhythm is regular.. No murmurs, rubs or gallops. Abdominal exam reveals normal bowel sounds, soft non tender, no masses Extremities are nonedematous and both pedal pulses are present Neurologic exam is alert and follows command but is not oriented to place or time no focal loss of strength or sensation Skin is without bruises or rashes Results & Data Results & Data ([facility]) Vital Signs (Past 12 Hours) Vital Signs Temp Pulse Pulse Resp BP Pulse Ox O2 Del Method 07/09/22 15:18 36.7 C 65 14 100/61 97 Room Air 07/09/22 14:53 70 07/09/22 13:32 131/63 07/09/22 12:32 36.6 C 69 14 93/61 L 96 Room Air 07/09/22 09:37 Room Air 07/09/22 07:12 36.6 C 73 18 159/70 H 97 Room Air 07/09/22 07:06 58 L PG Care Time/CCT Total # of Minutes Spent Total Time Spent with Patient: Total time spent is greater than 50% in coordination of care (as documented) at patient's floor/unit and/or counseling patient: Coding Level of Care Code 88906 Subseq Hosp Care Lvl 2 Diagnoses Altered mental state R41.82 A-fib I48.91 Clear cell carcinoma of left kidney C64.2 HTN (hypertension) I10 Hypothyroid E03.9 Chronic kidney disease, stage III (moderate) N18.3 Anemia D64.9 Progressive supranuclear palsy G23.1 Diabetes E11.9
[2022-07-10] MEDS: LEVOTHYROXINE SODIUM 75 MCG TABLET PO SCH (05:49)
[2022-07-10] MEDS: APIXABAN 5 MG TABLET PO SCH ×2 (08:04→20:35)
[2022-07-10] MEDS: MULTIVITAMIN TAB PO SCH (08:04)
[2022-07-10] MEDS: IRON POLYSACCHARIDE COMPLEX 150 MG CAPSULE PO SCH (08:04)
[2022-07-10] MEDS: dilTIAZem HCL 120 MG CAPCR PO SCH (08:05)
[2022-07-10] MEDS: glipiZIDE 5 MG TAB PO SCH (08:05)
[2022-07-10] MEDS: PARoxetine HCL 20 MG TAB PO SCH (08:05)
[2022-07-10] MEDS: INSULIN ASPART PER UNIT SC SCH ×4 (08:08→20:34)
--- NOTE | 2022-07-10 13:44 | Hospitalist Progress Note ---
Date of Service July 10, 2022 Assessment & Plan (1) Altered mental state: Plan: Encephalopathy resolved, most likely due to cytokine release due to recent radiation therapy , all cultures came back negative, no evidence of ongoing infectious process , blood culture urine culture negative -CT-A/P: Performed w/o contrast. No evidence of urinary obstruction. No evidence of metastatic disease. - -CXR: No acute abnormalities and in particular no evidence of pneumonia. -CT-H: No acute intracranial hemorrhage, no evidence of acute territorial infarction or other acute intracranial disease process -MRI of the brain without metastasis or stroke (2) A-fib: Plan: Developed paroxysmal A. fib during this admission - continue Cardizem, current rhythm is sinus continue apixaban (3) Clear cell carcinoma of left kidney: Plan: Renal Cell Carcinoma, Clear Cell w/ Mets - Dx 2013. S/p L nephrectomy 2013. s/p palliative radiation to R humerous, VATS for R lung met. - Past tx sutent --> axitinib --> currently on pazopanib. Held 2/2 anemia - R pectoralis metastatic lesion increasing since 2019 - was Undergoing SBRT with Rad/Onc for pectoralis met - Follows w/ Dr. Alvarez -The family at this point decided to proceed with comfort care and they would not like to pursue radiation therapy (4) HTN (hypertension): Plan: Substituted with Cardizem (5) Hypothyroid: Plan: - TSH normal - Continue synthroid (6) Chronic kidney disease, stage III (moderate): (7) Anemia: Plan: Acute Anemia - Hgb 8.9; last hgb 05/20/22 16.4 repeat is 11.9 making the 8.9 likely spurious - No evidence of bleeding on CT-H/CXR/Ct-A/P, BUN not elevated - Fibrinogen elevated, iron is low - Hold pazopanib - (8) Progressive supranuclear palsy: Plan: - Supportive care, follows with neurology, no treatments available of benefit. Sees [facility] [place] [facility] and saw [facility] 2021 for consultation. - Prior baseline 4/5 limb strength globally with focal worsened weakness in the R shoulder - Wheelchair bound -Limited downward gaze -Given patient will proceed with hospice care at change diet to diabetic diet as per family request, discontinue pured diet (9) Diabetes: Plan: T2DM Increase the dose of glipizide to 5, patient has A1c of 7.9 Plan Pending placement, discussed with the bilingual case manager and the daughter as well as the Admission and Anticipated Discharge Date Admission Date: July 03, 2022 Subjective No acute issue today, pending transfer to long-term facility, current rhythm is sinus, discussed with the bilingual case manager no action will occur up to Monday Physical Exam Physical Exam: The patient appeared well nourished and normally developed. Vital signs as documented. Head exam is normocephalic atraumatic she has some mild abnormal position of her eyes which her says is chronic Neck is without JVD, thyromegaly, or carotid bruits. Lungs are clear to auscultation, no focal loss of breath sounds Cardiac exam, Rhythm is regular.. No murmurs, rubs or gallops. Abdominal exam reveals normal bowel sounds, soft non tender, no masses Extremities are nonedematous and both pedal pulses are present Neurologic exam is alert and follows command but is not oriented to place or time no focal loss of strength or sensation Skin is without bruises or rashes Results & Data Results & Data ([facility]) Vital Signs (Past 12 Hours) Vital Signs Temp Pulse Pulse Resp BP BP Pulse Ox 07/10/22 12:27 36.6 C 67 16 130/65 97 07/10/22 09:50 07/10/22 07:48 36.8 C 67 18 130/67 96 07/10/22 06:56 63 07/10/22 02:34 36.5 C 64 16 137/68 97 O2 Del Method 07/10/22 12:27 Room Air 07/10/22 09:50 Room Air 07/10/22 07:48 Room Air 07/10/22 06:56 07/10/22 02:34 Room Air PG Care Time/CCT Total # of Minutes Spent Total Time Spent with Patient: Total time spent is greater than 50% in coordination of care (as documented) at patient's floor/unit and/or counseling patient: Coding Level of Care Code 39483 Subseq Hosp Care Lvl 2 Diagnoses Altered mental state R41.82 A-fib I48.91 Clear cell carcinoma of left kidney C64.2 HTN (hypertension) I10 Hypothyroid E03.9 Chronic kidney disease, stage III (moderate) N18.3 Anemia D64.9 Progressive supranuclear palsy G23.1 Diabetes E11.9
[2022-07-11] MEDS: LEVOTHYROXINE SODIUM 75 MCG TABLET PO SCH (05:50)
[2022-07-11] MEDS: dilTIAZem HCL 120 MG CAPCR PO SCH (08:27)
[2022-07-11] MEDS: IRON POLYSACCHARIDE COMPLEX 150 MG CAPSULE PO SCH (08:27)
[2022-07-11] MEDS: APIXABAN 5 MG TABLET PO SCH ×2 (08:27→20:48)
[2022-07-11] MEDS: PARoxetine HCL 20 MG TAB PO SCH (08:27)
[2022-07-11] MEDS: glipiZIDE 5 MG TAB PO SCH (08:28)
[2022-07-11] MEDS: MULTIVITAMIN TAB PO SCH (08:28)
[2022-07-11] MEDS: INSULIN ASPART PER UNIT SC SCH ×4 (09:50→20:51)
--- NOTE | 2022-07-11 17:20 | Hospitalist Progress Note ---
Date of Service July 11, 2022 Assessment & Plan (1) Altered mental state: Plan: Encephalopathy resolved, most likely due to cytokine release due to recent radiation therapy , all cultures came back negative, no evidence of ongoing infectious process , blood culture urine culture negative -CT-A/P: Performed w/o contrast. No evidence of urinary obstruction. No evidence of metastatic disease. - -CXR: No acute abnormalities and in particular no evidence of pneumonia. -CT-H: No acute intracranial hemorrhage, no evidence of acute territorial infarction or other acute intracranial disease process -MRI of the brain without metastasis or stroke (2) A-fib: Plan: Developed paroxysmal A. fib during this admission - continue Cardizem, current rhythm is sinus continue apixaban (3) Clear cell carcinoma of left kidney: Plan: Renal Cell Carcinoma, Clear Cell w/ Mets - Dx 2013. S/p L nephrectomy 2013. s/p palliative radiation to R humerous, VATS for R lung met. - Past tx sutent --> axitinib --> currently on pazopanib. Held 2/2 anemia - R pectoralis metastatic lesion increasing since 2019 - was Undergoing SBRT with Rad/Onc for pectoralis met - Follows w/ Dr. Alvarez -The family at this point decided to proceed with comfort care and they would not like to pursue radiation therapy (4) HTN (hypertension): Plan: Substituted with Cardizem (5) Hypothyroid: Plan: - TSH normal - Continue synthroid (6) Chronic kidney disease, stage III (moderate): (7) Anemia: Plan: Acute Anemia - Hgb 8.9; last hgb 05/20/22 16.4 repeat is 11.9 making the 8.9 likely spurious - No evidence of bleeding on CT-H/CXR/Ct-A/P, BUN not elevated - Fibrinogen elevated, iron is low - Hold pazopanib - (8) Progressive supranuclear palsy: Plan: - Supportive care, follows with neurology, no treatments available of benefit. Sees [facility] [place] [facility] and saw [facility] 2021 for consultation. - Prior baseline 4/5 limb strength globally with focal worsened weakness in the R shoulder - Wheelchair bound -Limited downward gaze -Given patient will proceed with hospice care at change diet to diabetic diet as per family request, discontinue pured diet (9) Diabetes: Plan: T2DM Increase the dose of glipizide to 5, patient has A1c of 7.9 Plan Pending placement, discussed with the insurance case manager and the daughter as well as the Admission and Anticipated Discharge Date Admission Date: July 03, 2022 Subjective No acute issue today, pending transfer to long-term facility, current rhythm is sinus, waiting for bed at SNF Physical Exam Physical Exam: The patient appeared well nourished and normally developed. Vital signs as documented. Head exam is normocephalic atraumatic she has some mild abnormal position of her eyes which her says is chronic Neck is without JVD, thyromegaly, or carotid bruits. Lungs are clear to auscultation, no focal loss of breath sounds Cardiac exam, Rhythm is regular.. No murmurs, rubs or gallops. Abdominal exam reveals normal bowel sounds, soft non tender, no masses Extremities are nonedematous and both pedal pulses are present Neurologic exam is alert and follows command but is not oriented to place or time no focal loss of strength or sensation Skin is without bruises or rashes Results & Data Results & Data ([facility]) Vital Signs (Past 12 Hours) Vital Signs Temp Pulse Pulse Resp BP Pulse Ox O2 Del Method 07/11/22 17:02 80 07/11/22 15:03 36.8 C 80 17 134/76 96 Room Air 07/11/22 11:07 36.4 C L 70 17 112/60 99 Room Air 07/11/22 10:45 Room Air 07/11/22 07:21 58 L 07/11/22 07:14 36.6 C 62 17 117/72 98 Room Air PG Care Time/CCT Total # of Minutes Spent Total Time Spent with Patient: Total time spent is greater than 50% in coordination of care (as documented) at patient's floor/unit and/or counseling patient: Coding Level of Care Code 17276 Subseq Hosp Care Lvl 1 Diagnoses Altered mental state R41.82 A-fib I48.91 Clear cell carcinoma of left kidney C64.2 HTN (hypertension) I10 Hypothyroid E03.9 Chronic kidney disease, stage III (moderate) N18.3 Anemia D64.9 Progressive supranuclear palsy G23.1 Diabetes E11.9
[2022-07-12] MEDS: LEVOTHYROXINE SODIUM 75 MCG TABLET PO SCH (05:23)
[2022-07-12] MEDS: APIXABAN 5 MG TABLET PO SCH ×2 (08:44→20:52)
[2022-07-12] MEDS: dilTIAZem HCL 120 MG CAPCR PO SCH (08:45)
[2022-07-12] MEDS: IRON POLYSACCHARIDE COMPLEX 150 MG CAPSULE PO SCH (08:45)
[2022-07-12] MEDS: glipiZIDE 5 MG TAB PO SCH (08:45)
[2022-07-12] MEDS: INSULIN ASPART PER UNIT SC SCH ×4 (08:45→20:52)
[2022-07-12] MEDS: MULTIVITAMIN TAB PO SCH (08:45)
[2022-07-12] MEDS: PARoxetine HCL 20 MG TAB PO SCH (08:45)
--- NOTE | 2022-07-12 12:06 | Palliative Care Progress Note ---
Date of Service July 12, 2022 Assessment & Plan Admission and Anticipated Discharge Date Admission Date: July 03, 2022 Subjective Pt and family have chose SNF with focus on comfort; family undecided about adding hospice at SNF and plan to speak with SNF once bed offer is made - please see CM notes for more details/u[dates on disposition planning. There are no acute IP pall med needs at this time; GOC and ACP clarified as requested, documented in my note. Palliative Medicine will sign off. We remain available for re engagement this admission if other acute/urgent IP needs arise. Pt not seen, no charge submitted. Luna Clayton DNP Clinical Director, Palliative Medicine Results & Data ([facility]) Vital Signs (Past 12 Hours) Vital Signs Temp Pulse Pulse Resp BP Pulse Ox O2 Del Method 07/12/22 11:40 36.8 C 123 H 18 106/66 98 Room Air 07/12/22 08:00 Room Air 07/12/22 08:00 59 L 07/12/22 07:23 36.8 C 60 18 123/83 96 Room Air 07/12/22 02:46 36.8 C 71 18 117/72 95 Room Air PG Care Time/CCT Total # of Minutes Spent Total Time Spent with Patient: Total time spent is greater than 50% in coordination of care (as documented) at patient's floor/unit and/or counseling patient: Coding Level of Care Code Established Pt None Patient Type Established
--- NOTE | 2022-07-12 16:58 | Palliative Family Discussion ---
Date of Service July 12, 2022 Patient Directed Conference Time of Meetin-245pm Participants: Luna Clayton DNP Patient participation: yes Patient Support System: dtrs x2, son in law x1, Other Healthcare Provider Participation: Zofia DELA CRUZ CM Meeting Location: pt bedside The patient's surrogate medical decision maker participated: pt is able to make decisions for herself A family meeting was held for WILLIAM SHAHID. This meeting was necessary for determining the appropriate course of treatment. Topics of Discussion Topics of Discussion: 1. Patient is able to make decisions for self and wanted to be part of any ongoing conversation about advance care planning and goals of care. Through our discussion, she was able to clarify that her top goal would be to try and get home for ongoing comfort care with support from family and private caregivers. She would like hospice added to her care regardless of whether or not she is at home or halfway but notes that home would be her top choice and a halfway would be what she would have to accept if home could not be possible. To this end, her daughters are working on trying to line up [id number] private caregivers but acknowledge that between being a holiday week, office is closed and the overall limitation and short staffing of people in the [place], this has become very challenging. 2. Patient has a progressive neuromuscular illness for which no curative or meaningful treatment exists. She does not want to have any aggressive care. She does not want feeding tubes, artificial nutrition, calorie counts etc. She wants to be able to eat and drink as she tolerates because it provides her with pleasure, satisfaction and quality of life. Patient acknowledges that the progression of neuromuscular disease has robbed her of many dignity's, independence, autonomy and has created a situation where she is compliantly reliant on others for all aspects of her care up to and including feeding. She refuses to relinquish, understandably control over her oral intake for pleasure and comfort at this stage and accepts the side effect and complication of possible aspiration and/or aspiration related respiratory failure in return for the quality of life and satisfaction of taking oral food and drink. 3. Patient's family would like a chance to see if they can get her home but acknowledge that the holiday week and the overall staffing shortages of caregivers in the region will make this difficult. I proposed a compromise of allowing it discharged to the halfway as an interim step while they cont inue to work on ironing out home health support with private caregivers. I advised him we would asked the halfway about adding home hospice to their care at the halfway which could then be transitioned with her to home when ready for discharge. We also discussed that the plan of care she would be discharged with from the hospital to the halfway would be 1 focusing on comfort and quality of life with no calorie counts, nutritional intervention such as tube feedings or supplemental formulas. She wishes to eat and drink as she is able to tolerate for both comfort and pleasure. She wishes to have a plan of care that is consistent with comfort and quality of life. She understands that she will have a progression of her neuromuscular disease that we will need to further complications with airway clearance, secretion management and eventual respiratory failure and cardiorespiratory arrest. She wishes to have comfort care and aggressive symptom management when the symptoms become more burdensome. Patient is fully cognizant and has decisional capacity. She understands the implications of her decisions and is supported by her family in the decisions as well. Other Content of Meetin. Opportunity given for participants to speak and ask questions. 2. Participants were assured of attention to patient comfort. 3. Reassurance provided. 4. Support was provided for informed, good-quique decisions. 5. Emotions expressed by family were acknowledged and addressed. 6. Plan of Care: Plan at this time will be to aim for patient's comfort, no further escalation of care. We will plan for discharge to likely detention facility as an interim step while family continues to work on trying to arrange [id number] private caregivers for patient to eventually return home. Their top facility may be able to accept patient later this week likely with the addition of hospice and they may have to start a Medicaid application as well. They are in agreement for all of this. Hospice could then be transitioned to home with patient by the social services technician at the halfway when family has the arrangements in place. Patient accepts this plan of care and understands that while it is not exactly what she wanted it is a compromise she can tolerate while everyone continues to work on trying to make her first wish to be home a possibility. Family is happy with this plan of care. All questions were answered to their apparent satisfaction. They verbalized understanding of the plan as outlined above. A total of 45 minutes was spent in this advance care planning discussion. An additional 15 minutes was spent discussing the logistics of disposition planning and a review of the progression of terminal neuromuscular disease. We did review dying process and we discussed changes pt may move through in the dying process including but not limited to sleeping more, disorientation when awake, restlessness, diminished senses/inabil ity to respond to stimulus although ability to be aware of them remains intact longer, and changes in body temperatures, skin changes/mottling/cyanosis, respiratory pattern changes, and oral secretions. Family verbalized understanding. The goal is to assure a peaceful . I advised him that oxygen at the end of life via nasal cannula provides no additional symptomatic benefit for relief of refractory dyspnea in patients with life-limiting illness compared with room air: there's a point at which that the oxygen level gets so low that it's no longer compatible with life. By providing supplemental oxygen, the dying process will be unnecessarily prolonged. Please use less burdensome but more effective strategies such as comfort care meds, oscillating fan, massage, repositioning, etc. (Luis AP, Filomena CF, Serina PA, et al. Effect of palliative oxygen versus room air in relief of breathlessness in patients with refractory dyspnoea: a double-blind, randomised controlled trial. Lancet. 2010;376(7169):784-793. doi:10.1016/V4802-9694389-4930([id number])93088-4) We spoke in detail about secretions at EOL/management: I discussed with family that as the level of consciousness decreases in the dying process, patients lose their ability to swallow and clear oral secretions. As air moves over the secretions, which have pooled in the oropharynx and bronchi, the resulting turbulence produces noisy ventilation with each breath, described as gurgling or rattling noises. While there is no evidence that patients find this rattle disturbing, evidence from bereaved surveys suggests the noises can be disturbing to the patients visitors and caregivers who may fear that the patient is choking to . We recommend a combination of Non-Pharmacological and Pharmacological Treatments: * 1. Position the patient on their side or in a semi-prone position to facilitate postural drainage * 2. Communication with family and caregivers to reaffirm commitment to their loves ones care, reduce anxiety and fears. * 3. Gentle oropharyngeal suctioning is used although this can be ineffective when fluids are beyond the reach of the catheter. Avoid deep suctioning as it is very irritating. Note that frequent suctioning is disturbing to both the patient and the visitors. * 4. Reduction of fluid intake. * 5. Consider a 1-2 min Trendelenburg positioning, to move fluids up into the oropharynx for easier removal BUT note that ASPIRATION RISK WILL INCREASE. * 6. Muscarinic receptor blockers (anti-cholinergic drugs) are most often used: glycopyrrolate (Robinul), scopolamine (Transderm Scop), hyoscyamine and atropine. Of these, I prefer to using glycopyrrolate as first line treatment, because it is a quaternary amine (therefore does not cross the blood-brain barrier) which reduces the potential anti cholinergic agent associated ROUGE SIFTER toxicity (sedation, delirium). * 7. Glycopyrrolate has five times the anti-secretory potency compared to atropine, while scopolamine dries/thickens secretions and causes dry mouth, which may be more distressing to the patient and detract from comfort. Time Involved in Meeting: I spent 85 minutes overall addressing this case: 5 in medical data review/discussion with referring provider(s) and/or preparation for the visit 60 in direct interaction with the patient and family (45) Advance Care Planning/Goals of Care discussions as detailed above in note (must be >16min) 10 in subsequent review and synthesis of assessment and plan 10 in communicating with other providers regarding the patient's case: []
--- NOTE | 2022-07-12 18:46 | Hospitalist Progress Note ---
Date of Service July 12, 2022 Assessment & Plan (1) Altered mental state: Plan: Encephalopathy resolved, most likely due to cytokine release due to recent radiation therapy , all cultures came back negative, no evidence of ongoing infectious process , blood culture urine culture negative -CT-A/P: Performed w/o contrast. No evidence of urinary obstruction. No evidence of metastatic disease. - -CXR: No acute abnormalities and in particular no evidence of pneumonia. -CT-H: No acute intracranial hemorrhage, no evidence of acute territorial infarction or other acute intracranial disease process -MRI of the brain without metastasis or stroke (2) A-fib: Plan: Developed paroxysmal A. fib during this admission - continue Cardizem, current rhythm is sinus continue apixaban (3) Clear cell carcinoma of left kidney: Plan: Renal Cell Carcinoma, Clear Cell w/ Mets - Dx 2013. S/p L nephrectomy 2013. s/p palliative radiation to R humerous, VATS for R lung met. - Past tx sutent --> axitinib --> currently on pazopanib. Held 2/2 anemia - R pectoralis metastatic lesion increasing since 2019 - was Undergoing SBRT with Rad/Onc for pectoralis met - Follows w/ Dr. Alvarez -The family at this point decided to proceed with comfort care and they would not like to pursue radiation therapy (4) HTN (hypertension): Plan: Substituted with Cardizem (5) Hypothyroid: Plan: - TSH normal - Continue synthroid (6) Chronic kidney disease, stage III (moderate): (7) Anemia: Plan: Acute Anemia - Hgb 8.9; last hgb 05/20/22 16.4 repeat is 11.9 making the 8.9 likely spurious - No evidence of bleeding on CT-H/CXR/Ct-A/P, BUN not elevated - Fibrinogen elevated, iron is low - Hold pazopanib - (8) Progressive supranuclear palsy: Plan: - Supportive care, follows with neurology, no treatments available of benefit. Sees [facility] Neuro and saw [facility] 2021 for consultation. - Prior baseline 4/5 limb strength globally with focal worsened weakness in the R shoulder - Wheelchair bound -Limited downward gaze -Given patient will proceed with hospice care at change diet to diabetic diet as per family request, discontinue pured diet (9) Diabetes: Plan: T2DM Increase the dose of glipizide to 5, patient has A1c of 7.9 Plan Pending placement, discussed with the catalytic case operator and the daughter as well as the Admission and Anticipated Discharge Date Admission Date: July 03, 2022 Subjective Pt and family have chose SNF with focus on comfort; family undecided about adding hospice at SNF and plan to speak with SNF once bed offer is made - please see CM notes for more details/u[dates on disposition planning. There are no acute IP pall med needs at this time; GOC and ACP clarified as requested, documented in my note. Palliative Medicine will sign off. We remain available for re engagement this admission if other acute/urgent IP needs arise. Pt not seen, no charge submitted. Luna Clayton DNP Clinical Director, Palliative Medicine Physical Exam Physical Exam: The patient appeared well nourished and normally developed. Vital signs as documented. Head exam is normocephalic atraumatic she has some mild abnormal position of her eyes which her says is chronic Neck is without JVD, thyromegaly, or carotid bruits. Lungs are clear to auscultation, no focal loss of breath sounds Cardiac exam, Rhythm is regular.. No murmurs, rubs or gallops. Abdominal exam reveals normal bowel sounds, soft non tender, no masses Extremities are nonedematous and both pedal pulses are present Neurologic exam is alert and follows command but is not oriented to place or time no focal loss of strength or sensation Skin is without bruises or rashes Results & Data Results & [facility] ([facility]) Vital Signs (Past 12 Hours) Vital Signs Temp Pulse Pulse Resp BP Pulse Ox O2 Del Method 07/12/22 16:26 88 07/12/22 16:12 36.7 C 81 18 126/66 95 Room Air 07/12/22 11:40 36.8 C 123 H 18 106/66 98 Room Air 07/12/22 08:00 Room Air 07/12/22 08:00 59 L 07/12/22 07:23 36.8 C 60 18 123/83 96 Room Air PG Care Time/CCT Total # of Minutes Spent Total Time Spent with Patient: Total time spent is greater than 50% in coordination of care (as documented) at patient's floor/unit and/or counseling patient: Coding Level of Care Code 43191 Subseq Hosp Care Lvl 1 Diagnoses Altered mental state R41.82 A-fib I48.91 Clear cell carcinoma of left kidney C64.2 HTN (hypertension) I10 Hypothyroid E03.9 Chronic kidney disease, stage III (moderate) N18.3 Anemia D64.9 Progressive supranuclear palsy G23.1 Diabetes E11.9
[2022-07-13] MEDS: LEVOTHYROXINE SODIUM 75 MCG TABLET PO SCH (05:09)
[2022-07-13] MEDS: INSULIN ASPART PER UNIT SC SCH ×4 (08:33→20:55)
[2022-07-13] MEDS: MULTIVITAMIN TAB PO SCH (09:05)
[2022-07-13] MEDS: dilTIAZem HCL 120 MG CAPCR PO SCH (09:05)
[2022-07-13] MEDS: glipiZIDE 5 MG TAB PO SCH (09:05)
[2022-07-13] MEDS: PARoxetine HCL 20 MG TAB PO SCH (09:05)
[2022-07-13] MEDS: APIXABAN 5 MG TABLET PO SCH ×2 (09:06→20:56)
[2022-07-13] MEDS: IRON POLYSACCHARIDE COMPLEX 150 MG CAPSULE PO SCH (09:06)
--- NOTE | 2022-07-13 17:53 | Hospitalist Progress Note ---
Date of Service July 13, 2022 Assessment & Plan (1) Altered mental state: Plan: Encephalopathy resolved, most likely due to cytokine release due to recent radiation therapy , all cultures came back negative, no evidence of ongoing infectious process , blood culture urine culture negative -CT-A/P: Performed w/o contrast. No evidence of urinary obstruction. No evidence of metastatic disease. - -CXR: No acute abnormalities and in particular no evidence of pneumonia. -CT-H: No acute intracranial hemorrhage, no evidence of acute territorial infarction or other acute intracranial disease process -MRI of the brain without metastasis or stroke (2) COVID-19: Plan: Asymptomatic (3) A-fib: Plan: Developed paroxysmal A. fib during this admission - continue Cardizem, current rhythm is sinus continue apixaban (4) Clear cell carcinoma of left kidney: Plan: Renal Cell Carcinoma, Clear Cell w/ Mets - Dx 2013. S/p L nephrectomy 2013. s/p palliative radiation to R humerous, VATS for R lung met. - Past tx sutent --> axitinib --> currently on pazopanib. Held 2/2 anemia - R pectoralis metastatic lesion increasing since 2019 - was Undergoing SBRT with Rad/Onc for pectoralis met - Follows w/ Dr. Alvarez -The family at this point decided to proceed with comfort care and they would not like to pursue radiation therapy (5) HTN (hypertension): Plan: Substituted with Cardizem (6) Hypothyroid: Plan: - TSH normal - Continue synthroid (7) Chronic kidney disease, stage III (moderate): (8) Anemia: Plan: Acute Anemia - Hgb 8.9; last hgb 05/20/22 16.4 repeat is 11.9 making the 8.9 likely spurious - No evidence of bleeding on CT-H/CXR/Ct-A/P, BUN not elevated - Fibrinogen elevated, iron is low - Hold pazopanib - (9) Progressive supranuclear palsy: Plan: - Supportive care, follows with neurology, no treatments available of benefit. Sees [facility] Neuro and saw [facility] 2021 for consultation. - Prior baseline 4/5 limb strength globally with focal worsened weakness in the R shoulder - Wheelchair bound -Limited downward gaze -Given patient will proceed with hospice care at change diet to diabetic diet as per family request, discontinue pured diet (10) Diabetes: Plan: T2DM Increase the dose of glipizide to 5, patient has A1c of 7.9 Plan Pending placement, discussed with the block and case maker and the daughter as well as the Admission and Anticipated Discharge Date Admission Date: July 03, 2022 Subjective COVID test came back positive which hinder her transfer Physical Exam Physical Exam: The patient appeared well nourished and normally developed. Vital signs as documented. Head exam is normocephalic atraumatic she has some mild abnormal position of her eyes which her says is chronic Neck is without JVD, thyromegaly, or carotid bruits. Lungs are clear to auscultation, no focal loss of breath sounds Cardiac exam, Rhythm is regular.. No murmurs, rubs or gallops. Abdominal exam reveals normal bowel sounds, soft non tender, no masses Extremities are nonedematous and both pedal pulses are present Neurologic exam is alert and follows command but is not oriented to place or time no focal loss of strength or sensation Skin is without bruises or rashes Results & Data Results & [facility] ([facility]) Vital Signs (Past 12 Hours) Vital Signs Temp Pulse Resp BP Pulse Ox O2 Del Method 07/13/22 15:31 36.9 C 78 18 128/73 95 Room Air 07/13/22 10:56 36.8 C 87 19 115/76 95 Room Air 07/13/22 08:00 Room Air 07/13/22 07:47 36.6 C 123 H 17 104/64 95 Room Air PG Care Time/CCT Total # of Minutes Spent Total Time Spent with Patient: Total time spent is greater than 50% in coordination of care (as documented) at patient's floor/unit and/or counseling patient: Coding Level of Care Code 06343 Subseq Hosp Care Lvl 2 Diagnoses Altered mental state R41.82 COVID-19 U07.1 A-fib I48.91 Clear cell carcinoma of left kidney C64.2 HTN (hypertension) I10 Hypothyroid E03.9 Chronic kidney disease, stage III (moderate) N18.3 Anemia D64.9 Progressive supranuclear palsy G23.1 Diabetes E11.9
[2022-07-14] MEDS: LEVOTHYROXINE SODIUM 75 MCG TABLET PO SCH (06:31)
[2022-07-14] MEDS: INSULIN ASPART PER UNIT SC SCH ×4 (09:28→21:59)
[2022-07-14] MEDS: APIXABAN 5 MG TABLET PO SCH ×2 (09:36→21:31)
[2022-07-14] MEDS: dilTIAZem HCL 120 MG CAPCR PO SCH (09:37)
[2022-07-14] MEDS: glipiZIDE 5 MG TAB PO SCH (09:37)
[2022-07-14] MEDS: MULTIVITAMIN TAB PO SCH (09:38)
[2022-07-14] MEDS: IRON POLYSACCHARIDE COMPLEX 150 MG CAPSULE PO SCH (09:38)
[2022-07-14] MEDS: PARoxetine HCL 20 MG TAB PO SCH (09:39)
--- NOTE | 2022-07-14 18:25 | Hospitalist Progress Note ---
Date of Service July 14, 2022 Assessment & Plan (1) Altered mental state: Plan: Encephalopathy resolved, most likely due to cytokine release due to recent radiation therapy , all cultures came back negative, no evidence of ongoing infectious process , blood culture urine culture negative -CT-A/P: Performed w/o contrast. No evidence of urinary obstruction. No evidence of metastatic disease. - -CXR: No acute abnormalities and in particular no evidence of pneumonia. -CT-H: No acute intracranial hemorrhage, no evidence of acute territorial infarction or other acute intracranial disease process -MRI of the brain without metastasis or stroke (2) COVID-19: Plan: Asymptomatic (3) A-fib: Plan: Developed paroxysmal A. fib during this admission - continue Cardizem, current rhythm is sinus continue apixaban (4) Clear cell carcinoma of left kidney: Plan: Renal Cell Carcinoma, Clear Cell w/ Mets - Dx 2013. S/p L nephrectomy 2013. s/p palliative radiation to R humerous, VATS for R lung met. - Past tx sutent --> axitinib --> currently on pazopanib. Held 2/2 anemia - R pectoralis metastatic lesion increasing since 2019 - was Undergoing SBRT with Rad/Onc for pectoralis met - Follows w/ Dr. Alvarez -The family at this point decided to proceed with comfort care and they would not like to pursue radiation therapy (5) HTN (hypertension): Plan: Substituted with Cardizem (6) Hypothyroid: Plan: - TSH normal - Continue synthroid (7) Chronic kidney disease, stage III (moderate): (8) Anemia: Plan: Acute Anemia - Hgb 8.9; last hgb 05/20/22 16.4 repeat is 11.9 making the 8.9 likely spurious - No evidence of bleeding on CT-H/CXR/Ct-A/P, BUN not elevated - Fibrinogen elevated, iron is low - Hold pazopanib - (9) Progressive supranuclear palsy: Plan: - Supportive care, follows with neurology, no treatments available of benefit. Sees [facility] Neuro and saw [facility] 2021 for consultation. - Prior baseline 4/5 limb strength globally with focal worsened weakness in the R shoulder - Wheelchair bound -Limited downward gaze -Given patient will proceed with hospice care at change diet to diabetic diet as per family request, discontinue pured diet (10) Diabetes: Plan: T2DM Increase the dose of glipizide to 5, patient has A1c of 7.9 Plan Pending placement, discussed with the rn case management and the daughter as well as the Admission and Anticipated Discharge Date Admission Date: July 03, 2022 Subjective COVID test came back positive which hinder her transfer discussed with the rn case management Results & Data Results & Data ([facility]) Vital Signs (Past 12 Hours) Vital Signs Temp Pulse Resp BP Pulse Ox O2 Del Method 07/14/22 15:08 36.8 C 86 20 106/70 97 Room Air 07/14/22 09:07 Room Air 07/14/22 07:24 37 C 75 19 114/67 Room Air PG Care Time/CCT Total # of Minutes Spent Total Time Spent with Patient: Total time spent is greater than 50% in coordination of care (as documented) at patient's floor/unit and/or counseling patient: Coding Level of Care Code 23515 Subseq Hosp Care Lvl 1 Diagnoses Altered mental state R41.82 COVID-19 U07.1 A-fib I48.91 Clear cell carcinoma of left kidney C64.2 HTN (hypertension) I10 Hypothyroid E03.9 Chronic kidney disease, stage III (moderate) N18.3 Anemia D64.9 Progressive supranuclear palsy G23.1 Diabetes E11.9
[2022-07-15] MEDS: LEVOTHYROXINE SODIUM 75 MCG TABLET PO SCH (05:46)
[2022-07-15] MEDS: INSULIN ASPART PER UNIT SC SCH ×4 (09:47→21:06)
[2022-07-15] MEDS: APIXABAN 5 MG TABLET PO SCH ×2 (10:38→20:48)
[2022-07-15] MEDS: dilTIAZem HCL 120 MG CAPCR PO SCH (10:39)
[2022-07-15] MEDS: glipiZIDE 5 MG TAB PO SCH (10:39)
[2022-07-15] MEDS: MULTIVITAMIN TAB PO SCH (10:40)
[2022-07-15] MEDS: IRON POLYSACCHARIDE COMPLEX 150 MG CAPSULE PO SCH (10:40)
[2022-07-15] MEDS: PARoxetine HCL 20 MG TAB PO SCH (10:40)
--- NOTE | 2022-07-15 19:27 | Hospitalist Progress Note ---
Date of Service July 15, 2022 Assessment & Plan (1) Altered mental state: Plan: Encephalopathy resolved, most likely due to cytokine release due to recent radiation therapy , all cultures came back negative, no evidence of ongoing infectious process , blood culture urine culture negative -CT-A/P: Performed w/o contrast. No evidence of urinary obstruction. No evidence of metastatic disease. - -CXR: No acute abnormalities and in particular no evidence of pneumonia. -CT-H: No acute intracranial hemorrhage, no evidence of acute territorial infarction or other acute intracranial disease process -MRI of the brain without metastasis or stroke (2) COVID-19: Plan: Asymptomatic (3) A-fib: Plan: Developed paroxysmal A. fib during this admission - continue Cardizem, current rhythm is sinus continue apixaban (4) Clear cell carcinoma of left kidney: Plan: Renal Cell Carcinoma, Clear Cell w/ Mets - Dx 2013. S/p L nephrectomy 2013. s/p palliative radiation to R humerous, VATS for R lung met. - Past tx sutent --> axitinib --> currently on pazopanib. Held 2/2 anemia - R pectoralis metastatic lesion increasing since 2019 - was Undergoing SBRT with Rad/Onc for pectoralis met - Follows w/ Dr. Alvarez -The family at this point decided to proceed with comfort care and they would not like to pursue radiation therapy (5) HTN (hypertension): Plan: Substituted with Cardizem (6) Hypothyroid: Plan: - TSH normal - Continue synthroid (7) Chronic kidney disease, stage III (moderate): (8) Anemia: Plan: Acute Anemia - Hgb 8.9; last hgb 05/20/22 16.4 repeat is 11.9 making the 8.9 likely spurious - No evidence of bleeding on CT-H/CXR/Ct-A/P, BUN not elevated - Fibrinogen elevated, iron is low - Hold pazopanib - (9) Progressive supranuclear palsy: Plan: - Supportive care, follows with neurology, no treatments available of benefit. Sees [facility] [place] [facility] and saw [facility] 2021 for consultation. - Prior baseline 4/5 limb strength globally with focal worsened weakness in the R shoulder - Wheelchair bound -Limited downward gaze -Given patient will proceed with hospice care at change diet to diabetic diet as per family request, discontinue pured diet (10) Diabetes: Plan: T2DM Increase the dose of glipizide to 5, patient has A1c of 7.9 Plan Pending placement, discussed with the director case management and the daughter as well as the Admission and Anticipated Discharge Date Admission Date: July 03, 2022 Subjective COVID test came back positive which hinder her transfer discussed with the director case management They will accept PT once her isolation period is over. Physical Exam Physical Exam: The patient appeared well nourished and normally developed. Vital signs as documented. Head exam is normocephalic atraumatic she has some mild abnormal position of her eyes which her says is chronic Neck is without JVD, thyromegaly, or carotid bruits. Lungs are clear to auscultation, no focal loss of breath sounds Cardiac exam, Rhythm is regular.. No murmurs, rubs or gallops. Abdominal exam reveals normal bowel sounds, soft non tender, no masses Extremities are nonedematous and both pedal pulses are present Neurologic exam is alert and follows command but is not oriented to place or time no focal loss of strength or sensation Skin is without bruises or rashes Results & Data Results & Data ([facility]) Vital Signs (Past 12 Hours) Vital Signs Temp Pulse Pulse Resp BP Pulse Ox O2 Del Method 07/15/22 14:54 36.8 C 86 18 125/68 96 Room Air 07/15/22 10:51 Room Air 07/15/22 09:05 36.8 C 80 18 117/75 96 Room Air PG Care Time/CCT Total # of Minutes Spent Total Time Spent with Patient: Total time spent is greater than 50% in coordination of care (as documented) at patient's floor/unit and/or counseling patient: Coding Level of Care Code 35654 Subseq Hosp Care Lvl 1 Diagnoses Altered mental state R41.82 COVID-19 U07.1 A-fib I48.91 Clear cell carcinoma of left kidney C64.2 HTN (hypertension) I10 Hypothyroid E03.9 Chronic kidney disease, stage III (moderate) N18.3 Anemia D64.9 Progressive supranuclear palsy G23.1 Diabetes E11.9
[2022-07-16] MEDS: LEVOTHYROXINE SODIUM 75 MCG TABLET PO SCH (05:31)
[2022-07-16] MEDS: IRON POLYSACCHARIDE COMPLEX 150 MG CAPSULE PO SCH (10:13)
[2022-07-16] MEDS: APIXABAN 5 MG TABLET PO SCH ×2 (10:13→21:57)
[2022-07-16] MEDS: glipiZIDE 5 MG TAB PO SCH (10:14)
[2022-07-16] MEDS: MULTIVITAMIN TAB PO SCH (10:14)
[2022-07-16] MEDS: PARoxetine HCL 20 MG TAB PO SCH (10:14)
[2022-07-16] MEDS: dilTIAZem HCL 120 MG CAPCR PO SCH (10:14)
[2022-07-16] MEDS: INSULIN ASPART PER UNIT SC SCH ×4 (10:31→21:43)
--- NOTE | 2022-07-16 18:30 | Hospitalist Progress Note ---
Date of Service July 16, 2022 Assessment & Plan (1) Altered mental state: Plan: Encephalopathy resolved, most likely due to cytokine release due to recent radiation therapy , all cultures came back negative, no evidence of ongoing infectious process , blood culture urine culture negative -CT-A/P: Performed w/o contrast. No evidence of urinary obstruction. No evidence of metastatic disease. - -CXR: No acute abnormalities and in particular no evidence of pneumonia. -CT-H: No acute intracranial hemorrhage, no evidence of acute territorial infarction or other acute intracranial disease process -MRI of the brain without metastasis or stroke (2) COVID-19: Plan: Asymptomatic (3) A-fib: Plan: Developed paroxysmal A. fib during this admission - continue Cardizem, current rhythm is sinus continue apixaban (4) Clear cell carcinoma of left kidney: Plan: Renal Cell Carcinoma, Clear Cell w/ Mets - Dx 2013. S/p L nephrectomy 2013. s/p palliative radiation to R humerous, VATS for R lung met. - Past tx sutent --> axitinib --> currently on pazopanib. Held 2/2 anemia - R pectoralis metastatic lesion increasing since 2019 - was Undergoing SBRT with Rad/Onc for pectoralis met - Follows w/ Dr. Alvarez -The family at this point decided to proceed with comfort care and they would not like to pursue radiation therapy (5) HTN (hypertension): Plan: Substituted with Cardizem (6) Hypothyroid: Plan: - TSH normal - Continue synthroid (7) Chronic kidney disease, stage III (moderate): (8) Anemia: Plan: Acute Anemia - Hgb 8.9; last hgb 05/20/22 16.4 repeat is 11.9 making the 8.9 likely spurious - No evidence of bleeding on CT-H/CXR/Ct-A/P, BUN not elevated - Fibrinogen elevated, iron is low - Hold pazopanib - (9) Progressive supranuclear palsy: Plan: - Supportive care, follows with neurology, no treatments available of benefit. [place] [facility] [place] [facility] 2021 for consultation. - Prior baseline 4/5 limb strength globally with focal worsened weakness in the R shoulder - Wheelchair bound -Limited downward gaze -Given patient will proceed with hospice care at change diet to diabetic diet as per family request, discontinue pured diet (10) Diabetes: Plan: T2DM Increase the dose of glipizide to 5, patient has A1c of 7.9 Plan Pending placement, discussed with the case management rn and the daughter as well as the Admission and Anticipated Discharge Date Admission Date: July 03, 2022 Subjective COVID test came back positive which hinder her transfer discussed with the case management rn who states that still waiting for the accepting facility about the time of transfer and regulation Physical Exam Physical Exam: The patient appeared well nourished and normally developed. Vital signs as documented. Head exam is normocephalic atraumatic she has some mild abnormal position of her eyes which her says is chronic Neck is without JVD, thyromegaly, or carotid bruits. Lungs are clear to auscultation, no focal loss of breath sounds Cardiac exam, Rhythm is regular.. No murmurs, rubs or gallops. Abdominal exam reveals normal bowel sounds, soft non tender, no masses Extremities are nonedematous and both pedal pulses are present Neurologic exam is alert and follows command but is not oriented to place or time no focal loss of strength or sensation Skin is without bruises or rashes Results & Data Results & Data ([facility]) Vital Signs (Past 12 Hours) Vital Signs Temp Pulse Resp BP Pulse Ox O2 Del Method 07/16/22 14:54 36.8 C 88 18 138/70 98 Room Air 07/16/22 10:00 Room Air PG Care Time/CCT Total # of Minutes Spent Total Time Spent with Patient: Total time spent is greater than 50% in coordination of care (as documented) at patient's floor/unit and/or counseling patient: Coding Level of Care Code 92160 Subseq Hosp Care Lvl 1 Diagnoses Altered mental state R41.82 COVID-19 U07.1 A-fib I48.91 Clear cell carcinoma of left kidney C64.2 HTN (hypertension) I10 Hypothyroid E03.9 Chronic kidney disease, stage III (moderate) N18.3 Anemia D64.9 Progressive supranuclear palsy G23.1 Diabetes E11.9
[2022-07-17] MEDS: LEVOTHYROXINE SODIUM 75 MCG TABLET PO SCH (05:49)
[2022-07-17] MEDS: IRON POLYSACCHARIDE COMPLEX 150 MG CAPSULE PO SCH (08:47)
[2022-07-17] MEDS: glipiZIDE 5 MG TAB PO SCH (08:47)
[2022-07-17] MEDS: APIXABAN 5 MG TABLET PO SCH ×2 (08:47→21:30)
[2022-07-17] MEDS: PARoxetine HCL 20 MG TAB PO SCH (08:47)
[2022-07-17] MEDS: MULTIVITAMIN TAB PO SCH (08:47)
[2022-07-17] MEDS: dilTIAZem HCL 120 MG CAPCR PO SCH (08:47)
[2022-07-17] MEDS: INSULIN ASPART PER UNIT SC SCH ×4 (09:20→21:40)
--- NOTE | 2022-07-17 17:31 | Hospitalist Progress Note ---
Date of Service July 17, 2022 Assessment & Plan (1) Altered mental state: Plan: Encephalopathy resolved, most likely due to cytokine release due to recent radiation therapy , all cultures came back negative, no evidence of ongoing infectious process , blood culture urine culture negative -CT-A/P: Performed w/o contrast. No evidence of urinary obstruction. No evidence of metastatic disease. - -CXR: No acute abnormalities and in particular no evidence of pneumonia. -CT-H: No acute intracranial hemorrhage, no evidence of acute territorial infarction or other acute intracranial disease process -MRI of the brain without metastasis or stroke (2) COVID-19: Plan: Asymptomatic (3) A-fib: Plan: Developed paroxysmal A. fib during this admission - continue Cardizem, current rhythm is sinus continue apixaban (4) Clear cell carcinoma of left kidney: Plan: Renal Cell Carcinoma, Clear Cell w/ Mets - Dx 2013. S/p L nephrectomy 2013. s/p palliative radiation to R humerous, VATS for R lung met. - Past tx sutent --> axitinib --> currently on pazopanib. Held 2/2 anemia - R pectoralis metastatic lesion increasing since 2019 - was Undergoing SBRT with Rad/Onc for pectoralis met - Follows w/ Dr. Alvarez -The family at this point decided to proceed with comfort care and they would not like to pursue radiation therapy (5) HTN (hypertension): Plan: Substituted with Cardizem (6) Hypothyroid: Plan: - TSH normal - Continue synthroid (7) Chronic kidney disease, stage III (moderate): (8) Anemia: Plan: Acute Anemia - Hgb 8.9; last hgb 05/20/22 16.4 repeat is 11.9 making the 8.9 likely spurious - No evidence of bleeding on CT-H/CXR/Ct-A/P, BUN not elevated - Fibrinogen elevated, iron is low - Hold pazopanib - (9) Progressive supranuclear palsy: Plan: - Supportive care, follows with neurology, no treatments available of benefit. [place] [facility] [place] [facility] 2021 for consultation. - Prior baseline 4/5 limb strength globally with focal worsened weakness in the R shoulder - Wheelchair bound -Limited downward gaze -Given patient will proceed with hospice care at change diet to diabetic diet as per family request, discontinue pured diet (10) Diabetes: Plan: T2DM Increase the dose of glipizide to 5, patient has A1c of 7.9 Plan Pending placement, discussed with the director of casework and the daughter as well as the Admission and Anticipated Discharge Date Admission Date: July 03, 2022 Subjective COVID test came back positive which hinder her transfer discussed with the director of casework who states that still waiting for the accepting facility about the time of transfer and regulation, as per my discussion with the director of casework no action will happen during the holiday Results & Data Results & Data ([facility]) Vital Signs (Past 12 Hours) Vital Signs Temp Pulse Resp BP Pulse Ox O2 Del Method 07/17/22 15:02 36.5 C 81 18 130/72 97 Room Air 07/17/22 08:00 Room Air 07/17/22 07:17 36.7 C 69 18 120/72 95 Room Air PG Care Time/CCT Total # of Minutes Spent Total Time Spent with Patient: Total time spent is greater than 50% in coordination of care (as documented) at patient's floor/unit and/or counseling patient: Coding Level of Care Code 18505 Subseq Hosp Care Lvl 1 Diagnoses Altered mental state R41.82 COVID-19 U07.1 A-fib I48.91 Clear cell carcinoma of left kidney C64.2 HTN (hypertension) I10 Hypothyroid E03.9 Chronic kidney disease, stage III (moderate) N18.3 Anemia D64.9 Progressive supranuclear palsy G23.1 Diabetes E11.9
[2022-07-18] MEDS: LEVOTHYROXINE SODIUM 75 MCG TABLET PO SCH (05:40)
[2022-07-18] MEDS: dilTIAZem HCL 120 MG CAPCR PO SCH (08:46)
[2022-07-18] MEDS: MULTIVITAMIN TAB PO SCH (08:46)
[2022-07-18] MEDS: IRON POLYSACCHARIDE COMPLEX 150 MG CAPSULE PO SCH (08:46)
[2022-07-18] MEDS: APIXABAN 5 MG TABLET PO SCH ×2 (08:46→21:41)
[2022-07-18] MEDS: glipiZIDE 5 MG TAB PO SCH (08:46)
[2022-07-18] MEDS: PARoxetine HCL 20 MG TAB PO SCH (08:46)
[2022-07-18] MEDS: INSULIN ASPART PER UNIT SC SCH ×4 (09:22→21:47)
--- NOTE | 2022-07-18 18:22 | Hospitalist Progress Note ---
Date of Service July 18, 2022 Assessment & Plan (1) Altered mental state: Plan: Attending: Dr. Black Impression: 72-year-old female admitted 07/03/2022 for altered mental status. She has renal cell carcinoma with rapid decline as well as supranuclear palsy. no longer able to take care of her at home. She has been accepted to [facility]. She was tested for COVID prior to transfer and found to be positive. She is currently pending transfer once she completes isolation protocol. Encephalopathy resolved, most likely due to cytokine release due to recent radiation therapy , all cultures came back negative, no evidence of ongoing i nfectious process , blood culture urine culture negative -CT-A/P: Performed w/o contrast. No evidence of urinary obstruction. No evidence of metastatic disease. - -CXR: No acute abnormalities and in particular no evidence of pneumonia. -CT-H: No acute intracranial hemorrhage, no evidence of acute territorial infarction or other acute intracranial disease process -MRI of the brain without metastasis or stroke (2) COVID-19: Plan: Asymptomatic Continue isolation per protocol (3) A-fib: Plan: Developed paroxysmal A. fib during this admission - continue Cardizem, current rhythm is sinus continue apixaban (4) Clear cell carcinoma of left kidney: Plan: Renal Cell Carcinoma, Clear Cell w/ Mets - Dx 2013. S/p L nephrectomy 2013. s/p palliative radiation to R humerous, VATS for R lung met. - Past tx sutent --> axitinib --> currently on pazopanib. Held 2/2 anemia - R pectoralis metastatic lesion increasing since 2019 - was Undergoing SBRT with Rad/Onc for pectoralis met - Follows w/ Dr. Alvarez who saw her this admission -The family at this point decided to proceed with comfort care and they would not like to pursue radiation therapy (5) HTN (hypertension): Plan: Substituted with Cardizem (6) Hypothyroid: Plan: - TSH normal - Continue synthroid (7) Chronic kidney disease, stage III (moderate): Plan: Creatinine was 0.6 on 07/07/2022 Patient transition to comfort care so no further labs were drawn Patient is expected to transfer to intermediate on Monday Will check repeat labs on Monday (8) Anemia: Plan: Acute Anemia - Hgb 8.9; last hgb 05/20/22 16.4 repeat is 11.9 making the 8.9 likely spurious - No evidence of bleeding on CT-H/CXR/Ct-A/P, BUN not elevated - Fibrinogen elevated, iron is low - Hold pazopanib - (9) Progressive supranuclear palsy: Plan: - Supportive care, follows with neurology, no treatments available of benefit. Sees [facility] [place] Neuro and saw [facility] 2021 for consultation. - Prior baseline 4/5 limb strength globally with focal worsened weakness in the R shoulder - Wheelchair bound -Limited downward gaze -Given patient will proceed with hospice care at change diet to diabetic diet as per family request, discontinue pured diet (10) Diabetes: Plan: T2DM Increase the dose of glipizide to 5, patient has A1c of 7.9 Plan Pending placement, discussed with the medical case worker and the Admission and Anticipated Discharge Date Admission Date: July 03, 2022 Supervising Physician Co-Signing Physician Notes chart reviewed and case d/w E Lars PAC, as above Subjective Attending: Dr. Chau Patient 07/03/2022 with altered mental status. She was found to have acute anemia as well as sepsis with encephalopathy. Patient was treated successfully and appears to be back to her baseline. Patient has renal cell carcinoma with mets. She follows with Dr. Hoff. reports that he cannot take care of her any longer at home. In addition to her renal cell carcinoma she has developed progressive supranuclear palsy. She follows with neurology and there is no treatment available. At this point she has 4 limb weakness and is wheelchair-bound. Patient was ready for discharge and had routine COVID testing done which came back positive, thus delaying her discharge. She is excepted to [facility] and we are just awaiting medical clearance with isolation period due to COVID. Patient offers no acute complaints today. She has no shortness of breath or chest pain. She has no fever or chills. She appears to be at her baseline. Review of Systems Review of Systems: A total of 10 systems was reviewed and is negative other than as listed in the HPI Physical Exam Physical Exam: GENERAL : No acute distress. Profound weakness. EYES: No icterus, gaze conjugate NOSE: No evidence of epistaxis MOUTH: No lesions or candidiasis. Mucosa somewhat dry NECK: Supple LUNGS: CTA B/L, no wheezes, rales or rhonchi HEART: Regular, rate controlled ABDOMEN: Soft, NT, ND, BS Present EXTREMITIES: No LE edema, pedal pulses intact NEURO: A&OX3. Profound weakness of all 4 extremities. She does move the spontaneously to command. present at bedside and reports no focal changes Results & Data Results & Data ([facility]) Vital Signs (Past 12 Hours) Vital Signs Temp Pulse Resp BP Pulse Ox O2 Del Method 07/18/22 16:30 36.7 C 73 18 108/65 97 Room Air 07/18/22 08:00 Room Air 07/18/22 07:45 36.5 C 74 18 115/65 98 Room Air Critical Care Results & Data Vital Signs (Past 12 Hours) Vital Signs Temp Pulse Resp BP Pulse Ox O2 Del Method 07/18/22 16:30 36.7 C 73 18 108/65 97 Room Air 07/18/22 08:00 Room Air 07/18/22 07:45 36.5 C 74 18 115/65 98 Room Air Lab & Micro Results (Past 24 Hours) No Data to Display No Data to Display No Data to Display I & O Totals 24 Hours 07/17/22 07/18/22 07/19/22 06:59 06:59 06:59 Intake Total 400 / 400 200 / 200 760 / 760 Output Total 2024 1000 / 1000 850 / 850 Balance -1625 / -1625 -800 / -800 -90 / -90 Cumulative 07/03/22 08:52 thru 07/18/22 16:30 Intake Total 85705.334 Output Total 29638 Balance -7962.666 RT Ventilator Mngmt (Last Documented) Ventilator Ordered Settings Respiratory Rate 18 07/18/22 16:30 Ventilator - PT Measurements Respiratory Rate 18 PG Care Time/CCT Total # of Minutes Spent Total Time Spent with Patient: Total time spent is greater than 50% in coordination of care (as documented) at patient's floor/unit and/or counseling patient: Coding Level of Care Code 38919 SUB INP/OBS CARE MIN Diagnoses Altered mental state R41.82 COVID-19 U07.1 A-fib I48.91 Clear cell carcinoma of left kidney C64.2 HTN (hypertension) I10 Hypothyroid E03.9 Chronic kidney disease, stage III (moderate) N18.3 Anemia D64.9 Progressive supranuclear palsy G23.1 Diabetes E11.9
[2022-07-19] MEDS: LEVOTHYROXINE SODIUM 75 MCG TABLET PO SCH (05:50)
[2022-07-19] MEDS: APIXABAN 5 MG TABLET PO SCH ×2 (08:46→21:24)
[2022-07-19] MEDS: dilTIAZem HCL 120 MG CAPCR PO SCH (08:47)
[2022-07-19] MEDS: MULTIVITAMIN TAB PO SCH (08:47)
[2022-07-19] MEDS: PARoxetine HCL 20 MG TAB PO SCH (08:47)
[2022-07-19] MEDS: IRON POLYSACCHARIDE COMPLEX 150 MG CAPSULE PO SCH (08:47)
[2022-07-19] MEDS: glipiZIDE 5 MG TAB PO SCH (08:47)
[2022-07-19] MEDS: INSULIN ASPART PER UNIT SC SCH ×4 (09:26→21:40)
--- NOTE | 2022-07-19 17:43 | Hospitalist Progress Note ---
Date of Service July 19, 2022 Assessment & Plan (1) Altered mental state: Plan: Attending: Dr. Aguirre Impression: 72-year-old female admitted 07/03/2022 for altered mental status. She has renal cell carcinoma with rapid decline as well as supranuclear palsy. no longer able to take care of her at home. She has been accepted to [facility]. She was tested for COVID prior to transfer and found to be positive. She is currently pending transfer once she completes isolation protocol and is expected to transfer on Monday07/22/2022 Encephalopathy resolved, most likely due to cytokine release due to recent radiation therapy , all cultures came back negative, no evidence of ongoing infectious process , blood culture urine culture negative -CT-A/P: Performed w/o contrast. No evidence of urinary obstruction. No evidence of metastatic disease. - -CXR: No acute abnormalities and in particular no evidence of pneumonia. -CT-H: No acute intracranial hemorrhage, no evidence of acute territorial infarction or other acute intracranial disease process -MRI of the brain without metastasis or stroke (2) COVID-19: Plan: Asymptomatic Continue isolation per protocol (3) A-fib: Plan: Developed paroxysmal A. fib during this admission - continue Cardizem, current rhythm is sinus continue apixaban (4) Clear cell carcinoma of left kidney: Plan: Renal Cell Carcinoma, Clear Cell w/ Mets - Dx 2013. S/p L nephrectomy 2013. s/p palliative radiation to R humerous, VATS for R lung met. - Past tx sutent --> axitinib --> currently on pazopanib. Held 2/2 anemia - R pectoralis metastatic lesion increasing since 2019 - was Undergoing SBRT with Rad/Onc for pectoralis met - Follows w/ Dr. Alvarez who saw her this admission -The family at this point decided to proceed with comfort care and they would not like to pursue radiation therapy (5) HTN (hypertension): Plan: Substituted with Cardizem (6) Hypothyroid: Plan: - TSH normal - Continue synthroid (7) Chronic kidney disease, stage III (moderate): Plan: Creatinine was 0.6 on 07/07/2022 Patient transition to comfort care so no further labs were drawn Patient is expected to transfer to [facility] on Monday Will check repeat labs on Monday (8) Anemia: Plan: Acute Anemia - Hgb 8.9; last hgb 05/20/22 16.4 repeat is 11.9 making the 8.9 likely spurious - No evidence of bleeding on CT-H/CXR/Ct-A/P, BUN not elevated - Fibrinogen elevated, iron is low - Hold pazopanib - (9) Progressive supranuclear palsy: Plan: - Supportive care, follows with neurology, no treatments available of benefit. Sees [facility] and saw [facility] 2021 for consultation. - Prior baseline 4/5 limb strength globally with focal worsened weakness in the R shoulder - Wheelchair bound -Limited downward gaze -Given patient will proceed with hospice care at change diet to diabetic diet as per family request, discontinue pured diet (10) Diabetes: Plan: T2DM Increase the dose of glipizide to 5, patient has A1c of 7.9 Plan Pending placement, discussed with the manager of case and the . Plan on transfer to [facility] on Monday07/22/2022 Admission and Anticipated Discharge Date Admission Date: July 03, 2022 Supervising Physician Co-Signing Physician Notes Attending Attestation - Chart reviewed, care plan d/w JOSE J Sousa. I agree w/ the vuong components of his documentation. Gaurav Aguirre MD Subjective Attending: Dr. Aguirre Patient 07/03/2022 with altered mental status. She was found to have acute anemia as well as sepsis with encephalopathy. Patient was treated successfully and appears to be back to her baseline. Patient has renal cell carcinoma with mets. She follows with Dr. Hoff. reports that he cannot take care of her any longer at home. In addition to her renal cell carcinoma she has developed progressive supranuclear palsy. She follows with neurology and there is no treatment available. At this point she has 4 limb weakness and is wheelchair-bound. Patient was ready for discharge and had routine COVID testing done which came back positive, thus delaying her discharge. She is excepted to go to [facility] and we are just awaiting medical clearance with isolation period due to COVID. Anticipated transfer is on 07/22/2022 Patient offers no acute complaints today. She seems to be in better spirits. is also present. She has no shortness of breath or chest pain. She has no fever or chills. She appears to be at her baseline per the . Of note, they will be celebrating their 55th wedding anniversary on July 23. Review of Systems Review of Systems: A total of 10 systems was reviewed and is negative other than as listed in the HPI Physical Exam Physical Exam: GENERAL : No acute distress. Profound weakness. Pleasant EYES: No icterus, gaze conjugate NOSE: No evidence of epistaxis MOUTH: No lesions or candidiasis. Mucosa somewhat dry NECK: Supple LUNGS: CTA B/L, no wheezes, rales or rhonchi HEART: Regular, rate controlled ABDOMEN: Soft, NT, ND, BS Present EXTREMITIES: No LE edema, pedal pulses intact NEURO: A&OX3. Profound weakness of all 4 extremities. She does move the spontaneously to command. present at bedside and reports no focal changes Results & Data Results & Data ([facility]) Vital Signs (Past 12 Hours) Vital Signs Temp Pulse Resp BP Pulse Ox O2 Del Method 07/19/22 13:00 36.6 C 70 18 97/66 L 98 Room Air 07/19/22 07:00 Room Air Critical Care Results & Data Vital Signs (Past 12 Hours) Vital Signs Temp Pulse Resp BP Pulse Ox O2 Del Method 07/19/22 13:00 36.6 C 70 18 97/66 L 98 Room Air 07/19/22 07:00 Room Air Lab & Micro Results (Past 24 Hours) No Data to Display No Data to Display 2 No Data to Display I & O Totals 24 Hours 07/18/22 07/19/22 07/20/22 06:59 06:59 06:59 Intake Total 200 / 200 960 / 960 Output Total 1000 / 1000 1250 / 1250 Balance -800 / -800 -290 / -290 Cumulative 07/03/22 08:52 thru 07/18/22 21:49 Intake Total 76634.334 Output Total 59064 Balance -8162.666 RT Ventilator Mngmt (Last Documented) Ventilator Ordered Settings Respiratory Rate 18 07/19/22 13:00 Ventilator - PT Measurements Respiratory Rate 18 PG Care Time/CCT Total # of Minutes Spent Total Time Spent with Patient: Total time spent is greater than 50% in coordination of care (as documented) at patient's floor/unit and/or counseling patient: Coding Level of Care Code 23411 SUB INP/OBS CARE 1/25MIN Diagnoses Altered mental state R41.82 COVID-19 U07.1 A-fib I48.91 Clear cell carcinoma of left kidney C64.2 HTN (hypertension) I10 Hypothyroid E03.9 Chronic kidney disease, stage III (moderate) N18.3 Anemia D64.9 Progressive supranuclear palsy G23.1 Diabetes E11.9
[2022-07-20] MEDS: LEVOTHYROXINE SODIUM 75 MCG TABLET PO SCH (05:53)
[2022-07-20] MEDS: INSULIN ASPART PER UNIT SC SCH ×4 (09:24→21:18)
[2022-07-20 09:26] LABS: Hematocrit (blood only) 37.4 % (34.1-44.9); Hemoglobin 12.6 g/dl (12.0-16.0); Mean Corpuscular Hemoglobin 34.3 pg (25.0-34.0); Mean Corpuscular Hgb Conc 33.7 g/dL (32.0-36.0); Mean Corpuscular Volume 101.9 fL (80.0-100.0); Mean Platelet Volume 9.5 fL (9.4-12.3); Platelet Count 461 K/uL (130-400); RDW Coefficient of Variation 14.1 % (11.5-14.5); RDW Standard Deviation 52.8 fL (36.4-46.3); Red Blood Count 3.67 M/uL (3.93-5.22); White Blood Count 10.51 K/ul (4.8-10.8)
[2022-07-20 09:54] LABS: BUN Creatinine Ratio 26.4 (10-20); Calcium 10.1 mg/dl (8.5-10.1); Creatinine Clr Calc Pharmacy 56.7 ml/min; Est GFR (African American) 95.6 ml/min; Est GFR (Non-African American) 82.5 ml/min; Magnesium 2.1 mg/dl (1.7-2.4); Potassium 4.1 mmol/L (3.5-5.1)
[2022-07-20] MEDS: APIXABAN 5 MG TABLET PO SCH ×2 (09:56→21:26)
[2022-07-20] MEDS: MULTIVITAMIN TAB PO SCH (09:56)
[2022-07-20] MEDS: dilTIAZem HCL 120 MG CAPCR PO SCH (09:56)
[2022-07-20] MEDS: IRON POLYSACCHARIDE COMPLEX 150 MG CAPSULE PO SCH (09:56)
[2022-07-20] MEDS: glipiZIDE 5 MG TAB PO SCH (09:56)
[2022-07-20] MEDS: PARoxetine HCL 20 MG TAB PO SCH (09:56)
--- NOTE | 2022-07-20 17:40 | Hospitalist Progress Note ---
Date of Service July 20, 2022 Assessment & Plan (1) Altered mental state: Plan: Attending: Dr. Aguirre Impression: 72-year-old female admitted 07/03/2022 for altered mental status. She has renal cell carcinoma with rapid decline as well as supranuclear palsy. no longer able to take care of her at home. She has been accepted to [facility]. She was tested for COVID prior to transfer and found to be positive. She is currently pending transfer once she completes isolation protocol and is expected to transfer on Monday07/22/2022 Encephalopathy resolved, most likely due to cytokine release due to recent radiation therapy , all cultures came back negative, no evidence of ongoing infectious process , blood culture urine culture negative -CT-A/P: Performed w/o contrast. No evidence of urinary obstruction. No evidence of metastatic disease. - -CXR: No acute abnormalities and in particular no evidence of pneumonia. -CT-H: No acute intracranial hemorrhage, no evidence of acute territorial infarction or other acute intracranial disease process -MRI of the brain without metastasis or stroke Continues to be improved (2) COVID-19: Plan: Asymptomatic Continue isolation per protocol Anticipate transfer to [facility] on Monday07/22/2022 (3) A-fib: Plan: Developed paroxysmal A. fib during this admission - continue Cardizem, current rhythm is sinus continue apixaban No awareness of palpitations (4) Clear cell carcinoma of left kidney: Plan: Renal Cell Carcinoma, Clear Cell w/ Mets - Dx 2013. S/p L nephrectomy 2013. s/p palliative radiation to R humerous, VATS for R lung met. - Past tx sutent --> axitinib --> currently on pazopanib. Held 2/2 anemia - R pectoralis metastatic lesion increasing since 2019 - was Undergoing SBRT with Rad/Onc for pectoralis met - Follows w/ Dr. Alvarez who saw her this admission -The family at this point decided to proceed with comfort care and they would not like to pursue radiation therapy Further care at [facility] (5) HTN (hypertension): Plan: Substituted with Cardizem Hemodynamically stable (6) Hypothyroid: Plan: - TSH normal - Continue synthroid (7) Chronic kidney disease, stage III (moderate): Plan: Labs reviewed as drawn this morning Labs reviewed and are acceptable. Electrolytes are balanced Outpatient labs as needed (8) Anemia: Plan: Acute Anemia HgB 12.6 g/dL today - No evidence of bleeding on CT-H/CXR/Ct-A/P, BUN not elevated - Fibrinogen elevated, iron is low - Hold pazopanib - (9) Progressive supranuclear palsy: Plan: - Supportive care, follows with neurology, no treatments available of benefit. Sees [facility] and saw [facility] 2021 for consultation. - Prior baseline 4/5 limb strength globally with focal worsened weakness in the R shoulder - Wheelchair bound -Limited downward gaze -Given patient will proceed with hospice care at change diet to diabetic diet as per family request, discontinue pured diet (10) Diabetes: Plan: T2DM Increase the dose of glipizide to 5, patient has A1c of 7.9 Plan Pending placement, discussed with the porter sample case and the . Plan on transfer to [facility] on Monday07/22/2022 Admission and Anticipated Discharge Date Admission Date: July 03, 2022 Supervising Physician Co-Signing Physician Notes Attending Attestation - Chart reviewed, care plan d/w JOSE J Sousa. I agree w/ the vuong components of his documentation. Gaurav Aguirre MD Subjective Attending: Dr. Aguirre Patient seen and examined. No acute changes. Patient is currently just waiting for placement. No new complaints. Review of Systems Review of Systems: A total of 10 systems was reviewed and is negative other than as listed in the HPI Physical Exam Physical Exam: GENERAL : No acute distress. Profound weakness. Pleasant EYES: No icterus, gaze conjugate NOSE: No evidence of epistaxis MOUTH: No lesions or candidiasis. Mucosa somewhat dry NECK: Supple LUNGS: CTA B/L, no wheezes, rales or rhonchi HEART: Regular, rate controlled ABDOMEN: Soft, NT, ND, BS Present EXTREMITIES: No LE edema, pedal pulses intact NEURO: A&OX3. Profound weakness of all 4 extremities. She does move the spontaneously to command. present at bedside and reports no focal changes Results & Data Results & Data ([facility]) Vital Signs (Past 12 Hours) Vital Signs Temp Pulse Resp BP Pulse Ox O2 Del Method 07/20/22 10:17 Room Air 07/20/22 08:45 36.4 C L 73 18 130/68 96 Room Air Critical Care Results & Data Vital Signs (Past 12 Hours) Vital Signs Temp Pulse Resp BP Pulse Ox O2 Del Method 07/20/22 10:17 Room Air 07/20/22 08:45 36.4 C L 73 18 130/68 96 Room Air Lab & Micro Results (Past 24 Hours) No Data to Display No Data to Display No Data to Display I & O Totals 24 Hours 07/19/22 07/20/22 07/21/22 06:59 06:59 06:59 Intake Total 960 / 960 480 / 480 Output Total 1250 / 1250 1650 / 1650 350 / 350 Balance -290 / -290 -1650 / -1650 130 / 130 Cumulative 07/03/22 08:52 thru 07/20/22 14:26 Intake Total 17076.334 Output Total 54892 Balance -9682.666 RT Ventilator Mngmt (Last Documented) Ventilator Ordered Settings Respiratory Rate 18 07/20/22 08:45 Ventilator - PT Measurements Respiratory Rate 18 PG Care Time/CCT Total # of Minutes Spent Total Time Spent with Patient: Total time spent is greater than 50% in coordination of care (as documented) at patient's floor/unit and/or counseling patient: Coding Level of Care Code 18487 SUB INP/OBS CARE 1/25MIN Diagnoses Altered mental state R41.82 COVID-19 U07.1 A-fib I48.91 Clear cell carcinoma of left kidney C64.2 HTN (hypertension) I10 Hypothyroid E03.9 Chronic kidney disease, stage III (moderate) N18.3 Anemia D64.9 Progressive supranuclear palsy G23.1 Diabetes E11.9
[2022-07-21] MEDS: LEVOTHYROXINE SODIUM 75 MCG TABLET PO SCH (05:34)
[2022-07-21] MEDS: INSULIN ASPART PER UNIT SC SCH ×4 (09:16→21:29)
[2022-07-21] MEDS: IRON POLYSACCHARIDE COMPLEX 150 MG CAPSULE PO SCH (09:36)
[2022-07-21] MEDS: dilTIAZem HCL 120 MG CAPCR PO SCH (09:36)
[2022-07-21] MEDS: glipiZIDE 5 MG TAB PO SCH (09:36)
[2022-07-21] MEDS: PARoxetine HCL 20 MG TAB PO SCH (09:36)
[2022-07-21] MEDS: MULTIVITAMIN TAB PO SCH (09:36)
[2022-07-21] MEDS: APIXABAN 5 MG TABLET PO SCH ×2 (09:36→21:36)
--- NOTE | 2022-07-21 20:12 | Hospitalist Progress Note ---
Date of Service July 21, 2022 Assessment & Plan (1) Altered mental state: Plan: Attending: Dr. Aguirre Impression: 72-year-old female admitted 07/03/2022 for altered mental status. She has renal cell carcinoma with rapid decline as well as supranuclear palsy. no longer able to take care of her at home. She has been accepted to [facility]. She was tested for COVID prior to transfer and found to be positive. She is currently pending transfer once she completes isolation protocol and is expected to transfer on Monday07/22/2022 Encephalopathy resolved, most likely due to cytokine release due to recent radiation therapy , all cultures came back negative, no evidence of ongoing infectious process , blood culture urine culture negative -CT-A/P: Performed w/o contrast. No evidence of urinary obstruction. No evidence of metastatic disease. - -CXR: No acute abnormalities and in particular no evidence of pneumonia. -CT-H: No acute intracranial hemorrhage, no evidence of acute territorial infarction or other acute intracranial disease process -MRI of the brain without metastasis or stroke Continues to improve (2) COVID-19: Plan: Asymptomatic Continue isolation per protocol Transfer to [facility] on Monday07/22/2022 (3) A-fib: Plan: Developed paroxysmal A. fib during this admission - continue Cardizem, current rhythm is sinus continue apixaban No awareness of palpitations (4) Clear cell carcinoma of left kidney: Plan: Renal Cell Carcinoma, Clear Cell w/ Mets - Dx 2013. S/p L nephrectomy 2013. s/p palliative radiation to R humerous, VATS for R lung met. - Past tx sutent --> axitinib --> currently on pazopanib. Held 2/ anemia - R pectoralis metastatic lesion increasing since 2019 - was Undergoing SBRT with Rad/Onc for pectoralis met - Follows w/ Dr. Alvarez who saw her this admission -The family at this point decided to proceed with comfort care and they would not like to pursue radiation therapy Further care at [facility] (5) HTN (hypertension): Plan: Substituted with Cardizem Hemodynamically stable (6) Hypothyroid: Plan: - TSH normal - Continue synthroid (7) Chronic kidney disease, stage III (moderate): Plan: Labs reviewed as drawn this morning Labs reviewed and are acceptable. Electrolytes are balanced Outpatient labs as needed (8) Anemia: Plan: Acute Anemia HgB 12.6 g/dL today - No evidence of bleeding on CT-H/CXR/Ct-A/P, BUN not elevated - Fibrinogen elevated, iron is low - Hold pazopanib - (9) Progressive supranuclear palsy: Plan: - Supportive care, follows with neurology, no treatments available of benefit. Sees [facility] and saw [facility] 2021 for consultation. - Prior baseline 4/5 limb strength globally with focal worsened weakness in the R shoulder - Wheelchair bound -Limited downward gaze -Given patient will proceed with hospice care at change diet to diabetic diet as per family request, discontinue pured diet (10) Diabetes: Plan: T2DM Increase the dose of glipizide to 5, patient has A1c of 7.9 Plan Pending placement, discussed with the caser and the . Plan on transfer to [facility] on Monday07/22/2022 Admission and Anticipated Discharge Date Admission Date: July 03, 2022 Supervising Physician Co-Signing Physician Notes Attending Attestation - Chart reviewed, care plan d/w JOSE J Sousa. I agree w/ the vuong components of his documentation. Awaiting completion of isolation period for COVID+ status, then transfer to SNF for hospice pathway. Gaurav Aguirre MD Subjective Attending: Dr. Aguirre Patient seen and examined. No acute changes. Patient is currently just waiting for placement. No new complaints. Review of Systems Review of Systems: A total of 10 systems was reviewed and is negative other than as listed in the HPI Physical Exam Physical Exam: GENERAL : No acute distress. Profound weakness. Pleasant EYES: No icterus, gaze conjugate NOSE: No evidence of epistaxis MOUTH: No lesions or candidiasis. Mucosa somewhat dry NECK: Supple LUNGS: CTA B/L, no wheezes, rales or rhonchi HEART: Regular, rate controlled ABDOMEN: Soft, NT, ND, BS Present EXTREMITIES: No LE edema, pedal pulses intact NEURO: A&OX3. Profound weakness of all 4 extremities. She does move the spontaneously to command. present at bedside and reports no focal changes Results & Data Results & Data ([facility]) Vital Signs (Past 12 Hours) Vital Signs Temp Pulse Resp BP Pulse Ox O2 Del Method 07/21/22 15:19 36.6 C 91 H 18 114/68 95 Room Air 07/21/22 09:55 Room Air 07/21/22 08:39 36.6 C 66 18 117/57 L 96 Room Air Critical Care Results & Data Vital Signs (Past 12 Hours) Vital Signs Temp Pulse Resp BP Pulse Ox O2 Del Method 07/21/22 15:19 36.6 C 91 H 18 114/68 95 Room Air 07/21/22 09:55 Room Air 07/21/22 08:39 36.6 C 66 18 117/57 L 96 Room Air Lab & Micro Results (Past 24 Hours) No Data to Display No Data to Display No Data to Display I & O Totals 24 Hours 07/20/22 07/21/22 07/22/22 06:59 06:59 06:59 Intake Total 680 / 680 Output Total 1650 / 1650 900 / 900 351 / 351 Balance -1650 / -1650 -220 / -220 -351 / -351 Cumulative 07/03/22 08:52 thru 07/21/22 15:19 Intake Total 91613.334 Output Total 25734 Balance -64404.666 RT Ventilator Mngmt (Last Documented) Ventilator Ordered Settings Respiratory Rate 18 07/21/22 15:19 Ventilator - PT Measurements Respiratory Rate 18 PG Care Time/CCT Total # of Minutes Spent Total Time Spent with Patient: Total time spent is greater than 50% in coordination of care (as documented) at patient's floor/unit and/or counseling patient: Coding Level of Care Code 18648 SUB INP/OBS CARE 1/25MIN Diagnoses Altered mental state R41.82 COVID-19 U07.1 A-fib I48.91 Clear cell carcinoma of left kidney C64.2 HTN (hypertension) I10 Hypothyroid E03.9 Chronic kidney disease, stage III (moderate) N18.3 Anemia D64.9 Progressive supranuclear palsy G23.1 Diabetes E11.9
[2022-07-22] MEDS: LEVOTHYROXINE SODIUM 75 MCG TABLET PO SCH (05:50)
[2022-07-22] MEDS: PARoxetine HCL 20 MG TAB PO SCH (09:11)
[2022-07-22] MEDS: MULTIVITAMIN TAB PO SCH (09:11)
[2022-07-22] MEDS: glipiZIDE 5 MG TAB PO SCH (09:11)
[2022-07-22] MEDS: dilTIAZem HCL 120 MG CAPCR PO SCH (09:11)
[2022-07-22] MEDS: IRON POLYSACCHARIDE COMPLEX 150 MG CAPSULE PO SCH (09:11)
[2022-07-22] MEDS: APIXABAN 5 MG TABLET PO SCH (09:12)
[2022-07-22] MEDS: INSULIN ASPART PER UNIT SC SCH (09:19)
--- NOTE | 2022-07-22 10:41 | Discharge Summary ---
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 On ER assessment she was hypotensive, tachycardic, with increased can turgor. CTA/P/CThead/CXR were unremarkable, UA was contaminated versus infected appearing and patient was empirically treated for potential sepsis and mentation improved with 2.5 L NSS. Patient is seen at bedside with her present, she is very slow to respond and somnolent, but does give her name/place/year appropriately with greatly increased speech latency. History is extremely limited from patient, history is taken with assistance of her at bedside. She has been undergoing radiation therapy for a pectoralis metastasis with her last radiation treatment 2 days ago. She has continued to take pazopanib daily, last took medications yesterday. She does not have any known brain metastasis of her cancer. She does not have any fever, chills, sweats, cough, lightheadedness, dizziness, shortness of breath, nausea/vomiting/abdominal pain recently. She has not had any bleeding that her has noted including GI bleeding, hematemesis, or nosebleeds. Discussed that her hemoglobin has dropped substantially from last measurement last month, was unaware of this and notes that she has not had any falls, trauma, or bleeding. She is not on any blood thinners. She does not have any heart problems, he does not think she has ever had a history of A. fib. She has had high blood sugar recently, that has been notes that she has had high blood sugar but not necessarily diabetes, but the glipizide does not seem to help and her blood sugar has been above 180 in the last week. Goals of care were discussed with at bedside. He reports that he has never thought about CODE STATUS before, did report to ER that Renee was full code initially. Did discuss that she was DNR/DNI last 2 admissions, and in context of her irreversible supranuclear palsy and cancer should she clinically arrest the prognosis would be extremely guarded. Patient previously expressed DNR/DNI preference, discussed with patient and at bedside and agree that patient would want full treatment for infections and treatable causes but in the event that she were to undergo a cardiac or respiratory arrest would want to prolong suffering and will continue DNR/DNI at this time Medical History: Reviewed Medications: Reviewed Surgical History: Reviewed Allergies: Reviewed Social History: Reviewed Code Status: DNR/DNI Admission Exam Per Admitting Provider Physical Exam: General: Initially nonverbal on ER assessment. Following fluids/antibiotics patient is with increased speech latency of several seconds but is able to verbalize name, year, and "hospital ". HEENT: Atraumatic, normocephalic. Tracks with eyes intermittently, does not follow commands consistently. Vision/hearing is grossly intact. Pupils are equally reactive to light. Pulm: CTAB A&P. -wheezes, -rales, -rhonchi. Symmetrical chest rise. No increased work of breathing. No respiratory distress. Cardiac: Tachycardic. P waves visible on monitor car operator during exam, rate variable between 100 and 130. No JVD radial pulses intact and symmetrical. Abdominal: Nontender, nondistended, soft. BS present. Extremities: Warm, dry. No mottling. Does wiggle toes on command. Cap refill sluggish. Sensation intact to soft touch of hand bilaterally, sensation/strength testing limited by altered mentation Principal Diagnosis Altered mental status Supranuclear palsy Renal cell carcinoma, clear-cell with metastasis Atrial fibrillation Discharge Exam GENERAL : No acute distress. Profound weakness. Pleasant EYES: No icterus, gaze conjugate NOSE: No evidence of epistaxis MOUTH: No lesions or candidiasis. Mucosa somewhat dry NECK: Supple LUNGS: CTA B/L, no wheezes, rales or rhonchi HEART: Regular, rate controlled ABDOMEN: Soft, NT, ND, BS Present EXTREMITIES: No LE edema, pedal pulses intact NEURO: A&OX3. Profound weakness of all 4 extremities. She does move the spontaneously to command. present at bedside and reports no focal changes Discharge Data Allergies Allergy/AdvReac Type Severity Reaction Status Date / Time nickel Allergy Severe ITCHING Verified 07/03/22 09:45 AND SORENESS OF GLANDS adhesive Allergy Intermediate REDNESS Verified 07/03/22 09:45 AND VERY ITCHY Penicillins Allergy Intermediate RASH Verified 07/03/22 09:45 Sulfa (Sulfonamide Allergy Intermediate VAGINAL Verified 07/03/22 09:45 Antibiotics) IRRITATION latex AdvReac Unknown Unknown Verified 07/03/22 09:45 Consultations 07/03/22 11:07 ED Decision to Admit Stat 07/06/22 09:46 Consult Palliative Care Routine Ordered Studies 07/03/22 09:24 CT head/brain wo con Stat CT head/brain wo con CLINICAL HISTORY: altered, met cancer Technique: Contiguous axial CT images of the head were acquired from the base of the skull to the vertex without intravenous contrast administration. Images were viewed in brain, subdural and bone windows. Automated dose lowering techniques and/or adjustment according to patient size were utilized for this exam. Comparison: Comparison is made to CT head 05/19/2022 Findings: Areas of decreased attenuation are present in the periventricular and subcortical white matter bilaterally consistent with small vessel ischemic disease. Generalized cerebral atrophy with commensurate enlargement of the ventricles, sulci, and cisterns is also present. There is no acute intracranial hemorrhage or evidence of acute territorial infarction. No shift of the midline structures, mass effect, or extra-axial abnormalities are shown. Atherosclerotic calcifications are present in the intracranial segments of the internal carotid arteries. Imaged portions of the paranasal sinuses and mastoid air cells are clear. The orbits appear normal. There are no acute fractures of the calvaria or scalp swelling. Impression: No acute intracranial hemorrhage, no evidence of acute territorial infarction or other acute intracranial disease process. ACT 112: Negative or not required by law. Electronically signed by: Matt Campos M.D. 07/03/2022 10:18 AM 07/03/22 09:33 CT abd pelvis wo con Stat CLINICAL HISTORY: renal cancer, poss urinary obstruction TECHNIQUE: Helical axial images of the abdomen and pelvis were obtained. Automated dose lowering techniques and/or adjustment according to patient size were utilized for this exam. This exam was performed without intravenous contrast. CT DOSE: 812.14 mGy.cm COMPARISON: Comparison is made to CT abdomen pelvis 05/04/2022 FINDINGS: Lower chest: No acute abnormality. Liver: Unremarkable. No focal lesions are seen. Gallbladder and biliary tree: No calcified gallstones. Normal caliber wall. No intra- or extrahepatic biliary ductal dilation. Pancreas: Unremarkable, no focal lesions. Spleen: Unremarkable. Adrenals: Unremarkable. Kidneys and ureters: Status post left nephrectomy. The right kidney is normal. No evidence of hydronephrosis or hydroureter. Bladder: Fall catheter is seen. Reproductive organs: Unremarkable. Bowel: Unremarkable appearance of the bowel. The appendix is normal. Lymph nodes Retroperitoneal: Unremarkable. Pelvic: Unremarkable. Mesenteric: Unremarkable. Peritoneum: Normal. Vessels: Unremarkable. Abdominal wall: A fat-containing umbilical hernia is seen. Bones: Degenerative changes in the visualized spine. Compression deformity of L1 is unchanged from prior exam. Right hip total arthroplasty is seen. IMPRESSION: No evidence of urinary obstruction. No evidence of metastatic disease. Additional findings as above. ACT 112: Negative or not required by law. Electronically signed by: Matt Campos M.D. 07/03/2022 10:30 AM 07/04/22 07:00 MR brain wo/w con Routine MRI OF THE BRAIN COMBO CLINICAL HISTORY: Change in mental status. History of metastatic renal cell carcinoma. COMPARISON STUDY: CT of the brain dated 07/03/2022. MRI of the brain dated 04/21/2020. TECHNIQUE: MRI of the brain was performed utilizing various T1 and T2-weighted sequences in the axial, sagittal, and coronal planes. Contrast-enhanced sequences were acquired following the administration of 5 cc of Gadavist. FINDINGS: Brain parenchyma: There is age related emotional change noting mild subcortical and periventricular microangiopathic disease. There is no hemorrhage or mass effect. There is no restricted diffusion to suggest acute ischemia. No enhancing mass lesion is identified on the postcontrast images. Goetz-white matter differentiation is preserved. No extra-axial fluid collection is seen. The cerebellar tonsils are normal in configuration. Ventricles, sulci, and cisterns: Prominent secondary to involutional change. Ventriculomegaly is similar to previous. Pituitary and sella: Unremarkable. Intracranial vasculature: Normal flow voids are maintained at the skull base. Orbits: The bony orbits are grossly intact. Orbital contents are normal in appearance noting bilateral ocular lens implants. Sinuses and mastoids: There is mild mucosal thickening within the maxillary antra, as well as the ethmoid and sphenoid sinuses. The metatarsals are clear. Calvarium: Unremarkable. Cervical cord: Partially visualized cervical spinal cord is normal in morphology and signal intensity. IMPRESSION: No acute intracranial abnormality is identified. Specifically, there is no MRI evidence of intracranial metastatic disease. ACT 112: Negative or not required by law. Electronically signed by: Ti Michaels M.D. 07/04/2022 12:06 PM 07/05/22 13:45 FL video swallow Routine FL video swallow CLINICAL HISTORY: Assess for aspiration TECHNIQUE: Video fluoroscopy of the pharyngeal region was performed as barium mixtures of varying consistencies were administered to the patient by the speech pathologist. A formal esophagram was not performed. Comparison: None available at the time of this dictation. FINDINGS: Total fluoroscopy time: 4.5 minutes. Penetration was seen with thin liquids without evidence of aspiration. With mixed consistency, aspiration was seen. Pooling of barium was noted in the bilateral piriform sinuses and valleculae. IMPRESSION: Aspiration and penetration were seen. Please see the speech pathology report for further details. ACT 112: Negative or not required by law. Electronically signed by: Matt Campos M.D. 07/05/2022 2:47 PM Hospital Course (1) Altered mental state: Attending: Dr. Aguirre Impression: 72-year-old female admitted 07/03/2022 for altered mental status. She has renal cell carcinoma with rapid decline as well as supranuclear palsy. no longer able to take care of her at home. She has been accepted to [facility]. She was tested for COVID prior to transfer and found to be positive. She is currently pending transfer once she completes isolation protocol and is expected to transfer on Monday07/22/2022 Encephalopathy resolved, most likely due to cytokine release due to recent radiation therapy , all cultures came back negative, no evidence of ongoing infectious process , blood culture urine culture negative -CT-A/P: Performed w/o contrast. No evidence of urinary obstruction. No evidence of metastatic disease. - -CXR: No acute abnormalities and in particular no evidence of pneumonia. -CT-H: No acute intracranial hemorrhage, no evidence of acute territorial infarction or other acute intracranial disease process -MRI of the brain without metastasis or stroke Continues to improve (2) COVID-19: Asymptomatic Completed isolation per protocol Transfer to [facility] today (3) A-fib: Developed paroxysmal A. fib during this admission - continue Cardizem, current rhythm is sinus - continue apixaban No awareness of palpitations (4) Clear cell carcinoma of left kidney: Renal Cell Carcinoma, Clear Cell w/ Mets - Dx 2013. S/p L nephrectomy 2013. s/p palliative radiation to R humerous, VATS for R lung met. - Past tx sutent --> axitinib --> currently on pazopanib. Held 2/2 anemia - R pectoralis metastatic lesion increasing since 2019 - was Undergoing SBRT with Rad/Onc for pectoralis met - Follows w/ Dr. Alvarez who saw her this admission -The family at this point decided to proceed with comfort care and they would not like to pursue radiation therapy Further care at [facility] (5) HTN (hypertension): Lisinopril discontinued Substituted with Cardizem secondary to atrial fibrillation Hemodynamically stable blood pressure of 122 this morning (6) Hypothyroid: - TSH normal - Continue synthroid (7) Chronic kidney disease, stage III (moderate): Labs reviewed and are acceptable. Electrolytes are balanced Outpatient labs as needed (8) Anemia: Acute Anemia HgB 12.6 g/dL - No evidence of bleeding on CT-H/CXR/Ct-A/P, BUN not elevated - Fibrinogen elevated, iron is low - Hold pazopanib - (9) Progressive supranuclear palsy: - Supportive care, follows with neurology, no treatments available of benefit. Sees [facility] Neuro and saw [facility] 2021 for consultation. - Prior baseline 4/5 limb strength globally with focal worsened weakness in the R shoulder - Wheelchair bound -Limited downward gaze -Given patient will proceed with hospice care at change diet to diabetic diet as per family request, discontinue pured diet (10) Diabetes: T2DM Increase the dose of glipizide to 5, patient has A1c of 7.9 Plan Discharge to [facility] for transition to hospice Total Time Total Time Spent Total Time Spent (In Minutes): 5 minutes Discharge Plan Discharge Items Patient Disposition: Transfer Alf Fac Reason For Visit: AMS? SEPSIS,ANEMIA Discharge Diagnosis: Progressive supranuclear palsy Mental status COVID 19 Atrial fibrillation Clear-cell carcinoma of the left kidney with metastasis Condition on Discharge: Serious Activity: Per Instructions section Activity Comment: Nursing care guidelines Lifting: Gradually increase as tolerated Bathing: No limitations Exercise/Sports: Gradually increase as tolerated Weightbearing: Full weightbearing Non-emergency contact: Primary Care Provider Call non-emergency contact if: you have any medication questions Follow-up/Referrals: Flakito Kiran [Primary Care Provider] - Diet: Regular Addtl Attending Provider Instructions: Is being transferred to [facility] for end-of-life care. She has had discussion with her and desires to be comfort care. She should be continued on aspiration precautions Continue fall precautions and supportive care Pending Studies at Discharge: No Stand-Alone Forms: My [facility] Skilled Items Patient informed of condition?: Yes DNR: Yes Discharge Level of Care: Skilled Communicable Disease: No Discharge Prognosis: Other Lines: None Urinary Catheter: Yes Medications and DC Order Prescriptions: New Eliquis 5 mg Tablet 5 mg PO BID Qty: 60 0RF polysaccharide iron complex [Ferrex 150] 150 mg iron Capsule 150 mg PO DAILY Qty: 30 0RF diltiazem HCl [Cardizem CD] 120 mg Capsule,Extended Release 24hr 120 mg PO QAM Qty: 30 0RF glipizide 5 mg Tablet 5 mg PO QAM Qty: 30 0RF Continued (DME) Wheelchair (Manual) Device See Rx Instructions .Route Qty: 1 0RF Rx Instructions: Folding Lightweight manual wheelchair with elevating leg rests, foot plates, hand brakes, and Cushion tramadol 50 mg tablet 50 mg PO DAILY PRN (Reason: Pain) multivitamin Tablet 1 tab PO QAM levothyroxine [Synthroid] 75 mcg Tablet 75 mcg PO QAM paroxetine HCl 40 mg tablet 40 mg PO DAILY Discontinued Votrient 200 mg tablet 100 mg PO DAILY Rx Instructions: administer on an empty stomach, at least 1 hour before or 2 hours after food/meal(s) cholecalciferol (vitamin D3) [Vitamin D3] 2,000 unit Capsule 50 mcg PO QAM lisinopril 5 mg tablet 5 mg PO DAILY Rx Instructions: TOTAL DOSE 7.5 MG--TAKES WITH 2.5 MG TAB. lisinopril 2.5 mg tablet 2.5 mg PO DAILY Rx Instructions: TOTAL DOSE 7.5 MG--TAKES WITH 5 MG TAB. vitamin B complex Tablet 1 tab PO DAILY glipizide 2.5 mg tablet extended release 24hr 2.5 mg PO DAILY Qty: 30 0RF dexamethasone 4 mg tablet 4 mg PO UD Rx Instructions: Take 1 tab 1 hour prior to Radiation Discharge Orders: Discharge Order (Routine); Ordered 07/22/22 Ordered By: Ti Curry/Other Patient Handouts: High Blood Sugar (Hyperglycemia), Hypoglycemia (Low Blood Sugar), Managing Type 2 Diabetes Admission Data Admit Date/Time: 07/03/22 12:16 Attending Provider: Gaurav Aguirre Admit Provider: Sujit Corley Primary Care Provider: Flakito Kiran Other Providers: [facility] ; Sujit Corley ; Shannan Duvall Other Interventions: Discharge Summary Assessment (RN) Last Done: 07/22/22 09:49 Supervising Physician Co-Signing Physician Notes Attending Attestation and Discharge Note - Pt seen/examined, chart reviewed, care plan d/w PA Ti Kroner. I agree w/ the vuong components of his discharge documentation. 72yo female with metastatic kidney cancer, progressive supranuclear palsy, and failure to thrive presented with altered mental status. Did poorly during the stay and ultimately tested + for COVID-19 on 07/13/22 in preparation for d/c to SNF. COVID positive test delayed her d/c and she needed an isolation period at [facility] prior to Tx to SNF. Ultimately on 07/22/22 was able to d/c to [facility] after completing her COVID isolation period. In light of global declining status patient is transferring to [facility] on hospice per family wishes. Discharge exam- gen - thin, mildly confused eyes - downward gaze mouth - MM dry neck - no JVD heart - RRR, s1 s2 lungs - CTA b/l abd - soft NT ext - no edema Gaurav Aguirre MD Coding Level of Care Code HOSP INP/OBS DISCH >30 MIN Diagnoses Altered mental state R41.82 COVID-19 U07.1 A-fib I48.91 Clear cell carcinoma of left kidney C64.2 HTN (hypertension) I10 Hypothyroid E03.9 Chronic kidney disease, stage III (moderate) N18.3 Anemia D64.9 Progressive supranuclear palsy G23.1 Diabetes E11.9
== END 2022-07-22 11:10 | disposition hospice, inpatient (51) | DRG 686 ==
LOC: ED 09:13 → SUATTDRO 12:16 → EDINP 12:16 → 2E 16:42 → 2S 07-13 19:05 → 3N 07-14 01:09